=== PATIENT | female | born 1940 | race Caucasian/White ===

== ENCOUNTER 2020-12-29 15:20 | Outpatient (CLI) | payer MEDICARE, SELFPAY ==
--- NOTE | 2020-12-31 17:02 | WPDHOLTEREM ---
Holter/Event Monitor Holter/Event Monitor Date of procedure: 12/31/20 Procedure Type: 24 hour Holter monitor Diagnosis: tachycardia Indications: tachycardia Image/Tracing Quality: good Finding: This is a 24 hour Holter monitor in which she underlying rhythm was sinus with an average heart rate of 87 beats per minute minimum of 69 beats per minute occurring at 1:33 a.m. and a maximum of 114 beats per minute occurring at 1:08 p.m.. There 107 premature ventricular contractions without sustained or nonsustained ventricular tachycardia. There were rare supraventricular ectopic beats totaling 26 in which there were 2 atrial runs longest of which was 4 beats in duration. There was 1 atrial pair with 17 premature atrial contractions. There is no atrial fibrillation and/or atrial flutter, prolonged pauses, and or high-grade AV blocks. There were no symptoms returning conjunction with this study. PA and QRS duration appear within normal limits. Longest R-R interval 1.1 second at 0217. Conclusion: Fairly unremarkable Holter monitor with underlying sinus rhythm with rare PVCs and PACs with 2 runs of atrial tachycardia longest of which was 4 beats in duration. No atrial fibrillation or atrial flutter.
== END 2020-12-29 15:21 | disposition home or self-care (01) ==
DX: R00.0 Tachycardia, unspecified (principal)
CPT/HCPCS: 93225; 93226

== ENCOUNTER → 2022-04-30 13:18 | Outpatient (CLI) | payer MEDICARE, SELFPAY ==
--- NOTE | ~2022-04-30 | MM_ITS ---
EXAMINATION: MM screening [facility] w [facility] HISTORY: Screening mammogram TECHNIQUE: Craniocaudal and mediolateral oblique 3-D tomosynthesis images were obtained and synthetic 2-D images were generated. CAD analysis was submitted and interpreted. COMPARISON: No prior mammogram is available for comparison at this institution. BREAST PARENCHYMAL COMPOSITION: There are scattered areas of fibroglandular density. FINDINGS: Small asymmetric opacity is noted anteriorly near the right medial subareolar area and near the lateral subareolar area. Bilateral diagnostic mammography and breast ultrasound examination are recommended. IMPRESSION: 1. No mammographic evidence of malignancy. 2. Recommend routine screening mammography in one year. BI-RADS Category 0: Incomplete: Needs additional imaging evaluation. Reviewed, dictated and finalized at location A.
== END ==
DX: Z12.31 Encounter for screening mammogram for malignant neoplasm of breast (principal); R92.8 Other abnormal and inconclusive findings on diagnostic imaging of breast
CPT/HCPCS: 77063; 77067

== ENCOUNTER 2023-08-13 12:35 | Emergency (ER) | payer MEDICARE, SELFPAY ==
--- NOTE | ~2023-08-13 | XR_ITS ---
XR foot LT min 3V DATE: 08/13/2023 13:11 INDICATION: Lateral foot pain. No injury. TECHNIQUE: 4 views COMPARISON: None FINDINGS: Diffuse osteopenia. Plantar calcaneal enthesopathy. No fracture, dislocation, periosteal reaction or bone destruction. IMPRESSION: Plantar calcaneal enthesopathy Osteopenia Reviewed, dictated and finalized at location A.
[2023-08-13 12:50] VITALS: BP 135/67; PULSE 92; RESP 16; TEMP 37.2; O2SAT 98
--- NOTE | 2023-08-13 13:07 | ED.GENADULT ---
HPI - General Adult General Chief complaint: Extremity Problem,Nontraumatic Stated complaint: Pain on side of left foot Time Seen by Provider: 08/13/23 13:08 Source: patient Mode of arrival: ambulatory Limitations: no limitations History of Present Illness HPI narrative: 83 yo F presents with pain to lateral aspect of L foot. States yesterday laying on couch and started having sharp, shooting pains to L foot. Denies injury. No redness or warmth. Took tylenol with no relief of pain. Denies new shoes, for recent events that made her walk more than usual. All systems reviewed and negative except as noted above. Related Data Home Medications Medication Instructions Recorded Confirmed aripiprazole 5 mg tablet 5 mg PO DAILY 08/13/23 08/13/23 aspirin 325 mg tablet 325 mg PO DAILY 08/13/23 08/13/23 atorvastatin 80 mg tablet 80 mg PO DAILY 08/13/23 08/13/23 hydrochlorothiazide 25 mg tablet 25 mg PO DAILY 08/13/23 08/13/23 omeprazole 40 mg capsule,delayed 40 mg PO DAILY 08/13/23 08/13/23 release sertraline 100 mg tablet 100 mg PO DAILY 08/13/23 08/13/23 telmisartan 80 mg tablet 80 mg PO DAILY 08/13/23 08/13/23 Allergies Allergy/AdvReac Type Severity Reaction Status Date / Time meperidine [From Demerol] Allergy Vomiting Verified 08/13/23 12:48 Review of Systems Review of Systems: CONSTITUTIONAL: Denies fever, chills, or sweats. EYES: Denies visual changes, redness, or discharge. ENT: Denies rhinorrhea, congestion, sore throat, or otalgia. CARDIOVASCULAR: Denies chest pain, palpitations, or edema. RESPIRATORY: Denies cough or dyspnea. GASTROINTESTINAL: Denies abdominal pain, nausea, vomiting, or diarrhea. GENITOURINARY: Denies dysuria or hematuria. SKIN: Denies rash or itching. MUSCULOSKELETAL: Denies back pain, joint pain, or myalgia. Reports pain to lateral aspect of left foot. NEUROLOGIC: Denies headache, numbness, or weakness. PSYCHIATRIC: Denies anxiety or depression. All other systems reviewed are negative, except as documented in HPI. PMFSH Comments At time of signature, agree with nursing past medical, surgical, social and family history. There is no relevant family history pertinent to the presenting complaint. Exam Narrative: GENERAL: This is a well-nourished, well-developed patient, in no apparent distress. HEAD: normocephalic, atraumatic. EYES: PERRL. Sclera clear/white. Vision is grossly intact. EARS: External ears normal NOSE: External nose normal NECK: Neck supple, non-tender without lymphadenopathy, masses or thyromegaly. CARDIOVASCULAR: Regular rate and rhythm without murmurs, gallops, or rubs. RESPIRATORY: Clear to auscultation. Breath sounds equal bilaterally. No wheezes, rales, or rhonchi. SKIN: warm, Dry, intact with no suspicious lesions or rash, good texture and turgor. NEURO: awake, alert, and oriented to person, place and time. There were no obvious focal neurologic abnormalities. EXTREMITIES: No joint tenderness, effusion, or edema noted. Tenderness along 4th and 5th metatarsals with mild swelling. No erythema or warmth. No deformity. Course Course Level of Care: Express Care Visit Vital Signs Vital signs: Vital Signs Temperature 37.2 C 08/13/23 12:50 Pulse Rate 92 08/13/23 12:50 Respiratory Rate 16 08/13/23 12:50 Blood Pressure 135/67 08/13/23 12:50 Pulse Oximetry 98 08/13/23 12:50 Temperature 37.2 C 08/13/23 12:50 Pulse Rate 92 08/13/23 12:50 Respiratory Rate 16 08/13/23 12:50 Blood Pressure 135/67 08/13/23 12:50 Pulse Oximetry 98 08/13/23 12:50 Reviewed Medical Decision Making MDM Narrative Medical decision making narrative: X-ray negative for fracture. Patient does have history of osteoporosis. Recommend patient continue Tylenol every 6 8 hours and will prescribe prednisone for inflammation. Recommend follow-up with primary care physician if pain is not improving. Patient is aware of diagnosis, understands and agrees t
== END 2023-08-13 13:52 | disposition home or self-care (01) ==
PROVIDERS: Emergency Provider Nurse Practitioner Family
DX: M85.872 Other specified disorders of bone density and structure, left ankle and foot (principal); Z79.82 Long term (current) use of aspirin; I10 Essential (primary) hypertension; K21.9 Gastro-esophageal reflux disease without esophagitis; M19.90 Unspecified osteoarthritis, unspecified site; F41.9 Anxiety disorder, unspecified
CPT/HCPCS: 73630; 99213; G0463

== ENCOUNTER 2023-08-22 01:08 | Day surgery (SDC) | payer MEDICARE, SELFPAY ==
[2023-08-16 09:32] VITALS: BMI 31.8
[2023-08-22 13:01] VITALS: BP 145/69; PULSE 92; RESP 18; TEMP 36.8; O2SAT 98
[2023-08-22] MEDS: LACTATED RINGERS 1,000 ML 150 ML IV CONT (13:19)
--- NOTE | 2023-08-22 13:20 | WPDANESEPPF ---
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 Patient Data Age: 83 Gender: F Height: 1.6 m Weight: 76.6 kg Last Vital Signs Temp 98.2 F 08/22/23 13:01 Pulse 92 08/22/23 13:01 Resp 18 08/22/23 13:01 BP 145/69 H 08/22/23 13:01 Pulse Ox 98 08/22/23 13:01 O2 Del Method Room Air 08/22/23 13:01 Allergies Allergy/AdvReac Type Severity Reaction Status Date / Time meperidine [From Demerol] Allergy Intermediate Vomiting Verified 08/22/23 13:00 Home Medications Medication Instructions Recorded Confirmed Type aripiprazole 5 mg tablet 5 mg PO DAILY 08/13/23 08/16/23 History aspirin 325 mg tablet 325 mg PO DAILY 08/13/23 08/16/23 History atorvastatin 80 mg tablet 80 mg PO DAILY 08/13/23 08/16/23 History hydrochlorothiazide 25 mg tablet 25 mg PO 4XW 08/13/23 08/16/23 History omeprazole 40 mg capsule,delayed 40 mg PO DAILY 08/13/23 08/16/23 History release prednisone 20 mg tablet 40 mg PO DAILY 5 days #10 tabs 08/13/23 08/16/23 Rx sertraline 100 mg tablet 100 mg PO 4XW 08/13/23 08/16/23 History telmisartan 80 mg tablet 80 mg PO DAILY 08/13/23 08/16/23 History calcium 600 mg capsule 600 mg PO BID 08/16/23 08/16/23 History coQ10 (ubiquinol) 100 mg capsule 100 mg PO DAILY 08/16/23 08/16/23 History cyanocobalamin (vitamin B-12) 1,000 mcg PO 4XW 08/16/23 08/16/23 History 1,000 mcg capsule Patient hx anesthesia problems: none Family hx anesthesia problems: none Results Review: All pre-operative results and documents have been reviewed as part of the pre-operative evaluation. [facility] Social History Social History Alcohol intake: current Substance use: never Substance use type: does not use Living arrangements: with family Spiritual care concerns: No Anes - Eval Final PreProcedure Day of Procedure 08/22/23 13:20 Patient weight: normal Heart: regular rate and rhythm Lungs: clear to auscultation Airway: Mallampati scale class III Neurological: alert and oriented Last oral intake: >/= 8 hours ASA classification: III Emergent: no Anesthetic plan: proceed Anesthesia type and monitoring: general GIVS and standard monitoring Results Review: All pre-operative results and documents have been reviewed as part of the pre-operative evaluation. Informed Consent: The patient's anesthetic plan and its attendant risks and benefits were discussed with the patient/family/POA. Questions were solicited and answers provided to the satisfaction of the patient/family/POA.
--- NOTE | 2023-08-22 13:38 | P.HP_ITS ---
History of Present Illness History of Present Illness Consent: Risks, benefits, and alternatives have been discussed and questions answered. Patient agrees to proceed with procedure. Chief complaint: Moreira's esophagus with low grade dysplasia Narrative: Dora Loving is a 83 year old female Referred because of previous diagnosis of Moreira's esophagus. Patient states previous studies were done in [place]. These results are not available from the review. Patient states most recent EGD 3-4 years ago was performed. She was told she had low-grade dysplasia at that time. Patient currently maintained on omeprazole 40mg p.o. daily. She denies any heartburn. She has no dysphagia or bleeding. Family history is noncontributory. Review of Systems Review of Systems: Review of systems noncontributory. REPLACED BY [facility] Social History Social History Alcohol intake: current Substance use: never Substance use type: does not use Living arrangements: with family Spiritual care concerns: No Meds Home Medications and Allergies Home Medications Medication Instructions Recorded Confirmed Type aripiprazole 5 mg tablet 5 mg PO DAILY 08/13/23 08/16/23 History aspirin 325 mg tablet 325 mg PO DAILY 08/13/23 08/16/23 History atorvastatin 80 mg tablet 80 mg PO DAILY 08/13/23 08/16/23 History hydrochlorothiazide 25 mg tablet 25 mg PO 4XW 08/13/23 08/16/23 History omeprazole 40 mg capsule,delayed 40 mg PO DAILY 08/13/23 08/16/23 History release prednisone 20 mg tablet 40 mg PO DAILY 5 days #10 tabs 08/13/23 08/16/23 Rx sertraline 100 mg tablet 100 mg PO 4XW 08/13/23 08/16/23 History telmisartan 80 mg tablet 80 mg PO DAILY 08/13/23 08/16/23 History calcium 600 mg capsule 600 mg PO BID 08/16/23 08/16/23 History coQ10 (ubiquinol) 100 mg capsule 100 mg PO DAILY 08/16/23 08/16/23 History cyanocobalamin (vitamin B-12) 1,000 mcg PO 4XW 08/16/23 08/16/23 History 1,000 mcg capsule Allergies Allergy/AdvReac Type Severity Reaction Status Date / Time meperidine [From Demerol] Allergy Intermediate Vomiting Verified 08/22/23 13:00 Vital Signs Vital Signs - 24 hr 08/22/23 13:01 Temperature 98.2 F Pulse Rate 92 Respiratory Rate 18 Blood Pressure 145/69 H Pulse Oximetry 98 Oxygen Delivery Room Air Exam Narrative: Physical exam reveals patient to be alert. Vital signs stable. HEENT exam is unremarkable. Patient is anicteric. Lungs are clear to auscultation and percussion. Heart is without murmur or extra sounds. Abdomen bowel sounds are present soft nontender with no organomegaly. Digital external rectal exam is normal. Assessment and Plan Assessment and plan (1) 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 Status: Acute Assessment and Plan: Patient is reported to have Moreira's esophagus. She states that at 1 point h ad low-grade dysplasia. Old records not available for review. Plan to continue omeprazole 40mg p.o. daily. EGD requested will be performed. Biopsies will be necessary and follow up pending results of histology. Further recommendations will be given after endoscopy. Long-term use of PPI and anti-reflux measures are encouraged.
[2023-08-22 14:11] VITALS: BP 122/72; PULSE 90; RESP 18; O2SAT 98
[2023-08-22 14:21] VITALS: BP 137/78; PULSE 89; RESP 15; O2SAT 99
[2023-08-22 14:31] VITALS: BP 127/86; PULSE 89; RESP 17; O2SAT 99
== END 2023-08-22 14:40 | disposition home or self-care (01) ==
PROVIDERS: PCP Family Medicine Sports Medicine; Visit Provider Internal Medicine Gastroenterology
PROC: 0DJ08ZZ Inspection of Upper Intestinal Tract, Via Natural or Artificial Opening Endoscopic (ICD-10-PCS; CPT 43235; principal; 2023-08-22 14:00)
DX: K22.70 Barrett's esophagus without dysplasia (principal); K31.7 Polyp of stomach and duodenum; K25.9 Gastric ulcer, unspecified as acute or chronic, without hemorrhage or perforation; K44.9 Diaphragmatic hernia without obstruction or gangrene; Z79.82 Long term (current) use of aspirin
CPT/HCPCS: 43239; 43251; 87081; 88305; J2704; J7120

== ENCOUNTER 2024-12-21 18:49 | Inpatient (IN) | payer MEDICARE, SELFPAY ==
--- NOTE | ~2024-12-21 | MR_ITS ---
EXAMINATION: MR brain/brain stem wo con DATE: 12/28/2024 08:14 INDICATION: Stroke TECHNIQUE: Magnetic resonance imaging (MRI) of the brain and brainstem was performed without intraven ous contrast. Sequences included sagittal and axial T1-weighted SE, axial diffusion-weighted FS SE, a xial 3D SWAN, axial T2-weighted FLAIR, and axial T2-weighted FSE. Apparent diffusion coefficient (ADC ) maps were created. COMPARISON: None. FINDINGS: There are small regions of restricted diffusion consistent with acute infarct in the left cerebellar hemisphere and at the junction of the right thalamus and right cerebral peduncle. Small old lacunar i nfarct at the right basal ganglia. No intracranial hemorrhage or abnormal intracranial mass lesion. T here are scattered areas of nonspecific increased T2-weighted signal intensity in the cerebral white matter, predominantly involving the deep and periventricular white matter. There are no intraparenchy mal signal abnormalities seen on the other pulse sequences. Symmetric prominence of the sulci consistent with mild age-appropriate diffuse cerebral volume loss. The ventricles are symmetric and normal in size. There are no abnormal extra-axial fluid collections . Flow voids are seen in the cerebral arteries on the T2-weighted sequences consistent with their exp ected patency. Changes of bilateral intraocular lens replacement. Visualized orbits and soft tissues are unremarkable. IMPRESSION: 1. Small acute lacunar infarcts at the left cerebellar hemisphere and at the junction of the right th alamus and right cerebral peduncle. 2. 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 3. Age-related changes including mild diffuse volume loss and moderate scattered nonspecific white ma tter T2 hyperintensity which within normal limits for age and likely sequela of chronic small vessel ischemic disease. Reviewed, dictated and finalized at location B. L DRILL OPERATOR IMPRESSION: 1. Small acute lacunar infarcts at the left cerebellar hemisphere and at the ju nction of the right thalamus and right cerebral peduncle. 2. 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 3. Age-related changes including mild diffuse volume loss and moderate scattere d nonspecific white matter T2 hyperintensity which within normal limits for age and likely sequela of chronic small vessel ischemic disease.
--- NOTE | ~2024-12-21 | XR_ITS ---
HISTORY: R upper arm pain COMPARISON: None TECHNIQUE: 3 views of the right humerus were performed FINDINGS: Cortical irregularity is identified within the right humeral head suggesting prior fracture.. No acute fracture deformity is appreciated. IMPRESSION: Findings consistent with prior fracture deformity, as detailed above Reviewed, dictated and finalized at location A. TIONAL GUIDANCE COUNSELOR IMPRESSION: Findings consistent with prior fracture deformity, as detailed abo ve
--- NOTE | ~2024-12-21 | CT_ITS ---
Clinical indication:Indeterminate findings on radiograph performed less than 24 hours earlier for whi ch pneumonia is suspected clinically. Leukocytosis, bacteriuria, and traumatic fracture deformities in addition to lactic acidosis. COMPARISON:Plain radiograph of the chest performed 24 hours earlier TECHNIQUE: Multiple contiguous axial images of the chest were performed without the administration of intravenous contrast. FINDINGS: LUNG:Dependent atelectasis is identified bilaterally. Trace pleural thickening is also noted. No left-sided pleural effusion is suggested on radiograph. No consolidation is present MEDIASTINUM:. Calcified lymph nodes within the mediastinum suggesting prior granulomatous disease. A large hiatal hernia is present. HEART:The heart is of normal size, without pericardial effusion. SOFT TISSUES OF THE CHEST: Unremarkable BONES OF THE CHEST: Anterior wedge compression of the T4 vertebral body. Redemonstration of a right h umeral neck fracture. VISUALIZED PORTION OF THE UPPER ABDOMEN: The gallbladder surgically absent. Fatty atrophy of the pancreas. Punctate calcifications identified within the splenic parenchyma, suggesting prior granulomatous dise ase. IMPRESSION: Dependent atelectasis with trace pleural thickening bilaterally. No consolidation. No cross-sectional imaging evidence to suggest pneumonia. Leukocytosis may be a result of urinary tract infection plus acute traumatic injury. Reviewed, dictated and finalized at location A. PERSON IMPRESSION: Dependent atelectasis with trace pleural thickening bilaterally. No consolidation. No cross-sectional imaging evidence to suggest pneumonia. Leukocytosis may be a result of urinary tract infection plus acute traumatic in jury.
--- NOTE | ~2024-12-21 | XR_ITS ---
HISTORY: R and L clavicle pain COMPARISON: None TECHNIQUE: 4 views of the bilateral clavicles were performed. FINDINGS: Diffuse bony demineralization is identified. No acute fracture is present within the bilateral clavicles. IMPRESSION: As above Reviewed, dictated and finalized at location A. F ANALYTICS OFFICER IMPRESSION: As above
--- NOTE | ~2024-12-21 | XR_ITS ---
HISTORY: L upper arm pain COMPARISON: None TECHNIQUE: 2 views of the left humerus were performed. FINDINGS: Comminuted impacted left humeral neck fracture is identified. IMPRESSION: Comminuted impacted left humeral neck fracture. Reviewed, dictated and finalized at location A. FORCED STEEL PLACING SUPERVISOR
--- NOTE | ~2024-12-21 | XR_ITS ---
CHEST RADIOGRAPH CLINICAL HISTORY: NEW OXYGEN REQUIREMENT . COMPARISON: 12/21/2024 at 8:15 PM TECHNIQUE: Single portable view of the chest. FINDINGS Bulky calcified lymph nodes within the mediastinum suggesting prior granulomatous disease. The remainder of the cardiomediastinal silhouette is otherwise unremarkable. Hazy opacification of the left hemidiaphragm is identified, which may represent a small left-sided pl eural effusion, not present on the 8:00 PM examination. The remainder of the lungs are clear. IMPRESSION: Possible small left-sided pleural effusion, as detailed above. Reviewed, dictated and finalized at location A. BILITY PROGRAM NAVIGATOR
--- NOTE | ~2024-12-21 | CT_ITS ---
EXAMINATION: CT brain wo con DATE: 12/27/2024 14:27 INDICATION: Fall. Confusion. TECHNIQUE: Computed tomography (CT) of the head was performed without intravenous contrast. Sagittal and coronal reconstructions were performed. The mA was adjusted according to patient size. Iterative reconstruction technique was employed. The dose-length product was 605.33 mGy-cm. COMPARISON: head CT dated 12/21/24 FINDINGS: No fracture. There are old lacunar infarcts at the bilateral thalami, right basal ganglia and in the right central nikolay. No acute intracranial hemorrhage, acute infarction or abnormal extra axial fluid collection. There is moderate scattered white matter hypoattenuation consistent with chronic small ve ssel ischemic disease. Symmetric prominence of the sulci consistent with mild age-appropriate diffuse cerebral volume loss. Ventricles are normal and symmetric. No mass/mass effect. Changes of bilateral intraocular lens replacement. The orbits and mastoid air cells are normal. There is some mucosal thi ckening in the posterior right maxillary sinus and at the left frontoethmoidal recess. IMPRESSION: 1. . 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 No acute intr acranial process. 2. Age-related changes including mild diffuse volume loss and moderate scattered white matter hypoatt enuation consistent with chronic small vessel ischemic disease. Reviewed, dictated and finalized at location B. FERING MACHINE OPERATOR IMPRESSION: 1. . Old lacunar infarcts in the bilateral thalami, right basal ganglia and rig ht nikolay. No acute intracranial process. 2. Age-related changes including mild diffuse volume loss and moderate scattere d white matter hypoattenuation consistent with chronic small vessel ischemic di sease.
--- NOTE | ~2024-12-21 | CT_ITS ---
EXAMINATION: CTA chest PE protocol DATE: 12/30/2024 21:42 COLLECTIONS TECHNICIAN INDICATION: Prolonged immobilization from humerus fracture with an episode of hypoxia for which pulmo nary embolus is suspected. TECHNIQUE: Computed tomographic angiography (CTA) of the chest was performed with 100 mL Omnipaque-35 0 intravenous contrast. The dose-length product was 742.91 mGy-cm. Maximum intensity projection 3D-re constructions of the aorta and other arteries were constructed by the technologist on a separate work station. COMPARISON: None. Reference is made to a diagnostic CT evaluation of the chest dated 12/22/2024 FINDINGS: No filling defect within the main or proximal pulmonary arteries. The thoracic aorta is of normal caliber without aneurysmal dilatation or dissection. Large hiatal hernia. The cardiomediastinal silhouette is enlarged, without pericardial effusion. Trace bibasilar pleural effusion, left greater than right with adjacent compressive atelectasis. Inte rstitial thickening is also noted, likely chronic. The remainder of the lungs are clear. Within the upper abdomen: The gallbladder is surgically absent. Prominent loops of small bowel are identified. Fatty atrophy of the pancreas. IMPRESSION: No pulmonary embolus. No aortic dissection. Trace bibasilar pleural effusions, left greater than right with adjacent compressive atelectasis. Reviewed, dictated and finalized at location A. ECTIONS TECHNICIAN IMPRESSION: No pulmonary embolus. No aortic dissection. Trace bibasilar pleural effusions, left greater than right with adjacent compre ssive atelectasis.
--- NOTE | ~2024-12-21 | CT_ITS ---
History: Fall PROCEDURE: CT head without contrast. COMPARISON: None TECHNIQUE: Axial imaging of the head performed from the skull base to the vertex without IV contrast. Sagittal a nd coronal reformations obtained. DLP: 681 mGy-cm FINDINGS: The ventricles are dilated. The dilatation of the ventricles is proportional to the degree of sulcal prominence, not uncommon in the senescent brain. Decreased attenuation is identified within the periventricular white matter, likely secondary to micr ovascular ischemic disease, in a patient of this age. There is no mass, mass effect or midline shift. There is no abnormal extra-axial fluid collection or intracranial hemorrhage. Mucoperiosteal thickening within the right maxillary sinus. Remaining visualized paranasal sinuses are clear. The mastoid air cells are well aerated. No acute displaced fractures within the overlying cranium. Impression: No acute intracranial hemorrhage or suspicious mass effect. Inflammatory sinus disease. Reviewed, dictated and finalized at location A. BOX SERVICER Impression: No acute intracranial hemorrhage or suspicious mass effect. Inflammatory sinus disease.
--- NOTE | ~2024-12-21 | XR_ITS ---
EXAMINATION: XR chest 1V portable DATE: 12/26/2024 09:03 INDICATION: Weakness. TECHNIQUE: A single frontal view of the chest was obtained. COMPARISON: Chest view 12/21/2024, chest CT 12/22/2024 FINDINGS: The patient is rotated to her left. There are airspace opacities in the mid and lower lung zones. No pleural effusion. Calcified right hilar and mediastinal lymph nodes are consistent with old granulomatous disease. The heart size is normal. There is a moderate-sized hiatal hernia. There is a comminuted fracture of proximal left humerus. IMPRESSION: 1. Airspace opacities in the mid and lower lung zones, likely atelectasis. 2. Moderate-sized hiatal hernia. 3. Comminuted fracture of proximal left humerus. Reviewed, dictated and finalized at location A. ET YARN WINDER OPERATOR
--- NOTE | ~2024-12-21 | US_ITS ---
EXAMINATION: US carotid duplex BI DATE: 12/28/2024 15:12 INDICATION: Stroke TECHNIQUE: Grayscale, color Doppler, and pulsed Doppler images of the cervical carotid arteries were obtained. The degree of vessel stenosis is placed in one of the following categories: normal, <50%, 5 0-69%, >=70% but less than near-occlusion, near-occlusion, or total occlusion. Note that percent sten osis relative to normal distal artery lumen diameter is indirectly measured from velocity measurement s as described by Freedom, et al. Radiology 2003; 229:340-346. COMPARISON: None. FINDINGS: RIGHT: The right common carotid artery (CCA) peak systolic velocity (PSV) is 111 cm/s. The right internal ca rotid artery (ICA) PSV is 118 cm/s. The right ICA end-diastolic velocity (EDV) is 18 cm/s. The right ICA/CCA PSV ratio is 1.1. Grayscale and color Doppler images yield an estimate of <50% diameter reduc tion from plaque in the ICA. The external carotid artery (ECA) PSV is 164 cm/s. There is antegrade fl ow in the right vertebral artery. LEFT: The left CCA PSV is 124 cm/s. The left ICA PSV is 137 cm/s. The left ICA EDV is 19 cm/s. The left ICA /CCA PSV ratio is 1.1. Grayscale and color Doppler images including secondary Doppler criteria yield an estimate of <50% diameter reduction from plaque in the ICA. The ECA PSV is 140 cm/s. There is ante grade flow in the left vertebral artery. IMPRESSION: 1. <50% stenosis in the right internal carotid artery. 2. <50% stenosis in the left internal carotid artery. Reviewed, dictated and finalized at location A. FABRICATOR
--- NOTE | ~2024-12-21 | CT_ITS ---
History: Fall PROCEDURE: CT cervical spine without intravenous contrast. COMPARISON: None TECHNIQUE: Multiple contiguous axial images of the cervical spine were performed without the administration of i ntravenous contrast. DLP: 346 mGy-cm FINDINGS: Preservation of the curvature of the cervical spine is identified with moderate kyphosis. Significant degenerative disease is identified with osteophyte formation, disc space narrowing, endpl ate changes and facet arthropathy. Densely calcified atherosclerotic disease. No acute fractures are present. The bilateral lung apices are not included on the current imaging No soft tissue abnormality is present. The airway is patent Impression: Significant degenerative disease, without acute fracture. Reviewed, dictated and finalized at location A. DESTRUCTIVE TESTING SUPERVISOR Impression: Significant degenerative disease, without acute fracture.
--- NOTE | ~2024-12-21 | CT_ITS ---
History: Fall PROCEDURE: CT thoracic and lumbar spine without intravenous contrast. COMPARISON: None TECHNIQUE: Multiple contiguous axial images of the lumbar spine were performed without the administration of int ravenous contrast. DLP: 1845 mGy-cm FINDINGS:Significant degenerative disease is identified within both the thoracic and lumbar spines wi th osteophyte formation, disc space narrowing, endplate changes and vacuum phenomena. Facet arthropathy is also noted, as is increased kyphosis. No acute compression fractures are present. No soft superficial tissue abnormality is noted. Impression:Significant degenerative disease, without acute fracture. Reviewed, dictated and finalized at location A. EL CLERK Impression:Significant degenerative disease, without acute fracture.
--- NOTE | ~2024-12-21 | XR_ITS ---
CHEST RADIOGRAPH CLINICAL HISTORY: fall . COMPARISON: None available TECHNIQUE: Single portable view of the chest. FINDINGS Moderate hiatal hernia. The remainder of the cardiomediastinal silhouette is otherwise unremarkable. The lungs are clear. IMPRESSION: No focal infiltrate or effusion. Reviewed, dictated and finalized at location A. EN MACHINERY MECHANIC
--- OUTSIDE RECORDS SUMMARY | 2024-12-21 18:52 | XMS_ITS | Encounter Summary ---
Author Organization [facility] Address [address] [place] [address] Care Team Providers Care Maturity Checker Name Role Phone Mu Monahan MD Primary Care Provider Encounter Details Date Type Department Care Team (Late st Contact Info) Description 04/14/2016 [facility] Outpatient Visit [facility] - [address] [place], [place] [id number] Yamileth Hardwick, SECURITY DIRECTOR [address] [place] [address] Social History Tobacco Use Types Packs/Day Years Used Date Smoking Tobacco: Never Alcohol Use Standard Drinks/Week Comments No 0 (1 standard drink = 0.6 oz pur e alcohol) Sex and Gender Information Value Date Recorded Sex Assigned at Not on file Gender Identity Not on file Sexual Orientation Not on file documented as of this encounter Functional Status Functional Status Response Date of Assess ment Is person deaf or have serious hearing difficult y? No 03/12/2015 Is person blind or have serious difficulty seein g? No 03/12/2015 Does person have serious dif ficulty walking/climbing stairs? No 03/12/2015 Does person have difficulty dressing/bathing? No 03/12/2015 Does person have difficulty doing errands alone? No 03/12/2015 Cognitive Status Response Date of Assessm ent Does person have difficulty concentrating/remembering/making decisions? No 03/12/2015 documented as of this encounter Plan of Treatment Not on file documented as of this encounter Visit Diagnoses Not on filedocumented in this encounter Additional Health Concerns Infection Onset Date Last Indicated Resolved Time COVID-19 Under Investigation 08/09/2020 08/09/2020 08/10/2020 7:19 PM CDT COVID-19 Under Investigation 08/23/2020 08/23/2020 08/24/2020 2:59 PM CDT COVID-19 Under Investigation 10/19/2020 10/19/2020 10/21/2020 12:34 PM AGENT COVID-19 Under Investigation 10/22/2020 10/22/2020 10/23/2020 10:49 AM AGENT documented as of this encounter Care Teams Maturity Checker Relationship Specialty Start Date End Date Mu Monahan MD [address] [address] PCP - General Internal Medicine 10/15/13 documented as of this encounter
--- OUTSIDE RECORDS SUMMARY | 2024-12-21 18:52 | XMS_ITS | Referral Summary ---
Author Organization [facility] [employer] Address [address] [place] [address] Care Team Providers Care Pool Table Mechanic Name Role Phone Mu Monahan MD Primary Care Provider Source Comments [facility],non-owned Affiliates and Associated Physician Practices is amultiple site organization consisting of ambulatory clinics and hospital sitesin [place], [place], [place] and [place]. This disclosure is being madepursuant to the Care Everywhere program and may not contain all information available regarding this patient. Last updated 18.[facility] Allergies Active Allergy Reactions Criticality Noted Date Comments Azithromycin Anaphylaxis High 10/20/2020 Pt received Azithromycin and Rocephin a few minutes apart. Pt had anaphylactic reaction. unsure which medication caused the reaction. Meperidine Nausea and/or Vomiting 11/12/2014 Ceftriaxone Anaphylaxis High 10/20/2020 Pt received Azithromycin and Rocephin a few minutes apart. Pt had anaphylactic reaction. MD unsure which medication caused the reaction. Medications * Be aware that medications may not be up to date on this document. Alwaysverify current medications with the patient. Medication Sig Dispensed Refills Start Date End Date Status sertraline (ZOLOFT) 100 MG tabletIndications:S ocial Anxiety Disorder Take 200 mg by mouth once daily Reasons: Social Anxiety Disorder Active Coenzyme Q10 (COQ-10) 10 MG Take 1 mg by mouth once daily Active telmisartan (MICARDIS) 80 MG tablet Take 80 mg by mouth once daily Active ferrous sulfate 325 (65 FE) MG tablet Take 325 mg by mouth 2 times daily with morning and evening meal Active atorvastatin (LIPITOR) 80 MG tablet Take 40 mg by mouth at bedtime Active omeprazole (PRILOSEC) 40 MG capsule Take 1 capsule by mouth 2 times daily,before breakfast and supper 12/01/2018 Active ARIPiprazole (ABILIFY) 5 MG tablet Take 5 mg by mouth once daily Active hydroCHLOROthiazide (HYDRODIURIL) 25 MG tablet Take 25 mg by mouth once daily Active aspirin EC (ECOTRIN) 325 MG tablet Take 325 mg by mouth at bedtime Active metFORMIN ER 24hr (GLUCOPHAGE XR) 500 MG tablet TAKE 1 TABLET BY MOUTH ONCE DAILY IN THE MORNING 09/08/2020 Active calcium carbonate (TUMS) 500 MG chew tablet Take 1 tablet by mouth every 2 hours as needed for Heartburn 10/29/2020 Active ondansetron (ZOFRAN) 2 MG/ML injection 4 mg by Intravenous route every 6 hours as needed 10/29/2020 Active amLODIPine (NORVASC) 10 MG tablet Take 1 tablet by mouth once daily 10/29/2020 Active cyclobenzaprine (FLEXERIL) 10 MG tablet Take 1 tablet by mouth 3 times daily as needed for Muscle Spasms 10/29/2020 Active acetaminophen (TYLENOL) 500 MG tablet Take 1 tablet by mouth every 4 hours as needed Maximum allowable Acetaminophen amount = 4 Grams (4000 mg) / 24 hours. 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 Low back pain 02/13/2018 Syncope and collapse 11/16/2017 Closed fracture of left ankle 11/16/2017 Frequent falls 11/16/2017 Chest discomfort 03/12/2015 Lethargy 11/12/2014 Decreased appetite 11/12/2014 Moreira's esophagus with high grade dysplasia Pre-op evaluation Resolved Problems Problem Noted Date Diagnosed Date Resolved Date Diarrhea 10/20/2020 10/22/2020 Acute cystitis with hematuria 10/20/2020 10/22/2020 Traumatic rhabdomyolysis 10/20/2020 Postural dizziness with presyncope 10/20/2020 10/22/2020 Dehydration 01/30/2020 02/13/2020 Diarrhea 01/30/2020 02/27/2020 Immunizations Name Administration Dates Next Due INFLUENZA VACCINE, TRIV. (AF LURIA, FLUZONE TRIVALENT; 6MO+) (IIV3) 08/28/2018 INFLUENZA VACCINE 09/27/2017,08/28/2014 INFLUENZA VACCINE, HIGH-DOSE , QUADR. (FLUZONE HIGH-DOSE QUADRIVALENT; 65Y+), 0.7 ML (HD-IIV4) 09/14/2020,08/23/2019 PNEUMOCOCCAL PPSV23 03/12/2015 Social History Tobacco Use Types Packs/Day Years Used Date Smoking Tobacco: Never Smokeless Tobacco: Never Tobacco Cessation:Counseling Given: No Alcohol Use Standard Drinks/Week Comments No 0 (1 standard drink = 0.6 oz pur e alcohol) Sex and Gender Information Value Date Recorded Sex Assigned at Not on file Gender Identity Not on file Sexual Orientation Not on file Last Filed Vital Signs Vital Sign Reading Time Taken Comments Blood Pressure 112/54 10/29/2020 11:27 AM [facility] Pulse 96 10/29/2020 11:27 AM [facility] Temperature 36.8 ??C (98.2 ??F) 10/29/2020 11:[address] Respiratory Rate 20 10/29/2020 11:27 AM [facility] Oxygen Saturation 98% 10/29/2020 11:27 AM [facility] Inhaled Oxygen Concentration 21% 11/17/2017 7 :30 PM [facility] Weight 83.9 kg (185 lb) 01/29/2021 12:56 PM [facility] Height 160 cm (5' 3 ) 10/20/2020 7:51 PM [facility] Body Mass Index 32.77 10/20/2020 7:51 PM [facility] Functional Status Functional Status Response Date of Assess ment Is person deaf or have chance us hearing difficulty? Yes 10/20/2020 Is person blind or have seri ous difficulty seeing? Yes-glasses 10/20/2020 Does person have serious dif ficulty walking/climbing stairs? Yes-walker at home 10/20/2020 Does person have difficulty dressing/bathing? No 10/20/2020 Does person have difficulty doing errands alone? No 10/20/2020 Cognitive Status Response Date of Assessm ent Does person have difficulty concentrating/remembering/making decisions? Yes 10/20/2020 Plan of Treatment Not on file Goals Goal Patient Goal Type Associated Problems Recent Progress Patient-Stated? Author Safety General On track( 2:46 PM [facility]) No Valeria Gomez, PRACHI Note: Expected end date: Ongonig Interventions: Your nurse will assess your risk for falls/injury each visit Use appropriate and safe transfer methods Make sure appropriate safety devices are available and within reach Medication Management General On track( 2:46 PM [facility]) No Valeria Gomez, PRACHI Note: Expected end date: Ongoing Interventions: Take all medications as prescribed Let your doctor know right away about any changes in your medications Procedures Procedure Name Priority Date/Time Associated Diagnosis Comments DEXA BONE DENSITY AXIAL SKELETON Routine 02/24/2021 3:10 PM CDT Postmenopausal HEMOGLOBIN A1C ELIAN 10/20/2020 4:38 AM [facility] from Last 3 Months or Most Recently Relevant to Health Maintenance Results * DEXA BONE DENSITY STUDY 94814 (02/24/2021 3:10 PM CDT) Anatomical Region Laterality Modality Radiographic July ging 02/24/2021 3:11 PM CDT Impressions 02/24/2021 3:12 PM CDT IMPRESSION:. Severe osteopenia. Increased risk for fracture. Follow-up in one to previous. 10 year probability of fracture. Major osteoporotic fracture 27.2% Hip fracture 9.3%. Narrative 02/24/2021 3:12 PM CDT PROCEDURE: DEXA BONE DENSITY AXIAL SKELETON ??02/24/2021 3:11 PM HISTORY: Asymptomatic menopausal state. FINDINGS AND IMPRESSION: COMPARISON: 04/15/2017. LUMBAR SPINE: BMD 1.098 g/sq cm T score -0.7 Z score 0.9. HIP JOINTS: BMD 0.714 g/sq cm T score -2.2 Z score -0.2. Procedure Note Joya Castillo MD - 02/24/2021 PROCEDURE: DEXA BONE DENSITY AXIAL SKELETON 02/24/2021 3:11 PM HISTORY: Asymptomatic menopausal state. FINDINGS AND IMPRESSION: COMPARISON: 04/15/2017. LUMBAR SPINE: BMD 1.098 g/sq cm T score -0.7 Z score 0.9. HIP JOINTS: BMD 0.714 g/sq cm T score -2.2 Z score -0.2. IMPRESSION IMPRESSION:. Severe osteopenia. Increased risk for fracture. Follow-up in one to previous. 10 year probability of fracture. Major osteoporotic fracture 27.2% Hip fracture 9.3%. 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 Treatment Target Values: Normal : < 5.7% Pre-diabetes: 5.7-6.4% Diabetes: Equal to or greater than 6.5% Reference: [place] [employer] Standards of Care in Diabetes -2014 In patients 70 years and older consider HbA1c target range of 7.0-7.5% Reference: ??Diabetes Mellitus in Older People: Position Statement on behalf of the International Association of Gerontology and Geriatrics (IAGG), the Diabetes Working Alliance Party for Older People (EDWPOP), and the International Task Force of Experts in Diabetes. ??Jarad Rendon et al. J [employer] [employer] Association. 2012 Test results diagnostic of diabetes should be repeated for confirmation. The Sebia Capillary 2 assay for the measurement of HbA1c is a National Glycohemoglobin Standardization Program (NGSP)certified method. Blood BLOOD SPECIMEN / Unknown Venipuncture / Unknown 10/20/2020 4:38 AM [facility] 10/20/2020 4:41 AM [facility] Gene Barone MD LAB - CHEMISTRY ORDERABLES [place] [id number] [place] [address], [facility] [phone] from Last 3 Months or Most Recently Relevant to Health Maintenance Advance Directives Documents on File Type Date Recorded Patient Sales Trainer Expl anation Adv Directive/Living Will/POA 10/30/2020 12:49 PM Adv Directive/Living Will/POA 03/13/2015 11:30 AM * Full Code (Latest Code Status on File) Date Activated Date Inactivated Comments 10/20/2020 3:50 AM 10/29/2020 5:11 PM * Full Code Date Activated Date Inactivated Comments 11/16/2017 5:18 PM 11/18/2017 5:10 PM * Full Code Date Activated Date Inactivated Comments 03/11/2015 4:18 PM 03/12/2015 3:10 PM Care Teams Pool Table Mechanic Relationship Specialty Start Date End Date Mu Monahan MD [address] [address] PCP - General Internal Medicine 10/15/13
--- OUTSIDE RECORDS SUMMARY | 2024-12-21 18:52 | XMS_ITS | CONTINUITY OF CARE DOCUMENT ---
Author Name martina mack Address Unknown Organization [facility] Address [address] [place] [address] Phone [phone] Care Team Providers Care Industrial Recruiter Name Role Phone Gene Reyna MD Unavailable [phone] Gene Reyna MD Unavailable [phone] INSURANCE PROVIDERS Payer name Policy type / Coverage type [place] red constitution party ID [facility] [id number] [place] [id number]
--- OUTSIDE RECORDS SUMMARY | 2024-12-21 18:52 | XMS_ITS | Clinical Summary ---
Author Organization [facility] [place] [address] [facility] [address] Address [address] [place] [address] Care Team Providers Care Web Content Manager Name Role Phone Lynn Wing MD Primary Care Provider Allergies Active Allergy Reactions Criticality Noted Date Comments Azithromycin Anaphylaxis High 10/20/2020 Pt received Azithromycin and Rocephin a few minutes apart. Pt had anaphylactic reaction. unsure which medication caused the reaction. Ceftriaxone Anaphylaxis High 10/20/2020 Pt received Azithromycin and Rocephin a few minutes apart. Pt had anaphylactic reaction. MD unsure which medication caused the reaction. Meperidine Nausea only,Nausea A nd Vomiting Medium 11/12/2014 Demerol Medications acetaminophen (TYLENOL) 500 mg tablet Take 1 tablet (500 mg total) by mouth every 4 (four) hours as needed 0 Active aspirin 325 mg tablet Take 1 tablet (325 mg total) by mouth nightly Active calcium carbonate-vitamin D3 1,250mg (500mg elemental) - 5 mcg (200 units) per tablet Take 1 tablet by mouth Active cyclobenzaprine (FLEXERIL) 5 mg tablet TAKE 1 TABLET BY MOUTH EVERY 8 HOURS NEEDED. MAY CUT IN HALF IF TOO SEDATING 2 Active coenzyme Q10 10 mg capsule Take 1 mg by mouth daily Active cyanocobalamin (Vitamin B-12) 2,500 mcg tablet, sublingualIndicati ons:Prevention of Vitamin B12 Deficiency Active UNABLE TO FIND Take 1 each by mouth nightly Med Name: Nervive - nightly nerve supplement Active omeprazole (PriLOSEC) 40 mg capsuleIndications :Moreira's esophagus with high grade dysplasia Take 1 capsule by mouth once daily 90 capsule 3 4 Active telmisartan (MICARDIS) 80 mg tablet Take 1 tablet by mouth once daily 90 tablet 1 4 Active gabapentin (NEURONTIN) 100 mg capsuleIndications :Type 2 diabetes mellitus with diabetic polyneuropathy, without long-term current use of insulin (HCC),Type 2 diabetes mellitus with stage 3b chronic kidney disease, without long-term current use of insulin (HCC) TAKE 1 CAPSULE BY MOUTH NIGHTLY 90 capsule 3 4 Active atorvastatin (LIPITOR) 80 mg tabletIndications: Hyperlipidemia, unspecified hyperlipidemia type Take 1 tablet by mouth once daily 90 tablet 1 4 Active sertraline (ZOLOFT) 100 mg tablet TAKE 1/2 (ONE-HALF) TABLET BY MOUTH EVERY OTHER DAY 45 tablet 4 025 Active Active Problems Problem Noted Date Diagnosed Date Memory deficit 08/13/2024 Class 1 obesity due to exces s calories with serious comorbidity and body mass index (BMI) of 30.0 to 30.9 in adult 08/13/2024 Assessment & Plan (08/13/2024 7:04 PM CDT): Chronic. Stable. Encouraged healthy diet and physical activity as able. Monitor RLS (restless legs syndrome) 05/11/2024 Overview (05/11/2024): Better with low-dose gabapentin at night. Monitor. We will continue for now. Assessment & Plan (08/13/2024 7:03 PM CDT): Chronic. Continue low-dose gabapentin night time. Type 2 diabetes mellitus wit h stage 3b chronic kidney disease, without long-term current use of insulin 11/30/2022 Assessment & Plan (08/13/2024 7:02 PM CDT): Chronic. Diabetes has been diet controlled. Monitor renal function. We are trying to minimize meds given her age. Assessment & Plan (05/11/2024 4:46 PM CDT): Chronic. Renal function has been stable. Diabetes well-controlled. Monitor. Avoid NSAIDs and dehydration. Assessment & Plan (02/08/2024 6:19 PM CDT): Chronic. We will monitor her diabetic kidney disease as well as her A1c. Diabetes control. Kidney disease as above Stage 3b chronic kidney disease 09/06/2022 Assessment & Plan (02/08/2024 6:19 PM CDT): Chronic. Monitor lab a least yearly. Avoid dehydration use of NSAIDs. Was stable on last labs. Hopefully with stopping hydrochlorothiazide we may actually see this improve Moreira's esophagus with low grade dysplasia 01/2022 Assessment & Plan (08/13/2024 7:01 PM CDT): Chronic. Continue omeprazole daily to decrease risk of dysplasia. Monitor. Assessment & Plan (05/11/2024 4:44 PM CDT): Chronic. Denies significant reflux. Continue PPI. It is possible some of her mild shortness of breath with lying flat could be related to occult acid reflux. We need to monitor. Assessment & Plan (02/08/2024 6:18 PM CDT): Chronic. Continue omeprazole. Had EGD in the past few months with GI at [facility] but we do not have report. Patient reports EGD looked okay. We will have her stay on the omeprazole long-term to decrease risk of developing significant progressive dysplasia or esophageal cancer. They are agreeable with this ZAIDA (generalized anxiety disorder) 08/30/2022 Assessment & Plan (08/13/2024 7:02 PM CDT): Chronic. Anxiety is relatively stable. Continue sertraline 50 mg daily. She does have a little bit of mild depression and social isolation symptoms but not significantly worse since stopping Abilify. We will continue to monitor Assessment & Plan (05/11/2024 4:46 PM CDT): Chronic. Mood has been relatively stable recently. Monitor. Continue sertraline. We will go ahead and try to wean her off of the Abilify Assessment & Plan (02/08/2024 6:20 PM CDT): Chronic. Well-controlled. Will attempt to decrease Abilify. Continue sertraline Recurrent major depressive disorder, in partial remission 08/30/2022 Assessment & Plan (08/13/2024 7:02 PM CDT): Chronic. Not significantly worse since off Abilify though still struggles a little bit. We will continue to monitor. Brief supportive counseling provided. Encouraged increase social engagement. Monitor Assessment & Plan (05/11/2024 4:46 PM CDT): Chronic. Stable with decreased dose of Abilify. She would like to try to discontinue completely. Continue sertraline. Monitor mood. Brief supportive counseling provided Assessment & Plan (02/08/2024 6:19 PM CDT): Chronic. Doing very well. We will try decreasing Abilify 2 mg daily. Continue sertraline. If does well we may be able to stop the Abilify completely. Brief supportive counseling provided Osteopenia of multiple sites 08/30/2022 Essential hypertension 10/20/2020 Assessment & Plan (08/13/2024 7:01 PM CDT): Chronic. HTN controlled. Cont prescription Rx as indicated in HPI under HTN diagnosis. Low sodium diet (DASH or Mediterranean), exercise, wt loss (if over weight) discussed Assessment & Plan (05/11/2024 4:45 PM CDT): Chronic. Blood pressure is in acceptable level since stopping hydrochlorothiazide. We will need to monitor. Continue telmisartan. We will need to monitor the lightheadedness she has been having intermittently. If remains persistent we may need to consider trying to decrease her telmisartan further in case there might be a degree of orthostasis Assessment & Plan (02/08/2024 6:20 PM CDT): Chronic. Too tightly controlled. Stop hydrochlorothiazide. Continue ARB Hyperlipidemia 10/20/2020 Assessment & Plan (08/13/2024 7:01 PM CDT): Chronic. She is taking a half tab on atorvastatin. Continue. Check cholesterol level Assessment & Plan (05/11/2024 4:45 PM CDT): Chronic. It is possible some of the patient's leg pain she is reporting could be a statin side effects. Discussed option to try to transition to a lower dose of the atorvastatin to see if it may help. She can cut the atorvastatin half for the next 4 weeks. If no improvement with dose adjustment then we will go back to full dose. Given patient's creatinine clearance is less than 30 she has not a candidate to do rosuvastatin 40 mg daily as an alternative. We will see how her leg symptoms do with the change. Her last LDL was near goal for her risk profile Assessment & Plan (02/08/2024 6:20 PM CDT): Chronic. 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 Tolerates cholesterol medication Type 2 diabetes mellitus wit h diabetic polyneuropathy, without long-term current use of insulin 10/20/2020 Assessment & Plan (08/13/2024 7:01 PM CDT): Chronic. Diabetes has been controlled. Does struggle some with neuropathic symptoms in her feet though sensation is relatively intact to monofilament. Continue gabapentin nightly. Daytime use has been with extreme caution given her history of some balance issues and concern for fall. She does struggle some of the symptoms. We will continue to Assessment & Plan (05/11/2024 4:45 PM CDT): Chronic. Diabetes well-controlled. Gabapentin is helping some with the nighttime leg symptoms but she is still struggling some with some general discomfort in her legs. Assessment & Plan (02/08/2024 6:19 PM CDT): Chronic. Diabetes diet controlled. Encouraged healthy diet and lifestyle. She is struggling with neuropathic pain and possible component of restless legs at night. We will do a trial of gabapentin at bedtime. Discussed side effects and use. Monitor Resolved Problems Problem Noted Date Diagnosed Date Resolved Date Closed displaced fracture of second cervical vertebra 10/20/2020 08/30/2022 Balance disorder 06/20/2019 08/30/2022 Female cystocele 01/15/2019 08/30/2022 CLARY (stress urinary incontinence, female) 01/15/2019 08/30/2022 Iron deficiency anemia jean pierre sotelo to blood loss (chronic) 08/30/2018 08/30/2022 Immunizations Name Administration Dates Next Due Influenza, Quadrivalent, Hig h Dose, Preservative Free, Intrr 09/28/2023,08/30/2022,09/14/2020 Influenza, Quadrivalent, Spl it, Preservative Free, Intramuscular 12/13/2021 Influenza, Trivalent, High D ose, Split, Preservative Free, Intramuscular 08/23/2019,09/20/2018,08/18/2017,12/06,09/06/2015 Influenza, Trivalent, IM (MDV) 08/28/2018 Influenza, Unspecified 08/23/2019,09/27/2017,11/2013 Pneumococcal Conjugate PCV 13 09/06/2015 Pneumococcal Polysaccharide PPV23 12/06/2016,,10/18/2001 Surgical History Surgery Date Site/Laterality Comments APPENDECTOMY CHOLECYSTECTOMY TONSILLECTOMY CATARACT EXTRACTION Bilateral ESOPHAGOGASTRODUODENOSCOPY 07/25/14, 08/04/16, 09/05/18, 12/01/18, 03/02/19, 05/25/19, 07/03/20 BLADDER SUSPENSION KNEE ARTHROSCOPY Left BACK SURGERY 11/28/1994 - 11/27/1995 L4-L5? 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 Never 08/13/2024 Q2: How many drinks containi ng alcohol do you have on a typical day when you are drinking? Patient does not drink Q3: How often do you have si x or more drinks on one occasion? Never 08/13/2024 PHQ-2 Answer Date Recorded PHQ-2 Total Score (If total score is 3 or more points, staff should administer the PHQ-9) 4 08/13/2024 Personal Safety Answer Date Recorded Getting School Help Needed Not on file 11/30 Comments No Sex and Gender Information Value Date Recorded Sex Assigned at Not on file Legal Sex Female 12:25 AM [employer] Gender Identity Not on file Sexual Orientation Not on file Obstetrics History Para Term AB IAB SAB Ectopic Multiple Livin g Live Births 4 4 Date Outcome GA Total Labor Labor//3rd Weight Sex Type Anes PTL Sheba A1 A5 Name Clin Para Para Para Para Last Filed Vital Signs Vital Sign Reading Time Taken Comments Blood Pressure 122/76 08/13/2024 3:33 PM CDT Pulse 69 08/13/2024 3:33 PM CDT Temperature 36.6 ??C (97.8 ??F) 08/13/2024 3:33 PM CD T Respiratory Rate 16 08/13/2024 3:33 PM CDT Oxygen Saturation 95% 08/13/2024 3:33 PM CDT Inhaled Oxygen Concentration - - Weight 78.3 kg (172 lb 11.2 oz) 08/13/2024 3:33 PM CDT Height 160 cm (5' 3 ) 08/13/2024 3:33 PM CDT Body Mass Index 30.59 08/13/2024 3:33 PM CDT Plan of Treatment Health Maintenance Due Date Last Done Comments Dilated Eye Exam 1940 DTaP/Tdap/Td Vaccine (1 - Tdap) 1949 Zoster Vaccine (1 of 2) 1988 Covid-19 Vaccine (4 - 2023-2 5 season) 2024 12/13/2021, 12/22/2020, 12/01/2020 Influenza Vaccine (#1) 2024 3, 08/30/2022, 12/13/2021, Additional history exists Hemoglobin A1C 02/13/2025 08/16/2024, 04/28, 02/08/2024, Additional history exists Depression Screening 08/13/2025 08/13/2024, 08/13/2024, 08/08/2023, Additional history exists Fall Risk Assessment 08/13/2025 08/13/2024, 05/11/2024, 08/08/2023, Additional history exists Foot Exam 08/13/2025 08/13/2024, 07/29, 08/08/2023, Additional history exists Well Visit 65+ 08/13/2025 08/13/2024, 08/08/2023 Lipid Panel 08/16/2025 08/16/2024, 07/29, 08/09/2022 eGFR 08/16/2025 08/16/2024, 07/29, 11/30/2022 Albumin Creatinine Ratio, Urine 08/17/2025 4, 08/10/2023 Pneumococcal vaccine 65+ Completed 017, 09/06/2015, 03/12/2015, Additional history exists Hepatitis B Screening Discontinued Procedures Procedure Name Priority Date/Time Associated Diagnosis Comments ALBUMIN CREATININE RATIO, URINE Routine 08/17/2024 4:00 PM CDT Type 2 diabetes mellitus with diabetic polyneuropathy, without long-term current use of insulin (CMS/HCC) (HCC) Type 2 diabetes mellitus with stage 3b chronic kidney disease, without long-term current use of insulin (HCC) EGFR Routine 08/16/2024 3:00 PM CDT Memory deficit Type 2 diabetes mellitus with diabetic polyneuropathy, without long-term current use of insulin (CMS/HCC) (HCC) Type 2 diabetes mellitus with stage 3b chronic kidney disease, without long-term current use of insulin (HCC) Pure hypercholesterolemia HEMOGLOBIN A1C Routine 08/16/2024 3:00 PM CDT Type 2 diabetes mellitus with diabetic polyneuropathy, without long-term current use of insulin (CMS/HCC) (HCC) Type 2 diabetes mellitus with stage 3b chronic kidney disease, without long-term current use of insulin (HCC) LIPID PANEL Routine 08/16/2024 3:00 PM CDT Type 2 diabetes mellitus with diabetic polyneuropathy, without long-term current use of insulin (CMS/HCC) (HCC) Type 2 diabetes mellitus with stage 3b chronic kidney disease, without long-term current use of insulin (HCC) Pure hypercholesterolemia from Last 3 Months or Most Recently Relevant to Health Maintenance Results * Albumin Creatinine Ratio, Urine (08/17/2024 4:00 PM CDT) Albumin Ur 15.3 mg/L Comment: Interpretive Data No reference range established. Current interpretive data was last revised 2019. Creatinine Ur 64.4 mg/dL [facility] Comment: Interpretive Data No reference range established. Current interpretive data was last revised 2019. Albumin Creatinine Ratio, Ur 24 1 - 29 mg/g [facility] Urine 08/17/2024 4:00 PM CDT 08/17/2024 7:48 PM CDT Lynn Wing MD LAB URINE ORDERABLES F inal Result [facility] [id number] Department of Laboratories [place] [phone] * (ABNORMAL) eGFR (08/16/2024 3:00 PM CDT) eGFR 35(L) >=60 mL/min/1. 73 m2 Comment: Interpretive Data Reference Interval Normal ?>/= 90 mL/min/1.73m2 Mildly decreased* ? 60 - 89 mL/min/1.73m2 Mildly to moderately decreased ?45 - 59 mL/min/1.73m2 Moderately to severely decreased ??30 - 44 mL/min/1.73m2 Severely decreased ?15 - 29 mL/min/1.73m2 Kidney Failure ?< 15 ??mL/min/1.73m2 *Relative to young adult level Estimated glomerular filtration rate is determined by the 2020 CKD-EPI equation recommended by the National Kidney Foundation (A Unifying Approach to GFR Estimation: Recommendations of the NKF-ASK Task Force on Reassessing the Inclusion of Race in Diagnosing Kidney Disease, JASN 2020). The CKD-EPI equation should not be used for patients with unstable renal function and has not been validated in children and those over 70. Current interpretive data was last reviewed 2021. Blood 08/16/2024 3:00 PM CDT 08/16/2024 8:22 PM CDT Lynn Wing MD LAB BLOOD ORDERABLES F inal Result Performing Organization Address [facility] de Phone Number COLL[facility] [phone] [employer] [place] [address] * (ABNORMAL) Hemoglobin A1c (08/16/2024 3:00 PM CDT) [facility] Hgb A1C 6.0(H) 4.0 - 5.6 % Estimated Average Glucose 126 mg/dL [facility] TAVERAS Comment: The ADA recommends reporting an estimated Average Glucose (eAG) with all Hemoglobin A1c results using the equation derived from a study of 507 normal and diabetic adults. ??Minority populations were underrepresented and children were not included. ?? (Diabetes Care 31:4403-1802, 2008). ??The eAG is not equivalent to a fasting glucose. Blood 08/16/2024 3:00 PM CDT 08/16/2024 8:10 PM CDT Lynn Wing MD LAB BLOOD ORDERABLES F inal Result Performing Organization Address [facility] de Phone Number LATASHA TAVERAS [id number] [employer] [place] [address] * (ABNORMAL) Lipid panel (08/16/2024 3:00 PM CDT) [facility] Cholesterol 127 30 - 199 mg/dL Comment: Interpretive Data Ages < or = 19 years ??Acceptable: ? <170 mg/dL ??Borderline high: ??170-199 mg/dL ??High: ? >or= 200 mg/dL Ages > or = 20 years ??Desirable: ?<200 mg/dL ??Borderline high: ??200-239 mg/dL ??High: ? >or= 240 mg/dL Literature References: 1. Expert Panel on Integrated Guidelines for Cardiovascular Health and Risk Reduction in Children and Adolescents. Pediatrics 2011;128:S213 2. NCEP Expert Panel. Circulation 2004;110:227 Current Interpretive Data was last revised on 2018. Triglycerides 210(H) <=149 mg/dL [facility] TAVERAS Comment: Interpretive Data Ages < or = 9 years ??Acceptable: ? <75 mg/dL ??Borderline high: ??75-99 mg/dL ??High: ? >or= 100 mg/dL Ages 10 to 20 years ??Acceptable: ? <90 mg/dL ??Borderline high: ??90-129 mg/dL ??High: ? >or= 130 mg/dL Ages > or = 20 years ??Desirable: ?<150 mg/dL ??Borderline high: ??150-199 mg/dL ??High: ? 200-499 mg/dL ?Very high: ?? >or= 499 mg/dL Literature References: 1. Expert Panel on Integrated Guidelines for Cardiovascular Health and Risk Reduction in Children and Adolescents. Pediatrics 2011;128:S213 2. NCEP Expert Panel. Circulation 2004;110:227 Current Interpretive Data was last revised on 2018. HDL 39(L) >=40 mg/dL LATASHA TAVERAS Comment: Interpretive Data Ages < or = 19 years ??Acceptable: ? >45 mg/dL ??Borderline low: ?? 40-45 mg/dL ??Low: ? <40 mg/dL Ages > or = 20 years ??Desirable: ?>or= 60 mg/dL ??Low: ? <40 mg/dL Literature References: 1. Expert Panel on Integrated Guidelines for Cardiovascular Health and Risk Reduction in Children and Adolescents. Pediatrics 2011;128:S213 2. NCEP Expert Panel. Circulation 2004;110:227 Current Interpretive Data was last revised on 2018. LDL, calculated 54 <=129 mg/dL LATASHA TAVERAS Comment: Interpretive Data Ages < or = 19 years ??Acceptable: ? <110 mg/dL ??Borderline high: ??110-129 mg/dL ??High: ?>or= 130 mg/dL Ages > or = 20 years ??Optimal: ? <100 mg/dL ??Near optimal: ?100-129 mg/dL ??Borderline high: ?? 130-159 mg/dL ??High: ?>160 mg/dL Calculated using the Bay LDL-C estimating equation. This equation was implemented on 2024. Prior to this date LDL-C was estimated using the Friedewald equation. Literature References: 1. Expert Panel on Integrated Guidelines for Cardiovascular Health and Risk Reduction in Children and Adolescents. Pediatrics 2011;128:S213 2. NCEP Expert Panel. Circulation 2004;110:227 3. Bay Rangel et al. ANGELA Cardiol. 2020 March 28;5(5):540-548. doi: 10.1001/[email or web address] Current Interpretive Data was last revised on 2024. Non-HDL Cholesterol 88 mg/dL [facility] TAVERAS Comment: Interpretive Data Ages < or = 19 years ??Acceptable: ?<120 mg/dL ??Borderline high: ??120-144 mg/dL ??High: ?>145 mg/dL Ages > or = 20 years ??When triglycerides are >200 mg/dL, Non-HDL cholesterol is a secondary target of ? therapy with treatment goals that are 30 mg/dL greater than the LDL cholesterol target. ? Literature References: 1. Expert Panel on Integrated Guidelines for Cardiovascular Health and Risk Reduction in Children and Adolescents. Pediatrics 2011;128:S213 2. NCEP Expert Panel. Circulation 2004;110:227 Current Interpretive Data was last revised on 2018. Chol/HDL ratio 3 [facility] Blood 08/16/2024 3:00 PM CDT 08/16/2024 8:10 PM CDT Lynn Wing MD LAB BLOOD ORDERABLES F inal Result [place] [address] [place] [address] from Last 3 Months or Most Recently Relevant to Health Maintenance Insurance MEDICARE [facility] MEDIC[facility] Care Teams Web Content Manager Relationship Specialty Start Date End Date Lynn Wing MD PCP - General Family Practice 08/27/22
--- OUTSIDE RECORDS SUMMARY | 2024-12-21 18:52 | XMS_ITS | Referral Summary ---
Author Organization [facility] [address] [place] [address] Care Team Providers Care Supervisor Poultry Processing Name Role Phone Lynn Wing MD Primary [...] the past few months with GI at [facility] but we do not have report. Patient [...] PCV 13 09/06/2015 Pneumococcal Polysaccharide PPV23 12/06/2016,,10/18/2001 Social History Tobacco Use Types Packs/Day Years [...] on file Legal Sex Female 12:25 AM [employer] Gender Identity Not on file Sexual Orientation [...] 08/13/2024 3:33 PM CDT Plan of Treatment Not on file Procedures Procedure Name Priority Date/Time Associated Diagnosis Comments ALBUMIN CREATININE RATIO, URINE Routine 08/17/2024 4:00 PM CDT Type 2 diabetes mellitus with diabetic polyneuropathy, without long-term current use of insulin (CMS/HCC) (HCC) Type 2 diabetes mellitus with stage 3b chronic kidney disease, without long-term current use of insulin ([facility]) EGFR Routine 08/16/2024 3:00 PM CDT Memory deficit Type 2 diabetes mellitus with diabetic polyneuropathy, without long-term current use of insulin (CMS/HCC) (HCC) Type 2 diabetes mellitus with stage 3b chronic kidney disease, without long-term current use of insulin ([facility]) Pure hypercholesterolemia HEMOGLOBIN A1C Routine 08/16/2024 3:00 PM CDT Type 2 diabetes mellitus with diabetic polyneuropathy, without long-term current use of insulin (CMS/HCC) (HCC) Type 2 diabetes mellitus with stage 3b chronic kidney disease, without long-term current use of insulin ([facility]) LIPID PANEL Routine 08/16/2024 3:00 PM CDT Type 2 diabetes mellitus with diabetic polyneuropathy, without long-term current use of insulin (CMS/HCC) (HCC) Type 2 diabetes mellitus with stage 3b chronic kidney disease, without long-term current use of insulin (HCC) Pure hypercholesterolemia from Last 3 Months or Most Recently Relevant to Health Maintenance Results * Albumin Creatinine Ratio, Urine (08/17/2024 4:00 PM CDT) Pathologist [facility] Albumin Ur 15.3 mg/L Comment: Interpretive Data No reference range established. Current interpretive data was last revised 2019. Creatinine Ur 64.4 mg/dL [facility] Comment: Interpretive Data No reference range established. Current interpretive data was last revised 2019. Albumin Creatinine Ratio, Ur 24 1 - 29 mg/g [facility] Urine 08/17/2024 4:00 PM CDT 08/17/2024 7:48 PM CDT us Lynn Wing MD LAB URINE ORDERABLES F inal Result [facility] [id number] Department [place] [address] * (ABNORMAL) eGFR (08/16/2024 3:00 PM CDT) Pathologist [facility] eGFR 35(L) >=60 mL/min/1. 73 m2 Comment: [...] ORDERABLES F inal Result Performing Organization Address [facility] Phone Number [facility] [id number] [facility] [address] [place] [address] * (ABNORMAL) Hemoglobin A1c (08/16/2024 3:00 PM CDT) Hgb A1C 6.0(H) 4.0 - 5.6 % Estimated Average Glucose 126 mg/dL [facility] T[facility]ER[facility] Comment: The ADA recommends reporting an estimated Average Glucose (eAG) with all Hemoglobin A1c results using the equation derived from a study of 507 normal and diabetic adults. ??Minority populations were underrepresented and children were not included. ?? (Diabetes Care 31:0521-4010, 2008). ??The eAG is not equivalent to a fasting glucose. Blood 08/16/2024 3:00 PM CDT 08/16/2024 8:10 PM CDT Lynn Wing MD LAB BLOOD ORDERABLES F inal Result Performing Organization Address [facility] de Phone Number [facility] [phone] [facility] [address] [place] [address] * (ABNORMAL) Lipid panel (08/16/2024 3:00 PM CDT) Cholesterol 127 30 - 199 mg/dL Comment: [...] 2018. LDL, calculated 54 <=129 mg/dL [facility] Comment: Interpretive Data Ages < or = [...] on 2024. Non-HDL Cholesterol 88 mg/dL [facility] Comment: Interpretive Data Ages < or = [...] last revised on 2018. Chol/HDL ratio 3 [facility] Blood 08/16/2024 3:00 PM CDT 08/16/2024 8:10 PM CDT Lynn Wing MD LAB [place]LOOD [place] [address] [address] Department [place] [address] from Last 3 Months or Most Recently Relevant to Health Maintenance [place] [address] [address] [place] [address] MEDICARE [facility] [place] [address] [address] [place] [address] FORMERLY [facility] MEDICARE Care Teams Supervisor Poultry Processing Relationship Specialty Start Date End Date Lynn Wing MD PCP - General Family Practice 08/27/22
--- OUTSIDE RECORDS SUMMARY | 2024-12-21 18:53 | XMS_ITS | Patient Health Summary ---
Author Organization [facility] Address [address] [place] [address] Care Team Providers Care [employer] Law Clerk Name Role Phone Sandy Simmons MD Primary Care Provider Note from [facility],non-owned Affiliates and Associated Physician Practices is amultiple site organization consisting of ambulatory clinics and hospital sitesin [place], [place], [place] and [place]. This disclosure is being madepursuant to the Care Everywhere program and may not contain all information available regarding this patient. Last updated 18.[facility] Allergies * Azithromycin(Anaphylaxis) -High Criticality * Meperidine(Nausea and/or Vomiting) * Ceftriaxone(Anaphylaxis) -High Criticality Medications * Be aware that medications may not be up to date on this document. Alwaysverify current medications with the patient. * sertraline (ZOLOFT) 100 MG tablet Take 200 mg by mouth once daily Reasons: Social Anxiety Disorder * Coenzyme Q10 (COQ-10) 10 MG Take 1 mg by mouth once daily * telmisartan (MICARDIS) 80 MG tablet Take 80 mg by mouth once daily * ferrous sulfate 325 (65 FE) MG tablet Take 325 mg by mouth 2 times daily with morning and evening meal * atorvastatin (LIPITOR) 80 MG tablet Take 40 mg by mouth at bedtime * omeprazole (PRILOSEC) 40 MG capsule(Started 12/01/2018) Take 1 capsule by mouth 2 times daily,before breakfast and supper * ARIPiprazole (ABILIFY) 5 MG tablet Take 5 mg by mouth once daily * hydroCHLOROthiazide (HYDRODIURIL) 25 MG tablet Take 25 mg by mouth once daily * aspirin EC (ECOTRIN) 325 MG tablet Take 325 mg by mouth at bedtime * metFORMIN ER 24hr (GLUCOPHAGE XR) 500 MG tablet(Started 09/08/2020) TAKE 1 TABLET BY MOUTH ONCE DAILY IN THE MORNING * calcium carbonate (TUMS) 500 MG chew tablet(Started 10/29/2020) Take 1 tablet by mouth every 2 hours as needed for Heartburn * ondansetron (ZOFRAN) 2 MG/ML injection(Started 10/29/2020) 4 mg by Intravenous route every 6 hours as needed * amLODIPine (NORVASC) 10 MG tablet(Started 10/29/2020) Take 1 tablet by mouth once daily * cyclobenzaprine (FLEXERIL) 10 MG tablet(Started 10/29/2020) Take 1 tablet by mouth 3 times daily as needed for Muscle Spasms * acetaminophen (TYLENOL) 500 MG tablet(Started 10/29/2020) Take 1 tablet by mouth every 4 hours as needed Maximum allowable Acetaminophen amount = 4 Grams (4000 mg) / 24 hours. Active Problems Problem Noted Date Diagnosed Date [...] Dehydration 01/30/2020 02/13/2020 Diarrhea 01/30/2020 02/27/2020 Immunizations * INFLUENZA VACCINE, TRIV. (AFLURIA, FLUZONE TRIVALENT; 6MO+) (IIV3)(Given 08/28/2018) * INFLUENZA VACCINE(Given 09/27/2017, 08/28/2014) * INFLUENZA VACCINE, HIGH-DOSE, QUADR. (FLUZONE HIGH-DOSE QUADRIVALENT; 65Y+), 0.7 ML (HD-IIV4)(Given 09/14/2020, 08/23/2019) * PNEUMOCOCCAL PPSV23(Given 03/12/2015) Social History Tobacco Use Types Packs/Day Years [...] Comments Blood Pressure 112/54 10/29/2020 11:27 AM [employer] Pulse 96 10/29/2020 11:27 AM [employer] Temperature 36.8 ??C (98.2 ??F) 10/29/2020 11:[address] Respiratory Rate 20 10/29/2020 11:27 AM [employer] Oxygen Saturation 98% 10/29/2020 11:27 AM [employer] Inhaled Oxygen Concentration 21% 11/17/2017 7 :30 PM [employer] Weight 83.9 kg (185 lb) 01/29/2021 12:56 PM [employer] Height 160 cm (5' 3 ) 10/20/2020 7:51 PM [employer] Body Mass Index 32.77 10/20/2020 7:51 PM [employer] Procedures * ENDOSCOPY ORDER(Performed 08/22/2023) * XR CERVICAL SPINE 4 OR 5VW(Performed 04/23/2021) Performed for Closed displaced fracture of second cervical vertebra with routine healing, unspecified fracture morphology, subsequent encounter * CT HEAD WWO CONTRAST(Performed 02/24/2021) Performed for Vertigo * ISTAT CREATININE(Performed 02/24/2021) * DEXA BONE DENSITY AXIAL SKELETON(Performed 02/24/2021) Performed for Postmenopausal * VAS CAROTID DUPLEX BILATERAL(Performed 02/24/2021) Performed for Stenosis of carotid artery, unspecified laterality * XR CERVICAL SPINE 2 OR 3VW(Performed 01/29/2021) Performed for Closed displaced fracture of second cervical vertebra with routine healing, unspecified fracture morphology, subsequent encounter * XR CERVICAL SPINE 2 OR 3VW(Performed 12/11/2020) Performed for Closed displaced fracture of second cervical vertebra, unspecified fracture morphology, initial encounter ([facility]) * XR CERVICAL SPINE 2 OR 3VW(Performed 11/13/2020) Performed for Closed displaced fracture of second cervical vertebra, unspecified fracture morphology, initial encounter ([facility]) * GLUCOSE - POINT OF CARE(Performed 10/29/2020) * GLUCOSE - POINT OF CARE(Performed 10/29/2020) * GLUCOSE - POINT OF CARE(Performed 10/29/2020) * GLUCOSE - POINT OF CARE(Performed 10/28/2020) * GLUCOSE - POINT OF CARE(Performed 10/28/2020) * CBC W/O DIFFERENTIAL(Performed 10/28/2020) * GLUCOSE - POINT OF CARE(Performed 10/28/2020) * SARS-COV-2 (COVID-19) IN HOUSE(Performed 10/28/2020) * GLUCOSE - POINT OF CARE(Performed 10/28/2020) * GLUCOSE - POINT OF CARE(Performed 10/27/2020) * GLUCOSE - POINT OF CARE(Performed 10/27/2020) * GLUCOSE - POINT OF CARE(Performed 10/27/2020) * BASIC METABOLIC PANEL (CALCIUM TOTAL)(Performed 10/27/2020) * GLUCOSE - POINT OF CARE(Performed 10/26/2020) * GLUCOSE - POINT OF CARE(Performed 10/26/2020) * GLUCOSE - POINT OF CARE(Performed 10/26/2020) * GLUCOSE - POINT OF CARE(Performed 10/26/2020) * MAGNESIUM BLOOD(Performed 10/26/2020) * BASIC METABOLIC PANEL (CALCIUM TOTAL)(Performed 10/26/2020) * GLUCOSE - POINT OF CARE(Performed 10/25/2020) * GLUCOSE - POINT OF CARE(Performed 10/25/2020) * GLUCOSE - POINT OF CARE(Performed 10/25/2020) * GLUCOSE - POINT OF CARE(Performed 10/25/2020) * GLUCOSE - POINT OF CARE(Performed 10/24/2020) * GLUCOSE - POINT OF CARE(Performed 10/24/2020) * GLUCOSE - POINT OF CARE(Performed 10/24/2020) * GLUCOSE - POINT OF CARE(Performed 10/24/2020) * GLUCOSE - POINT OF CARE(Performed 10/23/2020) * GLUCOSE - POINT OF CARE(Performed 10/23/2020) * GLUCOSE - POINT OF CARE(Performed 10/23/2020) * BASIC METABOLIC PANEL (CALCIUM TOTAL)(Performed 10/23/2020) * CBC W/O DIFFERENTIAL(Performed 10/23/2020) * GLUCOSE - POINT OF CARE(Performed 10/22/2020) * SARS-COV-2 (COVID-19) IN HOUSE(Performed 10/22/2020) * GLUCOSE - POINT OF CARE(Performed 10/22/2020) * GLUCOSE - POINT OF CARE(Performed 10/22/2020) * GLUCOSE - POINT OF CARE(Performed 10/22/2020) * BASIC METABOLIC PANEL (CALCIUM TOTAL)(Performed 10/22/2020) * CBC W/O DIFFERENTIAL(Performed 10/22/2020) * GLUCOSE - POINT OF CARE(Performed 10/21/2020) * GLUCOSE - POINT OF CARE(Performed 10/21/2020) * GLUCOSE - POINT OF CARE(Performed 10/21/2020) * CK BLOOD(Performed 10/21/2020) * BASIC METABOLIC PANEL (CALCIUM TOTAL)(Performed 10/21/2020) * CARDIAC EKG ORDER(Performed 10/21/2020) * GLUCOSE - POINT OF CARE(Performed 10/21/2020) * GLUCOSE - POINT OF CARE(Performed 10/21/2020) * MAGNESIUM BLOOD(Performed 10/21/2020) * CBC W/O DIFFERENTIAL(Performed 10/21/2020) * COMPREHENSIVE METABOLIC PANEL(Performed 10/21/2020) * GLUCOSE - POINT OF CARE(Performed 10/21/2020) * XR CHEST 1VW PORTABLE(Performed 10/20/2020) Performed for Person under investigation for COVID-19 * GLUCOSE - POINT OF CARE(Performed 10/20/2020) * XR CERVICAL SPINE 2 OR 3VW(Performed 10/20/2020) Performed for Closed displaced fracture of second cervical vertebra, unspecified fracture morphology, initial encounter ([facility]) * GLUCOSE - POINT OF CARE(Performed 10/20/2020) * CARDIAC EKG ORDER(Performed 10/20/2020) * CARDIAC RHYTHM STRIP ORDER(Performed 10/20/2020) * GLUCOSE - POINT OF CARE(Performed 10/20/2020) * CULTURE URINE(Performed 10/20/2020) * MRI CERVICAL SPINE WO CONTRAST(Performed 10/20/2020) Performed for Postural dizziness with presyncope * GLUCOSE - POINT OF CARE(Performed 10/20/2020) * HEMOGLOBIN A1C(Performed 10/20/2020) * EKG 12-LEAD(Performed 10/20/2020) Performed for Postural dizziness with presyncope * XR CERVICAL SPINE 2 OR 3VW(Performed 10/20/2020) Performed for Postural dizziness with presyncope * COMPREHENSIVE METABOLIC PANEL(Performed 10/20/2020) * URINALYSIS REFLEX TO MICROSCOPIC NO CULTURE(Performed 10/20/2020) * EKG 12-LEAD(Performed 10/20/2020) Performed for Postural dizziness with presyncope * CK BLOOD(Performed 10/20/2020) * CBC W AUTO DIFFERENTIAL(Performed 10/20/2020) * TROPONIN I(Performed 10/19/2020) * SARS-COV-2 (COVID-19) IN HOUSE(Performed 10/19/2020) * SARS-COV-2 (COVID-19) PANEL (SOIL)(Performed 10/19/2020) * CT ABDOMEN PELVIS W CONTRAST(Performed 10/19/2020) Performed for Fall, initial encounter, Weakness, Contusion of right chest wall, initial encounter, Blunt head trauma, initial encounter * CT CHEST WO CONTRAST(Performed 10/19/2020) Performed for Fall, initial encounter, Weakness, Contusion of right chest wall, initial encounter, Blunt head trauma, initial encounter * CT CERVICAL SPINE WO CONTRAST(Performed 10/19/2020) Performed for Fall, initial encounter * CT HEAD WO CONTRAST(Performed 10/19/2020) Performed for Fall, initial encounter * EKG 12-LEAD(Performed 10/19/2020) Performed for Fall, initial encounter, Weakness * CK BLOOD(Performed 10/19/2020) * COMPREHENSIVE METABOLIC PANEL(Performed 10/19/2020) * CBC W AUTO DIFFERENTIAL(Performed 10/19/2020) * SARS-COV-2 (COVID-19) IN HOUSE(Performed 08/23/2020) Performed for Preop examination * SARS-COV-2 (COVID-19) PANEL (SOIL)(Performed 08/23/2020) Performed for Preop examination * SARS-COV-2 (COVID-19) IN HOUSE(Performed 08/09/2020) Performed for Preop examination * GROSS + MICRO EXAM (ILL)(Performed 07/03/2020) Performed for Gastroesophageal reflux disease, esophagitis presence not specified, 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 * [place] EGD FLEX TRANSORAL W BX SNGL OR MULT(Performed 07/03/2020) Performed for Gastroesophageal reflux disease, esophagitis presence not specified, 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 * SARS-COV-2 (COVID-19) IN HOUSE(Performed 06/30/2020) Performed for Pre-operative laboratory examination * MRI LUMBAR SPINE WO CONTRAST(Performed 06/11/2020) Performed for Multilevel degenerative disc disease * MAMMO BILAT SCREENING(Performed 06/09/2020) Performed for Visit for screening mammogram * XR LUMBAR SPINE 4VW OR MORE(Performed 04/03/2020) Performed for Fall with injury, initial encounter, Low back pain, unspecified back pain laterality,unspecified chronicity, unspecified whether sciatica present * GIARDIA CRYPTOSPORIDIUM ANTIGEN PANEL(Performed 01/31/2020) Performed for Diarrhea, unspecified type * C DIFFICILE BY PCR(Performed 01/31/2020) Performed for Diarrhea, unspecified type * CULTURE STOOL PANEL(Performed 01/31/2020) Performed for Diarrhea, unspecified type * COMPREHENSIVE METABOLIC PANEL(Performed 01/30/2020) Performed for Dehydration, Diarrhea, unspecified type * CBC W AUTO DIFFERENTIAL(Performed 01/30/2020) Performed for Dehydration, Diarrhea, unspecified type * XR CHEST 2VW(Performed 01/24/2020) Performed for Cough * NORTRIPTYLINE LEVEL BLOOD(Performed 10/26/2019) Performed for Medication management * NORTRIPTYLINE LEVEL BLOOD(Performed 10/02/2019) Performed for Encounter for long-term (current) use of medications * MRI LUMBAR SPINE WO CONTRAST(Performed 09/18/2019) Performed for Low back pain, unspecified back pain laterality, unspecified chronicity, unspecified whether sciatica present * IR FL GUIDE NEEDLE PLACEMENT(Performed 09/12/2019) Performed for Bilateral hip pain * XR HIPS BILATERAL 2VW(Performed 08/15/2019) Performed for Pain of both hip joints * ERYTHROCYTE SEDIMENTATION RATE(Performed 08/15/2019) Performed for Arthralgia, unspecified joint * C-REACTIVE PROTEIN(Performed 08/15/2019) Performed for Arthralgia, unspecified joint * SHU BLOOD SCREEN W/REFLEX TITER(Performed 08/15/2019) Performed for Arthralgia, unspecified joint * RHEUMATOID FACTOR BLOOD QUANTITATIVE(Performed 08/15/2019) Performed for Arthralgia, unspecified joint * CYCLIC CITRULLINATED PEPTIDE(CCP) AB IGG(Performed 08/15/2019) Performed for Arthralgia, unspecified joint * PROTEIN 14-3-3 BLOOD(Performed 08/15/2019) Performed for Arthralgia, unspecified joint * CBC W AUTO DIFFERENTIAL(Performed 08/15/2019) Performed for Arthralgia, unspecified joint * HEPATIC FUNCTION PANEL(Performed 08/15/2019) Performed for Arthralgia, unspecified joint * BUN+CREATININE BLOOD PNL(Performed 08/15/2019) Performed for Arthralgia, unspecified joint * ESOPHAGOGASTRODUODENOSCOPY (EGD) DIAGNOSTIC(Performed 05/25/2019) Performed for Moreira's esophagus with high grade dysplasia * EGD(Performed 05/25/2019) * GLUCOSE - POINT OF CARE(Performed 05/25/2019) * MAMMO BILAT SCREENING(Performed 03/16/2019) Performed for Visit for screening mammogram * PATHOLOGY TISSUE(Performed 03/02/2019) Performed for Moreira's esophagus with high grade dysplasia * ESOPHAGOGASTRODUODENOSCOPY (EGD) DIAGNOSTIC(Performed 03/02/2019) Performed for Moreira's esophagus with high grade dysplasia * EGD(Performed 03/02/2019) * GLUCOSE - POINT OF CARE(Performed 03/02/2019) * PATHOLOGY TISSUE(Performed 12/01/2018) Performed for Moreira's esophagus with high grade dysplasia * ESOPHAGOGASTRODUODENOSCOPY (EGD) DIAGNOSTIC(Performed 12/01/2018) Performed for Moreira's esophagus with high grade dysplasia * GLUCOSE - POINT OF CARE(Performed 12/01/2018) * EGD(Performed 12/01/2018) * PATHOLOGY TISSUE(Performed 10/16/2018) Performed for Moreira's esophagus with low grade dysplasia * GROSS + MICRO EXAM (ILL)(Performed 09/05/2018) Performed for 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, Iron deficiency anemia, unspecified iron deficiency anemia type * ESOPHAGOGASTRODUODENOSCOPY (EGD) BIOPSY(Performed 09/05/2018) Performed for 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, Iron deficiency anemia, unspecified iron deficiency anemia type * EKG 12-LEAD(Performed 06/19/2018) Performed for Silent myocardial ischemia * XR HAND LEFT 3VW OR MORE(Performed 05/17/2018) Performed for Closed displaced fracture of base of fifth metacarpal bone of left hand, initial encounter * CT CHEST WO CONTRAST(Performed 05/12/2018) Performed for Chronic interstitial lung disease (HCC) * XR HAND LEFT 3VW OR MORE(Performed 05/01/2018) Performed for Left hand fracture, with routine healing, subsequent encounter * CT ANGIO NECK(Performed 04/13/2018) Performed for Fall, initial encounter, Memory loss * CT ANGIO BRAIN(Performed 04/13/2018) Performed for Fall, initial encounter, Memory loss * XR HAND LEFT 3VW OR MORE(Performed 04/10/2018) Performed for Disp fx of base of fifth metacarpal bone. left hand, init * MRI BRAIN WWO CONTRAST(Performed 04/06/2018) Performed for Abnormal CT of brain * ISTAT CREATININE(Performed 04/06/2018) * XR HAND LEFT 3VW OR MORE(Performed 04/06/2018) Performed for Fx * VAS CAROTID DUPLEX BILATERAL(Performed 04/03/2018) Performed for Stenosis of carotid artery, unspecified laterality * XR WRIST LEFT 3VW OR MORE(Performed 03/30/2018) Performed for Injury * XR HAND LEFT 3VW OR MORE(Performed 03/30/2018) Performed for Injury * CARDIAC RHYTHM STRIP ORDER(Performed 03/27/2018) * XR WRIST LEFT 3VW OR MORE(Performed 03/26/2018) Performed for Fall, initial encounter * XR HAND LEFT 3VW OR MORE(Performed 03/26/2018) Performed for Fall, initial encounter * CT FACIAL BONES WO CONTRAST(Performed 03/26/2018) Performed for Fall, initial encounter * CT CERVICAL SPINE WO CONTRAST(Performed 03/26/2018) Performed for Fall, initial encounter * CT HEAD WO CONTRAST(Performed 03/26/2018) Performed for Fall, initial encounter * URINALYSIS AUTO - POINT OF CARE (AMB) SMGS(Performed 03/15/2018) Performed for Urge urinary incontinence * BLADDER SCAN - POINT OF CARE (AMB)(Performed 03/15/2018) Performed for Urge urinary incontinence * FUNGUS IDENTIFICATION(Performed 03/15/2018) Performed for Urge urinary incontinence * CULTURE URINE(Performed 03/15/2018) Performed for Urge urinary incontinence * CULTURE MYCOPLASMA HOMINIS+UREAPLASMA CULTURE(Performed 03/15/2018) Performed for Urge urinary incontinence * MAMMO BILAT SCREENING(Performed 03/06/2018) Performed for Visit for screening mammogram * URINALYSIS AUTO - POINT OF CARE (AMB) SMGS(Performed 02/15/2018) Performed for Urinary, incontinence, stress female * BLADDER SCAN - POINT OF CARE (AMB)(Performed 02/15/2018) Performed for Urinary, incontinence, stress female * URINE MICROSCOPIC ONLY(Performed 02/15/2018) Performed for Urinary, incontinence, stress female, Urge incontinence * CULTURE MYCOPLASMA HOMINIS+UREAPLASMA CULTURE(Performed 02/15/2018) Performed for Urinary, incontinence, stress female, Urge incontinence * CULTURE URINE(Performed 02/15/2018) Performed for Urinary, incontinence, stress female, Urge incontinence * CARDIAC RHYTHM STRIP ORDER(Performed 11/22/2017) * URINALYSIS REFLEX MICROSCOPIC REFLEX CULTURE(Performed 11/17/2017) * CT HEAD WO CONTRAST(Performed 11/16/2017) Performed for Syncope and collapse * TROPONIN I(Performed 11/16/2017) * COMPREHENSIVE METABOLIC PANEL(Performed 11/16/2017) * CBC W AUTO DIFFERENTIAL(Performed 11/16/2017) * XR FOOT LEFT 3VW OR MORE(Performed 11/16/2017) Performed for Syncope and collapse * XR TIBIA FIBULA LEFT 2VW(Performed 11/16/2017) Performed for Syncope and collapse * XR ANKLE LEFT 3VW OR MORE(Performed 11/16/2017) Performed for Syncope and collapse * EKG 12-LEAD(Performed 11/16/2017) Performed for Syncope and collapse * EKG 12-LEAD(Performed 11/15/2017) Performed for Dizzy * CULTURE BLOOD(Performed 11/15/2017) * XR CHEST 1VW PORTABLE(Performed 11/15/2017) Performed for Dizzy * TROPONIN I(Performed 11/15/2017) * LACTIC ACID BLOOD(Performed 11/15/2017) * COMPREHENSIVE METABOLIC PANEL(Performed 11/15/2017) * CBC W AUTO DIFFERENTIAL(Performed 11/15/2017) * CULTURE BLOOD(Performed 11/15/2017) * IR FL GUIDE NEEDLE PLACEMENT(Performed 06/02/2017) Performed for Left hip pain * DEXA BONE DENSITY 2 SITES(Performed 04/15/2017) Performed for Post-menopausal * MAMMO BILAT SCREENING(Performed 02/16/2017) Performed for Visit for screening mammogram * CARDIAC RHYTHM STRIP ORDER(Performed 08/12/2016) * PULSE OXIMETRY, CONTINUOUS(Performed 08/11/2016) * GROSS + MICRO EXAM (ILL)(Performed 08/11/2016) Performed for Hx of colonic polyp * COLONOSCOPY REMOVAL OR ABLATION TUMOR/POLYP/LESION (ANY METHOD)(Performed 08/11/2016) Performed for Hx of colonic polyp * PULSE OXIMETRY, CONTINUOUS(Performed 08/11/2016) * OXYGEN(Performed 08/11/2016) * ENDOSCOPY, COLON, SCREENING(Performed 08/11/2016) * CARDIAC RHYTHM STRIP ORDER(Performed 08/04/2016) * PULSE OXIMETRY, CONTINUOUS(Performed 08/04/2016) * GROSS + MICRO EXAM (ILL)(Performed 08/04/2016) Performed for 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 * ESOPHAGOGASTRODUODENOSCOPY (EGD) BIOPSY(Performed 08/04/2016) Performed for 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 * PULSE OXIMETRY, CONTINUOUS(Performed 08/04/2016) * OXYGEN(Performed 08/04/2016) * EGD(Performed 08/04/2016) * XR CHEST 2VW(Performed 07/29/2016) Performed for Cough * VITAMIN B12 FOLATE PANEL(Performed 04/20/2016) 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 * TSH(Performed 04/20/2016) 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 * THYROID PANEL (T3U T4 FTI)(Performed 04/20/2016) 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 * MRI BRAIN WO CONTRAST(Performed 04/06/2016) Performed for Ataxia * VAS CAROTID DUPLEX BILATERAL(Performed 04/06/2016) Performed for Carotid stenosis, bilateral * OCCULT BLOOD FECES 1-3 SCREEN(Performed 03/27/2016) Performed for Special screening for malignant neoplasms, colon * MAMMO BILAT SCREENING(Performed 02/05/2016) Performed for Visit for screening mammogram * XR HAND RIGHT 3VW OR MORE(Performed 11/13/2015) Performed for Hand injury, right, sequela * CREATININE BLOOD(Performed 11/10/2015) Performed for Pre-procedure lab exam * BUN(Performed 11/10/2015) Performed for Pre-procedure lab exam * CARDIAC RHYTHM STRIP ORDER(Performed 03/13/2015) * ECHOCARDIOGRAM STRESS(Performed 03/12/2015) Performed for Chest pain * STRESS TEST TREADMILL (NO IMAGING)(Performed 03/12/2015) Performed for Chest pain * EKG 12-LEAD(Performed 03/12/2015) Performed for Chest pain * EKG 12-LEAD(Performed 03/12/2015) Performed for Chest pain * TROPONIN I(Performed 03/11/2015) Performed for Chest pain * CK + CKMB PANEL(Performed 03/11/2015) Performed for Chest pain * XR CHEST 1VW PORTABLE(Performed 03/11/2015) Performed for Chest pain * COMPREHENSIVE METABOLIC PANEL(Performed 03/11/2015) Performed for Chest pain * CBC W AUTO DIFFERENTIAL(Performed 03/11/2015) Performed for Chest pain * TROPONIN I(Performed 03/11/2015) Performed for Chest pain * CK + CKMB PANEL(Performed 03/11/2015) Performed for Chest pain * ECHOCARDIOGRAM 2D WITH DOPPLER(Performed 03/11/2015) Performed for Chest pain * MAMMO BILAT SCREENING(Performed 12/18/2014) Performed for Other screening mammogram * COMPREHENSIVE METABOLIC PANEL(Performed 11/11/2014) Performed for Cough * CBC W/O DIFFERENTIAL(Performed 11/11/2014) Performed for Cough * INFLUENZA A+B ANTIGEN RAPID(Performed 11/11/2014) Performed for Cough * FL ESOPHAGRAM(Performed 10/30/2014) Performed for Esophageal reflux * CARDIAC RHYTHM STRIP ORDER(Performed 07/26/2014) * ESOPHAGOGASTRODUODENOSCOPY (EGD) BIOPSY(Performed 07/25/2014) Performed for Moreira's esophagus * GROSS + MICRO EXAM (ILL)(Performed 07/25/2014) * MAMMO BILAT SCREENING(Performed 12/17/2013) Performed for Other screening mammogram * URINALYSIS NO MICROSCOPIC NO CULTURE(Performed 10/15/2013) Performed for Urinary frequency * CULTURE URINE(Performed 10/15/2013) Performed for Urinary frequency * GROSS + MICRO EXAM(Performed 08/16/2011) * GROSS + MICRO EXAM(Performed 01/11/2011) * GROSS + MICRO EXAM(Performed 08/21/2008) * GROSS + MICRO EXAM(Performed 08/02/2008) * GROSS + MICRO EXAM(Performed 02/08/2008) * GROSS + MICRO EXAM(Performed 10/04/2006) * GROSS + MICRO EXAM(Performed 01/29/2005) Results * ENDOSCOPY ORDER (08/22/2023) 08/22/2023 Narrative 08/22/2023 Ordered by an unspecified provider. Scanned Document GI PROCEDURE ORDERAB LES * XR CERVICAL SPINE 4 OR 5VW (04/23/2021 9:32 AM CDT) Anatomical Region Laterality Modality Spine Radiographic July ging 04/23/2021 9:50 AM CDT Impressions 04/23/2021 9:54 AM CDT IMPRESSION: C2 fracture, unchanged in alignment. This report was electronically signed by CEZAR GOULD MD ??on 04/23/2021 9:54 AM . Narrative 04/23/2021 9:54 AM CDT Exam: ??XR CERVICAL SPINE 5VW History: ??S12.100D: Closed displaced fracture of second cervical vertebra with routine healing, unspecified fracture morphology, subsequent encounter Comparison: 01/29/2021 Findings: A fracture of the posterior aspect of the C2 vertebral body is unchanged in alignment. No other fracture is seen. There is no subluxation with flexion or extension. There is mild multilevel degenerative change. Procedure Note Cezar Gould MD - 04/23/2021 Exam: XR CERVICAL SPINE 5VW History: S12.100D: Closed displaced fracture of second cervicalvertebra with routine healing, unspecified fracture morphology, subsequent encounter Comparison: 01/29/2021 Findings: A fracture of the posterior aspect of the C2 vertebral body is unchanged in alignment. No other fracture is seen. There is no subluxation with flexion or extension. There is mild multilevel degenerative change. IMPRESSION: C2 fracture, unchanged in alignment. This report was electronically signed by CEZAR GOULD MD on04/23/2021 9:54 AM . Jefe Alan MD DIAGNOSTIC IMAGING O RDERABLES * CT BRAIN W WO IV CONTRAST [id number] (02/24/2021 3:45 PM CDT) Anatomical Region Laterality Modality Head Computed Tomogra phy 02/24/2021 3:57 PM CDT Impressions 02/25/2021 2:53 PM CDT 1. ??Age-related senescent changes. 2. ??No acute intracranial hemorrhage or infarct identified. Improving right maxillary sinus disease No intracranial metastatic disease Narrative 02/25/2021 2:53 PM CDT PROCEDURE: CT HEAD WWO CONTRAST ??02/24/2021 3:52 PM HISTORY: Dizziness and giddiness. FINDINGS AND IMPRESSION: Radiation dose reduction technique was utilized. COMPARISON: October 19, 2020 50 cc of [id number] FINDINGS: The intracranial structures demonstrate a mild pattern of atrophy which is nonspecific. There are nonspecific white matter changes which are likely senescent. There is no evidence of acute intracranial hemorrhage or infarct. No mass effect is identified. Ventricular size is appropriate. The sinuses are clear and the calvarium is intact. Chronic appearing right maxillary sinus thickening Improved since prior study. Postcontrast images show no abnormal enhancement No obvious metastatic disease identified Procedure Note [place] MD - 02/25/2021 PROCEDURE: CT HEAD WWO CONTRAST 02/24/2021 3:52 PM HISTORY: Dizziness and giddiness. FINDINGS AND IMPRESSION: Radiation dose reduction technique was utilized. COMPARISON: October 19, 2020 50 cc of Isovue-300 FINDINGS: The intracranial structures demonstrate a mild pattern of atrophy which is nonspecific. There are nonspecific white matter changes which are likely senescent. There is no evidence of acute intracranial hemorrhage or infarct. No mass effect is identified. Ventricular size is appropriate. The sinuses are clear and the calvarium is intact. Chronic appearing right maxillary sinus thickening Improved since prior study. Postcontrast images show no abnormal enhancement No obvious metastatic disease identified IMPRESSION 1. Age-related senescent changes. 2. No acute intracranial hemorrhage or infarct identified. Improving right maxillary sinus disease No intracranial metastatic disease Smiley Simmons PRIMARY CARE NURSE PRACTITIONER-SPLITTER OPERATOR CT ORDERA BLES * ISTAT CREATININE (02/24/2021 3:38 PM CDT) Only the most recent of2 resultswithin the time period is included. [facility] Creatinine POCT 1.1 0.6 - 1.3 mg/dL 02/24/2021 3:39 PM CDT [facility] eGFR 48 mL/min/1.7 3m2 02/24/2021 3:39 PM CDT [facility] eGFR by MDRD 58 mL/min/1.7 3m2 02/24/2021 3:39 PM CDT [facility] Blood BLOOD SPECIMEN / Unknown 02/24/2021 3:38 PM CDT 02/24/2021 3:39 PM CDT Smiley Simmons PRIMARY CARE NURSE PRACTITIONER-SPLITTER OPERATOR LAB - POI NT OF CARE ORDERABLES Performing Organization Address City/State/[facility] Co de Phone Number [facility] [address] * DEXA BONE DENSITY STUDY 15534 (02/24/2021 3:10 PM CDT) Anatomical Region Laterality [...] osteoporotic fracture 27.2% Hip fracture 9.3%. Smiley Simmons APRN-SPLITTER OPERATOR DEXA ORDE RABLES * VAS CAROTID DUPLEX BILATERAL 52144 (02/24/2021 2:39 PM CDT) Only the most recent of3 resultswithin the time period is included. Anatomical Region Laterality Modality Neck Intravascular Ul trasound 02/24/2021 5:34 PM CDT Narrative Procedure Note Lito Park MD - 02/24/2021 Text based report below. For full PDF report please click on Cardiac, Vascular Lab Orders Based Right: The Carotid arteries were imaged with the help of a duplexultrasound. Heterogeneous plaque is seen in the Rt Carotid system. Velocities arewithin normal limits. Rt vertebral flow is antegrade.Minimal heterogenous plaqueseen in the Bulb / ICA proximal. No hemodynamic stenosis is seen. Left: The Carotid arteries were imaged with the help of a duplexultrasound. Heterogeneous plaque is seen in the Lt Carotid system at the level of theICA and ECA proximal area, Velocities are within normal limits. Lt vertebralflow is antegrade. Conclusions: Based on NASCET criteria there is less than 50% stenosis bilaterally in the ICA's. Flow within the bilateral vertebral arteries is antegrade. Procedure: Carotid duplex examination was performed using B-mode, colorflow and spectral doppler. *Reading Radiologist: Lito Park on 02/24/2021 at 5:34 PM Smiley Simmons PRIMARY CARE NURSE PRACTITIONER-SPLITTER OPERATOR VASCULAR LAB ORDERABLES * XR CERVICAL SPINE 2 OR 3VW (01/29/2021 12:45 PM PRISON KEEPER) Only the most recent of5 resultswithin the time period is included. Anatomical Region Laterality Modality Spine Radiographic July ging 01/29/2021 1:27 PM PRISON KEEPER Impressions 01/29/2021 1:30 PM PRISON KEEPER IMPRESSION: Subtle increase prominence of the fracture gap at the posterior/inferior aspect of the C2 vertebral body. It is uncertain how much of this is due to healing/resorption, or true increased displacement. This report was electronically signed by FRANCISCA SALINAS ??on 01/29/2021 1:30 PM . Narrative 01/29/2021 1:30 PM PRISON KEEPER EXAMINATION: XR CERVICAL SPINE 2 OR 3VW HISTORY: S12.100D: Closed displaced fracture of second cervical vertebra with routine healing, unspecified fracture morphology, subsequent encounter COMPARISON: 12/01/2020 and 10/20/2020 FINDINGS: There is subtle visualization of fracture along the posterior inferior aspect of the C2 vertebral body. The fracture gap may be slightly increased, however some of this could be due to resorption/remodeling. Overall alignment is unchanged. Remaining vertebral vertebral bodies within normal limits. There is no prevertebral swelling. Procedure Note Francisca Salinas MD - 01/29/2021 EXAMINATION: XR CERVICAL SPINE 2 OR 3VW HISTORY: S12.100D: Closed displaced fracture of second cervical vertebra with routine healing, unspecified fracture morphology, subsequent encounter COMPARISON: 12/01/2020 and 10/20/2020 FINDINGS: There is subtle visualization of fracture along the posterior inferior aspect of the C2 vertebral body. The fracture gap may be slightly increased, however some of this could be due to resorption/remodeling. Overall alignment is unchanged. Remaining vertebral vertebral bodies within normal limits. There is no prevertebral swelling. IMPRESSION: Subtle increase prominence of the fracture gap at the posterior/inferior aspect of the C2 vertebral body. It is uncertain how much of this is due to healing/resorption, or true increased displacement. This report was electronically signed by FRANCISCA SALINAS on 11:30 PM . Jefe Alan MD DIAGNOSTIC IMAGING O RDERABLES * (ABNORMAL) GLUCOSE - POINT OF CARE (10/29/2020 11:30 AM PRISON KEEPER) Only the most recent of42 resultswithin the time period is included. Glucose WB/POC 119(H) 70 - 115 mg/dL 10/29/2020 11:40 AM [facility] Specimen Type Venous 10/29/2020 11:40 AM [facility] Blood BLOOD SPECIMEN / Unknown 10/29/2020 11:30 AM PRISON KEEPER 10/29/2020 11:40 AM PRISON KEEPER Tommy Sibley MD LAB - POINT OF CARE ORDERABLES [facility] [address] [place] [address], [facility] [phone] * (ABNORMAL) CBC W/O DIFFERENTIAL (10/28/2020 12:41 PM PRISON KEEPER) Only the most recent of5 resultswithin the time period is included. WBC 11.3(H) 3.5 - 10.5 10? 3 /uL 10/28/2020 1:04 PM [facility] RBC 4.80 3.90 - 5.00 10? 6 /uL 10/28/2020 1:04 PM [facility] Hemoglobin 13.6 12.0 - 15.5 g/dL 10/28/2020 1:04 PM [facility] Hematocrit 40.6 35.0 - 45.0 % 10/28/2020 1:04 PM [facility] MCV 84.6 81.0 - 97.0 fL 10/28/2020 1:04 PM [facility] MCH 28.3 28.0 - 34.0 pg 10/28/2020 1:04 PM [facility] MCHC 33.5 32.0 - 36.0 g/dL 10/28/2020 1:04 PM [facility] Platelet Count 281 150 - 400 10? 3 /uL 10/28/2020 1:04 PM [facility] RDW-SD 45.8 36.0 - 50.0 fL 10/28/2020 1:04 PM [facility] RDW-CV 14.8 11.2 - 14.8 % 10/28/2020 1:04 PM [facility] MPV 10.2 9.3 - 12.8 fL 10/28/2020 1:04 PM [facility] nRBC Absolute 0.00 0 10? 3 /uL 10/28/2020 1:04 PM [facility] nRBC Auto 0.0 0 /100 WBC 10/28/2020 1:04 PM [facility] Blood BLOOD SPECIMEN / Unknown Lab Venipuncture / Unknown 10/28/2020 12:41 PM PRISON KEEPER 10/28/2020 12:59 PM PRISON KEEPER Tommy Sibley MD LAB - HEMATOLOGY ORD ERABLES [facility] [address] [place] [address], [facility] [phone] * SARS-COV-2 (COVID-19) IN HOUSE (10/28/2020 11:26 AM PRISON KEEPER) Only the most recent of6 resultswithin the time period is included. Pathologist [facility] COVID-19 PCR Not detected Not detected 10/28/2020 3:13 PM PRISON KEEPER [facility] MICROBIOLOGY Microbiology SPECIMEN FROM NASOPHARYNGEAL STRUCTURE / Unknown Collection / Unknown 10/28/2020 11:26 AM PRISON KEEPER 10/28/2020 11:44 AM PRISON KEEPER Tommy Sibley MD LAB - MICROBIOLOGY O RDERABLES Performing Organization Address City/[facility]/ZIP Co de Phone Number [facility] MICROBIOLOGY [address] [place] [address], [facility] [phone] * (ABNORMAL) BASIC METABOLIC PANEL (CALCIUM TOTAL) (10/27/2020 2:30 AM PRISON KEEPER) Only the most recent of5 resultswithin the time period is included. Pathologist [facility] BUN 18 7 - 26 mg/dL 10/27/2020 3:37 AM [facility] Creatinine 0.8 0.6 - 1.2 mg/dL 10/27/2020 3:37 AM [facility] Sodium 134(L) 136 - 145 mmol/L 10/27/2020 3:37 AM [facility] Potassium 3.5 3.5 - 4.5 mmol/L 10/27/2020 3:37 AM [facility] Chloride 99 98 - 107 mmol/L 10/27/2020 3:37 AM [facility] CO2 23 22 - 29 mmol/L 10/27/2020 3:37 AM [facility] Glucose 98 70 - 115 mg/dL 10/27/2020 3:37 AM [facility] Calcium 9.6 8.4 - 10.2 mg/dL 10/27/2020 3:37 AM [facility] Anion Gap 16 8 - 18 10/27/2020 3:37 AM [facility] BUN/Creatinine Ratio 23 7 - 23 10/27/2020 3:37 AM [facility] Osmolality Calculated 280 270 - 300 mOsm/kg 10/27/2020 3:37 AM [facility] eGFR >60 >60 mL/min/1.7 3 m2 10/27/2020 3:37 AM [facility] Blood BLOOD SPECIMEN / Unknown Lab Venipuncture / Unknown 10/27/2020 2:30 AM PRISON KEEPER 10/27/2020 3:05 AM PRISON KEEPER David Nunes PA-C LAB - CHEMISTRY MAURILIO RENE Performing Organization Address City/[facility]/ZIP Co de Phone Number [address] [address], [facility] [phone] * MAGNESIUM BLOOD (10/26/2020 3:11 AM PRISON KEEPER) Only the most recent of2 resultswithin the time period is included. Magnesium 2.0 1.6 - 2.6 mg/dL 10/26/2020 8:31 AM [facility] Blood BLOOD SPECIMEN / Unknown Lab Venipuncture / Unknown 10/26/2020 3:11 AM PRISON KEEPER 10/26/2020 3:30 AM PRISON KEEPER David Nunes PA-C LAB - CHEMISTRY MAURILIO RENE Performing Organization Address City/[facility]/ZIP Co de Phone Number [address] [address], [facility] [phone] * (ABNORMAL) CK BLOOD (10/21/2020 11:34 AM PRISON KEEPER) Only the most recent of3 resultswithin the time period is included. CK Total 1,300(H) 30 - 200 Units/L 10/21/2020 12:40 PM [facility] Blood BLOOD SPECIMEN / Unknown Lab Venipuncture / Unknown 10/21/2020 11:34 AM PRISON KEEPER 10/21/2020 12:27 PM PRISON KEEPER Madyson Camejo PA-C LAB - CHEMISTRY ORDERABLES [facility] [address] [place] [address], [facility] [phone] * CARDIAC EKG ORDER (10/21/2020 10:51 AM PRISON KEEPER) Only the most recent of2 resultswithin the time period is included. Narrative 10/21/2020 10:51 AM PRISON KEEPER Ordered by an unspecified provider. Scanned Document CARDIAC SERVICES ORD ERABLES * (ABNORMAL) COMPREHENSIVE METABOLIC PANEL (10/21/2020 2:34 AM PRISON KEEPER) Only the most recent of8 resultswithin the time period is included. BUN 15 7 - 26 mg/dL 10/21/2020 3:53 AM [facility] Creatinine 0.8 0.6 - 1.2 mg/dL 10/21/2020 3:53 AM [facility] Sodium 136 136 - 145 mmol/L 10/21/2020 3:53 AM [facility] Potassium 2.9(LL) 3.5 - 4.5 mmol/L 10/21/2020 3:53 AM [facility] Chloride 98 98 - 107 mmol/L 10/21/2020 3:53 AM [facility] CO2 26 22 - 29 mmol/L 10/21/2020 3:53 AM [facility] Glucose 123(H) 70 - 115 mg/dL 10/21/2020 3:53 AM [facility] Calcium 9.5 8.4 - 10.2 mg/dL 10/21/2020 3:53 AM [facility] Protein Total 7.0 6.0 - 8.3 g/dL 10/21/2020 3:53 AM [facility] Albumin 3.5 3.4 - 5.0 g/dL 10/21/2020 3:53 AM [facility] Bilirubin Total 0.6 0.2 - 1.2 mg/dL 10/21/2020 3:53 AM [facility] Alkaline Phosphatase 56 40 - 150 Units/L 10/21/2020 3:53 AM [facility] ALT 32 0 - 55 Units/L 10/21/2020 3:53 AM [facility] AST 92(H) 5 - 34 Units/L 10/21/2020 3:53 AM [facility] Anion Gap 15 8 - 18 10/21/2020 3:53 AM [facility] BUN/Creatinine Ratio 19 7 - 23 10/21/2020 3:53 AM [facility] Osmolality Calculated 284 270 - 300 mOsm/kg 10/21/2020 3:53 AM [facility] Albumin/Globulin Ratio 1.0(L) 1.1 - 2.3 10/21/2020 3:53 AM [facility] eGFR >60 >60 mL/min/1.7 3 m2 10/21/2020 3:53 AM [facility] Blood BLOOD SPECIMEN / Unknown Lab Venipuncture / Unknown 10/21/2020 2:34 AM PRISON KEEPER 10/21/2020 3:02 AM PRISON KEEPER Madyson Camejo PA-C LAB - CHEMISTRY ORDERABLES Performing Organization Address City/State/[facility] Co de Phone Number [facility] [address] [place] [address], [facility] [phone] * XR CHEST 1VW PORTABLE (10/20/2020 4:36 PM PRISON KEEPER) Only the most recent of3 resultswithin the time period is included. Anatomical Region Laterality Modality Chest Radiographic July ging 10/20/2020 4:34 PM PRISON KEEPER Impressions 10/21/2020 12:11 PM PRISON KEEPER FINDINGS/IMPRESSION: A c-collar is in place. Lung volumes are low. Mild bilateral perihilar and infrahilar patchy opacities are consistent with atelectasis and/or airspace disease such as pneumonia. The heart size and mediastinal contours are normal. Calcified mediastinal lymph nodes are again seen. There is no pleural effusion or pneumothorax. No acute osseous abnormality is evident. Dictated by Katerina Osorio MD (Resident). I, Dr. SURAJ KIRK M.D. have personally reviewed and interpreted this examination/study. This report was electronically signed by SURAJ KIRK M.D. ??on 10/21/2020 12:11 PM . Narrative 10/21/2020 12:11 PM PRISON KEEPER EXAMINATION: XR CHEST 1VW PORTABLE HISTORY: Z20.828: Person under investigation for COVID-19 COMPARISON: 01/15/2010 Procedure Note Suraj Kirk MD - 10/21/2020 EXAMINATION: XR CHEST 1VW PORTABLE HISTORY: Z20.828: Person under investigation for COVID-19 COMPARISON: 01/15/2010 FINDINGS/IMPRESSION: A c-collar is in place. Lung volumes are low. Mild bilateral perihilar and infrahilar patchy opacities are consistent with atelectasis and/or airspace disease suchas pneumonia. The heart size and mediastinal contours are normal. Calcified mediastinal lymph nodes are again seen. There is no pleural effusion or pneumothorax. No acute osseous abnormality is evident. Dictated by Katerina Osorio MD (Resident). I, Dr. SURAJ KIRK M.D. have personally reviewed and interpreted this examination/study. This report was electronically signed by SURAJ KIRK M.D. on10/21/2020 12:11 PM . Madyson Camejo PA-C DIAGNOSTIC IMAGI NG ORDERABLES * CARDIAC RHYTHM STRIP ORDER (10/20/2020 12:01 PM PRISON KEEPER) Only the most recent of7 resultswithin the time period is included. Narrative 10/20/2020 12:01 PM PRISON KEEPER Ordered by an unspecified provider. Scanned Document CARDIAC SERVICES ORD ERABLES * CULTURE URINE (10/20/2020 9:59 AM PRISON KEEPER) Only the most recent of4 resultswithin the time period is included. Culture Urine More than 2 organisms seen at >=50,000 CFU/mL. Recollect if clinically indicated. LAINA 10/22/2020 5:43 AM PRISON KEEPER [facility] Urine URINE SPECIMEN OBTAINED BY CLEAN CATCH PROCEDURE / Unknown Collection / Unknown 10/20/2020 9:59 AM PRISON KEEPER 10/20/2020 10:13 AM PRISON KEEPER Madyson Camejo PA-C LAB - MICROBIOLO GY ORDERABLES [facility] [address] [place] [address], [facility] [phone] * MRI CERVICAL SPINE WO CONTRAST (10/20/2020 8:00 AM PRISON KEEPER) Anatomical Region Laterality Modality Pelvis Magnetic Resonan ce 10/20/2020 9:16 AM PRISON KEEPER Impressions 10/20/2020 12:19 PM PRISON KEEPER IMPRESSION: C2 vertebral body fracture extending to the bilateral lateral masses with mild focal kyphosis and surrounding edema. T2/STIR hyperintense signal within the anterior longitudinal ligament and the posterior ligamentous complex suggesting ligamentous sprain without discontinuity to suggest complete tear. I, Dr. OSMAR AGRAWAL have personally reviewed and interpreted this examination/study. This report was electronically signed by OSMAR AGRAWAL ??on 10/20/2020 12:19 PM . Narrative 10/20/2020 12:19 PM PRISON KEEPER EXAMINATION: MRI OF THE CERVICAL SPINE WITHOUT CONTRAST HISTORY: R42: Postural dizziness with presyncope; R55: Postural dizziness with presyncope TECHNIQUE: MRI of the cervical spine was performed without contrast according to a trauma protocol. COMPARISON: CT Cervical Spine through [facility] from 10/19/2020. CORRELATION: Cervical spine radiographs dated 10/20/2020. FINDINGS: Other than mild focal lordosis at the level of C2 secondary to a C2 fracture, the cervical alignment appears normal without evidence of listhesis. There is a chronic compression deformity of the superior endplate of T4 with approximately 25% height loss. There is a fracture of the C2 vertebral body which extends into the bilateral lateral masses. Other than T2 hyperintense edema at the C2 fracture, the marrow signal is normal. The craniocervical junction and visualized portions of the posterior fossa appear normal. The anterior and posterior longitudinal ligaments appear intact, however there is T2/STIR hyperintense signal in the anterior longitudinal ligament suggesting high-grade sprain. There is increased T2/STIR signal in the posterior ligamentous complex at the occiput/C1 suggesting sprain. The spinal cord appears normal without evidence of intramedullary edema or hemorrhage. The cord is not compressed. There is mild multilevel degenerative disc and joint changes without significant central canal or neural foraminal stenosis. There is no epidural hemorrhage. No other soft tissue abnormality is identified. Normal flow voids are identified in the vertebral arteries. There is near complete filling of the right maxillary sinus by a circumferential severely thickened mucosa. Procedure Note Osmar Agrawal MD - 10/20/2020 EXAMINATION: MRI OF THE CERVICAL SPINE WITHOUT CONTRAST HISTORY: R42: Postural dizziness with presyncope; R55: Posturaldizziness with presyncope TECHNIQUE: MRI of the cervical spine was performed without contrast according to a trauma protocol. COMPARISON: CT Cervical Spine through [facility] from 10/19/2020. CORRELATION: Cervical spine radiographs dated 10/20/2020. FINDINGS: Other than mild focal lordosis at the level of C2 secondary to a C2 fracture, the cervical alignment appears normal without evidence of listhesis. There is a chronic compression deformity of the superior endplate of T4 with approximately 25% height loss. There is a fractureof the C2 vertebral body which extends into the bilateral lateral masses. Other than T2 hyperintense edema at the C2 fracture, the marrow signalis normal. The craniocervical junction and visualized portions of the posterior fossa appear normal. The anterior and posterior longitudinal ligaments appear intact, however there is T2/STIR hyperintense signal in the anterior longitudinal ligament suggesting high-grade sprain. Thereis increased T2/STIR signal in the posterior ligamentous complex at the occiput/C1 suggesting sprain. The spinal cord appears normal without evidence of intramedullary edemaor hemorrhage. The cord is not compressed. There is mild multilevel degenerative disc and joint changes without significant central canal or neural foraminal stenosis. There is no epidural hemorrhage. No other soft tissue abnormality is identified. Normal flow voids are identified in the vertebral arteries. There isnear complete filling of the right maxillary sinus by a circumferential severely thickened mucosa. IMPRESSION: C2 vertebral body fracture extending to the bilateral lateral masseswith mild focal kyphosis and surrounding edema. T2/STIR hyperintense signal within the anterior longitudinal ligament and the posterior ligamentous complex suggesting ligamentous sprain without discontinuity to suggest complete tear. I, Dr. OSMAR AGRAWAL have personally reviewed and interpreted this examination/study. This report was electronically signed by OSMAR AGRAWAL on 10/20/202012:19 PM . Bertrand Chairez MD MR ORDERABLES * HEMOGLOBIN A1C (10/20/2020 4:38 AM PRISON KEEPER) Hemoglobin A1c 6.2 4.4 - 6.3 % 10/20/2020 9:37 AM [facility] Estimated Average Glucose 131 mg/dL 10/20/2020 9:37 AM [facility] Comment: HbA1c Interpretation: Treatment target values recommended by ADA and other clinical organizations should be used to evaluate metabolic control in patients. Treatment Target Values: Normal : < 5.7% Pre-diabetes: 5.7-6.4% Diabetes: Equal to or greater than 6.5% Reference: [place] [employer] Standards of Care in Diabetes -2014 In patients 70 years and older consider HbA1c target range of 7.0-7.5% Reference: ??Diabetes Mellitus in Older People: Position Statement on behalf of the International Association of Gerontology and Geriatrics (IAGG), the Diabetes Working Republican for Older People (EDWPOP), and the International Task Force of Experts in Diabetes. ??Jarad Rendon, et al. J [employer]. 2012 Test results diagnostic of diabetes should be repeated for confirmation. The Sebia Capillary 2 assay for the measurement of HbA1c is a National Glycohemoglobin Standardization Program (NGSP)certified method. Blood BLOOD SPECIMEN / Unknown Venipuncture / Unknown 10/20/2020 4:38 AM PRISON KEEPER 10/20/2020 4:41 AM [facility] Gene Barone MD LAB - CHEMISTRY ORDERABLES [facility] [address] [address], [facility] [phone] * EKG 12-LEAD (10/20/2020 3:22 AM PRISON KEEPER) Only the most recent of8 resultswithin the time period is included. Ventricular Rate 88 BPM [facility] Atrial Rate 88 BPM [facility] M[facility] P-R Interval 180 ms [facility] MUSE QRS Duration ms 84 ms [facility] MUSE Q-T Interval ms 376 ms [facility] MUSE QTC Calculation (Bezet) 454 ms [facility] Calculated P [place] 44 degrees [facility] Calculated R [place] -8 degrees [facility] Calculated T [place] 12 degrees [facility] Interpretation EKG SINUS RHYTHM WITH FUSION COMPLEXES NONSPECIFIC ST AND T WAVE ABNORMALITY CAN NOT RULE OUT INFERIOR INFARCT ABNORMAL ECG WHEN COMPARED WITH ECG OF 20-OCT-2020 00:32, NO SIGNIFICANT CHANGE WAS FOUND Confirmed by fellow Sam Cameron ([id number]) on 10/20/2020 10:26:36 PM Confirmed by Wilner Bartlett ([id number]) on 10/22/2020 2:13:01 PM [facility] MUSE 10/20/2020 3:22 AM PRISON KEEPER 10/22/2020 2:13 PM PRISON KEEPER Maulik Devries MD ECG ORDERABLES [facility] MUSE * (ABNORMAL) URINALYSIS REFLEX TO MICROSCOPIC NO CULTURE (10/20/2020 12:56 AM PRISON KEEPER) Color UA Yellow Straw, Yellow, Colorless 10/20/2020 1:22 AM [facility] Clarity UA Slt Cloudy Clear, Slt Cloudy 10/20/2020 1:22 AM [facility] Specific Garvin UA 1.049(H) 1.005 - 1.030 10/20/2020 1:22 AM [facility] pH UA 5.0 5.0 - 8.0 pH 10/20/2020 1:22 AM [facility] Protein UA 1+(A) Negative mg/dL 10/20/2020 1:22 AM [facility] Glucose UA Negative Negative mg/dL 10/20/2020 1:22 AM [facility] Ketone UA 1+(A) Negative mg/dL 10/20/2020 1:22 AM [facility] Bilirubin UA Negative Negative mg/dL 10/20/2020 1:22 AM [facility] Blood UA 3+(A) Negative 10/20/2020 1:22 AM [facility] Nitrite UA Negative Negative 10/20/2020 1:22 AM [facility] Leukocyte Esterase Trace(A) Negative 10/20/2020 1:22 AM [facility] [facility] Urobilinogen UA Negative Negative mg/dL 10/20/2020 1:22 AM [facility] RBC UA 6-10(A) None Seen, 0-2, 3-5 /HPF 10/20/2020 1:22 AM [facility] WBC UA 11-20(A) None Seen, 0-5 /HPF 10/20/2020 1:22 AM [facility] Bacteria UA 3+(A) None, Trace /HPF 10/20/2020 1:22 AM [facility] Squamous Epithelial Cells UA 3-5(A) None Seen, 0-2 /HPF 10/20/2020 1:22 AM [facility] Renal Epithelial Cells UA 0-2 None Seen, 0-2 /HPF 10/20/2020 1:22 AM [facility] Mucus UA 1+ None, 1+ /LPF 10/20/2020 1:22 AM [facility] Urine URINE SPECIMEN OBTAINED BY SINGLE CATHETERIZATION OF URINARY BLADDER / Unknown Collection / Unknown 10/20/2020 12:56 AM [facility] 10/20/2020 1:03 AM [facility] - 10/20/2020 1:22 AM [facility] Maulik Devries MD LAB - URINALYSIS ORD ERABLES [facility] [address] [place] [id number], [facility] [phone] * (ABNORMAL) CBC W AUTO DIFFERENTIAL (10/20/2020 12:30 AM [facility]) Only the most recent of7 resultswithin the time period is included. WBC 15.9(H) 3.5 - 10.5 10? 3 /uL 10/20/2020 12:57 AM [facility] RBC 4.69 3.90 - 5.00 10? 6 /uL 10/20/2020 12:57 AM [facility] Hemoglobin 13.0 12.0 - 15.5 g/dL 10/20/2020 12:57 AM [facility] Hematocrit 39.4 35.0 - 45.0 % 10/20/2020 12:57 AM [facility] MCV 84.0 81.0 - 97.0 fL 10/20/2020 12:57 AM [facility] MCH 27.7(L) 28.0 - 34.0 pg 10/20/2020 12:57 AM [facility] MCHC 33.0 32.0 - 36.0 g/dL 10/20/2020 12:57 AM [facility] Platelet Count 212 150 - 400 10? 3 /uL 10/20/2020 12:57 AM [facility] RDW-SD 47.0 36.0 - 50.0 fL 10/20/2020 12:57 AM [facility] RDW-CV 15.4(H) 11.2 - 14.8 % 10/20/2020 12:57 AM [facility] MPV 12.4 9.3 - 12.8 fL 10/20/2020 12:57 AM [facility] nRBC Absolute 0.00 0 10? 3 /uL 10/20/2020 12:57 AM [facility] nRBC Auto 0.0 0 /100 WBC 10/20/2020 12:57 AM [facility] Neutrophils % 89.9(H) 35.0 - 70.0 % 10/20/2020 12:57 AM [facility] Lymphocytes % 4.5(L) 19.7 - 55.1 % 10/20/2020 12:57 AM [facility] Monocytes % 4.8 3.0 - 15.0 % 10/20/2020 12:57 AM [facility] Eosinophils % 0.0 0.0 - 6.0 % 10/20/2020 12:57 AM [facility] Basophil % 0.2 0.0 - 1.5 % 10/20/2020 12:57 AM [facility] Neutrophils Absolute 14.2(H) 1.6 - 7.0 10? 3 /uL 10/20/2020 12:57 AM [facility] Lymphocyte Absolute 0.7(L) 0.8 - 2.9 10? 3 /uL 10/20/2020 12:57 AM [facility] Monocytes Absolute 0.76(H) 0.14 - 0.66 10? 3 /uL 10/20/2020 12:57 AM [facility] Eosinophils Absolute 0.00 0.00 - 0.45 10? 3 /uL 10/20/2020 12:57 AM [facility] Basophils Absolute 0.03 0.00 - 0.06 10? 3 /uL 10/20/2020 12:57 AM [facility] Immature Granulocytes % 0.6 0.0 - 1.0 % 10/20/2020 12:57 AM [facility] Blood BLOOD SPECIMEN / Unknown Venipuncture / Unknown 10/20/2020 12:30 AM [facility] 10/20/2020 12:41 AM [facility] Maulik Devries MD LAB - HEMATOLOGY ORD ERABLES [facility] [address] [place] [id number], [place] [phone] * TROPONIN I (10/19/2020 11:46 PM [facility]) Only the most recent of5 resultswithin the time period is included. Troponin I <0.010 <0.032 ng/mL 10/20/2020 12:24 AM [facility] Blood BLOOD SPECIMEN / Unknown Venipuncture / Unknown 10/19/2020 11:46 PM [facility] 10/19/2020 6:15 PM [facility] Maulik Devires MD LAB - CHEMISTRY MAURILIO RENE Performing Organization Address [facility]/ZIP Co de Phone Number [address] [address], [place] [phone] * CT ABDOMEN AND PELVIS W IV CONTRAST [id number] (10/19/2020 7:14 PM [facility]) Anatomical Region Laterality Modality Abdomen, Pelvis Computed Tomogra phy 10/19/2020 8:22 PM [facility] Impressions 10/19/2020 9:38 PM [facility] No acute abnormality identified with chronic and postoperative change as noted above. Edited by Viviane Coelho on 10/19/2020 8:31 PM Narrative 10/19/2020 9:[address] ABDOMEN AND PELVIS WITH IV CONTRAST WITHOUT ORAL CONTRAST WITH SAGITTAL AND CORONAL RECONSTRUCTION 10/19/2020 HISTORY: Fall with injury with blunt abdominal trauma. CONTRAST DOSE: 55 mL of Isovue-300 IV. Automated exposure control with radiation dose reduction technique utilized. FINDINGS: Please see same-day CT chest report for findings above the diaphragm. Some motion artifact present limiting detail. No free intraperitoneal air or free pelvic fluid identified. Cholecystectomy without biliary ductal dilatation. No active inflammatory process identified in abdomen or pelvis. No apparent bowel obstruction or obstructive uropathy. Scattered splenic calcifications. No apparent hepatic, splenic, pancreatic, adrenal, renal, or pelvic mass lesions. Aortoiliac calcification without abdominal aortic aneurysm formation. Degenerative and hypertrophic change noted in lumbar spine. Moderately severe degenerative change at the hips. No fractures are seen. Procedure Note Adrian Gomez MD - 10/19/2020 CT ABDOMEN AND PELVIS WITH IV CONTRAST WITHOUT ORAL CONTRAST WITH SAGITTAL AND CORONAL RECONSTRUCTION 10/19/2020 HISTORY: Fall with injury with blunt abdominal trauma. CONTRAST DOSE: 55 mL of Isovue-300 IV. Automated exposure control with radiation dose reduction technique utilized. FINDINGS: Please see same-day CT chest report for findings above the diaphragm. Some motion artifact present limiting detail. No free intraperitoneal air or free pelvic fluid identified. Cholecystectomy without biliary ductal dilatation. No active inflammatory process identified in abdomen or pelvis. No apparent bowel obstruction or obstructive uropathy. Scattered splenic calcifications. No apparent hepatic, splenic, pancreatic, adrenal, renal, or pelvic mass lesions. Aortoiliac calcification without abdominal aortic aneurysm formation. Degenerative and hypertrophic change noted in lumbar spine. Moderately severe degenerative change at the hips. No fractures are seen. IMPRESSION No acute abnormality identified with chronic and postoperative change as noted above. Edited by Viviane Coelho on 10/19/2020 8:31 PM Greg Soto MD CT ORDERABLES * CT CHEST WO CONTRAST [id number] (10/19/2020 7:13 PM [facility]) Only the most recent of2 resultswithin the time period is included. Anatomical Region Laterality Modality Chest Computed Tomogra phy 10/19/2020 8:16 PM [facility] Impressions 10/19/2020 9:44 PM [facility] Bilateral lower lobe atelectasis. Mild groundglass opacification at lung apices. Findings may represent atelectasis though clinical correlation for Covid-19 infection suggested. No pulmonary consolidation or pulmonary mass lesions noted. Prominent postinflammatory calcification. Atherosclerotic calcification of thoracic aorta, great vessels, and coronary arteries. No gross mediastinal injury though the lack of IV contrast limits evaluation. No apparent lymphadenopathy. Small to moderate hiatal hernia. No apparent rib fractures identified with particular attention directed to the right side. No apparent acute thoracic spine compression deformity. Stable, old mild superior endplate compression deformity at T4 similar to 05/12/2018. Please see same-day CT abdomen and pelvis for findings below the diaphragm. Edited by Viviane Coelho on 10/19/2020 8:29 PM Narrative 10/19/2020 9:[address] CHEST WITHOUT IV CONTRAST WITH SAGITTAL AND CORONAL RECONSTRUCTION 10/19/2020 HISTORY: Fall with injury. Right rib pain. COMPARISON: 05/12/2018 CT chest. Automated exposure control with radiation dose reduction technique utilized. Procedure Note Adrian Gomez MD - 10/19/2020 CT CHEST WITHOUT IV CONTRAST WITH SAGITTAL AND CORONAL RECONSTRUCTION 10/19/2020 HISTORY: Fall with injury. Right rib pain. COMPARISON: 05/12/2018 CT chest. Automated exposure control with radiation dose reduction technique utilized. IMPRESSION Bilateral lower lobe atelectasis. Mild groundglass opacification at lung apices. Findings may represent atelectasis though clinical correlation for Covid-19 infection suggested. No pulmonary consolidation or pulmonary mass lesions noted. Prominent postinflammatory calcification. Atherosclerotic calcification of thoracic aorta, great vessels, and coronary arteries. No gross mediastinal injury though the lack of IV contrast limits evaluation. No apparent lymphadenopathy. Small to moderate hiatal hernia. No apparent rib fractures identified with particular attention directed to the right side. No apparent acute thoracic spine compression deformity. Stable, old mild superior endplate compression deformity at T4 similar to 05/12/2018. Please see same-day CT abdomen and pelvis for findings below the diaphragm. Edited by Viviane Coelho on 10/19/2020 8:29 PM Greg Soto MD CT ORDERABLES * CT CERVICAL SPINE WO CONTRAST [id number] (10/19/2020 7:07 PM [facility]) Only the most recent of2 resultswithin the time period is included. Anatomical Region Laterality Modality Spine Computed Tomogra phy 10/19/2020 8:07 PM [facility] Impressions 10/19/2020 9:43 PM [facility] Imaging performed with patient in c-collar and on transport board. As discussed with Dr. Devries, there is a comminuted fracture of the body of C2 and lateral masses and base of dens with only minimal displacement. There is approximately 3 mm of posterior displacement of an approximately 3 x 10 mm fragment at posterior aspect of the body of C2 though without gross encroachment upon the spinal canal. No apparent dislocation or additional fractures identified. Marked degenerative change at the atlantodens articulation. No apparent prevertebral soft tissue swelling. Multilevel degenerative change in the cervical spine without apparent jumped facets. Edited by Viviane Coelho on 10/19/2020 8:16 PM Narrative 10/19/2020 9:[address] OF CERVICAL SPINE WITHOUT IV CONTRAST WITH SAGITTAL AND CORONAL RECONSTRUCTION 10/19/2020 HISTORY: Fall with injury. COMPARISON: 03/26/2018 CT cervical spine. Automated exposure control with radiation dose reduction technique utilized. Procedure Note Adrian Gomez MD - 10/19/2020 CT OF CERVICAL SPINE WITHOUT IV CONTRAST WITH SAGITTAL AND CORONAL RECONSTRUCTION 10/19/2020 HISTORY: Fall with injury. COMPARISON: 03/26/2018 CT cervical spine. Automated exposure control with radiation dose reduction technique utilized. IMPRESSION Imaging performed with patient in c-collar and on transport board. As discussed with Dr. Devries, there is a comminuted fracture of the body of C2 and lateral masses and base of dens with only minimal displacement. There is approximately 3 mm of posterior displacement of an approximately 3 x 10 mm fragment at posterior aspect of the body of C2 though without gross encroachment upon the spinal canal. No apparent dislocation or additional fractures identified. Marked degenerative change at the atlantodens articulation. No apparent prevertebral soft tissue swelling. Multilevel degenerative change in the cervical spine without apparent jumped facets. Edited by Viviane Coelho on 10/19/2020 8:16 PM Greg Soto MD CT ORDERABLES * CT BRAIN WO CONTRAST [id number] (10/19/2020 7:07 PM [facility] KEEPER) Only the most recent of3 resultswithin the time period is included. Anatomical Region Laterality Modality Head Computed Tomogra phy 10/19/2020 8:04 PM [facility] Impressions 10/19/2020 9:44 PM [facility]PER No subdural hematoma or other intracranial hemorrhage identified. No depressed calvarial fracture is seen. Cerebral atrophy and microvascular disease change consistent with patient's age. Intracranial vascular calcification. No apparent mass, mass effect, or major territory infarction. Near-complete opacification of right maxillary antrum with clinical correlation for sinusitis suggested. Mastoid air cells and remainder of paranasal sinuses appear clear. Edited by Viviane Coelho on 10/19/2020 8:08 PM Narrative 10/19/2020 9:[address] HEAD SCAN WITHOUT IV CONTRAST 10/19/2020 7:07 PM HISTORY: Fall with injury to right side. Automated exposure control with radiation dose reduction technique utilized. COMPARISON: 03/26/2019 CT head scan. FINDINGS: Imaging performed with patient on transport board and in c-collar. Procedure Note Adrian Gomez MD - 10/19/2020 CT HEAD SCAN WITHOUT IV CONTRAST 10/19/2020 7:07 PM HISTORY: Fall with injury to right side. Automated exposure control with radiation dose reduction technique utilized. COMPARISON: 03/26/2019 CT head scan. FINDINGS: Imaging performed with patient on transport board and in c-collar. IMPRESSION No subdural hematoma or other intracranial hemorrhage identified. No depressed calvarial fracture is seen. Cerebral atrophy and microvascular disease change consistent with patient's age. Intracranial vascular calcification. No apparent mass, mass effect, or major territory infarction. Near-complete opacification of right maxillary antrum with clinical correlation for sinusitis suggested. Mastoid air cells and remainder of paranasal sinuses appear clear. Edited by Viviane Coelho on 10/19/2020 8:08 PM Greg Soto MD CT ORDERABLES * GROSS + MICRO EXAM (ILL) (07/03/2020 8:17 AM CDT) Only the most recent of5 resultswithin the time period is included. Case Report Surgical Pathology Report ? Case: [id number] ? Authorizing Provider: ??Cezar Johnson MD ? Collected: ? 07/03/2020 08:17 AM ? Ordering Location: ? [facility] ?Received: ?07/03/2020 02:40 PM ? Pathologist: ? Porter Christensen MD ? Specimens: ?? A) - Antrum Biopsy, Antrum Biopsy- Gastric Polyp ? B) - Esophageal Biopsy, Esophageal Biopsy @ 32 cm- rule out Dysplasia ? C) - Esophageal Biopsy, Esophageal Biopsy @ 30 cm- rule out Dysplasia ? 07/04/2020 11:52 AM [facility] Final Diagnosis A. GASTRIC BIOPSIES, ANTRUM: - MODERATE CHRONIC GASTRITIS, H&E SECTIONS NEGATIVE FOR HELICOBACTER. B. ESOPHAGEAL BIOPSIES AT 32 CM: - SPECIALIZED COLUMNAR MUCOSA WITH GOBLET CELLS CONSISTENT WITH MOREIRA'S MUCOSA, NEGATIVE FOR DYSPLASIA. C. ESOPHAGEAL BIOPSIES AT 30 CM: - SPECIALIZED COLUMNAR MUCOSA WITH GOBLET CELLS CONSISTENT WITH MOREIRA'S MUCOSA, NEGATIVE FOR DYSPLASIA. RNS/scs 07/04/2020 11:52 AM [facility] Microscopic Description and Comment Microscopic examination is performed and substantiates the above diagnosis. 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 07/04/2020 11:52 AM [facility] Gross Description Three specimens are received in formalin, labeled Dora Whiting. A. Labeled antrum biopsy are two pink-raygoza, soft, irregular tissue fragments, each measuring 0.4 x 0.2 x 0.2 cm, submitted in toto in A1. B. Labeled esophageal biopsy at 32 cm are three white to light raygoza, soft, irregular tissue fragments, measuring 0.3 x 0.2 x 0.2 cm in aggregate, and ranging from 0.1-0.3 cm in greatest dimension, submitted in toto in B1. C. Labeled esophageal biopsy at 30 cm are two pink-raygoza, soft, irregular tissue fragments, each measuring 0.2 x 0.2 x 0.2 cm. Submitted in toto in C1. 07/04/2020 11:52 AM CDT [facility] Disclaimer The performance characteristics of all immunohistochemical and indirect immunofluorescence stains (if any) cited in this report were determined by the Histopathology Laboratory of [facility]. Some of these tests were developed by our own laboratory and have not been cleared or approved by the US Food and Drug Administration. The FDA does not require this test to go through premarket FDA review. These tests are used for clinical purposes. They should not be regarded as investigational or for research. This laboratory is certified under the Clinical Laboratory Improvement Amendments (CLIA) as qualified to perform high complexity clinical laboratory testing. H&E slides and special stains [place]. [address] (CLIA# [id number]) unless otherwise specified. This case was interpreted by the [facility] Department of Pathology. When applicable, select reference laboratory testing is performed at the [facility], [address] [place] [id number]. 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 Johnson Send Copy to Dr. 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 Johnson Send Copy to Dr. 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 Johnson Send Copy to Dr. Simmons [phone] Cezar Johnson MD LAB - PATHOLOGY/CYTO LOGY ORDERABLES Performing Organization Address City/State/[facility] Co de Phone Number [facility] [address] * MRI LUMBAR SPINE WO CONTRAST [id number] (06/11/2020 1:05 PM CDT) Only the most recent of2 resultswithin the time period is included. Anatomical Region Laterality Modality Spine Magnetic Resonan ce 06/11/2020 1:18 PM CDT Impressions 06/11/2020 2:30 PM CDT Multilevel degenerative changes stable to mildly worse compared to the previous exam. No acute bony abnormality. Edited by Viviane Coelho on 06/11/2020 1:38 PM Narrative 06/11/2020 2:30 PM CDT PROCEDURE: MRI LUMBAR SPINE WO CONTRAST 06/11/2020 1:18 PM HISTORY: Dorsopathy, unspecified. COMPARISON STUDIES: 09/18/2019. TECHNIQUE: Sagittal T1, T2, T2 fat saturated and axial T1, T2 series were acquired through the lumbar spine. FINDINGS: Multilevel degenerative changes noted in the lower lumbar spine. Bone marrow signal and alignment otherwise appear within normal limits. The conus tapers normally at L1. Visualized portions of the spinal cord and extra spinal soft tissues within the [id number] appear within normal limits. Level specific findings as follows: T12-L1, L1-2 and L2-3: Mild to moderate posterior disc bulging and spondylosis as well as mild facet arthrosis and thickening of the ligamentum flavum but no spinal canal stenosis, discrete disc protrusion or lateral recess stenosis. Mild left-sided neural foraminal narrowing present at all levels. L3-4: More advanced thickening of the ligamentum flavum and facet arthrosis results in mild narrowing of the lateral recesses but no spinal canal stenosis or discrete disc protrusion. Minimal neural foraminal narrowing. L4-5: More advanced thickening of the ligamentum flavum and mild facet arthrosis with mild to moderate posterior disc bulging results in mild stenosis of the lateral recesses. No discrete disc protrusion or spinal canal stenosis. L5-S1: Moderate to severe disc space narrowing and desiccation with left lateral disc protrusion not significantly changed from the previous exam; disc material and/or spondylosis may extend to the exiting left L5 nerve root. No spinal canal stenosis. Procedure Note Cleve Ramirez MD - 06/11/2020 PROCEDURE: MRI LUMBAR SPINE WO CONTRAST 06/11/2020 1:18 PM HISTORY: Dorsopathy, unspecified. COMPARISON STUDIES: 09/18/2019. TECHNIQUE: Sagittal T1, T2, T2 fat saturated and axial T1, T2 series were acquired through the lumbar spine. FINDINGS: Multilevel degenerative changes noted in the lower lumbar spine. Bone marrow signal and alignment otherwise appear within normal limits. The conus tapers normally at L1. Visualized portions of the spinal cord and extra spinal soft tissues within the [id number] appear within normal limits. Level specific findings as follows: T12-L1, L1-2 and L2-3: Mild to moderate posterior disc bulging and spondylosis as well as mild facet arthrosis and thickening of the ligamentum flavum but no spinal canal stenosis, discrete disc protrusion or lateral recess stenosis. Mild left-sided neural foraminal narrowing present at all levels. L3-4: More advanced thickening of the ligamentum flavum and facet arthrosis results in mild narrowing of the lateral recesses but no spinal canal stenosis or discrete disc protrusion. Minimal neural foraminal narrowing. L4-5: More advanced thickening of the ligamentum flavum and mild facet arthrosis with mild to moderate posterior disc bulging results in mild stenosis of the lateral recesses. No discrete disc protrusion or spinal canal stenosis. L5-S1: Moderate to severe disc space narrowing and desiccation with left lateral disc protrusion not significantly changed from the previous exam; disc material and/or spondylosis may extend to the exiting left L5 nerve root. No spinal canal stenosis. IMPRESSION Multilevel degenerative changes stable to mildly worse compared to the previous exam. No acute bony abnormality. Edited by Viviane Coelho on 06/11/2020 1:38 PM Madhu Royal PRIMARY CARE NURSE PRACTITIONER-SPLITTER OPERATOR MR ORDERABLES * MAGALIS SCREENING BILATERAL DIGITAL [id number] (06/09/2020 1:40 PM CDT) Only the most recent of7 resultswithin the time period is included. Anatomical Region Laterality Modality Breast Bilateral Mammography 06/09/2020 2:1 1 PM CDT Narrative 06/09/2020 2:20 PM CDT IMAGING STUDIES: BILATERAL SCREENING MAMMOGRAM WITH COMPUTER-AIDED DETECTION WITH 2-D AND 3-D IMAGING AND TOMOSYNTHESIS: DATE: 06/09/2020 1:40 PM HISTORY: Encounter for screening mammogram for malignant neoplasm of breast. COMPARISON: 03/16/2019. 03/06/2018. BREAST COMPOSITION: The breasts are almost entirely fatty. FINDINGS: 1. Bilateral screening mammograms with computer detection with 2-D and 3-D imaging and tomosynthesis. ??Minimal scattered ??fibroglandular tissue pattern is present. Predominantly fatty-replaced breast parenchyma. Benign calcifications. Benign nodularity. 2. ??No malignant microcalcifications, new dominant masses, or architectural distortion.. 3. No skin thickening or nipple retraction. ??Axillary regions are within normal limits. CONCLUSION: 1. No mammographic evidence of malignancy. 2. BI-RADS Category 2. Routine yearly follow-up is recommended. A) ??A negative report should not delay a biopsy if a dominant or clinically suspicious mass is present. B) ??Adenosis and dense breasts may obscure an underlying neoplasm. C) ??Study interpreted with computer-aided detection. MQ[facility] BI-RADS Categories: Category 0 - needs additional imaging evaluation. Category 1 - negative. Category 2 - benign findings. Category 3 - probably benign findings, but short interval followup is recommended. Category 4 - suspicious abnormality and biopsy should be considered though the lesion may well be benign. Category 5 - highly suggestive of malignancy and appropriate action should be taken. Sandy Simmons MD MAMMO ORDERABLE S * XR LUMBAR SPINE 4+ VW [id number] (04/03/2020 11:59 AM CDT) Anatomical Region Laterality Modality Spine Radiographic July ging 04/03/2020 12:0 6 PM CDT Impressions 04/03/2020 12:08 PM CDT Progression in multilevel degenerative changes involving both disc spaces and posterior elements most severe at L5-S1. Other incidental findings as above. Narrative 04/03/2020 12:08 PM CDT PROCEDURE: XR LUMBAR SPINE 4VW OR MORE 04/03/2020 12:06 PM HISTORY: Unspecified fall, initial encounter. COMPARISON: 06/18/2008. FINDINGS: Moderate to severe degenerative changes are present at L5-S1 mildly worse in appearance compared to 2007 exam. Moderately severe degenerative changes at L4-5 and also mildly worse. Degenerative changes including disc space narrowing, anterior posterior spondylosis as well as sclerotic changes in the posterior elements. Milder degenerative changes at levels above. No gross acute or aggressive bony process. Moderately extensive calcification incidentally noted in the abdominal aorta. Surgical clips in the right upper quadrant. Procedure Note Cleve Ramirez MD - 04/03/2020 PROCEDURE: XR LUMBAR SPINE 4VW OR MORE 04/03/2020 12:06 PM HISTORY: Unspecified fall, initial encounter. COMPARISON: 06/18/2008. FINDINGS: Moderate to severe degenerative changes are present at L5-S1 mildly worse in appearance compared to 2007 exam. Moderately severe degenerative changes at L4-5 and also mildly worse. Degenerative changes including disc space narrowing, anterior posterior spondylosis as well as sclerotic changes in the posterior elements. Milder degenerative changes at levels above. No gross acute or aggressive bony process. Moderately extensive calcification incidentally noted in the abdominal aorta. Surgical clips in the right upper quadrant. IMPRESSION Progression in multilevel degenerative changes involving both disc spaces and posterior elements most severe at L5-S1. Other incidental findings as above. Smiley Simmons PRIMARY CARE NURSE PRACTITIONER-SPLITTER OPERATOR DIAGNOSTI C IMAGING ORDERABLES * C DIFFICILE BY PCR (01/31/2020 12:00 AM PRISON KEEPER) C difficile Toxin B Gene Negative Negative 01/31/2020 8:35 PM PRISON KEEPER [facility] Stool STOOL SPECIMEN / Unknown Collection / Unknown 01/31/2020 01/31/2020 6:05 PM PRISON KEEPER Narrative [facility] - 01/31/2020 8:35 PM PRISON KEEPER C. difficile target DNA sequences are not detected. Sandy Simmons MD LAB - MICROBIOL OGY ORDERABLES Performing Organization Address City/State/[facility] Co de Phone Number [facility] [address] * GIARDIA CRYPTOSPORIDIUM ANTIGEN PANEL (01/31/2020 12:00 AM PRISON KEEPER) Giardia Antigen Feces Negative Negative 02/01/2020 1:47 PM PRISON KEEPER [facility] Cryptosporidium Antigen Feces Negative Negative 02/01/2020 1:47 PM PRISON KEEPER [facility] Stool STOOL SPECIMEN / Unknown Collection / Unknown 01/31/2020 01/31/2020 6:05 PM PRISON KEEPER Sandy Simmons MD LAB - MICROBIOL OGY ORDERABLES Performing Organization Address [facility] Co de Phone Number [facility] [address] [place] [address] * (ABNORMAL) CULTURE STOOL PANEL (01/31/2020 12:00 AM PRISON KEEPER) Culture No Salmonella, Shigella, or Campylobacter isolated [place] 02/02/2020 8:04 AM PRISON KEEPER [facility] Culture Growth of normal enteric massimo [place] 02/02/2020 8:04 AM PRISON KEEPER [facility] Culture Absence of Gram-negative bacilli(A) [place] 02/02/2020 8:04 AM PRISON KEEPER [facility] Stool STOOL SPECIMEN / Unknown Collection / Unknown 01/31/2020 01/31/2020 6:05 PM PRISON KEEPER Sandy Simmons MD LAB - MICROBIOL OGY ORDERABLES Performing Organization Address [facility] de Phone Number [facility] [address] [place] [address] * XR CHEST 2 VWS PA AND LAT [id number] (01/24/2020 2:15 PM PRISON KEEPER) Only the most recent of2 resultswithin the time period is included. Anatomical Region Laterality Modality Chest Radiographic Ujly ging 01/24/2020 2:17 PM PRISON KEEPER Narrative 01/24/2020 2:19 PM PRISON KEEPER PROCEDURE: XR CHEST 2VW ??01/24/2020 2:17 PM FINDINGS AND IMPRESSION: HISTORY: Cough. COMPARISON: 11/15/2017. COPD. Unremarkable cardiac size. Atherosclerotic aorta. No focal consolidation or pleural effusion. Pulmonary vascularity is within normal limits. No pneumothorax. Reidentification of changes of old granulomatous infection. DJD spine and shoulders. Osteopenia. Hiatal hernia. Scattered fibrosis. Chronic changes. No acute process. Procedure Note Joya Castillo MD - 01/24/2020 PROCEDURE: XR CHEST 2VW 01/24/2020 2:17 PM FINDINGS AND IMPRESSION: HISTORY: Cough. COMPARISON: 11/15/2017. COPD. Unremarkable cardiac size. Atherosclerotic aorta. No focal consolidation or pleural effusion. Pulmonary vascularity is within normal limits. No pneumothorax. Reidentification of changes of old granulomatous infection. DJD spine and shoulders. Osteopenia. Hiatal hernia. Scattered fibrosis. Chronic changes. No acute process. Smiley Simmons PRIMARY CARE NURSE PRACTITIONER-SPLITTER OPERATOR DIAGNOSTI C IMAGING ORDERABLES * NORTRIPTYLINE LEVEL BLOOD (10/26/2019 10:57 AM PRISON KEEPER) Only the most recent of2 resultswithin the time period is included. Nortriptyline 102 50 - 150 ng/mL 10/30/2019 4:36 PM PRISON KEEPER [facility] ([facility]) Comment: INTERPRETIVE INFORMATION: Nortriptyline Therapeutic Range: 50-150 ng/mL Toxic: Greater than 500 ng/mL Toxic concentrations may cause anticholinergic effects, cardiac abnormalities and seizures. See Compliance Statement B: [email or web address] Performed by [facility], [address] [place] [address] [email or web address], Mitch Dias MD, Lab. Director Blood BLOOD SPECIMEN / Unknown Lab Venipuncture / Unknown 10/26/2019 10:57 AM PRISON KEEPER 10/26/2019 11:03 AM PRISON KEEPER Noam Hummel MD LAB - CHEMISTRY MAURILIO RENE [facility] ([facility]) [address] [place] [address] * IR GUIDED NEEDLE PLACEMENT [id number] (09/12/2019 11:40 AM CDT) Only the most recent of2 resultswithin the time period is included. Anatomical Region Laterality Modality Lung, Abdomen, Chest, Breast Rad io Fluoroscopy 09/12/2019 12:4 0 PM CDT Impressions 09/12/2019 12:43 PM CDT IMPRESSION:. Successful fluoroscopy-guided right hip injection. No procedure-related immediate complications. Preprocedure pain level-8/10. Postprocedure pain level 4/10. Narrative 09/12/2019 12:43 PM CDT PROCEDURE: IR FL GUIDE NEEDLE PLACEMENT ??09/12/2019 12:40 PM HISTORY: Pain in right hip. FINDINGS AND IMPRESSION: COMPARISON: No comparison. 0.8 minutes fluoroscopy time. 3 images. After obtaining informed consent, after timeout, under aseptic technique, a 22-gauge spinal was introduced into the right hip joint. Small amount of contrast was injected to confirm the needle position. This was followed by intra-articular instillation of 2 mL of 1% lidocaine, 2.5 mL of 0.5% Sensorcaine, and 1 mL of (80 mg) Depo-Medrol. No immediate procedure-related complications. Preprocedure pain level-8/10. Postprocedure pain level-4/10. Procedure Note Joya Castillo MD - 09/12/2019 PROCEDURE: IR FL GUIDE NEEDLE PLACEMENT 09/12/2019 12:40 PM HISTORY: Pain in right hip. FINDINGS AND IMPRESSION: COMPARISON: No comparison. 0.8 minutes fluoroscopy time. 3 images. After obtaining informed consent, after timeout, under aseptic technique, a 22-gauge spinal was introduced into the right hip joint. Small amount of contrast was injected to confirm the needle position. This was followed by intra-articular instillation of 2 mL of 1% lidocaine, 2.5 mL of 0.5% Sensorcaine, and 1 mL of (80 mg) Depo-Medrol. No immediate procedure-related complications. Preprocedure pain level-8/10. Postprocedure pain level-4/10. IMPRESSION IMPRESSION:. Successful fluoroscopy-guided right hip injection. No procedure-related immediate complications. Preprocedure pain level-8/10. Postprocedure pain level 4/10. Dora Morton MD IR ORDERABLES * XR HIP BILAT 2 VW W/O PELVIS [id number] (08/15/2019 11:01 AM CDT) Anatomical Region Laterality Modality Radiographic July ging 08/15/2019 11:2 1 AM CDT Narrative 08/15/2019 11:21 AM CDT PROCEDURE: XR HIPS BILATERAL 2VW ??08/15/2019 11:21 AM HISTORY: Pain in right hip. FINDINGS AND IMPRESSION: COMPARISON: No comparison. No acute fracture, dislocation, destructive process. Osteophytic formation bilaterally compatible with moderate osteoarthritic changes. No osseous erosive changes. Surrounding soft tissue structures are normal. Procedure Note Joya Castillo MD - 08/15/2019 PROCEDURE: XR HIPS BILATERAL 2VW 08/15/2019 11:21 AM HISTORY: Pain in right hip. FINDINGS AND IMPRESSION: COMPARISON: No comparison. No acute fracture, dislocation, destructive process. Osteophytic formation bilaterally compatible with moderate osteoarthritic changes. No osseous erosive changes. Surrounding soft tissue structures are normal. Mag Benites MD DIAGNOSTIC IMAGING O RDERABLES * (ABNORMAL) BUN+CREATININE BLOOD PNL (08/15/2019 10:45 AM CDT) [facility] BUN 14.4 9.8 - 20.1 mg/dL 08/15/2019 11:52 AM CDT [facility] Creatinine 1.01 0.57 - 1.11 mg/dL 08/15/2019 11:52 AM CDT [facility] eGFR by MDRD 53(L) >60 mL/min/1.7 2 08/15/2019 11:52 AM CDT [facility] eGFR by MDRD >60 >60 mL/min/1.7 2 08/15/2019 11:52 AM CDT [facility] Blood BLOOD SPECIMEN / Unknown Lab Venipuncture / Unknown 08/15/2019 10:45 AM CDT 08/15/2019 11:13 AM CDT Mag Benites MD LAB - CHEMISTRY MAURILIO RENE [facility] Organization Address City/State/ZIP Co de Phone Number [facility] [address] * 14.3.3 PROTEIN BLOOD (08/15/2019 10:45 AM CDT) [facility] Protein 14-3-3 See Scanned Report 08/20/2019 9:25 AM CDT [facility] Blood BLOOD SPECIMEN / Unknown Lab Venipuncture / Unknown 08/15/2019 10:45 AM CDT 08/15/2019 11:13 AM CDT Mag Benites MD LAB - CHEMISTRY MAURILIO RENE [facility] [address] [place] [address] * RHEUMATOID FACTOR BLOOD QUANTITATIVE (08/15/2019 10:45 AM CDT) [facility] Rheumatoid Factor Quantitative Negative <10IU/mL Negative <10IU/mL, Positive 10 IU/mL 08/15/2019 1:25 PM CDT [facility] Blood BLOOD SPECIMEN / Unknown Lab Venipuncture / Unknown 08/15/2019 10:45 AM CDT 08/15/2019 11:13 AM CDT Mag Benites MD LAB - CHEMISTRY MAURILIO RENE Performing Organization Address City/[facility]/ZIP Co de Phone Number [facility] [address] * (ABNORMAL) C-REACTIVE PROTEIN (08/15/2019 10:45 AM CDT) [facility] C-Reactive Protein 0.61(H) 0.00 - 0.50 mg/dL 08/15/2019 3:07 PM CDT [facility] Blood BLOOD SPECIMEN / Unknown Lab Venipuncture / Unknown 08/15/2019 10:45 AM CDT 08/15/2019 11:13 AM CDT Mag Benites MD LAB - CHEMISTRY MAURILIO RENE [facility] [address] * SHU BLOOD SCREEN W/REFLEX TITER (08/15/2019 10:45 AM CDT) [facility] SHU IgG None Detected None Detected 08/16/2019 9:25 PM CDT [facility] ([facility]) Comment: If suspicion of connective tissue disease is strong and SHU EIA is negative, consider testing for SHU by IFA ([id number]). INTERPRETIVE INFORMATION: Anti-Nuclear Antibodies (SHU), IgG by SHIELA Antinuclear Antibodies (SHU), IgG by SHIELA: SHU specimens are screened using enzyme-linked immunosorbent assay (SHIELA) methodology. All SHIELA results reported as Detected are further tested by indirect fluorescent assay (IFA) using HEp-2 substrate with an IgG-specific conjugate. The SHU SHIELA screen is designed to detect antibodies against dsDNA, histones, SS-A (Ro), SS-B (La), Royal, Royal/FARM DEMONSTRATOR, Scl-70, Beti-1, centromeric proteins, other antigens extracted from the HEp-2 cell nucleus. SHU SHIELA assays have been reported to have lower sensitivities than SHU IFA for systemic autoimmune rheumatic diseases (SARD). Negative results do not necessarily rule out SARD. Performed by [facility], [address] [place] [id number] [email or web address], Mitch Dias MD, Lab. Director Blood BLOOD SPECIMEN / Unknown Lab Venipuncture / Unknown 08/15/2019 10:45 AM CDT 08/15/2019 11:13 AM CDT Mag Benites MD LAB - CHEMISTRY MAURILIO RENE [facility] Organization Address City/State/ZIP Co de Phone Number [facility] ([facility]) [address] [place] [address], [facility] * CYCLIC CITRUL PEPTIDE AB IGG (CCP) (08/15/2019 10:45 AM CDT) Pathologist [facility] Cyclic Citrullinated Peptide Antibody IgG 7 0 - 19 Units 08/16/2019 10:18 PM CDT [facility] ([facility]) Comment: INTERPRETIVE INFORMATION: Cyclic Citrullinated Peptide Antibody, IgG ??19 Units or less ................... Negative ??20-39 Units ........................ Weak Positive ??40-59 Units ........................ Moderate Positive ??60 Units or greater ................ Strong Positive Anti-cyclic citrullinated peptide (anti-CCP), IgG antibodies are present in about 69-83 percent of patients with rheumatoid arthritis (RA) and have specificities of 93-95 percent. These autoantibodies may be present in the preclinical phase of disease, are associated with future RA development, and may predict radiographic joint destruction. Patients with weak positive results should be monitored and testing repeated. Performed by [facility], [address] [place] [address] [email or web address], Mitch Dias MD, Lab. Director Blood BLOOD SPECIMEN / Unknown Lab Venipuncture / Unknown 08/15/2019 10:45 AM CDT 08/15/2019 11:13 AM CDT Mag Benites MD LAB - CHEMISTRY ORDAnika RENE Performing Organization Address [facility]/ZIP Co de Phone Number [facility] ([facility]) [address] [place] [address] * ERYTHROCYTE SEDIMENTATION RATE (08/15/2019 10:45 AM CDT) Pathologist [facility] Erythrocyte Sedimentation Rate Westergren 26 0 - 30 mm/hr 08/15/2019 12:02 PM CDT [facility] Blood BLOOD SPECIMEN / Unknown Lab Venipuncture / Unknown 08/15/2019 10:45 AM CDT 08/15/2019 11:13 AM CDT Mag Benites MD LAB - HEMATOLOGY ORD ERABLES [facility] [address] * HEPATIC FUNCTION PANEL (08/15/2019 10:45 AM CDT) Pathologist [facility] Alkaline Phosphatase 90 40 - 150 U/L 08/15/2019 11:52 AM CDT [facility] ALT 15 5 - 55 U/L 08/15/2019 11:52 AM CDT [facility] AST 23 5 - 34 U/L 08/15/2019 11:52 AM CDT [facility] Protein Total 7.5 6.4 - 8.3 gm/dL 08/15/2019 11:52 AM CDT [facility] Albumin 4.2 3.5 - 5.0 gm/dL 08/15/2019 11:52 AM CDT [facility] Bilirubin Total 0.5 0.2 - 1.2 mg/dL 08/15/2019 11:52 AM CDT [facility] Bilirubin Direct 0.23 0 - 0.5 mg/dL 08/15/2019 11:52 AM CDT [facility] Albumin/Globulin Ratio 1.3 0.9 - 1.6 08/15/2019 11:52 AM CDT [facility] Globulin Total 3.3 2.6 - 4.0 gm/dL 08/15/2019 11:52 AM CDT [facility] Bilirubin Indirect 0.3 0.2 - 0.9 mg/dL 08/15/2019 11:52 AM CDT [facility] Blood BLOOD SPECIMEN / Unknown Lab Venipuncture / Unknown 08/15/2019 10:45 AM CDT 08/15/2019 11:13 AM CDT Mag Benites MD LAB - CHEMISTRY MAURILIO RENE [facility] Organization Address City/State/[facility] de Phone Number [facility] [address] * EGD (05/25/2019 11:41 AM CDT) Report Endoscopy POC Endoscopy Department Report __ _ Patient Name: Dora Whiting ? Procedure Date: 05/25/2019 11:41 AM ? Date of : 1940 Classification: Outpatient ?Gender: Female Ethnicity: Not or ? Race: White __ _ Providers: ?Melanie Chaidez MD Referring : ? Procedure: ?Upper GI endoscopy Indications: ?For therapy of Moreira's esophagus Medications: ?Propofol per Anesthesia Description of Procedure: Pre-Anesthesia Assessment: ?- Prior to the procedure, a History and Physical ?was performed, and patient medications and ?allergies were reviewed. The patient's tolerance of ?previous anesthesia was also reviewed. The risks ?and benefits of the procedure and the sedation ?options and risks were discussed with the patient. ?All questions were answered, and informed consent ?was obtained. Prior Anticoagulants: The patient has ?taken aspirin. ASA Grade Assessment: III - A ?patient with severe systemic disease. After ?reviewing the risks and benefits, the patient was ?deemed in satisfactory condition to undergo the ?procedure. ?After obtaining informed consent, the endoscope was ?passed under direct vision. Throughout the ?procedure, the patient's blood pressure, pulse, and ?oxygen saturations were monitored continuously. The ?GIF-H190 was introduced through the mouth, and ?advanced to the second part of duodenum. The upper ?GI endoscopy was accomplished with ease. The ?patient tolerated the procedure well. ? Findings: ? Esophagogastric landmarks were identified: the Z-line was found at 26 ? cm, the gastroesophageal junction was found at 31 cm and the site of ? hiatal narrowing was found at 38 cm from the incisors. ? The esophagus and gastroesophageal junction were examined with white ? light and narrow band imaging (NBI) from a forward view and retroflexed ? position. There were esophageal mucosal changes consistent with ? long-segment Moreira's esophagus. These changes involved the mucosa at ? the upper extent of the gastric folds (31 cm from the incisors) ? extending to the Z-line (26 cm from the incisors). 75% circumferential. ? The maximum longitudinal extent of these esophageal mucosal changes was ? 5 cm in length. Focal radiofrequency ablation of Moreira's esophagus was ? performed. With the endoscope in place, the position and extent of the ? Moreira's mucosa and the anatomic landmarks including proximal and ? distal extent of Moreira's mucosa, top of gastric folds and crural pinch ? were noted. Endoscopic visualization identified an ablation site ? including the entire visible Moreira's segment. The Moreira's mucosa was ? irrigated with N-acetylcysteine (Mucomyst) 1% mixed with water. Gastric ? and esophageal contents were suctioned. The endoscope was then removed ? from the patient. The Barrx-90 Ultra radiofrequency ablation catheter ? was attached to the tip of the endoscope. The endoscope with the ? attached radiofrequency ablation catheter was then passed transorally ? under direct vision into the esophagus and advanced to the areas of ? Moreira's mucosa. The areas included tongues of Moreira's mucosa. The ? radiofrequency ablation catheter was placed in contact with the surface ? of the Moreira's mucosa under direct visualization and energy was ? applied twice at 12 J/cm2. Ablation was repeated in a likewise fashion ? to the entire area of suspected Moreira's mucosa. The ablation zone was ? cleaned of coagulative debris. The ablation catheter and endoscope were ? then removed and the catheter was cleaned. The catheter and endoscope ? were reinserted into the esophagus. A second round of ablation was then ? performed. Energy was applied twice at 12 J/cm2 to retreat the areas of ? Moreira's epithelium that had been treated with the first series of ? ablation. The areas of the esophagus where Moreira's mucosa had been ? ablated were examined. Areas of visible Moreira's esophagus were ? completely ablated. 30 ablations. Focal chosen due to tortuous esophagus. ? A large hiatal hernia was present. ? Multiple mucosal papules (nodules) with bleeding and stigmata of recent ? bleeding were found in the gastric antrum. Active oozing noted. ? Coagulation for hemostasis using argon plasma at 0.3 liters/minute and ? 25 cid was successful. For hemostasis, one hemostatic clip was ? successfully placed (MR conditional) but it fell off. There was no ? bleeding at the end of the procedure. ? The examined duodenum was normal. ? Estimated Blood Loss: ? Estimated blood loss: none. Complications: ?No immediate complications. Impression: ? - Esophagogastric landmarks identified. 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 Treated with ?radiofrequency ablation. Focal chosen due to ?tortuous distal esophagus and persistence of BE ?tissue despite 2 circumferential ablations. ?- Large hiatal hernia. ?- Multiple mucosal papules (nodules) found in the ?stomach. Treated with argon plasma coagulation ?(APC). Clip (MR conditional) was placed. ?- Normal examined duodenum. ?- No specimens collected. Recommendation: ? - Patient has a contact number available for ?emergencies. The signs and symptoms of potential ?delayed complications were discussed with the ?patient. Return to normal activities tomorrow. ?Written discharge instructions were provided to the ?patient. ?- Resume previous diet. ?- Continue present medications. ?- Repeat upper endoscopy in 2 months for ?retreatment. ? Attending Participation: ??I personally performed the entire procedure. ? Procedure Code(s): ? --- Professional --- ? 80435, Esophagogastroduode noscopy, flexible, transoral; with ablation of ? tumor(s), polyp(s), or other lesion(s) (includes pre- and post-dilation ? and guide wire passage, when performed) ? 79680, 59, Esophagogastroduode noscopy, flexible, transoral; with control ? of bleeding, any method Diagnosis Code(s): ?--- Professional --- ?K22.70, 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 ?K44.9, Diaphragmatic hernia without obstruction or ?gangrene ?K31.89, Other diseases of stomach and duodenum CPT copyright 2016 [employer]. All rights reserved. The codes documented in this report are preliminary and upon professional fee coder review may be revised to meet current compliance requirements. ___ Melanie Chaidez MD 05/25/2019 12:41:58 PM Note Initiated On: 05/25/2019 11:41 AM Number of Addenda: 0 ? [facility] ? [address] [place] [address] [facility] 05/25/2019 11:4 1 AM CDT Melanie Chaidez MD GI PROCEDURE ORDER JESUS [facility] * PATHOLOGY TISSUE (03/02/2019 11:43 AM CDT) Only the most recent of3 resultswithin the time period is included. Case Report Surgical Pathology Report ? Case: [id number] ? Authorizing Provider: ??Melanie Chaidez MD ?Collected: ? 03/02/2019 11:43 AM ? Ordering Location: ? [facility] ?Received: ?03/02/2019 01:27 PM ? Pathologist: ? Virginie Gallego MD ? Specimen: ?Gastric, Gastric Nodule Biopsy ? 03/05/2019 3:14 PM [facility] Final Diagnosis Stomach, nodule, biopsy (A): - Polypoid foveolar hyperplasia 03/05/2019 3:14 PM [facility] Microscopic Description and Comment Microscopic examination substantiates the final diagnosis. 03/05/2019 3:14 PM [facility] Clinical History The patient is an 78-year-old woman with diagnosis of Moreira's esophagus with high grade dysplasia who underwent EGD. Operative procedure/findings: EGD -- Multiple mucosal papules (nodules) found in the stomach. 03/05/2019 3:14 PM [facility] Gross Description The requisition and specimen label(s) are identified with the patient name, Dora Whiting. Received in formalin, specimen A gastric nodule biopsy and consists of multiple soft pale raygoza tissue fragments ranging from minute to 0.3 cm and with an aggregate measurement of 0.5 x 0.3 x 0.2 cm. The specimen is entirely submitted in cassette A1. OEM/cml 03/05/2019 3:14 PM [facility] Disclaimer The performance characteristics of all immunohistochemical and indirect immunofluorescence stains (if any) cited in this report were determined by the Histopathology Laboratory of [facility]. Some of these tests were developed by our own laboratory and have not been cleared or approved by the US Food and Drug Administration. The FDA does not require this test to go through premarket FDA review. These tests are used for clinical purposes. They should not be regarded as investigational or for research. This laboratory is certified under the Clinical Laboratory Improvement Amendments (CLIA) as qualified to perform high complexity clinical laboratory testing. This case has been personally reviewed and interpreted by the attending (teaching) pathologist. 03/05/2019 3:14 PM [facility] Embedded Images 03/05/2019 3:14 PM [facility] Biopsy, NOS GASTRIC CONTENTS SPECIMEN / Unknown 03/02/2019 11:43 AM CDT 03/02/2019 1:27 PM CDT Melanie Chaidez MD LAB - PATHOLOGY/RONALD HEARN ORDERABLES [facility] [address] [place] [address], [facility] [phone] * EGD (03/02/2019 11:03 AM CDT) Report Endoscopy POC Endoscopy Department Report __ _ Patient Name: Dora Whiting ? Procedure Date: 03/02/2019 11:03 AM ? Date of : 1940 Classification: Outpatient ?Gender: Female __ _ Providers: ?Melanie Chaidez MD Referring MD: ? 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 The patient's tolerance of ?previous anesthesia was also reviewed. The risks ?and benefits of the procedure and the sedation ?options and risks were discussed with the patient. ?All questions were answered, and informed consent ?was obtained. Prior Anticoagulants: The patient has ?taken no previous anticoagulant or antiplatelet ?agents. ASA Grade Assessment: III - A patient with ?severe systemic disease. After reviewing the risks ?and benefits, the patient was deemed in ?satisfactory condition to undergo the procedure. ?After obtaining informed consent, the endoscope was ?passed under direct vision. Throughout the ?procedure, the patient's blood pressure, pulse, and ?oxygen saturations were monitored continuously. The ?GIF-H190 was introduced through the mouth, and ?advanced to the second part of duodenum. The upper ?GI endoscopy was accomplished with ease. The ?patient tolerated the procedure well. ? Findings: ? Esophagogastric landmarks were identified: the Z-line was found at 26 ? cm, the gastroesophageal junction was found at 31 cm and the site of ? hiatal narrowing was found at 37 cm from the incisors. ? The esophagus and gastroesophageal junction were examined with white ? light and narrow band imaging (NBI) from a forward view and retroflexed ? position. There were esophageal mucosal changes consistent with ? long-segment Moreira's esophagus. These changes involved the mucosa at ? the upper extent of the gastric folds (31 cm from the incisors) ? extending to the Z-line (26 cm from the incisors). The maximum ? longitudinal extent of these esophageal mucosal changes was 5 cm in ? length. Circumferential radiofrequency ablation of Moreira's esophagus ? was performed using the [employer] 360 Express catheter and balloon-based ? endoscopic ablation system. With the endoscope in place, the position ? and extent of the Moreira's mucosa and the anatomic landmarks including ? proximal and distal extent of Moreira's mucosa and top of gastric folds ? were noted. Endoscopic visualization identified an ablation site ? including the entire visible Moreira's segment. The Moreira's mucosa was ? irrigated with N-acetylcysteine (Mucomyst) 1% mixed with water. Gastric ? and esophageal contents were suctioned. A guidewire was passed down the ? biopsy channel of the endoscope. As the endoscope was withdrawn from the ? mouth, the guidewire was left in place. An auto-sizing radiofrequency ? ablation balloon catheter was passed transorally over the guidewire into ? the esophagus. The endoscope was introduced in a [id number] manner ? with the ablation catheter. Under direct endoscopic visualization, the ? balloon ablation catheter was positioned so that the proximal edge of ? the electrode was at 25 cm from the incisors. The balloon was ? automatically inflated, and energy was applied at 10 J/cm2. The balloon ? electrode was moved 4 cm distally, so that the proximal edge of the ? electrode was aligned with the distal edge of the ablation zone. The ? process of balloon inflation and ablation was repeated until the top of ? the gastric folds was reached. The ablation catheter and guidewire were ? removed, and the balloon was cleaned. The ablation zone was then cleaned ? of overlying coagulative debris using irrigation and suction via the ? endoscope and a cleaning cap. The guidewire was reinserted, and then the ? ablation catheter was reintroduced into the esophagus over the wire. The ? ablation catheter was positioned under direct endoscopic visualization ? so that the proximal edge of the electrode was at the proximal edge of ? the ablation zone. Reinflation and a second round of ablation were ? performed with the application of 10 J/cm2 to re-treat the Moreira's ? epithelium already treated with the first round of ablation. The ? ablation catheter and guidewire were then removed. The areas of the ? esophagus where Moreira's mucosa had been ablated were then examined ? with the endoscope. Areas of visible Moreira's esophagus were completely ? ablated. ? A large hiatal hernia was present. ? Multiple mucosal papules (nodules) with no bleeding and no stigmata of ? recent bleeding were found in the gastric antrum. Biopsies were taken ? with a cold forceps for histology. ? The examined duodenum was normal. ? The cardia and gastric fundus were normal on retroflexion. ? Estimated Blood Loss: ? Estimated blood loss: none. Complications: ?No immediate complications. Impression: ? - Esophagogastric landmarks identified. 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 Treated with ?radiofrequency ablation. ?- Large hiatal hernia. ?- Multiple mucosal papules (nodules) found in the ?stomach. Biopsied. ?- Normal examined duodenum. Recommendation: ? - Discharge patient to home (ambulatory). ?- Await pathology results. ?- Lukeworm liquids, soft diet. ?- Take prescribed proton pump inhibitor or H2 ?jani (antacid) medications 30 - 60 minutes ?before meals. ?- Repeat upper endoscopy in 2 months for ?retreatment. ?- Return to GI clinic as previously scheduled. ?- Follow an antireflux regimen for the rest of the ?patient's life. ?- Continue present medications. ?- Written discharge instructions were provided to ?the patient. ?- The signs and symptoms of potential delayed ?complications were discussed with the patient. ?- Patient has a contact number available for ?emergencies. ?- Return to normal activities tomorrow. ? Attending Participation: ??I personally performed the entire procedure. ? Procedure Code(s): ? --- Professional --- ? 29069, Esophagogastroduode noscopy, flexible, transoral; with ablation of ? tumor(s), polyp(s), or other lesion(s) (includes pre- and post-dilation ? and guide wire passage, when performed) ? 19180, Esophagogastroduode noscopy, flexible, transoral; with biopsy, ? single or multiple Diagnosis Code(s): ?--- Professional --- ?K22.70, 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 ?K44.9, Diaphragmatic hernia without obstruction or ?gangrene ?K31.89, Other diseases of stomach and duodenum CPT copyright 2016 [employer]. All rights reserved. The codes documented in this report are preliminary and upon professional fee coder review may be revised to meet current compliance requirements. ___ Melanie Chaidez MD 03/02/2019 11:55:56 AM Note Initiated On: 03/02/2019 11:03 AM Number of Addenda: 0 ? [facility] ? [address] [place] [address] [facility] 03/02/2019 11:0 3 AM CDT Melanie Chaidez MD GI PROCEDURE ORDER JESUS [facility] * EGD (12/01/2018 11:07 AM PRISON KEEPER) Report Endoscopy POC Endoscopy Department Report __ _ Patient Name: Dora Whiting ? Procedure Date: 12/01/2018 11:07 AM ? Date of : 1940 Classification: Outpatient ?Gender: Female __ _ Providers: ?Melanie Chaidez MD, Margaret Fregoso (Fellow) Referring MD: ? Melanie Chaidez MD (Referring MD) Procedure: ?Upper GI endoscopy Indications: ?Ablation Moreira's esophagus with HGD Medications: ?Monitored Anesthesia Care Description of Procedure: Pre-Anesthesia Assessment: ?- Prior to the procedure, a History and Physical ?was performed, and patient medications and ?allergies were reviewed. The patient's tolerance of ?previous anesthesia was also reviewed. The risks ?and benefits of the procedure and the sedation ?options and risks were discussed with the patient. ?All questions were answered, and informed consent ?was obtained. Prior Anticoagulants: The patient has ?taken no previous anticoagulant or antiplatelet ?agents. ASA Grade Assessment: II - A patient with ?mild systemic disease. After reviewing the risks ?and benefits, the patient was deemed in ?satisfactory condition to undergo the procedure. ?After obtaining informed consent, the endoscope was ?passed under direct vision. Throughout the ?procedure, the patient's blood pressure, pulse, and ?oxygen saturations were monitored continuously. The ?[id number]-[id number] was introduced through the mouth, and ?advanced to the second part of duodenum. The upper ?GI endoscopy was accomplished without difficulty. ?The patient tolerated the procedure well. ? Findings: ? The esophagus and gastroesophageal junction were examined with white ? light and narrow band imaging (NBI). There were esophageal mucosal ? changes consistent with long-segment Moreira's esophagus. These changes ? involved the mucosa at the upper extent of the gastric folds (31 cm from ? the incisors) extending to the Z-line (25 cm from the incisors). ? Circumferential salmon-colored mucosa was present from 27 to 31 cm, and ? one tongue of salmon-colored mucosa was present from 25 to 31 cm. The ? maximum longitudinal extent of these esophageal mucosal changes was 6 cm ? in length. This is consistent with C4M6 Circumferential radiofrequency ? ablation of Moreira's esophagus was performed using the [employer] 360 ? Express catheter and balloon-based endoscopic ablation system. With the ? endoscope in place, the position and extent of the Moreira's mucosa and ? the anatomic landmarks including proximal and distal extent of Moreira's ? mucosa were noted. Endoscopic visualization identified an ablation site ? including the entire visible Moreira's segment. The Moreira's mucosa was ? irrigated with N-acetylcysteine (Mucomyst) 1% mixed with water. ? Esophageal contents were suctioned. A guidewire was passed down the ? biopsy channel of the endoscope. As the endoscope was withdrawn from the ? mouth, the guidewire was left in place. An auto-sizing radiofrequency ? ablation balloon catheter was passed transorally over the guidewire into ? the esophagus. The endoscope was introduced in a [id number] manner ? with the ablation catheter. Under direct endoscopic visualization, the ? balloon ablation catheter was positioned so that the proximal edge of ? the electrode was slightly above the proximal edge of the Moreira's ? mucosa. The balloon was automatically inflated, and energy was applied ? at 10 J/cm2. The balloon electrode was moved 4 cm distally, so that the ? proximal edge of the electrode was aligned with the distal edge of the ? ablation zone. The process of balloon inflation and ablation was ? repeated until the top of the gastric folds was reached. The ablation ? catheter and guidewire were removed, and the balloon was cleaned. The ? ablation zone was then cleaned of overlying coagulative debris using ? irrigation and suction via the endoscope and a cleaning cap. The ? guidewire was reinserted, and then the ablation catheter was ? reintroduced into the esophagus over the wire. The ablation catheter was ? positioned under direct endoscopic visualization so that the proximal ? edge of the electrode was at the proximal edge of the ablation zone. ? Reinflation and a second round of ablation were performed with the ? application of 10 J/cm2 to re-treat the Moreira's epithelium already ? treated with the first round of ablation. The ablation catheter and ? guidewire were then removed. The areas of the esophagus where Moreira's ? mucosa had been ablated were then examined with the endoscope. Areas of ? visible Moreira's esophagus were completely ablated. ? Esophagogastric landmarks were identified: the Z-line was found at 25 ? cm, the upper extent of the gastric folds was found at 31 cm and the ? site of hiatal narrowing was found at 36 cm from the incisors. ? A large hiatal hernia was present. ? Diffuse erythematous mucosa was found in the gastric antrum. Biopsies ? were taken with a cold forceps for Helicobacter pylori testing. ? Multiple pedunculated and sessile polyps were found in the gastric ? antrum. Biopsies were taken with a cold forceps for histology. ? The cardia and gastric fundus were normal on retroflexion. ? The examined duodenum was normal. ? Estimated Blood Loss: ? Estimated blood loss was minimal. Complications: ?No immediate complications. Impression: ? 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 Treated with ?radiofrequency ablation. ?- Large hiatal hernia. ?- Erythematous mucosa in the antrum. Biopsied. ?- Multiple gastric polyps. Biopsied. ?- Normal examined duodenum. Recommendation: ? - Patient has a contact number available for ?emergencies. The signs and symptoms of potential ?delayed complications were discussed with the ?patient. Return to normal activities tomorrow. ?Written discharge instructions were provided to the ?patient. ?- Clear liquid diet today, then advance as ?tolerated to soft diet for 7 days. ?- Continue present medications. Acid suppression ?twice a day before meals. ?- Await pathology results. ?- Repeat upper endoscopy in 2-3 months for ?follow-up of Moreira's ablation. ?- Return to GI office as previously scheduled. ? Attending Participation: ??I was present and participated during the entire ?procedure, including non-ruiz portions. ? Procedure Code(s): ? --- Professional --- ? 14673, Esophagogastroduode noscopy, flexible, transoral; with ablation of ? tumor(s), polyp(s), or other lesion(s) (includes pre- and post-dilation ? and guide wire passage, when performed) ? 09386, Esophagogastroduode noscopy, flexible, transoral; with biopsy, ? single or multiple Diagnosis Code(s): ?--- Professional --- ?K22.8, Other specified diseases of esophagus ?K31.89, Other diseases of stomach and duodenum ?K31.7, Polyp of stomach and duodenum CPT copyright 2016 [employer]. All rights reserved. The codes documented in this report are preliminary and upon professional fee coder review may be revised to meet current compliance requirements. ___ Melanie Chaidez MD 12/01/2018 1:30:57 PM Note Initiated On: 12/01/2018 11:07 AM Number of Addenda: 0 ? [facility] ? [address] [address] [facility] 12/01/2018 11:0 7 AM PRISON KEEPER Margaret Fregoso MD GI PROCEDURE ORDERAB LES Performing Organization Address City/State/[facility] Co de Phone Number [facility] * XR HAND 3+ VW LEFT [id number] (05/17/2018 11:20 AM CDT) Only the most recent of6 resultswithin the time period is included. Anatomical Region Laterality Modality Wrist / Hand Radiographic July ging 05/17/2018 11:2 4 AM CDT Narrative 05/17/2018 11:25 AM CDT PROCEDURE: XR HAND LEFT 3VW OR MORE ??05/17/2018 11:24 AM HISTORY: Displaced fracture of base of fifth metacarpal bone, left hand, initial encounter for closed fracture. FINDINGS AND IMPRESSION: COMPARISON: 05/01/2018 Redemonstration of fractures of the base of fifth metacarpal bone. No change in alignment and position since prior examination. Osteopenia. Alignment is near-anatomic. Procedure Note Joya Castillo MD - 05/17/2018 PROCEDURE: XR HAND LEFT 3VW OR MORE 05/17/2018 11:24 AM HISTORY: Displaced fracture of base of fifth metacarpal bone, left hand, initial encounter for closed fracture. FINDINGS AND IMPRESSION: COMPARISON: 05/01/2018 Redemonstration of fractures of the base of fifth metacarpal bone. No change in alignment and position since prior examination. Osteopenia. Alignment is near-anatomic. Cleve Luz MD DIAGNOSTIC IMAGING ORDERABLES * CT ANGIO NECK [id number] (04/13/2018 1:45 PM CDT) Anatomical Region Laterality Modality Head Computed Tomogra phy 04/13/2018 3:31 PM CDT Impressions 04/13/2018 3:46 PM CDT No apparent hemodynamically significant stenosis of the carotid arteries or vertebral basilar system. Any stenosis is evaluated using velocity criteria that is similar to NASCET. Narrative 04/13/2018 3:46 PM CDT IMAGING STUDIES: CT ANGIO NECK DATE: 04/13/2018 1:47 PM HISTORY: Unspecified fall, initial encounter. 77-year-old female with dizziness and unsteady gait with frequent falls. On carotid Doppler 04/03/2018, bilateral carotid plaque but reported less than 50% stenosis within the internal carotid arteries. COMPARISON: CTA head 04/13/2018. MRI brain without with contrast 04/06/2018. Carotid duplex Doppler 04/03/2018. CT head, cervical spine, and facial bones 03/26/2018. DISCUSSION: CTA neck following intravenous administration of 100 ml Isovue-300 contrast followed by intravenous infusion of 80 mL saline. Coronal and sagittal reconstructions. 3-dimensional reconstructions. Computer analysis. Automated exposure control with radiation dose reduction. Classic origin of the great vessels from the aortic arch. No aneurysm or dissection of the visualized thoracic aorta. Minimal calcific plaque in the right carotid bulb and proximal internal carotid artery. No apparent hemodynamically significant stenosis of the right carotid system. Minimal calcific plaque at the origin left common carotid artery and within the left carotid bulb. No apparent hemodynamically significant stenosis of the left carotid system. Tortuous proximal left vertebral artery. Mildly dominant normal basilar artery. Left vertebral artery. Normal opacification of the visualized cerebral veins and dural venous sinuses. No apparent abnormality of the submandibular glands, parotid glands, or thyroid gland. No pathologic adenopathy. No emboli in the visualized pulmonary arteries. Extensive calcification of right mediastinal lymph nodes consistent with granulomatous disease. Chronic interstitial changes in the visualized lungs with lung parenchymal scarring. Degenerative changes of the cervical and upper thoracic spine as on CT cervical spine 03/26/2018. Superior endplate compression deformity T4 vertebral body is stable. Procedure Note Isiah Ley MD - 04/13/2018 IMAGING STUDIES: CT ANGIO NECK DATE: 04/13/2018 1:47 PM HISTORY: Unspecified fall, initial encounter. 77-year-old female with dizziness and unsteady gait with frequent falls. On carotid Doppler 04/03/2018, bilateral carotid plaque but reported less than 50% stenosis within the internal carotid arteries. COMPARISON: CTA head 04/13/2018. MRI brain without with contrast 04/06/2018. Carotid duplex Doppler 04/03/2018. CT head, cervical spine, and facial bones 03/26/2018. DISCUSSION: CTA neck following intravenous administration of 100 ml Isovue-300 contrast followed by intravenous infusion of 80 mL saline. Coronal and sagittal reconstructions. 3-dimensional reconstructions. Computer analysis. Automated exposure control with radiation dose reduction. Classic origin of the great vessels from the aortic arch. No aneurysm or dissection of the visualized thoracic aorta. Minimal calcific plaque in the right carotid bulb and proximal internal carotid artery. No apparent hemodynamically significant stenosis of the right carotid system. Minimal calcific plaque at the origin left common carotid artery and within the left carotid bulb. No apparent hemodynamically significant stenosis of the left carotid system. Tortuous proximal left vertebral artery. Mildly dominant normal basilar artery. Left vertebral artery. Normal opacification of the visualized cerebral veins and dural venous sinuses. No apparent abnormality of the submandibular glands, parotid glands, or thyroid gland. No pathologic adenopathy. No emboli in the visualized pulmonary arteries. Extensive calcification of right mediastinal lymph nodes consistent with granulomatous disease. Chronic interstitial changes in the visualized lungs with lung parenchymal scarring. Degenerative changes of the cervical and upper thoracic spine as on CT cervical spine 03/26/2018. Superior endplate compression deformity T4 vertebral body is stable. IMPRESSION No apparent hemodynamically significant stenosis of the carotid arteries or vertebral basilar system. Any stenosis is evaluated using velocity criteria that is similar to NASCET. 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 Edited by Jennifer Renee on 04/13/2018 3:35 PM Narrative 04/13/2018 3:48 PM CDT PROCEDURE: CT ANGIO BRAIN DATE: 04/13/2018 1:47 PM HISTORY: Dizziness and unsteady gait. COMPARISON: Recent head CT. CONTRAST: 100 cc Isovue-300 IV contrast followed by 80 cc saline bolus. Radiation dose reduction technique was utilized. FINDINGS: Within the anterior circulation, visualized cervical, petrous, cavernous and supraclinoid portions of both internal carotid arteries are patent. 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 Mild stenosis is present in the A1 branch of the right anterior cerebral artery, segment patent. The M1 and M2 branches of both middle cerebral arteries appear mildly diseased but not severely stenosed or occluded. In the posterior circulation, the left vertebral artery is dominant. The vertebrobasilar junction, basilar artery and basilar tip appear normal. Superior cerebellar and posterior cerebral arteries are patent. There is mild diffuse stenosis of the P1 segments on both sides. P2 segments appear patent. No large aneurysm or vascular malformation and the dural sinuses appear patent. Procedure Note Cleve Ramirez MD - 04/13/2018 PROCEDURE: CT ANGIO BRAIN DATE: 04/13/2018 1:47 PM HISTORY: Dizziness and unsteady gait. COMPARISON: Recent head CT. CONTRAST: 100 cc Isovue-300 IV contrast followed by 80 cc saline bolus. Radiation dose reduction technique was utilized. FINDINGS: Within the anterior circulation, visualized cervical, petrous, cavernous and supraclinoid portions of both internal carotid arteries are patent. 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 Mild stenosis is present in the A1 branch of the right anterior cerebral artery, segment patent. The M1 and M2 branches of both middle cerebral arteries appear mildly diseased but not severely stenosed or occluded. In the posterior circulation, the left vertebral artery is dominant. The vertebrobasilar junction, basilar artery and basilar tip appear normal. Superior cerebellar and posterior cerebral arteries are patent. There is mild diffuse stenosis of the P1 segments on both sides. P2 segments appear patent. No large aneurysm or vascular malformation and the dural sinuses appear patent. 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 Edited by Jennifer Renee on 04/13/2018 3:35 PM Ulises Bergman PA-C CT ORDERABLES * MRI BRAIN W WO CONTRAST [id number] (04/06/2018 12:42 PM CDT) Anatomical Region Laterality Modality Head Magnetic Resonan ce 04/06/2018 1:53 PM CDT Impressions 04/06/2018 2:30 PM CDT 1. Etat crible. 2. Prominent perivascular white matter change. Differential as discussed above, no progression since 2016. 3. No abnormal enhancement. Edited by Jennifer Renee on 04/06/2018 2:09 PM Narrative 04/06/2018 2:30 PM CDT PROCEDURE: MRI BRAIN WWO CONTRAST ??04/06/2018 12:43 PM HISTORY: Other abnormal findings on diagnostic imaging of central nervous system. FINDINGS AND IMPRESSION: COMPARISON: April 06, 2016. CONTRAST: 16 mL Multihance IV. FINDINGS: Diffusion-weighted sequences show no evidence of ischemia or infarction. The midline structures are unremarkable as seen. Normal flow voids are identified in the central vessels. Intracranial structures again show prominent perivascular spaces in the basal ganglia consistent with etat crible. Diffuse periventricular white matter changes persist, stable since prior examination 2015 without obvious progression. That could represent demyelination/MS in this elderly patient. Correlate to history for such. There is no change in the appearance since 2016. The other etiologies in the differential include vasculitis/age-related microvascular change. The ventricles show mild prominence. No bony pathology is seen. The sinuses are clear. Postgadolinium sequences demonstrate no abnormal enhancement. Procedure Note West Corona MD - 04/06/2018 PROCEDURE: MRI BRAIN WWO CONTRAST 04/06/2018 12:43 PM HISTORY: Other abnormal findings on diagnostic imaging of central nervous system. FINDINGS AND IMPRESSION: COMPARISON: April 06, 2016. CONTRAST: 16 mL Multihance IV. FINDINGS: Diffusion-weighted sequences show no evidence of ischemia or infarction. The midline structures are unremarkable as seen. Normal flow voids are identified in the central vessels. Intracranial structures again show prominent perivascular spaces in the basal ganglia consistent with etat crible. Diffuse periventricular white matter changes persist, stable since prior examination 2015 without obvious progression. That could represent demyelination/MS in this elderly patient. Correlate to history for such. There is no change in the appearance since 2016. The other etiologies in the differential include vasculitis/age-related microvascular change. The ventricles show mild prominence. No bony pathology is seen. The sinuses are clear. Postgadolinium sequences demonstrate no abnormal enhancement. IMPRESSION 1. Etat crible. 2. Prominent perivascular white matter change. Differential as discussed above, no progression since 2016. 3. No abnormal enhancement. Edited by Jennifer Renee on 04/06/2018 2:09 PM Smiley Simmons PRIMARY CARE NURSE PRACTITIONER-SPLITTER OPERATOR MR ORDERA BLES * XR WRIST 3+ VW LEFT [id number] (03/30/2018 2:35 PM CDT) Only the most recent of2 resultswithin the time period is included. Anatomical Region Laterality Modality Wrist / Hand Radiographic July ging 03/30/2018 2:37 PM CDT Narrative 03/30/2018 2:46 PM CDT PROCEDURE: XR WRIST LEFT 3VW OR MORE ??03/30/2018 2:37 PM HISTORY: Injury, unspecified, initial encounter. FINDINGS AND IMPRESSION: COMPARISON: 03/26/2018. No acute fracture, dislocation, or destructive process. Osteopenia. 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 Soft tissue swelling about wrist. Edited by Jennifer Renee on 03/30/2018 2:38 PM Procedure Note Joya Castillo MD - 03/30/2018 PROCEDURE: XR WRIST LEFT 3VW OR MORE 03/30/2018 2:37 PM HISTORY: Injury, unspecified, initial encounter. FINDINGS AND IMPRESSION: COMPARISON: 03/26/2018. No acute fracture, dislocation, or destructive process. Osteopenia. 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 Soft tissue swelling about wrist. Edited by Jennifer Renee on 03/30/2018 2:38 PM Smiley Simmons PRIMARY CARE NURSE PRACTITIONER-SPLITTER OPERATOR DIAGNOSTI C IMAGING ORDERABLES * CT FACIAL BONES WO CONTRAST [id number] (03/26/2018 12:18 PM CDT) Anatomical Region Laterality Modality Head Computed Tomogra phy 03/26/2018 12:3 1 PM CDT Impressions 03/26/2018 12:59 PM CDT No fracture about the left orbit. Mild soft tissue swelling or edema in the left periorbital soft tissues as above. Preliminary report printed to the ER 03/26/2018 @ 1242 hours. Edited by Jennifer Renee on 03/26/2018 12:43 PM Narrative 03/26/2018 12:[address] FACIAL BONES WO CONTRAST 03/26/2018 12:18 PM DATE: 03/26/2018 12:18 PM HISTORY: Fall. COMPARISON: 06/27/2007. CONTRAST: No intravenous contrast Radiation dose reduction technique was utilized. FINDINGS: No displaced fracture lucency. The bones about the left orbit appear intact. Mild infiltrative or edematous-appearing changes in the left-sided preseptal periorbital soft tissues present with no large hematoma seen. The postseptal soft tissues appear symmetric and within normal limits. The lamina papyracea, orbital bones and pterygoid plates intact. Minimal mucoperiosteal thickening present in the maxillary sinuses and left frontal sinus. Atherosclerotic vascular calcification noted in the intracranial internal carotid artery along with [id number] diffuse volume loss of the intracranial contents. Degenerative changes noted in the cervical spine. Procedure Note Cleve Ramirez MD - 03/26/2018 CT FACIAL BONES WO CONTRAST 03/26/2018 12:18 PM DATE: 03/26/2018 12:18 PM HISTORY: Fall. COMPARISON: 06/27/2007. CONTRAST: No intravenous contrast Radiation dose reduction technique was utilized. FINDINGS: No displaced fracture lucency. The bones about the left orbit appear intact. Mild infiltrative or edematous-appearing changes in the left-sided preseptal periorbital soft tissues present with no large hematoma seen. The postseptal soft tissues appear symmetric and within normal limits. The lamina papyracea, orbital bones and pterygoid plates intact. Minimal mucoperiosteal thickening present in the maxillary sinuses and left frontal sinus. Atherosclerotic vascular calcification noted in the intracranial internal carotid artery along with [id number] diffuse volume loss of the intracranial contents. Degenerative changes noted in the cervical spine. IMPRESSION No fracture about the left orbit. Mild soft tissue swelling or edema in the left periorbital soft tissues as above. Preliminary report printed to the ER 03/26/2018 @ 1242 hours. Edited by Jennifer Renee on 03/26/2018 12:43 PM Carmina Sullivan MD CT ORDERABLES * (ABNORMAL) URINALYSIS AUTO - POINT OF CARE (AMB) [facility] (03/15/2018 12:03 PM CDT) Only the most recent of2 resultswithin the time period is included. Clarity UA POCT - Color UA POCT - Glucose UA Negative Negative Bilirubin UA POCT Negative Negative Ketone UA Negative Negative Specific Garvin UA POCT 1.025 1.002 - 1.030 Blood UA POCT Negative Negative pH UA 6.5 5.0 - 8.0 pH units Protein UA POCT Negative Negative Urobilinogen UA 0.2 0.1 - 1.0 Nitrite UA POCT Negative Negative Leukocyte UA Trace(A) Negative QC Verified Yes Yes Urine URINE / Unknown 03/15/2018 1 2:03 PM CDT Tim Salazar MD LAB - POINT OF CARE ORDERABLES * BLADDER SCAN - POINT OF CARE (AMB) (03/15/2018 12:02 PM CDT) Only the most recent of2 resultswithin the time period is included. mL 10 Urine URINE / Unknown 03/15/2018 1 2:02 PM CDT Tim Salaazr MD LAB - POINT OF CARE ORDERABLES * CULTURE MYCOPLASMA HOMINIS+UREAPLASMA CULTURE (03/15/2018 11:15 AM CDT) Only the most recent of2 resultswithin the time period is included. Prelim Report SEE NOTE 03/20/2018 8:31 AM CDT [employer] ([facility]) Comment: Specimen received and in progress. Performed by [facility], [address] [facility] [place] [address] [email or web address], Mitch Dias MD, Lab. Director Final Report SEE NOTE 03/20/2018 8:31 AM CDT [employer] ([facility]) Comment: Culture negative for Mycoplasma hominis Culture negative for Ureaplasma spp Performed by [facility], [address] [place] [address] [email or web address], Mitch Dias MD, Lab. Director Microbiology URINE / Unknown Collection / Unknown 03/15/2018 11:15 AM CDT 03/15/2018 3:29 PM CDT Tim Salazar MD LAB - MICROBIOLOGY O RDERABLES [employer] ([facility]) [address] [place] [address], [facility] * FUNGUS IDENTIFICATION (03/15/2018 11:15 AM CDT) Prelim Report SEE NOTE 03/22/2018 8:35 AM CDT [employer] ([facility]) Comment: Gissel albicans/dubliniensis Identification by phenotypic methods. Performed by [facility], [address] [place] [address] [email or web address], Mitch Dais MD, Lab. Director Final Report SEE NOTE 03/22/2018 8:35 AM CDT [employer] ([facility]) Comment: Gissel albicans/dubliniensis Identification by phenotypic methods. Performed by [facility], [address] [place] [address] [email or web address], Mitch Dias MD, Lab. Director Urine URINE SPECIMEN OBTAINED BY CLEAN CATCH PROCEDURE / Unknown Collection / Unknown 03/15/2018 11:15 AM CDT 03/15/2018 3:29 PM CDT Tim Salazar MD LAB - MICROBIOLOGY O RDERABLES [facility] ([facility]) [address] [place] [address], [facility] * (ABNORMAL) URINE MICROSCOPIC ONLY (02/15/2018 10:00 AM CDT) RBC UA 0-5 0-5, None Seen # /hpf 02/15/2018 6:14 PM CDT [facility] WBC UA 51-100(A) 0-5, None Seen # /hpf 02/15/2018 6:14 PM CDT [facility] Bacteria UA Trace(A) None Seen 02/15/2018 6:14 PM CDT [facility] Squamous Epithelial Cells 11-20(A) None Seen, 0-2, 3-5 /hpf 02/15/2018 6:14 PM CDT [facility] Mucus UA 1+ /LPF 02/15/2018 6:14 PM CDT [facility] Urine URINE SPECIMEN OBTAINED BY CLEAN CATCH PROCEDURE / Unknown Collection / Unknown 02/15/2018 10:00 AM CDT 02/15/2018 3:40 PM CDT Darlin GORDON LAB - URINALYSIS ORDERABLES [facility] [address] [place] [address], [facility] * URINALYSIS ROUTINE W/REFLEX TO CULTURE (11/17/2017 12:25 AM PRISON KEEPER) Color UA Yellow 11/17/2017 12:40 AM PRISON KEEPER [facility] Clarity UA Clear Clear 11/17/2017 12:40 AM [facility] Glucose UA Negative Negative 11/17/2017 12:40 AM [facility] Bilirubin UA Negative Negative 11/17/2017 12:40 AM [facility] Ketone UA Negative Negative 11/17/2017 12:40 AM [facility] Specific Garvin UA 1.020 1.005 - 1.030 11/17/2017 12:40 AM [facility] Blood UA Negative Negative 11/17/2017 12:40 AM [facility] pH UA 6.0 5.0 - 8.0 pH 11/17/2017 12:40 AM [facility] Protein UA Negative Negative 11/17/2017 12:40 AM [facility] Urobilinogen UA Negative Negative mg/dL 11/17/2017 12:40 AM [facility] Nitrite UA Negative Negative 11/17/2017 12:40 AM [facility] Leukocyte UA Negative Negative 11/17/2017 12:40 AM [facility] Urine Microscopy Urine microscopy not indicated 11/17/2017 12:40 AM [facility] Reflex Status Culture not indicated 11/17/2017 12:40 AM [facility] Urine URINE SPECIMEN OBTAINED BY CLEAN CATCH PROCEDURE / Unknown Collection / Unknown 11/17/2017 12:25 AM PRISON KEEPER 11/17/2017 12:25 AM [facility] Carmina Sullivan MD LAB - URINALYSIS ORD ERABLES Performing Organization Address City/State/[facility] Co de Phone Number [facility] [address] * XR FOOT 3+ VW LEFT [id number] (11/16/2017 2:31 PM PRISON KEEPER) Anatomical Region Laterality Modality Ankle / Foot Radiographic July ging 11/16/2017 2:35 PM PRISON KEEPER Impressions 11/16/2017 4:00 PM PRISON KEEPER 1. No foot fracture identified. 2. Ankle fracture, better described on the ankle film report. Preliminary report printed to the ER 11/16/2017 @ 1440 hours. Edited by Jennifer Renee on 11/16/2017 2:41 PM Narrative 11/16/2017 4:00 PM PRISON KEEPER PROCEDURE: XR FOOT 3+ VW LEFT ??11/16/2017 2:31 PM HISTORY: Syncope and collapse. Foot pain. FINDINGS AND IMPRESSION: COMPARISON: Ankle fracture, see ankle report. Hindfoot, midfoot, forefoot show no fractures. Calcaneal heel spur and arthrosis of the first metatarsophalangeal joint. Ankle joint swelling with joint effusion. Procedure Note West Corona MD - 11/16/2017 PROCEDURE: XR FOOT 3+ VW LEFT 11/16/2017 2:31 PM HISTORY: Syncope and collapse. Foot pain. FINDINGS AND IMPRESSION: COMPARISON: Ankle fracture, see ankle report. Hindfoot, midfoot, forefoot show no fractures. Calcaneal heel spur and arthrosis of the first metatarsophalangeal joint. Ankle joint swelling with joint effusion. IMPRESSION 1. No foot fracture identified. 2. Ankle fracture, better described on the ankle film report. Preliminary report printed to the ER 11/16/2017 @ 1440 hours. Edited by Jennifer Renee on 11/16/2017 2:41 PM Carmina Sullivan MD DIAGNOSTIC IMAGING O RDERABLES * XR TIBIA AND FIBULA 2 VW LEFT [id number] (11/16/2017 2:30 PM PRISON KEEPER) Anatomical Region Laterality Modality Lower Extremity Radiographic July ging 11/17/2017 10:5 5 AM PRISON KEEPER Addenda Addendum by West Corona MD on 11/17/2017 1:43 PM PRISON KEEPER The laterality on the above report should be LEFT. History of left ankle pain; left tib-fib exam. Edited by Jennifer Renee on 11/17/2017 10:56 AM Narrative 11/16/2017 4:00 PM PRISON KEEPER PROCEDURE: XR TIBIA FIBULA RIGHT 2VW ??11/16/2017 2:31 PM HISTORY: Syncope and collapse. Pain in right ankle. FINDINGS AND IMPRESSION: Distal fibular fracture with ankle swelling, see the ankle report. The remaining portions of the tibia and fibula are normal. No additional fracture or malalignment is seen. Report printed to the Emergency Department at 2:41 p.m. on 11/16/2017. Edited by Viviane Coelho on 11/16/2017 2:41 PM Procedure Note West Corona MD - 11/16/2017 PROCEDURE: XR TIBIA FIBULA RIGHT 2VW 11/16/2017 2:31 PM HISTORY: Syncope and collapse. Pain in right ankle. FINDINGS AND IMPRESSION: Distal fibular fracture with ankle swelling, see the ankle report. The remaining portions of the tibia and fibula are normal. No additional fracture or malalignment is seen. Report printed to the Emergency Department at 2:41 p.m. on 11/16/2017. Edited by Viviane Coelho on 11/16/2017 2:41 PM Carmina Sullivan MD DIAGNOSTIC IMAGING O RDERABLES * XR ANKLE 3+ VW LEFT [id number] (11/16/2017 2:29 PM PRISON KEEPER) Anatomical Region Laterality Modality Lower Extremity Radiographic July ging 11/16/2017 2:34 PM PRISON KEEPER Impressions 11/16/2017 4:00 PM PRISON KEEPER Oblique fracture distal diaphysis of the fibula above the plafond. Preliminary report printed to the ER 11/16/2017 @ 1441 hours. Edited by Jennifer Renee on 11/16/2017 2:41 PM Narrative 11/16/2017 4:00 PM PRISON KEEPER PROCEDURE: XR ANKLE 3+ VW LEFT ??11/16/2017 2:30 PM HISTORY: Syncope and collapse. FINDINGS AND IMPRESSION: COMPARISON: None. Oblique fracture distal fibular metadiaphysis about 4 cm above the plafond. No medial malleolar fracture or posterior malleolar fracture is seen. Calcaneal heel spur. Mortise is in good alignment. Procedure Note West Corona MD - 11/16/2017 PROCEDURE: XR ANKLE 3+ VW LEFT 11/16/2017 2:30 PM HISTORY: Syncope and collapse. FINDINGS AND IMPRESSION: COMPARISON: None. Oblique fracture distal fibular metadiaphysis about 4 cm above the plafond. No medial malleolar fracture or posterior malleolar fracture is seen. Calcaneal heel spur. Mortise is in good alignment. IMPRESSION Oblique fracture distal diaphysis of the fibula above the plafond. Preliminary report printed to the ER 11/16/2017 @ 1441 hours. Edited by Jennifer Renee on 11/16/2017 2:41 PM Carmina Sullivan MD DIAGNOSTIC IMAGING O RDERABLES * CULTURE BLOOD (11/15/2017 4:29 PM PRISON KEEPER) Only the most recent of2 resultswithin the time period is included. Culture No growth day 5 LAINA 11/21/2017 10:18 AM PRISON KEEPER [facility] Blood PERIPHERAL BLOOD / Unknown Lab Venipuncture / Unknown 11/15/2017 4:29 PM PRISON KEEPER 11/15/2017 4:32 PM PRISON KEEPER Charlie Cesar MD LAB - MICROBIOLOGY O RDERABLES [facility] [address] * LACTIC ACID BLOOD (11/15/2017 4:21 PM PRISON KEEPER) Lactic Acid 1.13 0.5 - 2.2 mmol/L 11/15/2017 4:45 PM PRISON KEEPER [facility] Blood BLOOD SPECIMEN / Unknown Lab Venipuncture / Unknown 11/15/2017 4:21 PM PRISON KEEPER 11/15/2017 4:27 PM PRISON KEEPER Charlie Cesar MD LAB - CHEMISTRY MAURILIO RENE [facility] [address] * DEXA BONE DENSITY SCAN [id number] (04/15/2017 3:32 PM CDT) Anatomical Region Laterality Modality Computed Radiogr aphy 04/15/2017 3:37 PM CDT Impressions 04/15/2017 4:00 PM CDT 1. Lowest T-score in this patient occurs at the hips. 2. By WHO criteria, there is osteopenia . 3. The patient is at increased risk for fracture and followup study recommended on same machine. Narrative 04/15/2017 4:00 PM CDT DEXA 04/15/2017 HISTORY: Asymptomatic menopausal status. FINDINGS: LUMBAR SPINE: BMD 1.190, T-score -0.1, Z-score 1.3. HIPS: BMD 0.780, T-score 0.7, Z-score -0.1. Procedure Note West Corona MD - 04/15/2017 DEXA 04/15/2017 HISTORY: Asymptomatic menopausal status. FINDINGS: LUMBAR SPINE: BMD 1.190, T-score -0.1, Z-score 1.3. HIPS: BMD 0.780, T-score 0.7, Z-score -0.1. IMPRESSION 1. Lowest T-score in this patient occurs at the hips. 2. By WHO criteria, there is osteopenia . 3. The patient is at increased risk for fracture and followup study recommended on same machine. Smiley Simmons PRIMARY CARE NURSE PRACTITIONER-SPLITTER OPERATOR KARAN RENE * THYROID PANEL (T3U T4 FTI) (04/20/2016 9:48 AM CDT) T4 Total 7.28 5.10 - 14.10 ug/dL 04/21/2016 9:35 PM CDT [employer] ([facility]) Comment: REFERENCE INTERVAL: Thyroxine Access complete set of age- and/or gender-specific reference intervals for this test in the [employer] [facility] Test Directory ([email or web address]). T3 Uptake 32 28 - 41 % 04/21/2016 9:35 PM CDT [facility] ([facility]) Comment: INTERPRETIVE INFORMATION: T3 Uptake Thyroxine, Free (Free T4) ([id number]) is the preferred test alternative for the T3 uptake and Free Thyroxine Index tests. Free Thyroxine Index 2.3 1.7 - 4.2 units 04/21/2016 9:35 PM CDT [employer] ([facility]) Comment: Performed by [facility], [address] [place] [address] [email or web address], Jesus Toro MD, Lab. Director Blood specimen (specimen) BLOOD SPECIMEN / Unknown Lab Venipuncture / Unknown 04/20/2016 9:48 AM CDT 04/20/2016 9:55 AM CDT Piero Santiago MD LAB - CHEMISTRY MAURILIO RENE Performing Organization Address [facility]/State/ZIP Co de Phone Number [employer] [facility]) [address] [place] [address] * VITAMIN B12 FOLATE PANEL (04/20/2016 9:48 AM CDT) Vitamin B12 338 213 - 816 pg/mL 04/20/2016 10:51 AM CDT [facility] Folate 10.7 7.0 - 31.4 ng/mL 04/20/2016 10:51 AM CDT [facility] Blood BLOOD SPECIMEN / Unknown Lab Venipuncture / Unknown 04/20/2016 9:48 AM CDT 04/20/2016 9:55 AM CDT Piero Santiago MD LAB - CHEMISTRY MAURILIO RENE Performing Organization Address City/[facility]/ZIP Co de Phone Number [facility] [address] * TSH (04/20/2016 9:48 AM CDT) TSH 2.395 0.35 - 4.94 uIU/mL 04/20/2016 10:51 AM CDT [facility] Blood BLOOD SPECIMEN / Unknown Lab Venipuncture / Unknown 04/20/2016 9:48 AM CDT 04/20/2016 9:55 AM CDT Piero Santiago MD LAB - CHEMISTRY [facility] Performing Organization Address [facility] Co de Phone Number [facility] [address] * MRI BRAIN WO CONTRAST [id number] (04/06/2016 2:07 PM CDT) Anatomical Region Laterality Modality Head Magnetic Resonan ce 04/06/2016 2:25 PM CDT Impressions 04/06/2016 5:03 PM CDT 1. Progressive white matter changes in the periventricular semiovale. When compared to 04/05/2008, there is an increase in number and density of the areas of involvement in that specific region. 2. Prominent perivascular spaces in the basal ganglia with mineralization, stable. 3. No other new findings are documented. The progression is most apparent on sagittal images such as image 8 series 3. The differential might include vasculitis or other etiologies. Further workup advised. Narrative 04/06/2016 5:03 PM CDT MRI BRAIN (04/06/2016) CLINICAL HISTORY: Memory loss. Dizziness. No headaches. FINDINGS: Diffusion-weighted sequences show no ischemia or infarction. Normal flow voids centrally. Nonspecific white matter change in the periventricular regions. Some of those radiate peripherally; although not likely, that pattern can mimic multiple sclerosis. Correlate to your concern for that diagnosis (see the radiation on sagittal image 13 series 3 and image 9 series 3). Basal ganglia mineralization and prominent perivascular spaces. When comparing to old examinations, the white matter changes appear progressive, increased in number and density compared to 04/05/2008. Generalized atrophy remains. No hemorrhage or infarct. Procedure Note West Corona MD - 04/06/2016 MRI BRAIN (04/06/2016) CLINICAL HISTORY: Memory loss. Dizziness. No headaches. FINDINGS: Diffusion-weighted sequences show no ischemia or infarction. Normal flow voids centrally. Nonspecific white matter change in the periventricular regions. Some of those radiate peripherally; although not likely, that pattern can mimic multiple sclerosis. Correlate to your concern for that diagnosis (see the radiation on sagittal image 13 series 3 and image 9 series 3). Basal ganglia mineralization and prominent perivascular spaces. When comparing to old examinations, the white matter changes appear progressive, increased in number and density compared to 04/05/2008. Generalized atrophy remains. No hemorrhage or infarct. IMPRESSION 1. Progressive white matter changes in the periventricular semiovale. When compared to 04/05/2008, there is an increase in number and density of the areas of involvement in that specific region. 2. Prominent perivascular spaces in the basal ganglia with mineralization, stable. 3. No other new findings are documented. The progression is most apparent on sagittal images such as image 8 series 3. The differential might include vasculitis or other etiologies. Further workup advised. Ulises Bergman PA-C MR ORDERABLES * OCCULT BLOOD FECES 1-3 SCREEN (03/27/2016 12:00 AM CDT) [facility] Occult Blood 1 Negative Negative 03/29/2016 3:24 PM CDT [facility] Occult Blood 2 Negative Negative 03/29/2016 3:24 PM CDT [facility] Occult Blood 3 Negative Negative 03/29/2016 3:24 PM CDT [facility] Occult Blood 1 Collection Date 03/25/16 03/29/2016 3:24 PM CDT [facility] Occult Blood 1 Collection Time 03/29/2016 3:24 PM CDT [facility] Occult Blood 2 Collection Date 03/26/16 03/29/2016 3:24 PM CDT [facility] Occult Blood 2 Collection Time 03/29/2016 3:24 PM CDT [facility] Occult Blood 3 Collection Date 03/27/16 03/29/2016 3:24 PM CDT [facility] Occult Blood 3 Collection Time 03/29/2016 3:24 PM CDT [facility] Stool STOOL SPECIMEN / Unknown Collection / Unknown 03/27/2016 03/29/2016 12:04 PM CDT Smiley Simmons PRIMARY CARE NURSE PRACTITIONER-SPLITTER OPERATOR LAB - BOD Y FLUID ORDERABLES Performing Organization Address City/[facility] Co de Phone Number [facility] [address] * XR HAND 3+ VW RIGHT [id number] (11/13/2015 11:52 AM PRISON KEEPER) Anatomical Region Laterality Modality Wrist / Hand Radiographic July ging 11/13/2015 12:2 1 PM PRISON KEEPER Narrative 11/13/2015 1:10 PM PRISON KEEPER RIGHT HAND 3 VIEWS 11/13/2015 CLINICAL HISTORY: Trauma. FINDINGS AND IMPRESSION: 1. No acute fracture, dislocation or destructive process. 2. Osteopenia. 3. Degenerative changes of interphalangeal joints are noted. 4. Degenerative changes of first CMC joint are also seen. 5. Mild soft tissue swelling. Procedure Note Joya Castillo MD - 11/13/2015 RIGHT HAND 3 VIEWS 11/13/2015 CLINICAL HISTORY: Trauma. FINDINGS AND IMPRESSION: 1. No acute fracture, dislocation or destructive process. 2. Osteopenia. 3. Degenerative changes of interphalangeal joints are noted. 4. Degenerative changes of first CMC joint are also seen. 5. Mild soft tissue swelling. Smiley Simmons APRN-SPLITTER OPERATOR DIAGNOSTI C IMAGING ORDERABLES * CREATININE BLOOD (11/10/2015 7:52 AM PRISON KEEPER) Creatinine 0.88 0.57 - 1.11 mg/dL 11/10/2015 8:41 AM PRISON KEEPER [facility] eGFR by MDRD >60 >60 mL/min/1.7 3m2 11/10/2015 8:41 AM PRISON KEEPER [facility] eGFR by MDRD >60 >60 mL/min/1.7 3m2 11/10/2015 8:41 AM PRISON KEEPER [facility] Blood BLOOD SPECIMEN / Unknown Lab Venipuncture / Unknown 11/10/2015 7:52 AM PRISON KEEPER 11/10/2015 8:11 AM PRISON KEEPER Oscar Royal MD LAB - CHEMISTRY [facility] [address] * BUN (11/10/2015 7:52 AM PRISON KEEPER) BUN 10.6 9.8 - 20.1 mg/dL 11/10/2015 8:41 AM PRISON KEEPER [facility] Blood BLOOD SPECIMEN / Unknown Lab Venipuncture / Unknown 11/10/2015 7:52 AM PRISON KEEPER 11/10/2015 8:11 AM PRISON KEEPER Oscar Royal MD LAB - CHEMISTRY [facility] Performing Organization Address [facility] Co de Phone Number [facility] [address] * ECHOCARDIOGRAM STRESS Dobutamine (resting) Echocardiogram (03/12/2015 12:30 PM CDT) Narrative [facility] - 03/12/2015 12:30 [place] [address] Dobutamine Stress Echocardiography Patient: DORA WHITING MR #: [id number] : 1940 Age: 74 years Gender: Female Study date: 12-Mar-2015 Status: Outpatient Room: [facility] Allergies: MEPERIDINE Referring Physician: ??Gerson Pena MD [employer] Forming Machine Setter: ??Gerson Pena MD Fan Mail Clerk: ??Marisol MARTINEZ, [facility] Clinical question: Chest pain. History: The patient is a 74 year old female. Procedure: The procedure was explained to the patient and informed consent was obtained. A dobutamine infusion pharmacologic stress test was performed. Stress and rest echocardiographic evaluation with 2D imaging and Optison intravenous contrast was performed from multiple acoustic windows for evaluation of ventricular function. Stress summary: Duration of pharmacologic stress was 7 min and 33 sec. Maximal heart rate during stress was 155 bpm ( 108 % of maximal predicted heart rate). There was no chest pain during stress. The stress test was terminated due to achievement of target heart rate. Stress 2D echocardiographic results: Baseline: There were no regional wall motion abnormalities. Low dose: There were no regional wall motion abnormalities. Peak stress: At peak dobutamine stress global left ventricular systolic function improves and left ventricular cavity dimensions decrease. There were no regional wall motion abnormalities. Recovery: There were no regional wall motion abnormalities. Summary: ?? - ??Stress results: Target heart rate was achieved. There was no chest pain during stress. - ??Baseline: There were no regional wall motion abnormalities. - ??Low dose: There were no regional wall motion abnormalities. - ??Peak stress: At peak dobutamine stress global left ventricular systolic function improves and left ventricular cavity dimensions decrease. There were no regional wall motion abnormalities. - ??Recovery: There were no regional wall motion abnormalities. Impressions: Normal study after pharmacologic stress. Left ventricular systolic function was normal. No evidence of ischemia at this level of stress. All images and data generated for this procedure were personally reviewed by me. Prepared and Electronically Authenticated Gerson Pena MD 12-Mar-2015 12:38:08 Procedure Note Unknown, Provider - 03/12/[address] [address] Dobutamine Stress Echocardiography Patient: DORA WHITING MR #: [id number] : 1940 Age: 74 years Gender: Female Study date: 12-Mar-2015 Status: Outpatient Room: [facility] Allergies: MEPERIDINE Referring Physician: Gerson Pena MD [employer] Forming Machine Setter: Gerson Pena MD Fan Mail Clerk: Marisol MARTINEZ, [facility] Clinical question: Chest pain. History: The patient is a 74 year old female. Procedure: The procedure was explained to the patient and informed consentwas obtained. A dobutamine infusion pharmacologic stress test was performed. Stress and rest echocardiographic evaluation with 2D imaging and Optisonintravenous contrast was performed from multiple acoustic windows for evaluation of ventricular function. Stress summary: Duration of pharmacologic stress was 7 min and 33 sec.Maximal heart rate during stress was 155 bpm ( 108 % of maximal predicted heartrate). There was no chest pain during stress. The stress test was terminated dueto achievement of target heart rate. Stress 2D echocardiographic results: Baseline: There were no regional wall motion abnormalities. Low dose: There were no regional wall motion abnormalities. Peak stress: At peak dobutamine stress global left ventricular systolic function improves and left ventricular cavity dimensions decrease. Therewere no regional wall motion abnormalities. Recovery: There were no regional wall motion abnormalities. Summary: - Stress results: Target heart rate was achieved. There wasno chest pain during stress. - Baseline: There were no regional wall motion abnormalities. - Low dose: There were no regional wall motion abnormalities. - Peak stress: At peak dobutamine stress global left ventricularsystolic function improves and left ventricular cavity dimensions decrease. Therewere no regional wall motion abnormalities. - Recovery: There were no regional wall motion abnormalities. Impressions: Normal study after pharmacologic stress. Left ventricular systolic function was normal. No evidence of ischemia at this level of stress. All images and data generated for this procedure were personally reviewedby me. Prepared and Electronically Authenticated Gerson Pena MD 12-Mar-2015 12:38:08 Gerson Pena MD ECHO ORDERABLES [facility] * ECG STRESS TRACING (03/12/2015 12:00 PM CDT) 03/12/2015 12:0 0 PM CDT Narrative Transcriptions Gerson Pena MD - 03/13/2015 12:09 PM [address] [address] [facility] Cardiac Stress Test Patient: DORA WHITING Patient Type: CSN: [id number] Bday/Age: 07 1940 74 Stn/Rm/Bed: [facility] 1 Sex/Race: F Unit #: [id number] Patient Adrs: [address] Prim Phys: Attend Phys: SANDY SIMMONS M.D. City//[facility]: [facility] [id number] Admit Date: March 11, 2015 Disch To: Disch Date: DATE TEST PERFORMED: 03/12/2015 INDICATIONS: Chest pain. After informed consent was obtained, the patient is connected to a 12-leadelectrocardiographic monitor. Hemodynamic monitoring is also performed.Resting images are taken of the left ventricle. These are repeated at lowdose, peak stress, and in recovery. Dobutamine is infused starting at 10mcg/kg/min. This is titrated to 30 mcg/kg/min. Atropine 0.3 mgintravenously is given to aid in achievement of the target heart rate.The patient achieved a heart rate of 155 beats per minute, whichrepresented 107% of the maximum age predicted heart rate. Maximum bloodpressure is 176/84. The resting electrocardiogram has baseline artifactand some lateral T-wave changes. With dobutamine infusion, no significantST changes are seen. ASSESSMENT: 1. Normal Dobutamine stress echocardiogram. 2. No ST changes seen to suggest myocardial ischemia. 3. Please see echocardiogram report for echocardiographic findings. Gerson Pena MD, [facility] PE/MODL /[id number] cc: Gerson Pena MD, [facility] Sandy Simmons M.D. GERSON PENA MD, [facility] CARDIAC STRESS TEST Gerson Pena MD CARDIAC SERVICES ORD ERABLES Performing Organization Address [facility] Co de Phone Number [facility] * CK + CKMB PANEL (03/11/2015 11:14 PM CDT) Only the most recent of2 resultswithin the time period is included. CK 167 29 - 168 U/L 03/11/2015 11:49 PM CDT [facility] CK-MB 2.3 0.0 - 6.6 ng/mL 03/11/2015 11:49 PM CDT [facility] CK Index % 1.4 0.0 - 4.9 % 03/11/2015 11:49 PM CDT [facility] Blood BLOOD SPECIMEN / Unknown Lab Venipuncture / Unknown 03/11/2015 11:14 PM CDT 03/11/2015 11:18 PM CDT Sandy Simmons MD LAB - CHEMISTRY ORDERABLES Performing Organization Address City/[facility]/ZIP Co de Phone Number [facility] [address] * ECHOCARDIOGRAM 2D WITH DOPPLER (03/11/2015 12:00 AM CDT) 03/11/2015 Narrative [facility] - 03/12/2015 12:32 PM CDT [address] [address] Transthoracic Echocardiogram 2D, M-mode, Doppler, and Color Doppler Patient: DORA WHITING MR #: [id number] : 1940 Age: 74 years Gender: Female Study date: 12-Mar-2015 Status: Outpatient Room: [facility] Height: 63.8 in Weight: 180.4 lb BSA: 1.87 m?? Referring Physician: ??Gerson Pena MD [employer] Operation Forming Machine Setter: ??Gerson Pena MD Fan Mail Clerk: ??Marisol Feldman RT, [facility] Impressions: Normal left ventricular size and function. No regional wall motion abnormalities are seen. Grade 1 diastolic left ventricular dysfunction Summary: - ??Clinical question: Chest pain - ??History: Chest pain. - ??Left ventricle: Ejection fraction was estimated in the range of 65 % to 70 %. E to A reversal consistent with diastolic dysfunction. - ??Mitral valve: There was mild regurgitation. - ??Right ventricle: Estimated peak pressure was 34 mmHg. - ??Tricuspid valve: There was mild regurgitation. - ??Impressions: Normal left ventricular size and function. No regional wall motion abnormalities are seen. Grade 1 diastolic left ventricular dysfunction Comparisons: Comparison was made with the previous study of 02-Feb-2012. Clinical question: Chest pain History: Cardiovascular history: Chest pain. Procedure: The procedure was performed in the echo lab. This was a routine study. The transthoracic approach was used. The study included complete 2D imaging, M-mode, complete spectral Doppler, and color Doppler. Systolic blood pressure was 154 mmHg, at the start of the study. Diastolic blood pressure was 75 mmHg, at the start of the study. Images were obtained from the parasternal, apical, subcostal, and suprasternal notch acoustic windows. Intravenous contrast (Optison) was administered to opacify the left ventricle. Image quality was adequate. Left ventricle: Size was normal. Ejection fraction was estimated in the range of 65 % to 70 %. There were no regional wall motion abnormalities. Wall thickness was normal. Doppler: E to A reversal consistent with diastolic dysfunction. Aortic valve: The valve was trileaflet. Leaflets exhibited normal cuspal separation. Doppler: There was no significant aortic valve regurgitation. Aorta: The root exhibited normal size. Mitral valve: Valve structure was normal. Doppler: There was mild regurgitation. Left atrium: Size was normal. Pulmonary veins: The pulmonary veins were normal sized. Doppler: Doppler flow pattern was normal in the pulmonary vein(s). Right ventricle: The size was normal. Systolic function was normal. Doppler: Estimated peak pressure was 34 mmHg. Pulmonic valve: Doppler: The transpulmonic velocity was within the normal range. Tricuspid valve: The valve structure was normal. Doppler: There was mild regurgitation. Right atrium: Size was normal. Systemic veins: IVC: The inferior vena cava was not well visualized. Pericardium: There was no pericardial effusion. System measurement tables 2D LVEF MOD A4C: 56.2 % LVEDV MOD A4C: 33.6 ml LVESV MOD A4C: 14.7 ml LVOT Diam: 2 cm LAAs A2C: 12.6 cm2 LAAs A4C: 13.8 cm2 LAESV A-L A2C: 28.6 ml LAESV A-L A4C: 31.5 ml LAESV Index (A-L): 16.7 ml/m2 LAESV MOD A2C: 27.6 ml LAESV MOD A4C: 30 ml LAESV(A-L): 31.2 ml LALs A2C: 4.7 cm LALs A4C: 5.1 cm CW AV VTI: 30.9 cm AV Vmax: 1.3 m/s AV maxP.2 mmHg AV meanP mmHg RAP: 10 mmHg TR Vmax: 2.5 m/s TR maxP.7 mmHg MM AV Cusp: 1.7 cm AoR Diam; (2D): 3.1 cm LA Diam: 3.9 cm IVSd: 1.2 cm IVSs: 1.8 cm LVIDd: 4.8 cm LVIDs: 3.1 cm LVPWd: 1 cm LVPWs: 1.7 cm RVIDd: 1.9 cm PW KASI (VTI): 3 cm2 KASI Vmax: 2.8 cm2 LVCI Dopp: 3.9 l/minm2 LVCO Dopp: 7.3 L/min LVOT VTI: 29.2 cm LVOT Vmax: 1.2 m/s LVOT Vmean: 0.8 m/s LVOT maxP.6 mmHg LVOT meanP.2 mmHg LVSI Dopp: 49.2 ml/m2 LVSV Dopp: 92 ml E/E': 16.2 MV A Marcel: 1 m/s MV Dec Prowers: 3.9 m/s2 MV DecT: 222.3 ms MV E Marcel: 0.9 m/s MV E/A Ratio: 0.9 MV PHT: 67.3 ms MVA By PHT: 3.3 cm2 PV Vmax: 0.8 m/s PV maxP.9 mmHg RVSP: 34.7 mmHg TV E Marcel: 0.8 m/s HR: 79 BPM All images and data generated for this procedure were personally reviewed by me. Prepared and Electronically Authenticated Gerson Pena MD 12-Mar-2015 12:40:40 Procedure Note Unknown, Provider - 03/12/[address] [id number] Transthoracic Echocardiogram 2D, M-mode, Doppler, and Color Doppler Patient: DORA WHITING MR #: [id number] : 1940 Age: 74 years Gender: Female Study date: 12-Mar-2015 Status: Outpatient Room: [facility] Height: 63.8 in Weight: 180.4 lb BSA: 1.87 m?? Referring Physician: Gerson Pena MD Multi Operation Forming Machine Setter: Gerson Pena MD Fan Mail Clerk: Marisol MARTINEZ, [facility] Impressions: Normal left ventricular size and function. No regional wall motion abnormalities are seen. Grade 1 diastolic left ventricular dysfunction Summary: - Clinical question: Chest pain - History: Chest pain. - Left ventricle: Ejection fraction was estimated in the range of 65 % to70 %. E to A reversal consistent with diastolic dysfunction. - Mitral valve: There was mild regurgitation. - Right ventricle: Estimated peak pressure was 34 mmHg. - Tricuspid valve: There was mild regurgitation. - Impressions: Normal left ventricular size and function. No regionalwall motion abnormalities are seen. Grade 1 diastolic left ventriculardysfunction Comparisons: Comparison was made with the previous study of 02-Feb-2012. Clinical question: Chest pain History: Cardiovascular history: Chest pain. Procedure: The procedure was performed in the echo lab. This was aroutine study. The transthoracic approach was used. The study included [id number] imaging, M-mode, complete spectral Doppler, and color Doppler. Systolicblood pressure was 154 mmHg, at the start of the study. Diastolic blood pressurewas 75 mmHg, at the start of the study. Images were obtained from theparasternal, apical, subcostal, and suprasternal notch acoustic windows. Intravenous contrast (Optison) was administered to opacify the left ventricle. Image quality was adequate. Left ventricle: Size was normal. Ejection fraction was estimated in therange of 65 % to 70 %. There were no regional wall motion abnormalities. Wall thickness was normal. Doppler: E to A reversal consistent with diastolic dysfunction. Aortic valve: The valve was trileaflet. Leaflets exhibited normal cuspal separation. Doppler: There was no significant aortic valveregurgitation. Aorta: The root exhibited normal size. Mitral valve: Valve structure was normal. Doppler: There was mild regurgitation. Left atrium: Size was normal. Pulmonary veins: The pulmonary veins were normal sized. Doppler: Dopplerflow pattern was normal in the pulmonary vein(s). Right ventricle: The size was normal. Systolic function was normal.Doppler: Estimated peak pressure was 34 mmHg. Pulmonic valve: Doppler: The transpulmonic velocity was within thenormal range. Tricuspid valve: The valve structure was normal. Doppler: There was mild regurgitation. Right atrium: Size was normal. Systemic veins: IVC: The inferior vena cava was not well visualized. Pericardium: There was no pericardial effusion. System measurement tables 2D LVEF MOD A4C: 56.2 % LVEDV MOD A4C: 33.6 ml LVESV MOD A4C: 14.7 ml LVOT Diam: 2 cm LAAs A2C: 12.6 cm2 LAAs A4C: 13.8 cm2 LAESV A-L A2C: 28.6 ml LAESV A-L A4C: 31.5 ml LAESV Index (A-L): 16.7 ml/m2 LAESV MOD A2C: 27.6 ml LAESV MOD A4C: 30 ml LAESV(A-L): 31.2 ml LALs A2C: 4.7 cm LALs A4C: 5.1 cm CW AV VTI: 30.9 cm AV Vmax: 1.3 m/s AV maxP.2 mmHg AV meanP mmHg RAP: 10 mmHg TR Vmax: 2.5 m/s TR maxP.7 mmHg MM AV Cusp: 1.7 cm AoR Diam; (2D): 3.1 cm LA Diam: 3.9 cm IVSd: 1.2 cm IVSs: 1.8 cm LVIDd: 4.8 cm LVIDs: 3.1 cm LVPWd: 1 cm LVPWs: 1.7 cm RVIDd: 1.9 cm PW KASI (VTI): 3 cm2 KASI Vmax: 2.8 cm2 LVCI Dopp: 3.9 l/minm2 LVCO Dopp: 7.3 L/min LVOT VTI: 29.2 cm LVOT Vmax: 1.2 m/s LVOT Vmean: 0.8 m/s LVOT maxP.6 mmHg LVOT meanP.2 mmHg LVSI Dopp: 49.2 ml/m2 LVSV Dopp: 92 ml E/E': 16.2 MV A Marcel: 1 m/s MV Dec Prowers: 3.9 m/s2 MV DecT: 222.3 ms MV E Marcel: 0.9 m/s MV E/A Ratio: 0.9 MV PHT: 67.3 ms MVA By PHT: 3.3 cm2 PV Vmax: 0.8 m/s PV maxP.9 mmHg RVSP: 34.7 mmHg TV E Marcel: 0.8 m/s HR: 79 BPM All images and data generated for this procedure were personally reviewedby wi. Prepared and Electronically Authenticated Gerson Pena MD 12-Mar-2015 12:40:40 Gerson Pena MD ECHO ORDERABLES [facility] * INFLUENZA A+B ANTIGEN RAPID (11/11/2014 3:03 PM PRISON KEEPER) Influenza A Antigen Negative Negative 11/11/2014 3:29 PM PRISON KEEPER [facility] Influenza B Antigen Negative Negative 11/11/2014 3:29 PM PRISON KEEPER [facility] Microbiology NASOPHARYNGEAL SWAB / Unknown Collection / Unknown 11/11/2014 3:03 PM PRISON KEEPER 11/11/2014 3:07 PM PRISON KEEPER Sandy Simmons MD LAB - MICROBIOL OGY ORDERABLES [facility] [address] * FL ESOPHAGRAM (10/30/2014 9:31 AM PRISON KEEPER) Anatomical Region Laterality Modality Chest Radio Fluoroscop y 10/30/2014 9:40 AM PRISON KEEPER Narrative 10/30/2014 2:35 PM PRISON KEEPER ESOPHAGRAM 10/30/2014 INDICATION: Esophageal reflux. Fluoroscopy time: 1.9 minutes. FINDINGS: Moderate esophageal hiatal hernia with kevin gastroesophageal reflux in the recumbent position. Prominent cricopharyngeus muscle in the cervical esophagus. Thickening of the mucosal folds in the distal esophagus consistent with mild esophagitis without evidence of ulceration. Esophagram otherwise negative. Procedure Note Yosi Huang MD - 10/30/2014 ESOPHAGRAM 10/30/2014 INDICATION: Esophageal reflux. Fluoroscopy time: 1.9 minutes. FINDINGS: Moderate esophageal hiatal hernia with kevin gastroesophageal reflux in the recumbent position. Prominent cricopharyngeus muscle in the cervical esophagus. Thickening of the mucosal folds in the distal esophagus consistent with mild esophagitis without evidence of ulceration. Esophagram otherwise negative. Herrera Paul MD FLUOROSCOPY ORDERABL ES * (ABNORMAL) URINALYSIS DIPSTICK AUTO (10/15/2013 4:01 PM PRISON KEEPER) Color UA Yellow 10/15/2013 4:28 PM [facility] Clarity UA Clear 10/15/2013 4:28 PM [facility] Specific Garvin UA 1.010 1.005 - 1.030 10/15/2013 4:28 PM [facility] pH UA 6.5 5.0 - 8.0 pH 10/15/2013 4:28 PM [facility] Glucose UA Negative Negative 10/15/2013 4:28 PM [facility] Ketone UA Negative Negative 10/15/2013 4:28 PM [facility] Blood UA Negative Negative 10/15/2013 4:28 PM [facility] Bilirubin UA Negative Negative 10/15/2013 4:28 PM [facility] Protein UA Negative Negative 10/15/2013 4:28 PM [facility] Urobilinogen UA 0.2 0.2 - 1.0 EU/dL 10/15/2013 4:28 PM PRISON KEEPER [facility] Leukocyte UA 1+(A) Negative 10/15/2013 4:28 PM PRISON KEEPER [facility] Nitrite UA Negative Negative 10/15/2013 4:28 PM PRISON KEEPER [facility] Urine URINE SPECIMEN OBTAINED BY CLEAN CATCH PROCEDURE / Unknown Collection / Unknown 10/15/2013 4:01 PM PRISON KEEPER 10/15/2013 4:01 PM PRISON KEEPER Smiley Simmons PRIMARY CARE NURSE PRACTITIONER-SPLITTER OPERATOR LAB - URI NALYSIS ORDERABLES [facility] [address] * GROSS + MICRO EXAM (08/16/2011 10:24 AM CDT) Only the most recent of7 resultswithin the time period is included. Result CASE NUMBER [id number] Comment: ORDERING PHYSICIAN ??CEZAR JOHNSON SPECIMEN TYPE ?Esophageal Biopsy-31 cm *CLINICAL HISTORY ? 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 SPECIMEN SOURCE ? A) ??#1 Bx 31 cm, esophagus. B) ??#2 Bx 29 cm, esophagus. GROSS DESCRIPTION ? The specimen is received in two parts. A) Received in formalin, labeled with the patient's identification, bx, 31 cm, esophagus are four fragments of raygoza, soft tissue, each measuring 0.2 cm, 0.2 cm, 0.3 cm, and 0.4 cm in greatest dimension. ??Submitted entirely in cassette A1. B) Received in formalin, labeled with the patient's identification, bx, 29 cm, esophagus are four fragments of raygoza, soft tissue, each measuring 0.2 cm, 0.2 cm, 0.3 cm, and 0.5 cm in greatest dimension. ??Submitted entirely in cassette B1. HC/lw GROSSED BY ? MONTEZ HERNANDES M.D. *MICROSCOPIC EXAM ? Microscopic examination is performed and substantiates the above diagnosis. READ BY ?MONTEZ HERNANDES M.D. DIAGNOSIS ? A) ESOPHAGUS, 31 CM, ENDOSCOPIC BIOPSY ?- MOREIRA'S MUCOSA (SPECIALIZED COLUMNAR MUCOSA), ?NEGATIVE FOR DYSPLASIA. B) ESOPHAGUS, 29 CM, ENDOSCOPIC BIOPSY ?- MOREIRA'S MUCOSA (SPECIALIZED COLUMNAR MUCOSA), ?NEGATIVE FOR DYSPLASIA. RELEASED BY ?MONTEZ HERNANDES MISCELLANEOUS SAMPLES / Unknown 08/16/2011 10:24 AM CDT 08/16/2011 12:58 PM CDT Historical Provider MD LAB - PATHOLOGY/C YTOLOGY ORDERABLES Care Teams [employer] Law Clerk Relationship Specialty Start Date End Date Sandy Simmons MD [address] [id number] PCP - General Internal Medicine 10/15/13
--- OUTSIDE RECORDS SUMMARY | 2024-12-21 18:53 | XMS_ITS | Clinical Summary ---
Author Organization [facility] [employer] Address [address] [place] [address] Care Team Providers Care Diesel Scoop Operator Name Role Phone Mu Monahan MD Primary Care Provider Source Comments [facility],non-owned Affiliates and Associated Physician Practices is amultiple site organization consisting of ambulatory clinics and hospital sitesin [place], [place], [place] and [place]. This disclosure is being madepursuant to the Care Everywhere program and may not contain all information available regarding this patient. Last updated 18.[facility] [employer] Allergies Active Allergy Reactions Criticality Noted Date [...] 0.7 ML (HD-IIV4) 09/14/2020,08/23/2019 PNEUMOCOCCAL PPSV23 03/12/2015 Family History Medical History Relation Name Comments None Known Daughter Cancer Father None Known Maternal Aunt None Known Maternal Grandmother Cancer Mother Diabetes Mother None Known Other None Known Paternal Aunt None Known Paternal Grandmother None Known Sister None Known half-sister Cancer - Breast Neg Hx Cancer - Ovarian Neg Hx Relation Name Status Comments Daughter Father Maternal Aunt Maternal Grandmother Mother Other Paternal Aunt Paternal Grandmother Sister half-sister Social History Tobacco Use Types Packs/Day Years [...] Comments Blood Pressure 112/54 10/29/2020 11:27 AM MANAGED CARE DIRECTOR Pulse 96 10/29/2020 11:27 AM MANAGED CARE DIRECTOR Temperature 36.8 ??C (98.2 ??F) 10/29/2020 11:[address] Respiratory Rate 20 10/29/2020 11:27 AM MANAGED CARE DIRECTOR Oxygen Saturation 98% 10/29/2020 11:27 AM MANAGED CARE DIRECTOR Inhaled Oxygen Concentration 21% 11/17/2017 7 :30 PM MANAGED CARE DIRECTOR Weight 83.9 kg (185 lb) 01/29/2021 12:56 PM MANAGED CARE DIRECTOR Height 160 cm (5' 3 ) 10/20/2020 7:51 PM MANAGED CARE DIRECTOR Body Mass Index 32.77 10/20/2020 7:51 PM MANAGED CARE DIRECTOR Plan of Treatment Health Maintenance Due Date Last Done Comments MEDICARE AWV ? 12 MONTHS 1938 DTAP/TDAP/TD VACCINES (1 - Tdap) 1957 ZOSTER VACCINE (1 of 2) 1988 Respiratory Syncytial Virus (RSV) Vaccine Pt: or over 60 yrs (1 - 1-dose 75+ series) 2013 PNEUMOCOCCAL VACCINE 50+ (2 of 2 - PCV) 03/12/2016 03/12/2015 DIABETES RETINOPATHY SCREENING 11/12/2020 DIABETES-FOOT EXAM WITH MONOFILAMENT 11/12/2020 DIABETES-HGB A1C 04/19/2021 10/20/2020 COVID-19 VACCINE ( - season) 2024 INFLUENZA VACCINE (#1) 2024 0, 08/23/2019, 08/28/2018, Additional history exists DEPRESSION SCREENING 11/28/2024 BONE DENSITY TESTING Completed 02/24/2021, 04/15/20 17 HEPATITIS B VACCINE Aged Out No longe r eligible based on patient's age to complete this topic HIB VACCINE Aged Out No longer eligi ble based on patient's age to complete this topic HPV VACCINE Aged Out No longer eligi ble based on patient's age to complete this topic MENINGOCOCCAL (Group B) VACCINE Aged Out No longer eligible based on patient's age to complete this topic MENINGOCOCCAL VACCINE Aged Out No alon dewayne eligible based on patient's age to complete this topic Goals Goal Patient Goal Type Associated Problems Recent Progress Patient-Stated? Author Safety General On track( 2:46 PM MANAGED CARE DIRECTOR) No Valeria Gomez RN Note: Expected end date: Ongonig Interventions: Your nurse will assess your risk for falls/injury each visit Use appropriate and safe transfer methods Make sure appropriate safety devices are available and within reach Medication Management General On track( 2:46 PM MANAGED CARE DIRECTOR) No Valeria Gomez RN Note: Expected end date: Ongoing Interventions: Take all medications as prescribed Let your doctor know right away about any changes in your medications Procedures Procedure Name Priority Date/Time Associated Diagnosis Comments DEXA BONE DENSITY AXIAL SKELETON Routine 02/24/2021 3:10 PM CDT Postmenopausal HEMOGLOBIN A1C ELIAN 10/20/2020 4:38 AM MANAGED CARE DIRECTOR from Last 3 Months or Most Recently Relevant to Health Maintenance Results * DEXA BONE DENSITY STUDY 03504 (02/24/2021 3:10 PM CDT) Anatomical Region Laterality [...] fracture 27.2% Hip fracture 9.3%. Smiley Monahan HOUSE MANAGER-FITNESS INSTRUCTOR DEXA MAURILIO RENE * HEMOGLOBIN A1C (10/20/2020 4:38 AM MANAGED CARE DIRECTOR) Hemoglobin A1c 6.2 4.4 - 6.3 % 10/20/2020 9:37 AM [facility] Estimated Average Glucose 131 mg/dL 10/20/2020 9:37 AM [facility] Comment: HbA1c Interpretation: Treatment target values recommended by ADA and other clinical organizations should be used to evaluate metabolic control in patients. Treatment Target Values: Normal : < 5.7% Pre-diabetes: 5.7-6.4% Diabetes: Equal to or greater than 6.5% Reference: [place] Diabetes Association Standards of Care in Diabetes -2014 In patients 70 years and older consider HbA1c target range of 7.0-7.5% Reference: ??Diabetes Mellitus in Older People: Position Statement on behalf of the International Association of Gerontology and Geriatrics (IAGG), the Diabetes Working Libertarian for Older People (EDWPOP), and the International Task Force of Experts in Diabetes. ??Jarad Rendon, et al. J [place] Medical Directors Association. 2012 Test results diagnostic of diabetes should be repeated for confirmation. The Sebia Capillary 2 assay for the measurement of HbA1c is a National Glycohemoglobin Standardization Program (NGSP)certified method. Blood BLOOD SPECIMEN / Unknown Venipuncture / Unknown 10/20/2020 4:38 AM MANAGED CARE DIRECTOR 10/20/2020 4:41 AM MANAGED CARE DIRECTOR Gene Barone MD LAB - CHEMISTRY ORDERABLES [facility] [address] [place] [id number], [facility] [phone] from Last 3 Months or Most Recently Relevant to Health Maintenance Advance Directives Documents on File Type Date Recorded Patient Tree Trimming Supervisor Expl anation Adv Directive/Living Will/POA 10/30/2020 12:49 PM Adv Directive/Living Will/POA 03/13/2015 11:30 AM * Full Code (Latest Code Status on File) Date Activated Date Inactivated Comments 10/20/2020 3:50 AM 10/29/2020 5:11 PM * Full Code Date Activated Date Inactivated Comments 11/16/2017 5:18 PM 11/18/2017 5:10 PM * Full Code Date Activated Date Inactivated Comments 03/11/2015 4:18 PM 03/12/2015 3:10 PM Care Teams Diesel Scoop Operator Relationship Specialty Start Date End Date Mu Monahan MD [address] [id number] PCP - General Internal Medicine 10/15/13
[2024-12-21 19:01] VITALS: BP 107/63; PULSE 68; RESP 20; TEMP 36.3; O2SAT 98
--- NOTE | 2024-12-21 19:15 | WC.ED.TRAUMA ---
HPI - Trauma General Chief Complaint: Extremity Injury, Upper <Dolores Melchor APRN - Last Filed: 12/21/24 19:17> Stated Complaint: bilat. arm pain, glf <Dolores Melchor APRN - Last Filed: 12/21/24 19:17> Time Seen by Provider: 12/21/24 19:00 <Dolores Melchor APRN - Last Filed: 12/21/24 19:17> Focused HPI: Patient is an 84-year-old female who presents to the ER following a ground level fall. She reports she stumbled over her own feet and fell sideways. It is unclear exactly how patient landed but she denies hitting her head or loss of consciousness. Upon examination patient is complaining of left upper arm pain and right upper arm pain. She denies any hip pain, recent signs/symptoms of infection, urinary symptoms, other recent falls. GENERAL: Well-appearing, well-nourished, and in mild distress d/t pain. HEAD: Normocephalic, atraumatic. CHEST: Clear to auscultation. ?No respiratory distress. HEART: Regular rate and rhythm.? NEURO: ?Alert and oriented x3. Cranial nerves intact. Patient screened in triage and initial orders placed.? ?Additional care and disposition to be based upon?diagnostic testing and treatment. <Dolores Melchor APRN - Last Filed: 12/21/24 19:17> History of Present Illness HPI narrative: Patient is a 84-year-old male who presents emergency department chief complaint fall on both hands. Patient reports that she has history of bowel that is felt ground reports no loss of conscious reports pain in bilateral upper arms <Danial Braun MD - Last Filed: 12/22/24 03:44> Related Data Home Medications: Home Medications ?Medication ?Instructions ?Recorded ?Confirmed ?Last Taken ?Type aripiprazole 5 mg tablet 5 mg PO DAILY 08/13/23 08/16/23 Unknown History aspirin 325 mg tablet 325 mg PO DAILY 08/13/23 08/16/23 Unknown History atorvastatin 80 mg tablet 80 mg PO DAILY 08/13/23 08/16/23 Unknown History hydrochlorothiazide 25 mg tablet 25 mg PO 4XW 08/13/23 08/16/23 Unknown History omeprazole 40 mg capsule,delayed 40 mg PO DAILY 08/13/23 08/16/23 Unknown History release sertraline 100 mg tablet 100 mg PO 4XW 08/13/23 08/16/23 Unknown History telmisartan 80 mg tablet 80 mg PO DAILY 08/13/23 08/16/23 Unknown History calcium 600 mg capsule 600 mg PO BID 08/16/23 08/16/23 Unknown History coQ10 (ubiquinol) 100 mg capsule 100 mg PO DAILY 08/16/23 08/16/23 Unknown History cyanocobalamin (vitamin B-12) 1,000 mcg PO 4XW 08/16/23 08/16/23 Unknown History 1,000 mcg capsule <Dolores Melchor APRN - Last Filed: 12/21/24 19:17> Allergies/Adverse Reactions: Allergies Allergy/AdvReac Type Severity Reaction Status Date / Time meperidine (From Demerol) Allergy Intermediate Vomiting Verified 08/22/23 13:00 <Dolores Melchor APRN - Last Filed: 12/21/24 19:17> Review of Systems Review of Systems: A 10 system review of systems was completed on the patient and is negative except for what is stated in the HPI. Nursing and ancillary documentation was reviewed. <Danial Braun MD - Last Filed: 12/22/24 03:44> PMFSH Social History Social History: Social History Alcohol intake: current Substance use: never Substance use type: does not use Living arrangements: with family Spiritual care concerns: No <Dolores Melchor APRN - Last Filed: 12/21/24 19:17> Exam Narrative: GENERAL: Well-appearing, well-nourished, and in no acute distress. HEAD: Normocephalic, atraumatic. EYES: PERRLA and EOMI. ENT: Nares clear, no rhinorrhea or epistaxis. Mucous membranes moist. NECK: Supple. CHEST: Clear to auscultation. No respiratory distress. HEART: Regular rate and rhythm. No murmur heard. Normal peripheral pulses. ABDOMEN: Soft, nontender, nondistended, normal active bowel sounds. EXTREMITIES: Normal range of motion. Tenderness to palpation of bilateral proximal humerus No edema. SKIN: Warm, dry, no rash. NEURO: No focal deficits. Alert and oriented x3. PSYCH: Normal mood and affect. <Danial Braun MD - Last Filed: 12/22/24 03:44> Course Vital Signs Vital signs: Vital Signs Temperature 36.3 C L 12/21/24 19:01 Pulse Rate 68 12/21/24 19:01 Respiratory Rate 20 12/21/24 19:01 Blood Pressure 107/63 12/21/24 19:01 Pulse Oximetry 98 12/21/24 19:01 Oxygen Delivery Room Air 12/21/24 19:01 Temperature 36.3 C L 12/21/24 19:01 Pulse Rate 76 12/22/24 02:37 Respiratory Rate 14 12/22/24 02:37 Blood Pressure 115/61 12/22/24 02:37 Pulse Oximetry 98 12/22/24 02:37 Oxygen Delivery Nasal Cannula 12/22/24 01:02 Oxygen Flow Rate 2 12/22/24 01:02 <Dolores Melchor APRN - Last Filed: 12/21/24 19:17> Vital Signs Temperature 36.3 C L 12/21/24 19:01 Pulse Rate 68 12/21/24 19:01 Respiratory Rate 20 12/21/24 19:01 Blood Pressure 107/63 12/21/24 19:01 Pulse Oximetry 98 12/21/24 19:01 Oxygen Delivery Room Air 12/21/24 19:01 Temperature 36.3 C L 12/21/24 19:01 Pulse Rate 76 12/22/24 02:37 Respiratory Rate 14 12/22/24 02:37 Blood Pressure 115/61 12/22/24 02:37 Pulse Oximetry 98 12/22/24 02:37 Oxygen Delivery Nasal Cannula 12/22/24 01:02 Oxygen Flow Rate 2 12/22/24 01:02 <Danial Braun MD - Last Filed: 12/22/24 03:44> MDM - Trauma MDM Narrative Medical decision making narrative: Differential diagnosis includes fracture, contusion, syncope, electrolyte abnormality Laboratory studies showed white count 23.4 urinalysis showed evidence of UTI the patient started on Rocephin X-ray showed bilateral proximal humerus fractures there is question of the age of the right humerus fracture foot the patient reports that she had acute pain that began after the fall and reports she has no prior history of fracture <Danial Braun MD - Last Filed: 12/22/24 03:44> Lab Data Result diagrams: 12/22/24 01:07 12/22/24 01:56 <Dolores Melchor APRN - Last Filed: 12/21/24 19:17> Labs: Lab Results 12/22/24 12/22/24 12/22/24 Range/Units 01:07 01:56 02:37 WBC 23.4 H (4.5-10.0) K/mm3 RBC 4.35 (4.2-5.4) M/mm3 Hgb 11.2 L (12.0-15.0) g/dL Hct 37.3 (37.0-47.0) % MCV 85.7 (80-100) fl MCH 25.7 L (26-34) pg MCHC 30.0 L (32-36) g/dl RDW 15.9 H (11.5-14.5) % Plt Count 242 (150-375) k/mm3 MPV 11.5 H (7.4-10.4) fl Immature Gran % (Auto) 0.2 (0-0.5) % Neut % (Auto) 38.9 L (45.5-73.1) % Lymph % (Auto) 6.7 L (18.3-44.2) % [place] % (Auto) 7.5 (2.6-8.5) % Eos % (Auto) 46.4 H (0-4.4) % Baso % (Auto) 0.3 (0.2-1.2) % Lymph # (Auto) 1.57 (0.9-3.2) K/mm3 [place] # (Auto) 1.8 H (0.1-0.6) K/mm3 Eos # (Auto) 10.9 H (0-0.3) K/mm3 Baso # (Auto) 0.1 (0.0-0.1) K/mm3 Abs Immat Gran (auto) 0.05 H (0.00-0.031) K/mm3 Absolute Neuts (auto) 9.1 H (1.3-6.7) K/mm3 Absolute Nucleated RBC 0.000 (0.0-0.012) K/mm3 Nucleated RBC % 0.0 (0.0-0.2) % Sodium 138 (137-145) mmol/L Potassium 4.3 (3.4-5.0) mmol/L Chloride 103 (98-107) mmol/L Carbon Dioxide 18 L (22-30) mmol/L Anion Gap 17 H (4-12) mmol/L BUN 26 H (7-17) mg/dL Creatinine 1.25 H (0.7-1.0) mg/dL Estim Creat Clear Calc 28 ml/min Estimated GFR 41 L (59 - ) Glucose 165 H (65-110) mg/dL Lactic Acid 2.6 H (0.7-2.0) mmol/L Calcium 9.3 (8.4-10.2) mg/dL Magnesium 1.9 (1.6-2.3) mg/dL Total Bilirubin 0.5 (0.2-1.3) mg/dL AST 20 (14-36) U/L ALT 14 (6-35) U/L Alkaline Phosphatase 92 (38-126) U/L Troponin I < 0.012 (0.000-0.034) ng/mL Total Protein 7.0 (6.3-8.2) g/dL Albumin 4.2 (3.5-5.1) g/dL Urine Color Yellow (Yellow) Urine Appearance Cloudy H (Clear) Urine pH 5.0 (5.0-9.0) Ur Specific [place] 1.021 (1.001-1.035) Urine Protein 1+ H (Negative) mg/dL Urine Glucose (UA) Negative (Negative) mg/dL Urine Ketones Negative (Negative) mg/dL Ur Blood (Man) Negative (Negative) Urine Nitrate Negative (Negative) Urine Bilirubin Negative (Negative) Urine Urobilinogen 0.2 (<2.0) mg/dL Add Ur Microanalysis Reviewed Leukocyte Esterase Rfl 1+ H (Negative) MILES/UL Urine RBC 0-2 (0-2) /hpf Urine WBC 21-50 H (0-3) /hpf Ur Squamous Epith Cells None seen (Few) /hpf Urine Bacteria 4+ H /hpf Urine Casts 0-2 <Dolores Melchor, SIGN LANGUAGE INTERPRETER - Last Filed: 12/21/24 19:17> Lab Results 12/22/24 12/22/24 12/22/24 Range/Units 01:07 01:56 02:37 WBC 23.4 H (4.5-10.0) K/mm3 RBC 4.35 (4.2-5.4) M/mm3 Hgb 11.2 L (12.0-15.0) g/dL Hct 37.3 (37.0-47.0) % MCV 85.7 (80-100) fl MCH 25.7 L (26-34) pg MCHC 30.0 L (32-36) g/dl RDW 15.9 H (11.5-14.5) % Plt Count 242 (150-375) k/mm3 MPV 11.5 H (7.4-10.4) fl Immature Gran % (Auto) 0.2 (0-0.5) % Neut % (Auto) 38.9 L (45.5-73.1) % Lymph % (Auto) 6.7 L (18.3-44.2) % [place] % (Auto) 7.5 (2.6-8.5) % Eos % (Auto) 46.4 H (0-4.4) % Baso % (Auto) 0.3 (0.2-1.2) % Lymph # (Auto) 1.57 (0.9-3.2) K/mm3 [place] # (Auto) 1.8 H (0.1-0.6) K/mm3 Eos # (Auto) 10.9 H (0-0.3) K/mm3 Baso # (Auto) 0.1 (0.0-0.1) K/mm3 Abs Immat Gran (auto) 0.05 H (0.00-0.031) K/mm3 Absolute Neuts (auto) 9.1 H (1.3-6.7) K/mm3 Absolute Nucleated RBC 0.000 (0.0-0.012) K/mm3 Nucleated RBC % 0.0 (0.0-0.2) % Sodium 138 (137-145) mmol/L Potassium 4.3 (3.4-5.0) mmol/L Chloride 103 (98-107) mmol/L Carbon Dioxide 18 L (22-30) mmol/L Anion Gap 17 H (4-12) mmol/L BUN 26 H (7-17) mg/dL Creatinine 1.25 H (0.7-1.0) mg/dL Estim Creat Clear Calc 28 ml/min Estimated GFR 41 L (59 - ) Glucose 165 H (65-110) mg/dL Lactic Acid 2.6 H (0.7-2.0) mmol/L Calcium 9.3 (8.4-10.2) mg/dL Magnesium 1.9 (1.6-2.3) mg/dL Total Bilirubin 0.5 (0.2-1.3) mg/dL AST 20 (14-36) U/L ALT 14 (6-35) U/L Alkaline Phosphatase 92 (38-126) U/L Troponin I < 0.012 (0.000-0.034) ng/mL Total Protein 7.0 (6.3-8.2) g/dL Albumin 4.2 (3.5-5.1) g/dL Urine Color Yellow (Yellow) Urine Appearance Cloudy H (Clear) Urine pH 5.0 (5.0-9.0) Ur Specific [place] 1.021 (1.001-1.035) Urine Protein 1+ H (Negative) mg/dL Urine Glucose (UA) Negative (Negative) mg/dL Urine Ketones Negative (Negative) mg/dL Ur Blood (Man) Negative (Negative) Urine Nitrate Negative (Negative) Urine Bilirubin Negative (Negative) Urine Urobilinogen 0.2 (<2.0) mg/dL Add Ur Microanalysis Reviewed Leukocyte Esterase Rfl 1+ H (Negative) MILES/UL Urine RBC 0-2 (0-2) /hpf Urine WBC 21-50 H (0-3) /hpf Ur Squamous Epith Cells None seen (Few) /hpf Urine Bacteria 4+ H /hpf Urine Casts 0-2 <Danial Braun MD - Last Filed: 12/22/24 03:44> Discharge Plan Discharge Clinical Impression: Bilateral proximal humeral fractures, Acute UTI, Fall <Dolores Melchor APRN - Last Filed: 12/21/24 19:17> Patient Disposition: Still a Patient <Dolores Melchor APRN - Last Filed: 12/21/24 19:17> Condition: Stable <Dolores Melchor APRN - Last Filed: 12/21/24 19:17> Patient Language: Citizen Of [place] <Dolores Melchor APRN - Last Filed: 12/21/24 19:17> Prescriptions: No Action atorvastatin 80 mg tablet 80 mg PO DAILY sertraline 100 mg tablet 100 mg PO 4XW omeprazole 40 mg capsule,delayed release(DR/EC) 40 mg PO DAILY telmisartan 80 mg tablet 80 mg PO DAILY hydrochlorothiazide 25 mg tablet 25 mg PO 4XW aripiprazole 5 mg tablet 5 mg PO DAILY aspirin 325 mg Tablet 325 mg PO DAILY prednisone 20 mg tablet 40 mg PO DAILY 5 Days Qty: 10 0RF Patient Comments: HAS 2 MORE DAYS LEFT 08/16/2023 calcium 600 mg Capsule 600 mg PO BID coQ10 (ubiquinol) 100 mg Capsule 100 mg PO DAILY cyanocobalamin (vitamin B-12) 1,000 mcg Capsule 1,000 mcg PO 4XW <Dolores Melchor APRN - Last Filed: 12/21/24 19:17> Follow-up/Referrals: Maciej,Lynn Witt MD [Primary Care Provider] - <Dolores Melchor APRN - Last Filed: 12/21/24 19:17> Time of Disposition: 03:44 <Dolores Melchor APRN - Last Filed: 12/21/24 19:17> 03:44 <Danial Braun MD - Last Filed: 12/22/24 03:44>
[2024-12-21 21:35] VITALS: RESP 22; O2SAT 87; O2SAT 92
--- NOTE | 2024-12-21 21:44 | ECG_ITS ---
Test Date: 2024-12-21 21:47:10 Measurements Intervals [place] Rate: 72 P: 5 AR: 176 QRS: 1 QRSD: 94 T: 0 QT: 420 QTc: 462 Interpretive Statements SINUS RHYTHM LOW QRS VOLTAGE IN PRECORDIAL LEADS [QRS DEFLECTION < 1.0 mV IN CHEST LEADS] INCOMPLETE RIGHT BUNDLE BRANCH BLOCK [90+ ms QRS DURATION, TERMINAL R IN V1/V2, 40+ ms S IN I/aVL/V4/V5/V6] No previous ECG available for comparison Electronically Signed On 12-22-2024 14:21:37 ROLLING MILL OPERATOR by Jordana Ortiz M.D.
[2024-12-21 22:07] VITALS: BP 114/76; PULSE 71; RESP 18; O2SAT 94
--- OUTSIDE RECORDS SUMMARY | 2024-12-21 22:44 | XMS_ITS | CONTINUITY OF CARE DOCUMENT ---
Author Name martina mack Address Unknown Organization [facility] Address [address] [place] [address] Phone [phone] Care Team Providers Care Vfx Artist Name Role Phone Gene Reyna MD Unavailable [phone] Gene Reyna MD Unavailable [phone] INSURANCE PROVIDERS Payer name Policy type / Coverage type Rudd red constitution party ID [facility] [id number] [place] MED[place] Medicare [id number]
--- OUTSIDE RECORDS SUMMARY | 2024-12-21 22:45 | XMS_ITS | Referral Summary ---
Author Organization [facility] [address] Address [address] [place] [address] Care Team Providers Care Brake Coupler Dinkey Name Role Phone Lynn Wing MD Primary [...] the past few months with GI at [place] but we do not have report. 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 Gender Identity Not on file Sexual Orientation [...] disease, without long-term current use of insulin ([facility]) EGFR Routine 08/16/2024 3:00 PM CDT Memory deficit Type 2 diabetes mellitus with diabetic polyneuropathy, without long-term current use of insulin (CMS/HCC) (HCC) Type 2 diabetes mellitus with stage 3b chronic kidney disease, without long-term current use of insulin ([facility]) Pure hypercholesterolemia HEMOGLOBIN A1C Routine 08/16/2024 3:00 PM CDT Type 2 diabetes mellitus with diabetic polyneuropathy, without long-term current use of insulin (CMS/HCC) (HCC) Type 2 diabetes mellitus with stage 3b chronic kidney disease, without long-term current use of insulin ([facility]) LIPID PANEL Routine 08/16/2024 3:00 PM CDT Type 2 diabetes mellitus with diabetic polyneuropathy, without long-term current use of insulin (CMS/HCC) (HCC) Type 2 diabetes mellitus with stage 3b chronic kidney disease, without long-term current use of insulin (HCC) Pure hypercholesterolemia from Last 3 Months or Most Recently Relevant to Health Maintenance Results * Albumin Creatinine Ratio, Urine (08/17/2024 4:00 PM CDT) Pathologist [facility] Albumin Ur 15.3 mg/L Comment: Interpretive Data [...] LAB URINE ORDERABLES F inal Result [facility] [address] Department [place] [address] * (ABNORMAL) eGFR (08/16/2024 3:00 PM CDT) Pathologist [facility] eGFR 35(L) >=60 mL/min/1. 73 m2 Comment: [...] ORDERABLES F inal Result Performing Organization Address [facility] Phone Number [facility] [address] [facility] [place] [address] * (ABNORMAL) Hemoglobin A1c (08/16/2024 3:00 PM CDT) Hgb A1C 6.0(H) 4.0 - 5.6 % Estimated Average Glucose 126 mg/dL [facility] Comment: The ADA recommends reporting an estimated Average Glucose (eAG) with all Hemoglobin A1c results using the equation derived from a study of 507 normal and diabetic adults. ??Minority populations were underrepresented and children were not included. ?? (Diabetes Care 31:3994-4184, 2008). ??The eAG is not equivalent to a fasting glucose. Blood 08/16/2024 3:00 PM CDT 08/16/2024 8:10 PM CDT Lynn Wing MD LAB BLOOD ORDERABLES F inal Result Performing Organization Address [facility] de Phone Number [facility] [address] [facility] [place] [address] * (ABNORMAL) Lipid panel (08/16/2024 3:00 PM [...] last revised on 2018. Chol/HDL ratio 3 [facility] Blood 08/16/2024 3:00 PM CDT 08/16/2024 8:10 PM CDT Lynn Wing MD LAB [place]LOOD [place] [address] [address] [place] [address] from Last 3 Months or Most Recently Relevant to Health Maintenance [place] [address] [place] [address] MEDICARE COUNTS INCLUDE [address] BEDS [address] [facility] [place] [address] [place] [address] COUNTS INCLUDE 234 BEDS AT THE [facility] MEDICARE Care Teams Brake Coupler Dinkey Relationship Specialty Start Date End Date Lynn Wing MD PCP - General Family Practice 08/27/22
--- OUTSIDE RECORDS SUMMARY | 2024-12-21 22:45 | XMS_ITS | Patient Health Summary ---
Author Organization [facility] Address [address] [place] [address] Care Team Providers Care Molder Operator Name Role Phone Sandy Simmons MD Primary Care Provider Note from [facility],non-owned Affiliates and Associated Physician Practices is amultiple site organization consisting of ambulatory clinics and hospital sitesin [place], [place], [place] and [place]. This disclosure is being madepursuant to the Care Everywhere program and may not contain all information available regarding this patient. Last updated 18.[facility] Allergies * Azithromycin(Anaphylaxis) -High Criticality * [...] Comments Blood Pressure 112/54 10/29/2020 11:27 AM MEDICAL SALES CONSULTANT Pulse 96 10/29/2020 11:27 AM MEDICAL SALES CONSULTANT Temperature 36.8 ??C (98.2 ??F) 10/29/2020 11:[address] Respiratory Rate 20 10/29/2020 11:27 AM MEDICAL SALES CONSULTANT Oxygen Saturation 98% 10/29/2020 11:27 AM MEDICAL SALES CONSULTANT Inhaled Oxygen Concentration 21% 11/17/2017 7 :30 PM MEDICAL SALES CONSULTANT Weight 83.9 kg (185 lb) 01/29/2021 12:56 PM MEDICAL SALES CONSULTANT Height 160 cm (5' 3 ) 10/20/2020 7:51 PM MEDICAL SALES CONSULTANT Body Mass Index 32.77 10/20/2020 7:51 PM MEDICAL SALES CONSULTANT Procedures * ENDOSCOPY ORDER(Performed 08/22/2023) * XR [...] cervical vertebra, unspecified fracture morphology, initial encounter ([facility]) * XR CERVICAL SPINE 2 OR 3VW(Performed 11/13/2020) Performed for Closed displaced fracture of second cervical vertebra, unspecified fracture morphology, initial encounter ([facility]) * GLUCOSE - POINT OF CARE(Performed 10/29/2020) [...] cervical vertebra, unspecified fracture morphology, initial encounter ([facility]) * GLUCOSE - POINT OF CARE(Performed 10/20/2020) [...] not specified, 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 [facility] Creatinine POCT 1.1 0.6 - 1.3 mg/dL 02/24/2021 3:39 PM CDT [facility] eGFR 48 mL/min/1.7 3m2 02/24/2021 3:39 PM CDT [facility] eGFR by MDRD 58 mL/min/1.7 3m2 02/24/2021 3:39 PM CDT [facility] Blood BLOOD SPECIMEN / Unknown 02/24/2021 3:38 PM CDT 02/24/2021 3:39 PM CDT Smiley Simmons COMPLIANCE COUNSEL-SHACTOR LAB - POI NT OF CARE ORDERABLES Performing Organization Address City/State/[facility] Co de Phone Number [facility] [address] * DEXA BONE DENSITY STUDY [id number] (02/24/2021 3:10 PM CDT) Anatomical Region Laterality [...] fracture 27.2% Hip fracture 9.3%. Smiley Simmons APRN-SHACTOR DEXA ORDE RABLES * VAS CAROTID DUPLEX BILATERAL [id number] (02/24/2021 2:39 PM CDT) Only the most [...] on 02/24/2021 at 5:34 PM Smiley Simmons COMPLIANCE COUNSEL-SHACTOR VASCULAR LAB ORDERABLES * XR CERVICAL SPINE 2 OR 3VW (01/29/2021 12:45 PM MEDICAL SALES CONSULTANT) Only the most recent of5 resultswithin the time period is included. Anatomical Region Laterality Modality Spine Radiographic July ging 01/29/2021 1:27 PM MEDICAL SALES CONSULTANT Impressions 01/29/2021 1:30 PM MEDICAL SALES CONSULTANT IMPRESSION: Subtle increase prominence of the fracture gap at the posterior/inferior aspect of the C2 vertebral body. It is uncertain how much of this is due to healing/resorption, or true increased displacement. This report was electronically signed by FRANCISCA SALINAS ??on 01/29/2021 1:30 PM . Narrative 01/29/2021 1:30 PM MEDICAL SALES CONSULTANT EXAMINATION: XR CERVICAL SPINE 2 OR 3VW [...] - POINT OF CARE (10/29/2020 11:30 AM MEDICAL SALES CONSULTANT) Only the most recent of42 resultswithin the time period is included. Glucose WB/POC 119(H) 70 - 115 mg/dL 10/29/2020 11:40 AM [facility] Specimen Type Venous 10/29/2020 11:40 AM [facility] Blood BLOOD SPECIMEN / Unknown 10/29/2020 11:30 AM MEDICAL SALES CONSULTANT 10/29/2020 11:40 AM MEDICAL SALES CONSULTANT Tommy Sibley MD LAB - POINT OF CARE ORDERABLES [facility] [address] [place] [address], [facility] [phone] * (ABNORMAL) CBC W/O DIFFERENTIAL (10/28/2020 12:41 PM MEDICAL SALES CONSULTANT) Only the most recent of5 resultswithin the time period is included. WBC 11.3(H) 3.5 - 10.5 10? 3 /uL 10/28/2020 1:04 PM [facility] RBC 4.80 3.90 - 5.00 10? 6 /uL 10/28/2020 1:04 PM [facility] Hemoglobin 13.6 12.0 - 15.5 g/dL 10/28/2020 1:04 PM [facility] Hematocrit 40.6 35.0 - 45.0 % 10/28/2020 1:04 PM [facility] MCV 84.6 81.0 - 97.0 fL 10/28/2020 1:04 PM [facility] MCH 28.3 28.0 - 34.0 pg 10/28/2020 1:04 PM [facility] MCHC 33.5 32.0 - 36.0 g/dL 10/28/2020 1:04 PM [facility] Platelet Count 281 150 - 400 10? 3 /uL 10/28/2020 1:04 PM [facility] RDW-SD 45.8 36.0 - 50.0 fL 10/28/2020 1:04 PM [facility] RDW-CV 14.8 11.2 - 14.8 % 10/28/2020 1:04 PM [facility] MPV 10.2 9.3 - 12.8 fL 10/28/2020 1:04 PM [facility] nRBC Absolute 0.00 0 10? 3 /uL 10/28/2020 1:04 PM [facility] nRBC Auto 0.0 0 /100 WBC 10/28/2020 1:04 PM [facility] Blood BLOOD SPECIMEN / Unknown Lab Venipuncture / Unknown 10/28/2020 12:41 PM MEDICAL SALES CONSULTANT 10/28/2020 12:59 PM MEDICAL SALES CONSULTANT Tommy Sibley MD LAB - HEMATOLOGY ORD ERABLES [facility] [address] [place] [address], [facility] [phone] * SARS-COV-2 (COVID-19) IN HOUSE (10/28/2020 11:26 AM MEDICAL SALES CONSULTANT) Only the most recent of6 resultswithin the time period is included. Pathologist [facility] COVID-19 PCR Not detected Not detected 10/28/2020 3:13 PM MEDICAL SALES CONSULTANT [facility] MICROBIOLOGY Microbiology SPECIMEN FROM NASOPHARYNGEAL STRUCTURE / Unknown Collection / Unknown 10/28/2020 11:26 AM MEDICAL SALES CONSULTANT 10/28/2020 11:44 AM MEDICAL SALES CONSULTANT Tommy Sibley MD LAB - MICROBIOLOGY O RDERABLES Performing Organization Address City/[facility]/ZIP Co de Phone Number [facility] MICROBIOLOGY [address] [place] [address], [facility] [phone] * (ABNORMAL) BASIC METABOLIC PANEL (CALCIUM TOTAL) (10/27/2020 2:30 AM MEDICAL SALES CONSULTANT) Only the most recent of5 resultswithin the time period is included. Pathologist [facility] BUN 18 7 - 26 mg/dL 10/27/2020 3:37 AM [facility] Creatinine 0.8 0.6 - 1.2 mg/dL 10/27/2020 3:37 AM [facility] Sodium 134(L) 136 - 145 mmol/L 10/27/2020 3:37 AM [facility] Potassium 3.5 3.5 - 4.5 mmol/L 10/27/2020 3:37 AM [facility] Chloride 99 98 - 107 mmol/L 10/27/2020 3:37 AM [facility] CO2 23 22 - 29 mmol/L 10/27/2020 3:37 AM [facility] Glucose 98 70 - 115 mg/dL 10/27/2020 3:37 AM [facility] Calcium 9.6 8.4 - 10.2 mg/dL 10/27/2020 3:37 AM [facility] Anion Gap 16 8 - 18 10/27/2020 3:37 AM [facility] BUN/Creatinine Ratio 23 7 - 23 10/27/2020 3:37 AM [facility] Osmolality Calculated 280 270 - 300 mOsm/kg 10/27/2020 3:37 AM [facility] eGFR >60 >60 mL/min/1.7 3 m2 10/27/2020 3:37 AM [facility] Blood BLOOD SPECIMEN / Unknown Lab Venipuncture / Unknown 10/27/2020 2:30 AM MEDICAL SALES CONSULTANT 10/27/2020 3:05 AM MEDICAL SALES CONSULTANT David Nunes PA-C LAB - CHEMISTRY MAURILIO RENE Performing Organization Address City/[facility]/ZIP Co de Phone Number [address] [address], [facility] [phone] * MAGNESIUM BLOOD (10/26/2020 3:11 AM MEDICAL SALES CONSULTANT) Only the most recent of2 resultswithin the time period is included. Magnesium 2.0 1.6 - 2.6 mg/dL 10/26/2020 8:31 AM [facility] Blood BLOOD SPECIMEN / Unknown Lab Venipuncture / Unknown 10/26/2020 3:11 AM MEDICAL SALES CONSULTANT 10/26/2020 3:30 AM MEDICAL SALES CONSULTANT David Nunes PA-C LAB - CHEMISTRY MAURILIO RENE Performing Organization Address City/[facility]/ZIP Co de Phone Number [address] [address], [facility] [phone] * (ABNORMAL) CK BLOOD (10/21/2020 11:34 AM MEDICAL SALES CONSULTANT) Only the most recent of3 resultswithin the time period is included. CK Total 1,300(H) 30 - 200 Units/L 10/21/2020 12:40 PM [facility] Blood BLOOD SPECIMEN / Unknown Lab Venipuncture / Unknown 10/21/2020 11:34 AM MEDICAL SALES CONSULTANT 10/21/2020 12:27 PM MEDICAL SALES CONSULTANT Madyson Camejo PA-C LAB - CHEMISTRY ORDERABLES [facility] [address] [place] [address], [facility] [phone] * CARDIAC EKG ORDER (10/21/2020 10:51 AM MEDICAL SALES CONSULTANT) Only the most recent of2 resultswithin the time period is included. Narrative 10/21/2020 10:51 AM MEDICAL SALES CONSULTANT Ordered by an unspecified provider. Scanned Document CARDIAC SERVICES ORD ERABLES * (ABNORMAL) COMPREHENSIVE METABOLIC PANEL (10/21/2020 2:34 AM MEDICAL SALES CONSULTANT) Only the most recent of8 resultswithin the time period is included. BUN 15 7 - 26 mg/dL 10/21/2020 3:53 AM [facility] Creatinine 0.8 0.6 - 1.2 mg/dL 10/21/2020 3:53 AM [facility] Sodium 136 136 - 145 mmol/L 10/21/2020 3:53 AM [facility] Potassium 2.9(LL) 3.5 - 4.5 mmol/L 10/21/2020 3:53 AM [facility] Chloride 98 98 - 107 mmol/L 10/21/2020 3:53 AM [facility] CO2 26 22 - 29 mmol/L 10/21/2020 3:53 AM [facility] Glucose 123(H) 70 - 115 mg/dL 10/21/2020 3:53 AM [facility] Calcium 9.5 8.4 - 10.2 mg/dL 10/21/2020 3:53 AM [facility] Protein Total 7.0 6.0 - 8.3 g/dL 10/21/2020 3:53 AM [facility] Albumin 3.5 3.4 - 5.0 g/dL 10/21/2020 3:53 AM [facility] Bilirubin Total 0.6 0.2 - 1.2 mg/dL 10/21/2020 3:53 AM [facility] Alkaline Phosphatase 56 40 - 150 Units/L 10/21/2020 3:53 AM [facility] ALT 32 0 - 55 Units/L 10/21/2020 3:53 AM [facility] AST 92(H) 5 - 34 Units/L 10/21/2020 3:53 AM [facility] Anion Gap 15 8 - 18 10/21/2020 3:53 AM [facility] BUN/Creatinine Ratio 19 7 - 23 10/21/2020 3:53 AM [facility] Osmolality Calculated 284 270 - 300 mOsm/kg 10/21/2020 3:53 AM [facility] Albumin/Globulin Ratio 1.0(L) 1.1 - 2.3 10/21/2020 3:53 AM [facility] eGFR >60 >60 mL/min/1.7 3 m2 10/21/2020 3:53 AM [facility] Blood BLOOD SPECIMEN / Unknown Lab Venipuncture / Unknown 10/21/2020 2:34 AM MEDICAL SALES CONSULTANT 10/21/2020 3:02 AM MEDICAL SALES CONSULTANT Madyson Camejo PA-C LAB - CHEMISTRY ORDERABLES Performing Organization Address City/State/[facility] Co de Phone Number [facility] [address] [place] [address], [facility] [phone] * XR CHEST 1VW PORTABLE (10/20/2020 4:36 PM MEDICAL SALES CONSULTANT) Only the most recent of3 resultswithin the time period is included. Anatomical Region Laterality Modality Chest Radiographic July ging 10/20/2020 4:34 PM MEDICAL SALES CONSULTANT Impressions 10/21/2020 12:11 PM MEDICAL SALES CONSULTANT FINDINGS/IMPRESSION: A c-collar is in place. Lung [...] 12:11 PM . Narrative 10/21/2020 12:11 PM MEDICAL SALES CONSULTANT EXAMINATION: XR CHEST 1VW PORTABLE HISTORY: [id number]: [...] CARDIAC RHYTHM STRIP ORDER (10/20/2020 12:01 PM MEDICAL SALES CONSULTANT) Only the most recent of7 resultswithin the time period is included. Narrative 10/20/2020 12:01 PM MEDICAL SALES CONSULTANT Ordered by an unspecified provider. Scanned Document CARDIAC SERVICES ORD ERABLES * CULTURE URINE (10/20/2020 9:59 AM MEDICAL SALES CONSULTANT) Only the most recent of4 resultswithin the time period is included. Culture Urine More than 2 organisms seen at >=50,000 CFU/mL. Recollect if clinically indicated. LAINA 10/22/2020 5:43 AM MEDICAL SALES CONSULTANT [facility] MICROBIOLOGY Urine URINE SPECIMEN OBTAINED BY CLEAN CATCH PROCEDURE / Unknown Collection / Unknown 10/20/2020 9:59 AM MEDICAL SALES CONSULTANT 10/20/2020 10:13 AM MEDICAL SALES CONSULTANT Madyson Camejo PA-C LAB - MICROBIOLO GY ORDERABLES [facility] MICROBIOLOGY [address] [place] [address], [facility] [phone] * MRI CERVICAL SPINE WO CONTRAST (10/20/2020 8:00 AM MEDICAL SALES CONSULTANT) Anatomical Region Laterality Modality Pelvis Magnetic Resonan ce 10/20/2020 9:16 AM MEDICAL SALES CONSULTANT Impressions 10/20/2020 12:19 PM MEDICAL SALES CONSULTANT IMPRESSION: C2 vertebral body fracture extending to [...] 12:19 PM . Narrative 10/20/2020 12:19 PM MEDICAL SALES CONSULTANT EXAMINATION: MRI OF THE CERVICAL SPINE WITHOUT CONTRAST HISTORY: R42: Postural dizziness with presyncope; R55: Postural dizziness with presyncope TECHNIQUE: MRI of the cervical spine was performed without contrast according to a trauma protocol. COMPARISON: CT Cervical Spine through [facility] from 10/19/2020. CORRELATION: Cervical spine radiographs [...] trauma protocol. COMPARISON: CT Cervical Spine through [facility] from 10/19/2020. CORRELATION: Cervical spine radiographs [...] ORDERABLES * HEMOGLOBIN A1C (10/20/2020 4:38 AM MEDICAL SALES CONSULTANT) Hemoglobin A1c 6.2 4.4 - 6.3 % 10/20/2020 9:37 AM [facility] Estimated Average Glucose 131 mg/dL 10/20/2020 9:37 AM [facility] Comment: HbA1c Interpretation: Treatment target values recommended by ADA and other clinical organizations should be used to evaluate metabolic control in patients. Treatment Target Values: Normal : < 5.7% Pre-diabetes: 5.7-6.4% Diabetes: Equal to or greater than 6.5% Reference: [place] Diabetes Association Standards of Care in Diabetes -2014 In patients 70 years and older consider HbA1c target range of 7.0-7.5% Reference: ??Diabetes Mellitus in Older People: Position Statement on behalf of the International Association of Gerontology and Geriatrics (IAGG), the Diabetes Working Constitution Party for Older People (EDWPOP), and the International Task Force of Experts in Diabetes. ??Jarad Rendon, et al. J [employer] Association. 2012 Test results diagnostic of diabetes should be repeated for confirmation. The Sebia Capillary 2 assay for the measurement of HbA1c is a National Glycohemoglobin Standardization Program (NGSP)certified method. Blood BLOOD SPECIMEN / Unknown Venipuncture / Unknown 10/20/2020 4:38 AM MEDICAL SALES CONSULTANT 10/20/2020 4:41 AM [facility] Gene Barone MD LAB - CHEMISTRY ORDERABLES [facility] [address] [address], [facility] [phone] * EKG 12-LEAD (10/20/2020 3:22 AM MEDICAL SALES CONSULTANT) Only the most recent of8 resultswithin the time period is included. Ventricular Rate 88 BPM [facility] Atrial Rate 88 BPM [facility] M[facility] P-R Interval 180 ms [facility] M[facility] QRS Duration ms 84 ms [facility] MUSE Q-T Interval ms 376 ms [facility] MUSE QTC Calculation (Bezet) 454 ms [facility]USE Calculated P Carroll 44 degrees [facility] Calculated R Carroll -8 degrees [facility] Calculated T Carroll 12 degrees [facility] Interpretation EKG SINUS RHYTHM WITH FUSION COMPLEXES NONSPECIFIC ST AND T WAVE ABNORMALITY CAN NOT RULE OUT INFERIOR INFARCT ABNORMAL ECG WHEN COMPARED WITH ECG OF 20-OCT-2020 00:32, NO SIGNIFICANT CHANGE WAS FOUND Confirmed by fellow Sam Cameron ([id number]) on 10/20/2020 10:26:36 PM Confirmed by Wilner Bartlett ([id number]) on 10/22/2020 2:13:01 PM [facility] MUSE 10/20/2020 3:22 AM MEDICAL SALES CONSULTANT 10/22/2020 2:13 PM MEDICAL SALES CONSULTANT Maulik Devries MD ECG ORDERABLES [facility] MUSE * (ABNORMAL) URINALYSIS REFLEX TO MICROSCOPIC NO CULTURE (10/20/2020 12:56 AM MEDICAL SALES CONSULTANT) Color UA Yellow Straw, Yellow, Colorless 10/20/2020 1:22 AM [facility] Clarity UA Slt Cloudy Clear, Slt Cloudy 10/20/2020 1:22 AM [facility] Specific [place] UA 1.049(H) 1.005 - 1.030 10/20/2020 1:22 AM [facility] pH UA 5.0 5.0 - 8.0 pH 10/20/2020 1:22 AM [facility] Protein UA 1+(A) Negative mg/dL 10/20/2020 1:22 AM [facility] Glucose UA Negative Negative mg/dL 10/20/2020 1:22 AM [facility] Ketone UA 1+(A) Negative mg/dL 10/20/2020 1:22 AM [facility] Bilirubin UA Negative Negative mg/dL 10/20/2020 1:22 AM [facility] Blood UA 3+(A) Negative 10/20/2020 1:22 AM [facility] Nitrite UA Negative Negative 10/20/2020 1:22 AM [facility] Leukocyte Esterase Trace(A) Negative 10/20/2020 1:22 AM [facility] Urobilinogen UA Negative Negative mg/dL 10/20/2020 1:22 AM [facility] RBC UA 6-10(A) None Seen, 0-2, 3-5 /HPF 10/20/2020 1:22 AM [facility] WBC UA 11-20(A) None Seen, 0-5 /HPF 10/20/2020 1:22 AM [facility] Bacteria UA 3+(A) None, Trace /HPF 10/20/2020 1:22 AM [facility] Squamous Epithelial Cells UA 3-5(A) None Seen, 0-2 /HPF 10/20/2020 1:22 AM [facility] Renal Epithelial Cells UA 0-2 None Seen, 0-2 /HPF 10/20/2020 1:22 AM [facility] Mucus UA 1+ None, 1+ /LPF 10/20/2020 1:22 AM [facility] Urine URINE SPECIMEN OBTAINED BY SINGLE CATHETERIZATION OF URINARY BLADDER / Unknown Collection / Unknown 10/20/2020 12:56 AM MEDICAL SALES CONSULTANT 10/20/2020 1:03 AM MEDICAL SALES CONSULTANT [facility] - 10/20/2020 1:22 AM MEDICAL SALES CONSULTANT Maulik Devries MD LAB - URINALYSIS ORD ERABLES [facility] [address] [place] [address], [facility] [phone] * (ABNORMAL) CBC W AUTO DIFFERENTIAL (10/20/2020 12:30 AM MEDICAL SALES CONSULTANT) Only the most recent of7 resultswithin the time period is included. WBC 15.9(H) 3.5 - 10.5 10? 3 /uL 10/20/2020 12:57 AM [facility] RBC 4.69 3.90 - 5.00 10? 6 /uL 10/20/2020 12:57 AM [facility] Hemoglobin 13.0 12.0 - 15.5 g/dL 10/20/2020 12:57 AM [facility] Hematocrit 39.4 35.0 - 45.0 % 10/20/2020 12:57 AM [facility] MCV 84.0 81.0 - 97.0 fL 10/20/2020 12:57 AM [facility] MCH 27.7(L) 28.0 - 34.0 pg 10/20/2020 12:57 AM [facility] MCHC 33.0 32.0 - 36.0 g/dL 10/20/2020 12:57 AM [facility] Platelet Count 212 150 - 400 10? 3 /uL 10/20/2020 12:57 AM [facility] RDW-SD 47.0 36.0 - 50.0 fL 10/20/2020 12:57 AM [facility] RDW-CV 15.4(H) 11.2 - 14.8 % 10/20/2020 12:57 AM [facility] MPV 12.4 9.3 - 12.8 fL 10/20/2020 12:57 AM [facility] nRBC Absolute 0.00 0 10? 3 /uL 10/20/2020 12:57 AM [facility] nRBC Auto 0.0 0 /100 WBC 10/20/2020 12:57 AM [facility] Neutrophils % 89.9(H) 35.0 - 70.0 % 10/20/2020 12:57 AM [facility] Lymphocytes % 4.5(L) 19.7 - 55.1 % 10/20/2020 12:57 AM [facility] Monocytes % 4.8 3.0 - 15.0 % 10/20/2020 12:57 AM [facility] Eosinophils % 0.0 0.0 - 6.0 % 10/20/2020 12:57 AM [facility] Basophil % 0.2 0.0 - 1.5 % 10/20/2020 12:57 AM [facility] Neutrophils Absolute 14.2(H) 1.6 - 7.0 10? 3 /uL 10/20/2020 12:57 AM [facility] Lymphocyte Absolute 0.7(L) 0.8 - 2.9 10? 3 /uL 10/20/2020 12:57 AM [facility] Monocytes Absolute 0.76(H) 0.14 - 0.66 10? 3 /uL 10/20/2020 12:57 AM [facility] Eosinophils Absolute 0.00 0.00 - 0.45 10? 3 /uL 10/20/2020 12:57 AM [facility] Basophils Absolute 0.03 0.00 - 0.06 10? 3 /uL 10/20/2020 12:57 AM [facility] Immature Granulocytes % 0.6 0.0 - 1.0 % 10/20/2020 12:57 AM [facility] Blood BLOOD SPECIMEN / Unknown Venipuncture / Unknown 10/20/2020 12:30 AM MEDICAL SALES CONSULTANT 10/20/2020 12:41 AM MEDICAL SALES CONSULTANT Maulik Devries MD LAB - HEMATOLOGY ORD ERABLES [facility] [address] [place] [address], [place] [phone] * TROPONIN I (10/19/2020 11:46 PM MEDICAL SALES CONSULTANT) Only the most recent of5 resultswithin the time period is included. Troponin I <0.010 <0.032 ng/mL 10/20/2020 12:24 AM MEDICAL SALES CONSULTANT [facility] Blood BLOOD SPECIMEN / Unknown Venipuncture / Unknown 10/19/2020 11:46 PM MEDICAL SALES CONSULTANT 10/19/2020 6:15 PM MEDICAL SALES CONSULTANT Maulik Devries MD LAB - CHEMISTRY MAURILIO RENE Performing Organization Address [facility]/ZIP Co de Phone Number [address] [address], [place] [phone] * CT ABDOMEN AND PELVIS W IV CONTRAST [id number] (10/19/2020 7:14 PM MEDICAL SALES CONSULTANT) Anatomical Region Laterality Modality Abdomen, Pelvis Computed Tomogra phy 10/19/2020 8:22 PM MEDICAL SALES CONSULTANT Impressions 10/19/2020 9:38 PM MEDICAL SALES CONSULTANT No acute abnormality identified with chronic and postoperative change as noted above. Edited by Viviane Coelho on 10/19/2020 8:31 PM Narrative 10/19/2020 9:38 [address] MEDICAL SALES CONSULTANT CT ABDOMEN AND PELVIS WITH IV CONTRAST [...] CT ORDERABLES * CT CHEST WO CONTRAST [id number] (10/19/2020 7:13 PM MEDICAL SALES CONSULTANT) Only the most recent of2 resultswithin the time period is included. Anatomical Region Laterality Modality Chest Computed Tomogra phy 10/19/2020 8:16 PM MEDICAL SALES CONSULTANT Impressions 10/19/2020 9:44 PM MEDICAL SALES CONSULTANT Bilateral lower lobe atelectasis. Mild groundglass opacification [...] 10/19/2020 8:29 PM Narrative 10/19/2020 9:44 PM MEDICAL SALES CONSULTANT CT CHEST WITHOUT IV CONTRAST WITH SAGITTAL [...] ORDERABLES * CT CERVICAL SPINE WO CONTRAST [id number] (10/19/2020 7:07 PM MEDICAL SALES CONSULTANT) Only the most recent of2 resultswithin the time period is included. Anatomical Region Laterality Modality Spine Computed Tomogra phy 10/19/2020 8:07 PM MEDICAL SALES CONSULTANT Impressions 10/19/2020 9:43 PM MEDICAL SALES CONSULTANT Imaging performed with patient in c-collar and [...] 10/19/2020 8:16 PM Narrative 10/19/2020 9:43 [address] MEDICAL SALES CONSULTANT [address] OF CERVICAL SPINE WITHOUT IV CONTRAST [...] CT ORDERABLES * CT BRAIN WO CONTRAST [id number] (10/19/2020 7:07 PM MEDICAL SALES CONSULTANT) Only the most recent of3 resultswithin the time period is included. Anatomical Region Laterality Modality Head Computed Tomogra phy 10/19/2020 8:04 PM MEDICAL SALES CONSULTANT Impressions 10/19/2020 9:44 PM MEDICAL SALES CONSULTANT No subdural hematoma or other intracranial hemorrhage [...] 10/19/2020 8:08 PM Narrative 10/19/2020 9:44 PM [employer] CT HEAD SCAN WITHOUT IV CONTRAST 10/19/2020 [...] Case Report Surgical Pathology Report ? Case: [id number] ? Authorizing Provider: ??Cezar Johnson MD ? [...] rule out Dysplasia ? 07/04/2020 11:52 AM [facility] Final Diagnosis A. GASTRIC BIOPSIES, ANTRUM: - MODERATE CHRONIC GASTRITIS, H&E SECTIONS NEGATIVE FOR HELICOBACTER. B. ESOPHAGEAL BIOPSIES AT 32 CM: - SPECIALIZED COLUMNAR MUCOSA WITH GOBLET CELLS CONSISTENT WITH MOREIRA'S MUCOSA, NEGATIVE FOR DYSPLASIA. C. ESOPHAGEAL BIOPSIES AT 30 CM: - SPECIALIZED COLUMNAR MUCOSA WITH GOBLET CELLS CONSISTENT WITH MOREIRA'S MUCOSA, NEGATIVE FOR DYSPLASIA. RNS/scs 07/04/2020 11:52 AM [facility] Microscopic Description and Comment Microscopic examination is performed and substantiates the above diagnosis. 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 07/04/2020 11:52 AM [facility] Gross Description Three specimens are received [...] toto in C1. 07/04/2020 11:52 AM CDT [facility] Disclaimer The performance characteristics of all immunohistochemical and indirect immunofluorescence stains (if any) cited in this report were determined by the Histopathology Laboratory of [facility]. Some of these tests were developed by [...] H&E slides [place]. [address] (CLIA# [id number]) unless otherwise specified. This case was interpreted by the [facility] Department of Pathology. When applicable, select reference laboratory testing is performed at the [facility], [address] [place] [address]. 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 Johnson Send Copy to Dr. 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 Johnson Send Copy to Dr. 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 Johnson Send Copy to Dr. Simmons [phone] Cezar Johnson MD LAB - PATHOLOGY/CYTO LOGY ORDERABLES Performing Organization Address City/State/[facility] Co de Phone Number [facility] [address] * MRI LUMBAR SPINE WO CONTRAST [id number] (06/11/2020 1:05 PM CDT) Only the most [...] and extra spinal soft tissues within the gosie-gt-vjyj appear within normal limits. Level specific findings [...] and extra spinal soft tissues within the sormf-dy-vsec appear within normal limits. Level specific findings [...] Coelho on 06/11/2020 1:38 PM Madhu Royal COMPLIANCE COUNSEL-SHACTOR MR ORDERABLES * MAGALIS SCREENING BILATERAL DIGITAL 16639 (06/09/2020 1:40 PM CDT) Only the most [...] S * XR LUMBAR SPINE 4+ VW 66770 (04/03/2020 11:59 AM CDT) Anatomical Region Laterality [...] Other incidental findings as above. Smiley Simmons COMPLIANCE COUNSEL-SHACTOR DIAGNOSTI C IMAGING ORDERABLES * C DIFFICILE BY PCR (01/31/2020 12:00 AM MEDICAL SALES CONSULTANT) C difficile Toxin B Gene Negative Negative 01/31/2020 8:35 PM MEDICAL SALES CONSULTANT [facility] Stool STOOL SPECIMEN / Unknown Collection / Unknown 01/31/2020 01/31/2020 6:05 PM MEDICAL SALES CONSULTANT Narrative [facility] - 01/31/2020 8:35 PM MEDICAL SALES CONSULTANT C. difficile target DNA sequences are not detected. Sandy Simmons MD LAB - MICROBIOL OGY ORDERABLES Performing Organization Address City/State/[facility] Co de Phone Number [facility] [address] * GIARDIA CRYPTOSPORIDIUM ANTIGEN PANEL (01/31/2020 12:00 AM MEDICAL SALES CONSULTANT) Giardia Antigen Feces Negative Negative 02/01/2020 1:47 PM MEDICAL SALES CONSULTANT [facility] Cryptosporidium Antigen Feces Negative Negative 02/01/2020 1:47 PM MEDICAL SALES CONSULTANT [facility] Stool STOOL SPECIMEN / Unknown Collection / Unknown 01/31/2020 01/31/2020 6:05 PM MEDICAL SALES CONSULTANT Sandy Simmons MD LAB - MICROBIOL OGY ORDERABLES Performing Organization Address [facility] Co de Phone Number [facility] [address] [place] [address] * (ABNORMAL) CULTURE STOOL PANEL (01/31/2020 12:00 AM MEDICAL SALES CONSULTANT) Culture No Salmonella, Shigella, or Campylobacter isolated LAINA 02/02/2020 8:04 AM MEDICAL SALES CONSULTANT [facility] Culture Growth of normal enteric massimo LAINA 02/02/2020 8:04 AM MEDICAL SALES CONSULTANT [facility] Culture Absence of Gram-negative bacilli(A) LAINA 02/02/2020 8:04 AM MEDICAL SALES CONSULTANT [facility] Stool STOOL SPECIMEN / Unknown Collection / Unknown 01/31/2020 01/31/2020 6:05 PM MEDICAL SALES CONSULTANT Sandy Simmons MD LAB - MICROBIOL OGY ORDERABLES Performing Organization Address [facility] de Phone Number [facility] [address] [place] [address] * XR CHEST 2 VWS PA AND LAT 28634 (01/24/2020 2:15 PM MEDICAL SALES CONSULTANT) Only the most recent of2 resultswithin the time period is included. Anatomical Region Laterality Modality Chest Radiographic July ging 01/24/2020 2:17 PM MEDICAL SALES CONSULTANT Narrative 01/24/2020 2:19 PM MEDICAL SALES CONSULTANT PROCEDURE: XR CHEST 2VW ??01/24/2020 2:17 PM [...] Chronic changes. No acute process. Smiley Simmons COMPLIANCE COUNSEL-SHACTOR DIAGNOSTI C IMAGING ORDERABLES * NORTRIPTYLINE LEVEL BLOOD (10/26/2019 10:57 AM MEDICAL SALES CONSULTANT) Only the most recent of2 resultswithin the time period is included. Nortriptyline 102 50 - 150 ng/mL 10/30/2019 4:36 PM MEDICAL SALES CONSULTANT [employer] ([facility]) Comment: INTERPRETIVE INFORMATION: Nortriptyline Therapeutic Range: 50-150 ng/mL Toxic: Greater than 500 ng/mL Toxic concentrations may cause anticholinergic effects, cardiac abnormalities and seizures. See Compliance Statement B: www.[email or web address]CS Performed by [employer], [address] [place] [address] www.[employer] Mitch Dias MD, Lab. Director Blood BLOOD SPECIMEN / Unknown Lab Venipuncture / Unknown 10/26/2019 10:57 AM MEDICAL SALES CONSULTANT 10/26/2019 11:03 AM MEDICAL SALES CONSULTANT Noam Hummel MD LAB - CHEMISTRY MAURILIO RENE [employer] ([facility]) [address] [place] [address] * IR GUIDED NEEDLE PLACEMENT 96681 (09/12/2019 11:40 AM CDT) Only the most [...] XR HIP BILAT 2 VW W/O PELVIS 65607 (08/15/2019 11:01 AM CDT) Anatomical Region Laterality [...] BUN+CREATININE BLOOD PNL (08/15/2019 10:45 AM CDT) [facility] BUN 14.4 9.8 - 20.1 mg/dL 08/15/2019 11:52 AM CDT [facility] Creatinine 1.01 0.57 - 1.11 mg/dL 08/15/2019 11:52 AM CDT [facility] eGFR by MDRD 53(L) >60 mL/min/1.7 2 08/15/2019 11:52 AM CDT [facility] eGFR by MDRD >60 >60 mL/min/1.7 2 08/15/2019 11:52 AM CDT [facility] Blood BLOOD SPECIMEN / Unknown Lab Venipuncture / Unknown 08/15/2019 10:45 AM CDT 08/15/2019 11:13 AM CDT Mag Benites MD LAB - CHEMISTRY MA[place]ILIO RENE [facility] Organization Address City/State/ZIP Co de Phone Number [facility] [address] * 14.3.3 PROTEIN BLOOD (08/15/2019 10:45 AM CDT) [facility] Protein 14-3-3 See Scanned Report 08/20/2019 9:25 AM CDT [facility] Blood BLOOD SPECIMEN / Unknown Lab Venipuncture / Unknown 08/15/2019 10:45 AM CDT 08/15/2019 11:13 AM CDT Mag Benites MD LAB - CHEMISTRY [place] R[place] [facility] [address] [place] [address] * RHEUMATOID FACTOR BLOOD QUANTITATIVE (08/15/2019 10:45 AM CDT) [facility] Rheumatoid Factor Quantitative Negative <10IU/mL Negative <10IU/mL, Positive 10 IU/mL 08/15/2019 1:25 PM CDT [facility] Blood BLOOD SPECIMEN / Unknown Lab Venipuncture / Unknown 08/15/2019 10:45 AM CDT 08/15/2019 11:13 AM CDT Mag Benites MD LAB - CHEMISTRY MAURILIO RENE Performing Organization Address City/[facility]/ZIP Co de Phone Number [facility] [address] * (ABNORMAL) C-REACTIVE PROTEIN (08/15/2019 10:45 AM CDT) [facility] C-Reactive Protein 0.61(H) 0.00 - 0.50 mg/dL 08/15/2019 3:07 PM CDT [facility] Blood BLOOD SPECIMEN / Unknown Lab Venipuncture / Unknown 08/15/2019 10:45 AM CDT 08/15/2019 11:13 AM CDT Mag Benites MD LAB - CHEMISTRY MAURILIO RENE [facility] [address] * SHU BLOOD SCREEN W/REFLEX TITER (08/15/2019 10:45 AM CDT) [facility] SHU IgG None Detected None Detected 08/16/2019 9:25 PM CDT [employer] ([facility]) Comment: If suspicion of connective tissue disease is strong and SHU EIA is negative, consider testing for SHU by IFA ([id number]). INTERPRETIVE INFORMATION: Anti-Nuclear Antibodies (SHU), IgG by SHIELA Antinuclear Antibodies (SHU), IgG by SHIELA: SHU specimens are screened using enzyme-linked immunosorbent assay (SHIELA) methodology. All SHIELA results reported as Detected are further tested by indirect fluorescent assay (IFA) using HEp-2 substrate with an IgG-specific conjugate. The SHU SHIELA screen is designed to detect antibodies against dsDNA, histones, SS-A (Ro), SS-B (La), Royal, Royal/SUSTAINABLE DESIGN COORDINATOR, Scl-70, Beti-1, centromeric proteins, other antigens extracted from the HEp-2 cell nucleus. SHU SHIELA assays have been reported to have lower sensitivities than SHU IFA for systemic autoimmune rheumatic diseases (SARD). Negative results do not necessarily rule out SARD. Performed by [facility], [address] [place] [id number] www.[employer] Mitch Dias MD, Lab. Director Blood BLOOD SPECIMEN / Unknown Lab Venipuncture / Unknown 08/15/2019 10:45 AM CDT 08/15/2019 11:13 AM CDT Mag Benites MD LAB - CHEMISTRY MAURILIO RENE [facility] Organization Address City/State/ZIP Co de Phone Number [employer] ([facility]) [address] [place] [address], [facility] * CYCLIC CITRUL PEPTIDE AB IGG (CCP) (08/15/2019 10:45 AM CDT) Pathologist [facility] Cyclic Citrullinated Peptide Antibody IgG 7 0 - 19 Units 08/16/2019 10:18 PM CDT [employer] ([facility]) Comment: INTERPRETIVE INFORMATION: Cyclic Citrullinated Peptide Antibody, [...] be monitored and testing repeated. Performed by [employer], [address] [place] [address] www.[employer] Mitch Dias MD, Lab. Director Blood BLOOD SPECIMEN / Unknown Lab Venipuncture / Unknown 08/15/2019 10:45 AM CDT 08/15/2019 11:13 AM CDT Mag Benites MD LAB - CHEMISTRY ORDAnika RENE Performing Organization Address [facility]/ZIP Co de Phone Number [facility] [employer] ([facility]) [address] [place] [address] * ERYTHROCYTE SEDIMENTATION RATE (08/15/2019 10:45 AM CDT) Pathologist [facility] Erythrocyte Sedimentation Rate Westergren 26 0 - 30 mm/hr 08/15/2019 12:02 PM CDT [facility] Blood BLOOD SPECIMEN / Unknown Lab Venipuncture / Unknown 08/15/2019 10:45 AM CDT 08/15/2019 11:13 AM CDT Mag Benites MD LAB - HEMATOLOGY ORD ERABLES [facility] [address] * HEPATIC FUNCTION PANEL (08/15/2019 10:45 AM CDT) Pathologist [facility] Alkaline Phosphatase 90 40 - 150 U/L 08/15/2019 11:52 AM CDT [facility] ALT 15 5 - 55 U/L 08/15/2019 11:52 AM CDT [facility] AST 23 5 - 34 U/L 08/15/2019 11:52 AM CDT [facility] Protein Total 7.5 6.4 - 8.3 gm/dL 08/15/2019 11:52 AM CDT [facility] Albumin 4.2 3.5 - 5.0 gm/dL 08/15/2019 11:52 AM CDT [facility] Bilirubin Total 0.5 0.2 - 1.2 mg/dL 08/15/2019 11:52 AM CDT [facility] Bilirubin Direct 0.23 0 - 0.5 mg/dL 08/15/2019 11:52 AM CDT [facility] Albumin/Globulin Ratio 1.3 0.9 - 1.6 08/15/2019 11:52 AM CDT [facility] Globulin Total 3.3 2.6 - 4.0 gm/dL 08/15/2019 11:52 AM CDT [facility] Bilirubin Indirect 0.3 0.2 - 0.9 mg/dL 08/15/2019 11:52 AM CDT [facility] Blood BLOOD SPECIMEN / Unknown Lab Venipuncture / Unknown 08/15/2019 10:45 AM CDT 08/15/2019 11:13 AM CDT Mag Benites MD LAB - CHEMISTRY MAURILIO RENE [facility] Organization Address City/State/[facility] de Phone Number [facility] [address] * EGD (05/25/2019 11:41 AM CDT) [...] Procedure Code(s): ? --- Professional --- ? 99092, Esophagogastroduode noscopy, flexible, transoral; with ablation of ? tumor(s), polyp(s), or other lesion(s) (includes pre- and post-dilation ? and guide wire passage, when performed) ? 69378, 59, Esophagogastroduode noscopy, flexible, transoral; with control ? of bleeding, any method Diagnosis Code(s): ?--- Professional --- ?K22.70, 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 ?K44.9, Diaphragmatic hernia without obstruction or ?gangrene ?K31.89, Other diseases of stomach and duodenum CPT copyright 2016 [employer]. All rights reserved. The codes documented in this report are preliminary and upon toilet products molder review may be revised to meet current compliance requirements. ___ Melanie Chaidez MD 05/25/2019 12:41:58 PM Note Initiated On: 05/25/2019 11:41 AM Number of Addenda: 0 ? [facility] ? [address] [place] [address] [facility] 05/25/2019 11:4 1 AM CDT Melanie Chaidez MD GI PROCEDURE ORDER JESUS [facility] * PATHOLOGY TISSUE (03/02/2019 11:43 AM CDT) Only the most recent of3 resultswithin the time period is included. Case Report Surgical Pathology Report ? Case: [id number] ? Authorizing Provider: ??Melanie Chaidez MD ?Collected: ? 03/02/2019 11:43 AM ? Ordering Location: ? [facility] ?Received: ?03/02/2019 01:27 PM ? Pathologist: ? Virginie Gallego MD ? Specimen: ?Gastric, Gastric Nodule Biopsy ? 03/05/2019 3:14 PM [facility] Final Diagnosis Stomach, nodule, biopsy (A): - Polypoid foveolar hyperplasia 03/05/2019 3:14 PM [facility] Microscopic Description and Comment Microscopic examination substantiates the final diagnosis. 03/05/2019 3:14 PM [facility] Clinical History The patient is an 78-year-old woman with diagnosis of Moreira's esophagus with high grade dysplasia who underwent EGD. Operative procedure/findings: EGD -- Multiple mucosal papules (nodules) found in the stomach. 03/05/2019 3:14 PM [facility] Gross Description The requisition and [...] in cassette A1. OEM/cml 03/05/2019 3:14 PM [facility] Disclaimer The performance characteristics of all immunohistochemical and indirect immunofluorescence stains (if any) cited in this report were determined by the Histopathology Laboratory of [facility]. Some of these tests were developed by [...] the attending (teaching) pathologist. 03/05/2019 3:14 PM [facility] Embedded Images 03/05/2019 3:14 PM [facility] Biopsy, NOS GASTRIC CONTENTS SPECIMEN / Unknown 03/02/2019 11:43 AM CDT 03/02/2019 1:27 PM CDT Melanie Chaidez MD LAB - PATHOLOGY/RONALD HEARN ORDERABLES [facility] [address] [place] [address], [facility] [phone] * EGD (03/02/2019 11:03 AM CDT) Report [...] esophagus. The endoscope was introduced in a jmwh-vo-cbgf manner ? with the ablation catheter. Under [...] Procedure Code(s): ? --- Professional --- ? 94655, Esophagogastroduode noscopy, flexible, transoral; with ablation of ? tumor(s), polyp(s), or other lesion(s) (includes pre- and post-dilation ? and guide wire passage, when performed) ? 05398, Esophagogastroduode noscopy, flexible, transoral; with biopsy, ? single or multiple Diagnosis Code(s): ?--- Professional --- ?K22.70, 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 ?K44.9, Diaphragmatic hernia without obstruction or ?gangrene ?K31.89, Other diseases of stomach and duodenum CPT copyright 2016 [employer]. All rights reserved. The codes documented in this report are preliminary and upon toilet products molder review may be revised to meet current compliance requirements. ___ Melanie Chaidez MD 03/02/2019 11:55:56 AM Note Initiated On: 03/02/2019 11:03 AM Number of Addenda: 0 ? [facility] ? [address] [place] [address] [facility] 03/02/2019 11:0 3 AM CDT Melanie Chaidez MD GI PROCEDURE ORDER JESUS [facility] * EGD (12/01/2018 11:07 AM MEDICAL SALES CONSULTANT) Report Endoscopy POC Endoscopy Department Report __ _ Patient Name: Dora Whiting ? Procedure Date: 12/01/2018 11:07 AM ? Date of : 1940 Classification: Outpatient ?Gender: Female __ _ Providers: ?Melanie Chaidez MD, Margraet Fregoso (Fellow) Referring MD: ? Melanie Chaidez [...] and ?oxygen saturations were monitored continuously. The ?[id number] was introduced through the mouth, and ?advanced [...] of Moreira's esophagus was performed using the [employer] 360 ? Express catheter and balloon-based endoscopic ablation system. With the ? endoscope in place, the position and extent of the Moreira's mucosa and ? the anatomic landmarks including proximal and distal extent of Omreira's ? mucosa were noted. Endoscopic visualization identified [...] esophagus. The endoscope was introduced in a rbqc-px-aale manner ? with the ablation catheter. Under [...] Procedure Code(s): ? --- Professional --- ? 41520, Esophagogastroduode noscopy, flexible, transoral; with ablation of ? tumor(s), polyp(s), or other lesion(s) (includes pre- and post-dilation ? and guide wire passage, when performed) ? 76561, Esophagogastroduode noscopy, flexible, transoral; with biopsy, ? single or multiple Diagnosis Code(s): ?--- Professional --- ?K22.8, Other specified diseases of esophagus ?K31.89, Other diseases of stomach and duodenum ?K31.7, Polyp of stomach and duodenum CPT copyright 2016 [employer]. All rights reserved. The codes documented in this report are preliminary and upon toilet products molder review may be revised to meet current compliance requirements. ___ Melanie Chaidez MD 12/01/2018 1:30:57 PM Note Initiated On: 12/01/2018 11:07 AM Number of Addenda: 0 ? [facility] ? [address] [place] [address] [facility] 12/01/2018 11:0 7 AM MEDICAL SALES CONSULTANT Margaret Fregoso MD GI PROCEDURE ORDERAB LES Performing Organization Address City/State/[facility] Co de Phone Number [facility] * XR HAND 3+ VW LEFT 65593 (05/17/2018 11:20 AM CDT) Only the most [...] DIAGNOSTIC IMAGING ORDERABLES * CT ANGIO NECK 31671 (04/13/2018 1:45 PM CDT) Anatomical Region Laterality [...] PA-C CT ORDERABLES * CT ANGIO HEAD 48768 (04/13/2018 1:45 PM CDT) Anatomical Region Laterality [...] diffuse disease as above. Edited by Jennifer eRnee on 04/13/2018 3:35 PM Ulises Bergman PA-C CT ORDERABLES * MRI BRAIN W WO CONTRAST 44427 (04/06/2018 12:42 PM CDT) Anatomical Region Laterality [...] Renee on 04/06/2018 2:09 PM Smiley Simmons COMPLIANCE COUNSEL-SHACTOR MR ORDERA BLES * XR WRIST 3+ VW LEFT 42685 (03/30/2018 2:35 PM CDT) Only the most [...] Renee on 03/30/2018 2:38 PM Smiley Simmons COMPLIANCE COUNSEL-SHACTOR DIAGNOSTI C IMAGING ORDERABLES * CT FACIAL BONES WO CONTRAST 70694 (03/26/2018 12:18 PM CDT) Anatomical Region Laterality [...] the intracranial internal carotid artery along with ouzz-hh-dpmrhqri diffuse volume loss of the intracranial contents. [...] the intracranial internal carotid artery along with wvsu-do-ntjgtgjx diffuse volume loss of the intracranial contents. [...] Negative Negative Ketone UA Negative Negative Specific [place] UA POCT 1.025 1.002 - 1.030 Blood [...] Unknown 03/15/2018 1 2:02 PM CDT Tim Salazar MD LAB - POINT OF CARE ORDERABLES * CULTURE MYCOPLASMA HOMINIS+UREAPLASMA CULTURE (03/15/2018 11:15 AM CDT) Only the most recent of2 resultswithin the time period is included. Prelim Report SEE NOTE 03/20/2018 8:31 AM CDT [employer] ([facility]) Comment: Specimen received and in progress. Performed by [employer], [address] [facility] [place] [address] www.[employer] Mitch Dias MD, Lab. Director Final Report SEE NOTE 03/20/2018 8:31 AM CDT [employer] ([facility]) Comment: Culture negative for Mycoplasma hominis Culture negative for Ureaplasma spp Performed by [employer], [address] [place] [address] www.[employer] Mitch Dias MD, Lab. Director Microbiology URINE / Unknown Collection / Unknown 03/15/2018 11:15 AM CDT 03/15/2018 3:29 PM CDT Tim Salazar MD LAB - MICROBIOLOGY O RDERABLES [employer] ([facility]) [address] [place] [address], [facility] * FUNGUS IDENTIFICATION (03/15/2018 11:15 AM CDT) Prelim Report SEE NOTE 03/22/2018 8:35 AM CDT [employer] ([facility]) Comment: Gissel albicans/dubliniensis Identification by phenotypic methods. Performed by [employer], [address] [place] [address] www.[employer] Mitch Dias MD, Lab. Director Final Report SEE NOTE 03/22/2018 8:35 AM CDT [employer] ([facility]) Comment: Gissel albicans/dubliniensis Identification by phenotypic methods. Performed by [employer], [address] [place] [address] www.[employer] Mitch Dias MD, Lab. Director Urine URINE SPECIMEN OBTAINED BY CLEAN CATCH PROCEDURE / Unknown Collection / Unknown 03/15/2018 11:15 AM CDT 03/15/2018 3:29 PM CDT Tim Salazar MD LAB - MICROBIOLOGY O RDERABLES [facility] ([facility]) [address] [place] [address], [facility] * (ABNORMAL) URINE MICROSCOPIC ONLY (02/15/2018 10:00 [...] CDT Darlin GORDON LAB - URINALYSIS ORDERABLES [facility] [address] [place] [address], [facility] * URINALYSIS ROUTINE W/REFLEX TO CULTURE (11/17/2017 12:25 AM MEDICAL SALES CONSULTANT) Color UA Yellow 11/17/2017 12:40 AM MEDICAL SALES CONSULTANT [facility] Clarity UA Clear Clear 11/17/2017 12:[address] [facility] Glucose UA Negative Negative 11/17/2017 12:[address] [facility] Bilirubin UA Negative Negative 11/17/2017 12:[address] [facility] Ketone UA Negative Negative 11/17/2017 12:[address] [facility] Specific [place] UA 1.020 1.005 - 1.030 11/17/2017 12:[address] [facility] Blood UA Negative Negative 11/17/2017 12:[address] [facility] pH UA 6.0 5.0 - 8.0 pH 11/17/2017 12:[address] [facility] Protein UA Negative Negative 11/17/2017 12:[address] [facility] Urobilinogen UA Negative Negative mg/dL 11/17/2017 12:[address] [facility] Nitrite UA Negative Negative 11/17/2017 12:[address] [facility] Leukocyte UA Negative Negative 11/17/2017 12:[address] [facility] Urine Microscopy Urine microscopy not indicated 11/17/2017 12:[address] [facility] Reflex Status Culture not indicated 11/17/2017 12:[address] [facility] Urine URINE SPECIMEN OBTAINED BY CLEAN CATCH PROCEDURE / Unknown Collection / Unknown 11/17/2017 12:25 AM MEDICAL SALES CONSULTANT 11/17/2017 12:25 AM [facility] Carmina Sullivan MD LAB - URINALYSIS ORD ERABLES Performing Organization Address City/State/[facility] Co de Phone Number [facility] [address] * XR FOOT 3+ VW LEFT [id number] (11/16/2017 2:31 PM MEDICAL SALES CONSULTANT) Anatomical Region Laterality Modality Ankle / Foot Radiographic July ging 11/16/2017 2:35 PM MEDICAL SALES CONSULTANT Impressions 11/16/2017 4:00 PM MEDICAL SALES CONSULTANT 1. No foot fracture identified. 2. Ankle fracture, better described on the ankle film report. Preliminary report printed to the ER 11/16/2017 @ 1440 hours. Edited by Jennifer Renee on 11/16/2017 2:41 PM Narrative 11/16/2017 4:00 PM MEDICAL SALES CONSULTANT PROCEDURE: XR FOOT 3+ VW LEFT ??11/16/2017 [...] XR TIBIA AND FIBULA 2 VW LEFT [id number] (11/16/2017 2:30 PM MEDICAL SALES CONSULTANT) Anatomical Region Laterality Modality Lower Extremity Radiographic July ging 11/17/2017 10:5 5 AM MEDICAL SALES CONSULTANT Addenda Addendum by [place] MD on 11/17/2017 1:43 PM MEDICAL SALES CONSULTANT The laterality on the above report should be LEFT. History of left ankle pain; left tib-fib exam. Edited by Jennifer Renee on 11/17/2017 10:56 AM Narrative 11/16/2017 4:00 PM MEDICAL SALES CONSULTANT PROCEDURE: XR TIBIA FIBULA RIGHT 2VW ??11/16/2017 [...] RDERABLES * XR ANKLE 3+ VW LEFT [id number] (11/16/2017 2:29 PM MEDICAL SALES CONSULTANT) Anatomical Region Laterality Modality Lower Extremity Radiographic July ging 11/16/2017 2:34 PM MEDICAL SALES CONSULTANT Impressions 11/16/2017 4:00 PM MEDICAL SALES CONSULTANT Oblique fracture distal diaphysis of the fibula above the plafond. Preliminary report printed to the ER 11/16/2017 @ 1441 hours. Edited by Jennifer Renee on 11/16/2017 2:41 PM Narrative 11/16/2017 4:00 PM MEDICAL SALES CONSULTANT PROCEDURE: XR ANKLE 3+ VW LEFT ??11/16/2017 [...] RDERABLES * CULTURE BLOOD (11/15/2017 4:29 PM MEDICAL SALES CONSULTANT) Only the most recent of2 resultswithin the time period is included. Culture No growth day 5 LAINA 11/21/2017 10:18 AM MEDICAL SALES CONSULTANT [facility] Blood PERIPHERAL BLOOD / Unknown Lab Venipuncture / Unknown 11/15/2017 4:29 PM MEDICAL SALES CONSULTANT 11/15/2017 4:32 PM MEDICAL SALES CONSULTANT Charlie Cesar MD LAB - MICROBIOLOGY O RDERABLES [facility] [address] * LACTIC ACID BLOOD (11/15/2017 4:21 PM MEDICAL SALES CONSULTANT) Lactic Acid 1.13 0.5 - 2.2 mmol/L 11/15/2017 4:45 PM MEDICAL SALES CONSULTANT [facility] Blood BLOOD SPECIMEN / Unknown Lab Venipuncture / Unknown 11/15/2017 4:21 PM MEDICAL SALES CONSULTANT 11/15/2017 4:27 PM MEDICAL SALES CONSULTANT Charlie Cesar MD LAB - CHEMISTRY MAURILIO RENE [facility] [address] * DEXA BONE DENSITY SCAN [id number] (04/15/2017 3:32 PM CDT) Anatomical Region Laterality [...] study recommended on same machine. Smiley Simmons COMPLIANCE COUNSEL-SHACTOR KARAN RENE * THYROID PANEL (T3U T4 FTI) (04/20/2016 9:48 AM CDT) T4 Total 7.28 5.10 - 14.10 ug/dL 04/21/2016 9:35 PM CDT [employer] ([facility]) Comment: REFERENCE INTERVAL: Thyroxine Access complete set of age- and/or gender-specific reference intervals for this test in the [facility] Test Directory ([employer] T3 Uptake 32 28 - 41 % 04/21/2016 9:35 PM CDT [employer] ([facility]) Comment: INTERPRETIVE INFORMATION: T3 Uptake Thyroxine, Free (Free T4) ([id number]) is the preferred test alternative for the T3 uptake and Free Thyroxine Index tests. Free Thyroxine Index 2.3 1.7 - 4.2 units 04/21/2016 9:35 PM CDT [employer] ([facility]) Comment: Performed by [employer], [address] [place] [address] [email or web address] Jesus Troo MD, Lab. Director Blood specimen (specimen) BLOOD SPECIMEN / Unknown Lab Venipuncture / Unknown 04/20/2016 9:48 AM CDT 04/20/2016 9:55 AM CDT Piero Santiago MD LAB - CHEMISTRY MAURILIO RENE Performing Organization Address [facility]/State/ZIP Co de Phone Number [employer] [facility]) [address] [place] [address] * VITAMIN B12 FOLATE PANEL (04/20/2016 9:48 AM CDT) Vitamin B12 338 213 - 816 pg/mL 04/20/2016 10:51 AM CDT [facility] Folate 10.7 7.0 - 31.4 ng/mL 04/20/2016 10:51 AM CDT [facility] Blood BLOOD SPECIMEN / Unknown Lab Venipuncture / Unknown 04/20/2016 9:48 AM CDT 04/20/2016 9:55 AM CDT Piero Santiago MD LAB - CHEMISTRY MAURILIO RENE Performing Organization Address City/[facility]/ZIP Co de Phone Number [facility] [address] * TSH (04/20/2016 9:48 AM CDT) TSH 2.395 0.35 - 4.94 uIU/mL 04/20/2016 10:51 AM CDT [facility] Blood BLOOD SPECIMEN / Unknown Lab Venipuncture / Unknown 04/20/2016 9:48 AM CDT 04/20/2016 9:55 AM CDT Piero Santiago MD LAB - CHEMISTRY HEL[facility]ES[facility]ika [facility] Performing Organization Address [facility] Co de Phone Number [facility] [address] * MRI BRAIN WO CONTRAST [id number] (04/06/2016 2:07 PM CDT) Anatomical Region Laterality [...] FECES 1-3 SCREEN (03/27/2016 12:00 AM CDT) [facility] Occult Blood 1 Negative Negative 03/29/2016 3:24 PM CDT [facility] Occult Blood 2 Negative Negative 03/29/2016 3:24 PM CDT [facility] Occult Blood 3 Negative Negative 03/29/2016 3:24 PM CDT [facility] Occult Blood 1 Collection Date 03/25/16 03/29/2016 3:24 PM CDT [facility] Occult Blood 1 Collection Time 03/29/2016 3:24 PM CDT [facility] Occult Blood 2 Collection Date 03/26/16 03/29/2016 3:24 PM CDT [facility] Occult Blood 2 Collection Time 03/29/2016 3:24 PM CDT [facility] Occult Blood 3 Collection Date 03/27/16 03/29/2016 3:24 PM CDT [facility] Occult Blood 3 Collection Time 03/29/2016 3:24 PM CDT [facility] Stool STOOL SPECIMEN / Unknown Collection / Unknown 03/27/2016 03/29/2016 12:04 PM CDT Smiley Simmons COMPLIANCE COUNSEL-SHACTOR LAB - BOD Y FLUID ORDERABLES Performing Organization Address City/[facility] Co de Phone Number [facility] [address] * XR HAND 3+ VW RIGHT [id number] (11/13/2015 11:52 AM MEDICAL SALES CONSULTANT) Anatomical Region Laterality Modality Wrist / Hand Radiographic July ging 11/13/2015 12:2 1 PM MEDICAL SALES CONSULTANT Narrative 11/13/2015 1:10 PM MEDICAL SALES CONSULTANT RIGHT HAND 3 VIEWS 11/13/2015 CLINICAL HISTORY: [...] 5. Mild soft tissue swelling. Smiley Simmons APRN-SHACTOR DIAGNOSTI C IMAGING ORDERABLES * CREATININE BLOOD (11/10/2015 7:52 AM MEDICAL SALES CONSULTANT) Creatinine 0.88 0.57 - 1.11 mg/dL 11/10/2015 8:41 AM MEDICAL SALES CONSULTANT [facility] eGFR by MDRD >60 >60 mL/min/1.7 3m2 11/10/2015 8:41 AM MEDICAL SALES CONSULTANT [facility] eGFR by MDRD >60 >60 mL/min/1.7 3m2 11/10/2015 8:41 AM MEDICAL SALES CONSULTANT [facility] Blood BLOOD SPECIMEN / Unknown Lab Venipuncture / Unknown 11/10/2015 7:52 AM MEDICAL SALES CONSULTANT 11/10/2015 8:11 AM MEDICAL SALES CONSULTANT Oscar Royal MD LAB - CHEMISTRY MAURILIO RENE [facility] [address] * BUN (11/10/2015 7:52 AM MEDICAL SALES CONSULTANT) BUN 10.6 9.8 - 20.1 mg/dL 11/10/2015 8:41 AM MEDICAL SALES CONSULTANT [facility] Blood BLOOD SPECIMEN / Unknown Lab Venipuncture / Unknown 11/10/2015 7:52 AM MEDICAL SALES CONSULTANT 11/10/2015 8:11 AM MEDICAL SALES CONSULTANT Oscar Royal MD LAB - CHEMISTRY MAURILIO RENE Performing Organization Address [facility] Co de Phone Number [facility] [address] * ECHOCARDIOGRAM STRESS Dobutamine (resting) Echocardiogram (03/12/2015 12:30 PM CDT) Narrative [facility] - 03/12/2015 12:30 [place] [address] Dobutamine Stress Echocardiography Patient: DORA WHITING MR #: [id number] : 1940 Age: 74 years Gender: Female Study date: 12-Mar-2015 Status: Outpatient Room: [facility] Allergies: MEPERIDINE Referring Physician: ??Gerson Pena MD Technical Support Coordinator: ??Gerson Pena MD Quick Technician: ??Marisol MARTINEZ, [facility] Clinical question: Chest pain. History: The [...] 12:38:08 Procedure Note Unknown, Provider - 03/12/[address] [address] Dobutamine Stress Echocardiography Patient: DORA WHITING MR #: [id number] : 1940 Age: 74 years Gender: Female Study date: 12-Mar-2015 Status: Outpatient Room: [facility] Allergies: MEPERIDINE Referring Physician: Gerson Pena MD Technical Support Coordinator: Gerson Pena MD Quick Technician: Marisol MARTINEZ, [facility] Clinical question: Chest pain. History: The [...] 12-Mar-2015 12:38:08 Gerson Pena MD ECHO ORDERABLES [facility] * ECG STRESS TRACING (03/12/2015 12:00 PM CDT) 03/12/2015 12:0 0 PM CDT Narrative Transcriptions Gerson Pena MD - 03/13/2015 12:09 [address] [address] Cardio Pulmonary Services Cardiac Stress Test Patient: DORA WHITING Patient Type: CSN: [id number] Bday/Age: 07 1940 74 Stn/Rm/Bed: [facility] 1 Sex/Race: F Unit #: [id number] Patient Adrs: [address] Prim Phys: Attend Phys: SANDY SIMMONS M.D. City//[facility]: [facility] [id number] Admit Date: March 11, 2015 Disch To: [...] report for echocardiographic findings. Gerson Pena MD, [facility] PE/MODL /[id number] cc: Gerson Pena MD, [facility] Sandy Simmons M.D. GERSON PENA MD, [facility] CARDIAC STRESS TEST Gerson Pena MD CARDIAC SERVICES ORD ERABLES Performing Organization Address [facility] Co de Phone Number [facility] MMODAL * CK + CKMB PANEL (03/11/2015 11:14 PM CDT) Only the most recent of2 resultswithin the time period is included. CK 167 29 - 168 U/L 03/11/2015 11:49 PM CDT [facility] CK-MB 2.3 0.0 - 6.6 ng/mL 03/11/2015 11:49 PM CDT [facility] CK Index % 1.4 0.0 - 4.9 % 03/11/2015 11:49 PM CDT [facility] Blood BLOOD SPECIMEN / Unknown Lab Venipuncture / Unknown 03/11/2015 11:14 PM CDT 03/11/2015 11:18 PM CDT Sandy Simmons MD LAB - CHEMISTRY ORDERABLES Performing Organization Address City/[facility]/ZIP Co de Phone Number [facility] [address] * ECHOCARDIOGRAM 2D WITH DOPPLER (03/11/2015 12:00 AM CDT) 03/11/2015 Narrative [facility] - 03/12/2015 12:32 PM CDT [address] [address] Transthoracic Echocardiogram 2D, M-mode, Doppler, and Color Doppler Patient: DORA WHITING MR #: [id number] : 1940 Age: 74 years Gender: Female Study date: 12-Mar-2015 Status: Outpatient Room: [facility] Height: 63.8 in Weight: 180.4 lb BSA: 1.87 m?? Referring Physician: ??Gerson Pena MD Technical Support Coordinator: ??Gerson Pena MD Quick Technician: ??Marisol Feldman RT, [facility] Impressions: Normal left ventricular size and [...] MV A Marcel: 1 m/s MV Dec [place]: 3.9 m/s2 MV DecT: 222.3 ms MV [...] 12:40:40 Procedure Note Unknown, Provider - 03/12/[address] [address] Transthoracic Echocardiogram 2D, M-mode, Doppler, and Color Doppler Patient: DORA WHITING MR #: [id number] : 1940 Age: 74 years Gender: Female Study date: 12-Mar-2015 Status: Outpatient Room: [facility] Height: 63.8 in Weight: 180.4 lb BSA: 1.87 m?? Referring Physician: Gerson Pena MD Technical Support Coordinator: Gerson Pena MD Quick Technician: Marisol MARTINEZ, [facility] Impressions: Normal left ventricular size and [...] transthoracic approach was used. The study included [id number] imaging, M-mode, complete spectral Doppler, and color [...] MV A Marcel: 1 m/s MV Dec [place]: 3.9 m/s2 MV DecT: 222.3 ms MV E Marcel: 0.9 m/s MV E/A Ratio: 0.9 MV PHT: 67.3 ms MVA By PHT: 3.3 cm2 PV Vmax: 0.8 m/s PV maxP.9 mmHg RVSP: 34.7 mmHg TV E Marcel: 0.8 m/s HR: 79 BPM All images and data generated for this procedure were personally reviewedby hi. Prepared and Electronically Authenticated Gerson Pena MD 12-Mar-2015 12:40:40 Gerson Pena MD ECHO ORDERABLES [facility] * INFLUENZA A+B ANTIGEN RAPID (11/11/2014 3:03 PM MEDICAL SALES CONSULTANT) Influenza A Antigen Negative Negative 11/11/2014 3:29 PM MEDICAL SALES CONSULTANT [facility] Influenza B Antigen Negative Negative 11/11/2014 3:29 PM MEDICAL SALES CONSULTANT [facility] Microbiology NASOPHARYNGEAL SWAB / Unknown Collection / Unknown 11/11/2014 3:03 PM MEDICAL SALES CONSULTANT 11/11/2014 3:07 PM MEDICAL SALES CONSULTANT Sandy Simmons MD LAB - MICROBIOL OGY ORDERABLES [facility] [address] * FL ESOPHAGRAM (10/30/2014 9:31 AM MEDICAL SALES CONSULTANT) Anatomical Region Laterality Modality Chest Radio Fluoroscop y 10/30/2014 9:40 AM MEDICAL SALES CONSULTANT Narrative 10/30/2014 2:35 PM MEDICAL SALES CONSULTANT ESOPHAGRAM 10/30/2014 INDICATION: Esophageal reflux. Fluoroscopy time: [...] minutes. FINDINGS: Moderate esophageal hiatal hernia with keivn gastroesophageal reflux in the recumbent position. Prominent cricopharyngeus muscle in the cervical esophagus. Thickening of the mucosal folds in the distal esophagus consistent with mild esophagitis without evidence of ulceration. Esophagram otherwise negative. Herrera Paul MD FLUOROSCOPY ORDERABL ES * (ABNORMAL) URINALYSIS DIPSTICK AUTO (10/15/2013 4:01 PM MEDICAL SALES CONSULTANT) Color UA Yellow 10/15/2013 4:[address] [facility] Clarity UA Clear 10/15/2013 4:[address] [facility] Specific [place] UA 1.010 1.005 - 1.030 10/15/2013 4:[address] [facility] pH UA 6.5 5.0 - 8.0 pH 10/15/2013 4:[address] [facility] Glucose UA Negative Negative 10/15/2013 4:[address] [facility] Ketone UA Negative Negative 10/15/2013 4:[address] [facility] Blood UA Negative Negative 10/15/2013 4:[address] [facility] Bilirubin UA Negative Negative 10/15/2013 4:[address] [facility] Protein UA Negative Negative 10/15/2013 4:[address] [facility] Urobilinogen UA 0.2 0.2 - 1.0 EU/dL 10/15/2013 4:28 PM MEDICAL SALES CONSULTANT [facility] Leukocyte UA 1+(A) Negative 10/15/2013 4:28 PM MEDICAL SALES CONSULTANT [facility] Nitrite UA Negative Negative 10/15/2013 4:28 PM MEDICAL SALES CONSULTANT [facility] Urine URINE SPECIMEN OBTAINED BY CLEAN CATCH PROCEDURE / Unknown Collection / Unknown 10/15/2013 4:01 PM MEDICAL SALES CONSULTANT 10/15/2013 4:01 PM MEDICAL SALES CONSULTANT Smiley Simmons COMPLIANCE COUNSEL-SHACTOR LAB - URI NALYSIS ORDERABLES [facility] [address] * GROSS + MICRO EXAM (08/16/2011 [...] LAB - PATHOLOGY/C YTOLOGY ORDERABLES Care Teams Molder Operator Relationship Specialty Start Date End Date Sandy Simmons MD [address] [id number] PCP - General Internal Medicine 10/15/13
--- OUTSIDE RECORDS SUMMARY | 2024-12-21 22:45 | XMS_ITS | Clinical Summary ---
Author Organization [facility] [address] [facility] [address] [place] [address] Care Team Providers Care Propulsion Systems Engineer Name Role Phone Lynn Wing MD Primary [...] the past few months with GI at [place] but we do not have report. Patient [...] on file Legal Sex Female 12:25 AM CONTROL SYSTEMS DRAFTING OFFICER Gender Identity Not on file Sexual Orientation [...] LAB URINE ORDERABLES F inal Result LATASHA [address] Department of Laboratories [place] [phone] * (ABNORMAL) eGFR (08/16/2024 3:00 PM CDT) [...] ORDERABLES F inal Result Performing Organization Address [facility] de Phone Number COLL[facility] [address] [place] [address] * (ABNORMAL) Hemoglobin A1c (08/16/2024 3:00 PM CDT) [facility] Hgb A1C 6.0(H) 4.0 - 5.6 % Estimated Average Glucose 126 mg/dL LATASHA TAVERAS Comment: The ADA recommends reporting an estimated Average Glucose (eAG) with all Hemoglobin A1c results using the equation derived from a study of 507 normal and diabetic adults. ??Minority populations were underrepresented and children were not included. ?? (Diabetes Care 31:2773-8447, 2008). ??The eAG is not equivalent to a fasting glucose. Blood 08/16/2024 3:00 PM CDT 08/16/2024 8:10 PM CDT Lynn Wing MD LAB BLOOD ORDERABLES F inal Result Performing Organization Address [facility] de Phone Number LATASHA TAVERAS [address] [place] [place] [address] * (ABNORMAL) Lipid panel (08/16/2024 3:00 PM CDT) [facility] Cholesterol 127 30 - 199 mg/dL [...] revised on 2024. Non-HDL Cholesterol 88 mg/dL LATAHSA TAVERAS Comment: Interpretive Data Ages < or [...] LAB BLOOD ORDERABLES F inal Result [place] [address] [address] Department [place] [address] from Last 3 Months or Most Recently Relevant to Health Maintenance Insurance MEDICARE [facility] MEDICARE Care Teams Propulsion Systems Engineer Relationship Specialty Start Date End Date Lynn Wing MD PCP - General Family Practice 08/27/22
--- OUTSIDE RECORDS SUMMARY | 2024-12-21 22:45 | XMS_ITS | Clinical Summary ---
Author Organization [facility] [employer] Address [address] [place] [address] Care Team Providers Care Coil Former Name Role Phone Mu Monahan MD Primary Care Provider Source Comments [facility],non-owned Affiliates and Associated Physician Practices is amultiple site organization consisting of ambulatory clinics and hospital sitesin [place], [place], [place] and [place]. This disclosure is being madepursuant to the Care Everywhere program and may not contain all information available regarding this patient. Last updated 18.[facility] [employer] Allergies Active Allergy Reactions Criticality Noted Date [...] Comments Blood Pressure 112/54 10/29/2020 11:27 AM SALES PROJECT ADMINISTRATOR Pulse 96 10/29/2020 11:27 AM SALES PROJECT ADMINISTRATOR Temperature 36.8 ??C (98.2 ??F) 10/29/2020 11:[address] Respiratory Rate 20 10/29/2020 11:27 AM SALES PROJECT ADMINISTRATOR Oxygen Saturation 98% 10/29/2020 11:27 AM SALES PROJECT ADMINISTRATOR Inhaled Oxygen Concentration 21% 11/17/2017 7 :30 PM SALES PROJECT ADMINISTRATOR Weight 83.9 kg (185 lb) 01/29/2021 12:56 PM SALES PROJECT ADMINISTRATOR Height 160 cm (5' 3 ) 10/20/2020 7:51 PM SALES PROJECT ADMINISTRATOR Body Mass Index 32.77 10/20/2020 7:51 PM SALES PROJECT ADMINISTRATOR Plan of Treatment Health Maintenance Due Date [...] Author Safety General On track( 2:46 PM SALES PROJECT ADMINISTRATOR) No Valeria Gomez RN Note: Expected end date: Ongonig Interventions: Your nurse will assess your risk for falls/injury each visit Use appropriate and safe transfer methods Make sure appropriate safety devices are available and within reach Medication Management General On track( 2:46 PM SALES PROJECT ADMINISTRATOR) No Valeria Gomez RN Note: Expected end date: Ongoing Interventions: Take all medications as prescribed Let your doctor know right away about any changes in your medications Procedures Procedure Name Priority Date/Time Associated Diagnosis Comments DEXA BONE DENSITY AXIAL SKELETON Routine 02/24/2021 3:10 PM CDT Postmenopausal HEMOGLOBIN A1C ELIAN 10/20/2020 4:38 AM SALES PROJECT ADMINISTRATOR from Last 3 Months or Most Recently Relevant to Health Maintenance Results * DEXA BONE DENSITY STUDY [id number] (02/24/2021 3:10 PM CDT) Anatomical Region Laterality [...] fracture 27.2% Hip fracture 9.3%. Smiley Monahan MEDICAL TECHNICIANS-SOLAR ELECTRIC/PHOTOVOLTAIC INSTALLER DEXA MAURILIO RENE * HEMOGLOBIN A1C (10/20/2020 4:38 AM SALES PROJECT ADMINISTRATOR) Hemoglobin A1c 6.2 4.4 - 6.3 % 10/20/2020 9:37 AM [facility] Estimated Average Glucose 131 mg/dL 10/20/2020 9:37 AM [facility] Comment: HbA1c Interpretation: Treatment target values recommended by ADA and other clinical organizations should be used to evaluate metabolic control in patients. Treatment Target Values: Normal : < 5.7% Pre-diabetes: 5.7-6.4% Diabetes: Equal to or greater than 6.5% Reference: [place] [employer] Standards of Care in Diabetes -2014 In patients 70 years and older consider HbA1c target range of 7.0-7.5% Reference: ??Diabetes Mellitus in Older People: Position Statement on behalf of the International Association of Gerontology and Geriatrics (IAGG), the Diabetes Working Constitution Party for Older People (EDWPOP), and the International Task Force of Experts in Diabetes. ??Jarad Rendon, et al. J [place] [employer] Association. 2012 Test results diagnostic of diabetes should be repeated for confirmation. The Sebia Capillary 2 assay for the measurement of HbA1c is a National Glycohemoglobin Standardization Program (NGSP)certified method. Blood BLOOD SPECIMEN / Unknown Venipuncture / Unknown 10/20/2020 4:38 AM SALES PROJECT ADMINISTRATOR 10/20/2020 4:41 AM SALES PROJECT ADMINISTRATOR Gene Barone MD LAB - CHEMISTRY ORDERABLES [facility] [address] [place] [id number], [facility] [[email or web address]] [phone] from Last 3 Months or Most Recently Relevant to Health Maintenance Advance Directives Documents on File Type Date Recorded Patient Patternmaker Apprentice Wood Expl anation Adv Directive/Living Will/POA 10/30/2020 12:49 PM Adv Directive/Living Will/POA 03/13/2015 11:30 AM * Full Code (Latest Code Status on File) Date Activated Date Inactivated Comments 10/20/2020 3:50 AM 10/29/2020 5:11 PM * Full Code Date Activated Date Inactivated Comments 11/16/2017 5:18 PM 11/18/2017 5:10 PM * Full Code Date Activated Date Inactivated Comments 03/11/2015 4:18 PM 03/12/2015 3:10 PM Care Teams Coil Former Relationship Specialty Start Date End Date Mu Monahan MD [address] [id number] PCP - General Internal Medicine 10/15/13
--- OUTSIDE RECORDS SUMMARY | 2024-12-21 22:45 | XMS_ITS | Referral Summary ---
Author Organization [facility] [email or web address] Address [address] [place] [place] [address] Care Team Providers Care Entry Level Software Developer Name Role Phone Mu Monahan MD Primary Care Provider Source Comments [facility],non-owned Affiliates and Associated Physician Practices is amultiple site organization consisting of ambulatory clinics and hospital sitesin [place], [place], [place] and [place]. This disclosure is being madepursuant to the Care Everywhere program and may not contain all information available regarding this patient. Last updated 18.[facility] Allergies Active Allergy Reactions Criticality Noted Date [...] Comments Blood Pressure 112/54 10/29/2020 11:27 AM AIRPORT SCREENER Pulse 96 10/29/2020 11:27 AM AIRPORT SCREENER Temperature 36.8 ??C (98.2 ??F) 10/29/2020 11:[address] Respiratory Rate 20 10/29/2020 11:27 AM AIRPORT SCREENER Oxygen Saturation 98% 10/29/2020 11:27 AM AIRPORT SCREENER Inhaled Oxygen Concentration 21% 11/17/2017 7 :30 PM AIRPORT SCREENER Weight 83.9 kg (185 lb) 01/29/2021 12:56 PM AIRPORT SCREENER Height 160 cm (5' 3 ) 10/20/2020 7:51 PM AIRPORT SCREENER Body Mass Index 32.77 10/20/2020 7:51 PM AIRPORT SCREENER Functional Status Functional Status Response Date of [...] Author Safety General On track( 2:46 PM AIRPORT SCREENER) No Valeria Gomez, PRACHI Note: Expected end date: Ongonig Interventions: Your nurse will assess your risk for falls/injury each visit Use appropriate and safe transfer methods Make sure appropriate safety devices are available and within reach Medication Management General On track( 2:46 PM AIRPORT SCREENER) No Valeria Gomez, PRACHI Note: Expected end date: Ongoing Interventions: Take all medications as prescribed Let your doctor know right away about any changes in your medications Procedures Procedure Name Priority Date/Time Associated Diagnosis Comments DEXA BONE DENSITY AXIAL SKELETON Routine 02/24/2021 3:10 PM CDT Postmenopausal HEMOGLOBIN A1C ELIAN 10/20/2020 4:38 AM AIRPORT SCREENER from Last 3 Months or Most Recently Relevant to Health Maintenance Results * DEXA BONE DENSITY STUDY 07960 (02/24/2021 3:10 PM CDT) Anatomical Region Laterality [...] fracture 27.2% Hip fracture 9.3%. Smiley Monahan CORE BLOWER-DOCUMENTATION ENGINEER DEXA MAURILIO RENE * HEMOGLOBIN A1C (10/20/2020 4:38 AM [facility]) [facility] Hemoglobin A1c 6.2 4.4 - 6.3 % 10/20/2020 9:37 AM [facility] Estimated Average Glucose 131 mg/dL 10/20/2020 9:37 AM [facility] Comment: HbA1c Interpretation: Treatment target values recommended by ADA and other clinical organizations should be used to evaluate metabolic control in patients. Treatment Target Values: Normal : < 5.7% Pre-diabetes: 5.7-6.4% Diabetes: Equal to or greater than 6.5% Reference: [place] [employer] Standards of Care in Diabetes -2014 In patients 70 years and older consider HbA1c target range of 7.0-7.5% Reference: ??Diabetes Mellitus in Older People: Position Statement on behalf of the International Association of Gerontology and Geriatrics (IAGG), the Diabetes Working Democrat for Older People (EDWPOP), and the International Task Force of Experts in Diabetes. ??Jarad Rendon et al. J [place] [employer] Association. 2012 Test results diagnostic of diabetes should be repeated for confirmation. The Sebia Capillary 2 assay for the measurement of HbA1c is a National Glycohemoglobin Standardization Program (NGSP)certified method. Blood BLOOD SPECIMEN / Unknown Venipuncture / Unknown 10/20/2020 4:38 AM AIRPORT SCREENER 10/20/2020 4:41 AM AIRPORT SCREENER Gene Barone MD LAB - CHEMISTRY ORDERABLES [id number] [place] [address], [facility] [phone] from Last 3 Months or Most Recently Relevant to Health Maintenance Advance Directives Documents on File Type Date Recorded Patient Bun Icer Expl anation Adv Directive/Living Will/POA 10/30/2020 12:49 PM Adv Directive/Living Will/POA 03/13/2015 11:30 AM * Full Code (Latest Code Status on File) Date Activated Date Inactivated Comments 10/20/2020 3:50 AM 10/29/2020 5:11 PM * Full Code Date Activated Date Inactivated Comments 11/16/2017 5:18 PM 11/18/2017 5:10 PM * Full Code Date Activated Date Inactivated Comments 03/11/2015 4:18 PM 03/12/2015 3:10 PM Care Teams Entry Level Software Developer Relationship Specialty Start Date End Date Mu Monahan MD [address] [address] PCP - General Internal Medicine 10/15/13
--- OUTSIDE RECORDS SUMMARY | 2024-12-21 22:45 | XMS_ITS | Encounter Summary ---
Author Organization [facility] Address [address] [place] [address] Care Team Providers Care Branch Office Manager Name Role Phone Mu Monahan MD Primary Care Provider Encounter Details Date Type Department Care Team (Late st Contact Info) Description 04/14/[address] [facility] Outpatient Visit [facility] [address] [place], [place] [id number] Yamileth Hardwick, DIE FINISHER [address] [place] [address] Social History Tobacco Use Types Packs/Day Years [...] Under Investigation 10/19/2020 10/19/2020 10/21/2020 12:34 PM SHUTTLELESS LOOM WEAVER COVID-19 Under Investigation 10/22/2020 10/22/2020 10/23/2020 10:49 AM SHUTTLELESS LOOM WEAVER documented as of this encounter Care Teams Branch Office Manager Relationship Specialty Start Date End Date Mu Monahan MD [address] [address] PCP - General Internal Medicine 10/15/13 documented as of this encounter
[2024-12-21] MEDS: ONDANSETRON INJ 4 MG/2 ML VIAL IV PUSH (22:58)
[2024-12-21] MEDS: MORPHINE SULFATE (*CRX) 4 MG/ML INJ 2 MG IV PUSH (22:58)
[2024-12-21 23:04] VITALS: BP 126/57; PULSE 67; RESP 16; O2SAT 94
[2024-12-22] VITALS (13 sets, daily range): BP systolic 107–127; BP diastolic 51–70; PULSE 67–95; RESP 14–20; TEMP 36.3–37; O2SAT 94–100; BMI 30.1
[2024-12-22 01:14] LABS: Basophils Absolute Auto 0.1 K/mm3 (0.0-0.1); Basophils Percent Auto 0.3 % (0.2-1.2); Eosinophils Absolute Auto 10.9 K/mm3 (0-0.3); Eosinophils Percent Auto 46.4 % (0-4.4); Hematocrit 37.3 % (37.0-47.0); Hemoglobin 11.2 g/dL (12.0-15.0); Immature Granulocyte Absolute 0.05 K/mm3 (0.00-0.031); Immature Granulocyte Percent A 0.2 % (0-0.5); Lymphocytes Absolute Auto 1.57 K/mm3 (0.9-3.2); Lymphocytes Percent Auto 6.7 % (18.3-44.2); Mean Corpuscular Hemoglobin 25.7 pg (26-34); Mean Corpuscular Volume 85.7 fl (80-100); Mean Platelet Volume 11.5 fl (7.4-10.4); Monocytes Absolute Auto 1.8 K/mm3 (0.1-0.6); Monocytes Percent Auto 7.5 % (2.6-8.5); Neutrophils Absolute Auto 9.1 K/mm3 (1.3-6.7); Neutrophils Percent Auto 38.9 % (45.5-73.1); Platelet Count Result 242 k/mm3 (150-375); Red Blood Count 4.35 M/mm3 (4.2-5.4); Red Cell Distribution Width 15.9 % (11.5-14.5); White Blood Count 23.4 K/mm3 (4.5-10.0)
[2024-12-22 01:23] LABS: Lactic Acid Reflex 2.6 mmol/L (0.7-2.0)
[2024-12-22 02:16] LABS: Alanine Aminotransferase 14 U/L (6-35); Albumin Level 4.2 g/dL (3.5-5.1); Alkaline Phosphatase 92 U/L (38-126); Anion Gap 17 mmol/L (4-12); Aspartate Amino Transferase 20 U/L (14-36); Bilirubin,Total 0.5 mg/dL (0.2-1.3); Blood Urea Nitrogen 26 mg/dL (7-17); Calcium 9.3 mg/dL (8.4-10.2); Carbon Dioxide 18 mmol/L (22-30); Chloride 103 mmol/L (98-107); Estimated CRCL calculation 28 ml/min; Estimated Glomerular Filt Rate 41; Glucose 165 mg/dL (65-110); Magnesium 1.9 mg/dL (1.6-2.3); Potassium 4.3 mmol/L (3.4-5.0); Sodium 138 mmol/L (137-145)
[2024-12-22 02:27] LABS: Troponin I < 0.012 ng/mL (0.000-0.034)
[2024-12-22 03:22] LABS: Add Urine Microscopic? YES; Appearance Urine Cloudy (Clear); Bacteria Urine 4+ /hpf; Bilirubin Urine Negative (Negative); Blood Urine Negative (Negative); Color Urine Yellow (Yellow); Glucose Urine UA Negative (Negative); Ketones Urine Negative (Negative); Leukocyte Esterase Ur 1+ LEU/UL (Negative); Need Manual Microscopic Reviewed; Nitrate Urine Negative (Negative); Non Pathogenic Casts 0-2; Protein Urine 1+ mg/dL (Negative); RBC Urine 0-2 /hpf (0-2); Specific Grav Ur 1.021 (1.001-1.035); Squamous Epithelial Cell Urine None Seen /hpf (Few); Urobilinogen Urine 0.2 mg/dL (<2.0); WBC Urine 21-50 /hpf (0-3)
[2024-12-22 04:10] LABS: Reflex Lactic Acid Yes or No Add Lactic
[2024-12-22] MEDS: HYDROcodone/acetaminophen (*CRX) 5-325 MG TABLET 1 TAB PO (04:24)
--- NOTE | 2024-12-22 04:40 | PM.IMHP ---
H&P: HPI History of Present Illness Date/Time: 12/22/24 04:40 Chief Complaint: Left arm pain after fall. Narrative: This is a very pleasant 84-year-old female with history of dementia, stroke, hypertension, hyperlipidemia, gastroesophageal reflux disease, Moreira esophagus, depression, and anxiety who presented to the emergency department via EMS from a local restaurant for evaluation of left arm pain after a ground level fall. She tells me that she got tripped up in her feet and she lost her balance, falling over onto the ground on her left side. She had immediate pain in her left shoulder and she was brought in for evaluation. There was no head trauma or loss of consciousness in the fall and she denies sustaining any other injuries. She reports that she is otherwise feeling okay and denies vertigo, focal weakness, paresthesias, fever, cold and flu symptoms, chest pain, shortness of breath, cough, nausea, vomiting, diarrhea, and dysuria. In the ED: She was afebrile on arrival with stable vital signs.? Labs were significant for WBC count of 23.4, hemoglobin 11.2, platelet 242, lactic acid 2.6. Head, cervical, thoracic, and lumbar spine CTs did not show any acute findings. Radiographs showed a comminuted impacted left humeral neck fracture and findings consistent with a prior fracture deformity of the right humeral head. She is being admitted in this setting for pain control, orthopedic consultation, and PT/OT evaluation. Review of Systems Review of Systems: 12 systems were reviewed and are negative except for as per HPI. [facility] [place] Past Medical History Medical History Depression with anxiety Gastroesophageal reflux disease Hyperlipidemia Hypertension Cerebrovascular accident Dementia Moreira's esophagus Surgical History Surgical History History of spinal surgery History of left knee surgery History of stress incontinence procedure using tension free vaginal tape History of appendectomy History of cholecystectomy Social History Social History (Updated 12/22/24 @ 20:51 by Glendy Lockwood PA-C) Social History: Surrogate medical decision maker: Matthew Black, daughter. Code status: Full code. Alcohol intake: never Substance use: never Substance use type: does not use Do You Feel Safe in your Home?: Yes Lack of Transportation: No Lack of Food: Never True Current Housing: I Have Housing Concerned About Future Housing: No Difficulty Paying Gas/Electric Bills: No Difficulty Paying for Meds: No Currently Unemployed: No Education: High School Diploma/GED Difficulty w/ Childcare or Family Care: No Living arrangements: with family Additional living arrangements comments: Lives with daughter in [place]. Spiritual care concerns: No Meds Home Medications and Allergies Home Medications ?Medication ?Instructions ?Recorded ?Confirmed ?Type aripiprazole 5 mg tablet 5 mg PO DAILY 08/13/23 12/22/24 History aspirin 325 mg tablet 325 mg PO QPM 08/13/23 12/22/24 History atorvastatin 80 mg tablet 80 mg PO DAILY 08/13/23 12/22/24 History hydrochlorothiazide 25 mg tablet 25 mg PO QPM 08/13/23 12/22/24 History omeprazole 40 mg capsule,delayed 40 mg PO DAILY 08/13/23 12/22/24 History release sertraline 100 mg tablet 100 mg PO 4XW 08/13/23 12/22/24 History telmisartan 80 mg tablet 80 mg PO QPM 08/13/23 12/22/24 History calcium 600 mg capsule 600 mg PO BID 08/16/23 12/22/24 History coQ10 (ubiquinol) 100 mg capsule 100 mg PO QPM 08/16/23 12/22/24 History cyanocobalamin (vitamin B-12) 1,000 mcg PO .qod 08/16/23 12/22/24 History 1,000 mcg capsule Allergies Allergy/AdvReac Type Severity Reaction Status Date / Time meperidine (From Demerol) Allergy Intermediate Vomiting Verified 08/22/23 13:00 Vital Signs Vital Signs - 24 hr 12/21/24 19:01 12/21/24 21:35 12/21/24 21:35 Temperature 97.3 F L Pulse Rate 68 Respiratory Rate 20 22 H Blood Pressure 107/63 Pulse Oximetry 98 87 L 92 Oxygen Delivery Room Air Nasal Cannula Oxygen Flow Rate 5 12/21/24 22:07 12/21/24 23:04 12/22/24 00:29 Temperature Pulse Rate 71 67 67 Respiratory Rate 18 16 18 Blood Pressure 114/76 126/57 L 107/70 Pulse Oximetry 94 94 100 Oxygen Delivery Oxygen Flow Rate 12/22/24 01:01 12/22/24 01:02 12/22/24 01:45 Temperature Pulse Rate 72 Respiratory Rate 14 Blood Pressure 127/67 Pulse Oximetry 100 97 99 Oxygen Delivery Nasal Cannula Nasal Cannula Oxygen Flow Rate 2 2 12/22/24 02:37 12/22/24 04:08 Temperature Pulse Rate 76 70 Respiratory Rate 14 16 Blood Pressure 115/61 110/63 Pulse Oximetry 98 95 Oxygen Delivery Oxygen Flow Rate Exam Narrative: General: Nontoxic-appearing elderly female supine in bed. She looks a bit younger than her stated age. Weight: 77.2 kg. BMI: 30.1. HEENT: Normocephalic, atraumatic. PERRL, EOMI. Sclera anicteric. Oral mucosa moist. Neck: Supple. Respiratory: Lungs are clear to auscultation bilaterally. Cardiovascular: Regular rate and rhythm with S1-S2. Gastrointestinal: Abdomen is soft, nontender, and nondistended with positive bowel sounds. Skin: Warm and dry. No rash or lesions on limited exam. Extremities: No cyanosis, clubbing, or edema. Radial and pedal pulses intact. Musculoskeletal: Left arm is immobilized. She complains of significant pain on minimal palpation of the left anterolateral shoulder. Neurological: Alert. Cranial nerves 2-12 are grossly intact. No gross focal deficits to casual conversation. Psychiatric: Pleasant and cooperative with normal mood and affect. Seems a bit forgetful. H&P: Results Labs Labs: Short CBC 12/22/24 Range/Units 01:07 WBC 23.4 H (4.5-10.0) K/mm3 Hgb 11.2 L (12.0-15.0) g/dL Hct 37.3 (37.0-47.0) % Plt Count 242 (150-375) k/mm3 [facility] 12/22/24 01:56 Sodium 138 Potassium 4.3 Chloride 103 Carbon Dioxide 18 L BUN 26 H Creatinine 1.25 H Glucose 165 H Calcium 9.3 Cardiac Enzymes 12/22/24 Range/Units 01:56 Troponin I < 0.012 (0.000-0.034) ng/mL Liver Function 12/22/24 Range/Units 01:56 Total Bilirubin 0.5 (0.2-1.3) mg/dL AST 20 (14-36) U/L ALT 14 (6-35) U/L Alkaline Phosphatase 92 (38-126) U/L Albumin 4.2 (3.5-5.1) g/dL Urine 12/22/24 Range/Units 02:37 Urine Color Yellow (Yellow) Urine Appearance Cloudy H (Clear) Urine pH 5.0 (5.0-9.0) Ur Specific [place] 1.021 (1.001-1.035) Urine Protein 1+ H (Negative) mg/dL Urine Glucose (UA) Negative (Negative) mg/dL Impressions Head CT 12/21/24 20:25 Impression: No acute intracranial hemorrhage or suspicious mass effect. Inflammatory sinus disease. 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 Thoracic/Lumbar Spine CT 12/21/24 20:42 Impression:Significant degenerative disease, without acute fracture. Humerus X-Ray 12/21/24 21:06 IMPRESSION: Comminuted impacted left humeral neck fracture. Clavicle X-Ray 12/21/24 21:07 IMPRESSION: As above Humerus X-Ray 12/21/24 21:08 IMPRESSION: Findings consistent with prior fracture deformity, as detailed above Chest X-Ray 12/21/24 21:10 IMPRESSION: No focal infiltrate or effusion. Chest X-Ray 12/21/24 22:40 IMPRESSION: Possible small left-sided pleural effusion, as detailed above. 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 Labs, imaging, EKG, and all reports were personally reviewed. Radiographs showed a comminuted, impacted left humeral neck fracture and findings consistent with a prior fracture deformity of the right humeral head. Arm has been immobilized and analgesics are available as needed. Orthopedic surgeon on-call has been consulted for further recommendations. She will likely need penitentiary placement on discharge as I am not certain she will fare well at home. Urinalysis is concerning for urinary tract infection and she has been started on ceftriaxone, pending urine culture. Blood pressures were reviewed and they are stable. Her home medications will be reviewed and resumed as appropriate. Findings and treatment plan were discussed with the patient. Questions were solicited and answered to satisfaction. The patient's medical management will be taken over by the hospitalist team in a.m. Quality VTE Prophylaxis VTE prophylaxis: pharmacologic ordered Hospitalist [facility] Advance Care Plan I have confirmed that the patient's Advanced Care Plan is present, code status is documented, or surrogate decision maker is listed in patient medical record.: Yes Medication Reconciliation I have utilized all available resources to obtain, update and review the patients current medications (includes all prescriptions, OTC, herbals, cannabis, and nutritional supplements).: Yes
--- NOTE | 2024-12-22 05:37 | ADMGEN ---
This patient, Dora Loving, was admitted to [facility] Surg Room 317-02. Patient/family oriented to hospital policies and general routines including ID bracelet, bed and alarms, visiting hours, pain management, procedures, bathroom and other care routines, personal items, smoking policy, room service/diet, and visiting hours. Information on how to activate the Rapid Response Team has been discussed. Patient/Family are encouraged to report perceived risks to care and to ask questions if they do not understand what they are told or what they should do.
[2024-12-22 06:26] LABS: Lactic Acid 3.2 mmol/L (0.7-2.0)
[2024-12-22] MEDS: SODIUM CHLORIDE 0.9% IV 1,000 ML 100 ML IV CONT (08:12)
[2024-12-22] MEDS: ONDANSETRON INJ 4 MG/2 ML VIAL IV PUSH (11:24)
--- NOTE | 2024-12-22 14:47 | P.PNIM_ITS ---
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 Depression Continue medications. DVT prophylaxis subQ Lovenox Subjective Date/time seen: 12/22/24 14:47 Interval history: comfortable at bedside with bilateral slings holding both upper extremities awaiting ortho eval Exam Narrative: General: Nontoxic-appearing elderly female supine in bed. She looks a bit younger than her stated age. Weight: 77.2 kg. BMI: 30.1. HEENT: Normocephalic, atraumatic. PERRL, EOMI. Sclera anicteric. Oral mucosa moist. Neck: Supple. Respiratory: Lungs are clear to auscultation bilaterally. Cardiovascular: Regular rate and rhythm with S1-S2. Gastrointestinal: Abdomen is soft, nontender, and nondistended with positive bowel sounds. Skin: Warm and dry. No rash or lesions on limited exam. Extremities: No cyanosis, clubbing, or edema. Radial and pedal pulses intact. Musculoskeletal: bilateral slings on both upper extremities Neurological: Alert. Cranial nerves 2-12 are grossly intact. No gross focal deficits to casual conversation. Psychiatric: Pleasant and cooperative with normal mood and affect. Seems a bit forgetful. Objective Data Vital Signs Vital Signs: Vital Signs - 24 hr 12/21/24 19:01 12/21/24 21:35 12/21/24 21:35 Temperature 97.3 F L Pulse Rate 68 Respiratory Rate 20 22 H Blood Pressure 107/63 Pulse Oximetry 98 87 L 92 Oxygen Delivery Room Air Nasal Cannula Oxygen Flow Rate 5 12/21/24 22:07 12/21/24 23:04 12/22/24 00:29 Temperature Pulse Rate 71 67 67 Respiratory Rate 18 16 18 Blood Pressure 114/76 126/57 L 107/70 Pulse Oximetry 94 94 100 Oxygen Delivery Oxygen Flow Rate 12/22/24 01:01 12/22/24 01:02 12/22/24 01:45 Temperature Pulse Rate 72 Respiratory Rate 14 Blood Pressure 127/67 Pulse Oximetry 100 97 99 Oxygen Delivery Nasal Cannula Nasal Cannula Oxygen Flow Rate 2 2 12/22/24 02:37 12/22/24 04:08 12/22/24 04:51 Temperature Pulse Rate 76 70 74 Respiratory Rate 14 16 16 Blood Pressure 115/61 110/63 108/68 Pulse Oximetry 98 95 98 Oxygen Delivery Oxygen Flow Rate 12/22/24 05:04 12/22/24 05:57 12/22/24 08:00 Temperature 97.3 F L Pulse Rate 73 78 78 Respiratory Rate 16 16 16 Blood Pressure 107/62 119/67 Pulse Oximetry 97 97 97 Oxygen Delivery Nasal Cannula Oxygen Flow Rate 2 Intake/Output Intake/Output: Intake & Output 12/19/24 12/20/24 12/21/24 12/22/24 23:59 23:59 23:59 23:59 Intake Total 130 Balance 130 Meds/Results Medications: Active Medications Generic Name Dose Route Start Last Admin Trade Name Freq PRN Reason Stop Dose Admin Acetaminophen 650 mg 12/22/24 03:38 Acetaminophen 325 Mg Tablet PO Q4H PRN Mild Pain (1-3) or Fever Hydrocodone Bitart/Acetaminophen 1 tab 12/22/24 04:39 Hydrocodone/Acetaminophen (*Crx) 7.5-325 Mg Tablet PO Q6H PRN Pain Rated 7-10 Ceftriaxone Sodium 1 gm in 50 mls @ 100 mls/hr 12/22/24 04:00 12/22/24 04:50 Rocephin 1 Gm/Ns 50 Ml IVPB Not Given Q24H LUZ Sodium Chloride 1,000 mls @ 100 mls/hr 12/22/24 06:06 12/22/24 08:12 Normal Saline Iv IV CONT 12/22/24 16:05 100 mls/hr .Q10H ONE Administration Ondansetron HCl 4 mg 12/22/24 03:38 12/22/24 11:24 Ondansetron Inj 4 Mg/2 Ml Vial IV PUSH 4 mg Q4H PRN Administration Nausea Tramadol HCl 25 mg 12/22/24 04:39 Tramadol Hcl (*Crx) 25 Mg Tablet PO Q6H PRN Pain Rated 4-6 Radiology Results: ITS Impressions Head CT 12/21/24 20:25 Impression: No acute intracranial hemorrhage or suspicious mass effect. Inflammatory sinus disease. 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 Thoracic/Lumbar Spine CT 12/21/24 20:42 Impression:Significant degenerative disease, without acute fracture. Clavicle X-Ray 12/21/24 21:07 IMPRESSION: As above Humerus X-Ray 12/21/24 21:08 IMPRESSION: Findings consistent with prior fracture deformity, as detailed above Chest X-Ray 12/21/24 22:40 IMPRESSION: Possible small left-sided pleural effusion, as detailed above. Labs Labs: Laboratory Results - last 24 hr 12/22/24 12/22/24 12/22/24 01:07 01:56 02:37 WBC 23.4 H RBC 4.35 Hgb 11.2 L Hct 37.3 MCV 85.7 MCH 25.7 L MCHC 30.0 L RDW 15.9 H Plt Count 242 MPV 11.5 H Immature Gran % (Auto) 0.2 Neut % (Auto) 38.9 L Lymph % (Auto) 6.7 L [place] % (Auto) 7.5 Eos % (Auto) 46.4 H Baso % (Auto) 0.3 Lymph # (Auto) 1.57 [place] # (Auto) 1.8 H Eos # (Auto) 10.9 H Baso # (Auto) 0.1 Abs Immat Gran (auto) 0.05 H Absolute Neuts (auto) 9.1 H Absolute Nucleated RBC 0.000 Nucleated RBC % 0.0 Sodium 138 Potassium 4.3 Chloride 103 Carbon Dioxide 18 L Anion Gap 17 H BUN 26 H Creatinine 1.25 H Estim Creat Clear Calc 28 Estimated GFR 41 L Glucose 165 H Lactic Acid 2.6 H Calcium 9.3 Magnesium 1.9 Total Bilirubin 0.5 AST 20 ALT 14 Alkaline Phosphatase 92 Troponin I < 0.012 Total Protein 7.0 Albumin 4.2 Urine Color Yellow Urine Appearance Cloudy H Urine pH 5.0 Ur Specific [place] 1.021 Urine Protein 1+ H Urine Glucose (UA) Negative Urine Ketones Negative Ur Blood (Man) Negative Urine Nitrate Negative Urine Bilirubin Negative Urine Urobilinogen 0.2 Add Ur Microanalysis Reviewed Leukocyte Esterase Rfl 1+ H Urine RBC 0-2 Urine WBC 21-50 H Ur Squamous Epith Cells None seen Urine Bacteria 4+ H Urine Casts 0-2 12/22/24 05:59 WBC RBC Hgb Hct MCV MCH MCHC RDW Plt Count MPV Immature Gran % (Auto) Neut % (Auto) Lymph % (Auto) [place] % (Auto) Eos % (Auto) Baso % (Auto) Lymph # (Auto) [place] # (Auto) Eos # (Auto) Baso # (Auto) Abs Immat Gran (auto) Absolute Neuts (auto) Absolute Nucleated RBC Nucleated RBC % Sodium Potassium Chloride Carbon Dioxide Anion Gap BUN Creatinine Estim Creat Clear Calc Estimated GFR Glucose Lactic Acid 3.2 H Calcium Magnesium Total Bilirubin AST ALT Alkaline Phosphatase Troponin I Total Protein Albumin Urine Color Urine Appearance Urine pH Ur Specific [place] Urine Protein Urine Glucose (UA) Urine Ketones Ur Blood (Man) Urine Nitrate Urine Bilirubin Urine Urobilinogen Add Ur Microanalysis Leukocyte Esterase Rfl Urine RBC Urine WBC Ur Squamous Epith Cells Urine Bacteria Urine Casts
[2024-12-22] MEDS: SODIUM CHLORIDE 0.9% IV 500 ML 999 ML IV CONT (16:14)
[2024-12-22 17:45] LABS: Lactic Acid Reflex 1.8 mmol/L (0.7-2.0)
[2024-12-22] MEDS: SODIUM CHLORIDE 0.9% IV 1,000 ML 75 ML IV CONT (18:05)
[2024-12-22] MEDS: AZITHROMYCIN 500 MG/NS 250 ML 500 MG/250 ML BAG 250 MG IVPB (18:06)
[2024-12-22] MEDS: traMADol HCL (*CRX) 25 MG TABLET PO (18:11)
[2024-12-23] MEDS: SODIUM CHLORIDE 0.9% IV 1,000 ML 75 ML IV CONT ×2 (00:25→15:07)
[2024-12-23 05:49] VITALS: BP 128/59; PULSE 84; RESP 18; TEMP 36.6; O2SAT 93
[2024-12-23 07:25] LABS: Basophils Percent Auto 0.3 % (0.2-1.2); Eosinophils Percent Auto 0.2 % (0-4.4); Hematocrit 27.1 % (37.0-47.0); Hemoglobin 8.2 g/dL (12.0-15.0); Immature Granulocyte Absolute 0.05 K/mm3 (0.00-0.031); Immature Granulocyte Percent A 0.5 % (0-0.5); Lymphocytes Absolute Auto 1.25 K/mm3 (0.9-3.2); Lymphocytes Percent Auto 11.8 % (18.3-44.2); Mean Corpuscular HGB Conc 30.3 g/dl (32-36); Mean Corpuscular Hemoglobin 25.8 pg (26-34); Mean Corpuscular Volume 85.2 fl (80-100); Mean Platelet Volume 10.7 fl (7.4-10.4); Monocytes Absolute Auto 1.1 K/mm3 (0.1-0.6); Monocytes Percent Auto 10.3 % (2.6-8.5); Neutrophils Absolute Auto 8.2 K/mm3 (1.3-6.7); Neutrophils Percent Auto 76.9 % (45.5-73.1); Platelet Count Result 166 k/mm3 (150-375); Red Blood Count 3.18 M/mm3 (4.2-5.4); Red Cell Distribution Width 16.2 % (11.5-14.5); White Blood Count 10.6 K/mm3 (4.5-10.0)
[2024-12-23 07:37] LABS: Lactic Acid Reflex 0.7 mmol/L (0.7-2.0)
[2024-12-23 07:40] LABS: Alanine Aminotransferase 9 U/L (6-35); Albumin Level 3.3 g/dL (3.5-5.1); Alkaline Phosphatase 62 U/L (38-126); Anion Gap 8 mmol/L (4-12); Aspartate Amino Transferase 17 U/L (14-36); Bilirubin,Total 0.5 mg/dL (0.2-1.3); Blood Urea Nitrogen 21 mg/dL (7-17); Calcium 8.5 mg/dL (8.4-10.2); Carbon Dioxide 20 mmol/L (22-30); Chloride 109 mmol/L (98-107); Estimated CRCL calculation 35 ml/min; Estimated Glomerular Filt Rate 53; Glucose 113 mg/dL (65-110); Magnesium 2.1 mg/dL (1.6-2.3); Potassium 4.2 mmol/L (3.4-5.0); Sodium 137 mmol/L (137-145)
[2024-12-23 08:00] VITALS: PULSE 84; RESP 18; O2SAT 91
[2024-12-23] MEDS: ENOXAPARIN 40 MG/0.4 ML SYRINGE SUB-Q (08:53)
[2024-12-23] MEDS: traMADol HCL (*CRX) 25 MG TABLET PO ×2 (08:55→17:29)
[2024-12-23 09:17] VITALS: O2SAT 89
[2024-12-23 09:18] VITALS: O2SAT 90
--- NOTE | 2024-12-23 09:25 | PM.IMPN ---
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 Depression Continue medications. DVT prophylaxis subQ Lovenox PT/OT Subjective Date/time seen: 12/23/24 09:25 Interval history: comfortable at bedside with bilateral slings holding both upper extremities awaiting ortho eval, Ortho reconsulted Review of Systems Review of Systems: 12 systems were reviewed and are negative except for as per HPI. Exam Narrative: General: Nontoxic-appearing elderly female supine in bed. She looks a bit younger than her stated age. Weight: 77.2 kg. BMI: 30.1. HEENT: Normocephalic, atraumatic. PERRL, EOMI. Sclera anicteric. Oral mucosa moist. Neck: Supple. Respiratory: Lungs are clear to auscultation bilaterally. Cardiovascular: Regular rate and rhythm with S1-S2. Gastrointestinal: Abdomen is soft, nontender, and nondistended with positive bowel sounds. Skin: Warm and dry. No rash or lesions on limited exam. Extremities: No cyanosis, clubbing, or edema. Radial and pedal pulses intact. Musculoskeletal: bilateral slings on both upper extremities Neurological: Alert. Cranial nerves 2-12 are grossly intact. No gross focal deficits to casual conversation. Psychiatric: Pleasant and cooperative with normal mood and affect. Seems a bit forgetful. Objective Data Vital Signs Vital Signs: Vital Signs - 24 hr 12/22/24 14:00 12/22/24 20:00 12/22/24 21:43 Temperature 98.6 F 97.9 F Pulse Rate 95 91 Respiratory Rate 18 20 Blood Pressure 118/59 L 117/51 L Pulse Oximetry 95 95 94 Oxygen Delivery Nasal Cannula Oxygen Flow Rate 2 Fraction of Inspired Oxygen 12/23/24 05:49 12/23/24 09:17 12/23/24 09:18 Temperature 97.8 F Pulse Rate 84 Respiratory Rate 18 Blood Pressure 128/59 L Pulse Oximetry 93 89 L 90 Oxygen Delivery Nasal Cannula Nasal Cannula Oxygen Flow Rate 2 3 Fraction of Inspired Oxygen 28 32 Intake/Output Intake/Output: Intake & Output 12/20/24 12/21/24 12/22/24 12/23/24 23:59 23:59 23:59 23:59 Intake Total 740 1540 Output Total 450 Balance 740 1090 Meds/Results Medications: Active Medications Generic Name Dose Route Start Last Admin Trade Name Freq PRN Reason Stop Dose Admin Acetaminophen 650 mg 12/22/24 03:38 Acetaminophen 325 Mg Tablet PO Q4H PRN Mild Pain (1-3) or Fever Hydrocodone Bitart/Acetaminophen 1 tab 12/22/24 04:39 Hydrocodone/Acetaminophen (*Crx) 7.5-325 Mg Tablet PO Q6H PRN Pain Rated 7-10 Enoxaparin Sodium 40 mg 12/23/24 09:00 12/23/24 08:53 Enoxaparin 40 Mg/0.4 Ml Syringe SUB-Q 40 mg DAILY LUZ Administration Ceftriaxone Sodium 1 gm in 50 mls @ 100 mls/hr 12/22/24 04:00 12/23/24 04:09 Rocephin 1 Gm/Ns 50 Ml IVPB Infused Q24H LUZ Infusion Sodium Chloride 1,000 mls @ 75 mls/hr 12/22/24 14:55 12/23/24 00:25 Normal Saline Iv IV CONT 75 mls/hr .[id number] LUZ Administration Azithromycin 500 mg in 250 mls @ 250 mls/hr 12/22/24 16:00 12/22/24 19:06 Zithromax IVPB Infused Q24H LUZ Infusion Ondansetron HCl 4 mg 12/22/24 03:38 12/22/24 11:24 Ondansetron Inj 4 Mg/2 Ml Vial IV PUSH 4 mg Q4H PRN Administration Nausea Tramadol HCl 25 mg 12/22/24 04:39 12/23/24 08:55 Tramadol Hcl (*Crx) 25 Mg Tablet PO 25 mg Q6H PRN Administration Pain Rated 4-6 Radiology Results: ITS Impressions Head CT 12/21/24 20:25 Impression: No acute intracranial hemorrhage or suspicious mass effect. Inflammatory sinus disease. 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 Thoracic/Lumbar Spine CT 12/21/24 20:42 Impression:Significant degenerative disease, without acute fracture. Clavicle X-Ray 12/21/24 21:07 IMPRESSION: As above Humerus X-Ray 12/21/24 21:08 IMPRESSION: Findings consistent with prior fracture deformity, as detailed above Chest X-Ray 12/21/24 22:40 IMPRESSION: Possible small left-sided pleural effusion, as detailed above. Chest CT 12/22/24 15:37 IMPRESSION: Dependent atelectasis with trace pleural thickening bilaterally. No consolidation. No cross-sectional imaging evidence to suggest pneumonia. Leukocytosis may be a result of urinary tract infection plus acute traumatic injury. Labs Labs: Laboratory Results - last 24 hr 12/22/24 12/23/24 16:33 07:03 WBC 10.6 H RBC 3.18 L Hgb 8.2 L D Hct 27.1 L MCV 85.2 MCH 25.8 L MCHC 30.3 L RDW 16.2 H Plt Count 166 MPV 10.7 H Immature Gran % (Auto) 0.5 Neut % (Auto) 76.9 H Lymph % (Auto) 11.8 L [place] % (Auto) 10.3 H Eos % (Auto) 0.2 Baso % (Auto) 0.3 Lymph # (Auto) 1.25 [place] # (Auto) 1.1 H Eos # (Auto) 0.0 Baso # (Auto) 0.0 Abs Immat Gran (auto) 0.05 H Absolute Neuts (auto) 8.2 H Absolute Nucleated RBC 0.000 Nucleated RBC % 0.0 Sodium 137 Potassium 4.2 Chloride 109 H Carbon Dioxide 20 L Anion Gap 8 BUN 21 H Creatinine 1.00 Estim Creat Clear Calc 35 Estimated GFR 53 L Glucose 113 H Lactic Acid 1.8 0.7 Calcium 8.5 Magnesium 2.1 Total Bilirubin 0.5 AST 17 ALT 9 Alkaline Phosphatase 62 Total Protein 6.0 L Albumin 3.3 L Quality VTE Prophylaxis VTE prophylaxis: pharmacologic ordered
[2024-12-23 14:00] VITALS: BP 152/55; PULSE 85; RESP 13; TEMP 36.8; O2SAT 95
--- NOTE | 2024-12-23 14:36 | PCPTNOTE ---
HOLD PT evaluation-- await ortho consult, pt has bilateral humeral fractures.
--- NOTE | 2024-12-23 15:11 | PC.NURSE ---
IV pump beeping, fluids empty, spoke with patient's nurse. Per nurse request, new bag of fluids was started. IV site WNL. Call light within reach. Window blind lowered per patient request.
[2024-12-23] MEDS: AZITHROMYCIN 500 MG/NS 250 ML 500 MG/250 ML BAG 250 MG IVPB (17:29)
[2024-12-23] MEDS: guaiFENesin 12 HR 600 MG TABCR PO (20:49)
[2024-12-23] MEDS: ACETAMINOPHEN 325 MG TABLET 650 MG PO (20:49)
[2024-12-23 22:00] VITALS: BP 154/59; PULSE 86; RESP 18; TEMP 37.6; O2SAT 97
[2024-12-24] MEDS: SODIUM CHLORIDE 0.9% IV 1,000 ML 75 ML IV CONT ×2 (05:05→21:09)
[2024-12-24 06:00] VITALS: BP 150/66; PULSE 78; RESP 18; TEMP 36.4; O2SAT 98
[2024-12-24] MEDS: HYDROcodone/acetaminophen (*CRX) 7.5-325 MG TABLET 1 TAB PO ×2 (06:38→17:02)
[2024-12-24 07:46] LABS: Basophils Percent Auto 0.3 % (0.2-1.2); Eosinophils Absolute Auto 0.1 K/mm3 (0-0.3); Eosinophils Percent Auto 0.5 % (0-4.4); Hematocrit 24.6 % (37.0-47.0); Hemoglobin 7.5 g/dL (12.0-15.0); Immature Granulocyte Absolute 0.04 K/mm3 (0.00-0.031); Immature Granulocyte Percent A 0.4 % (0-0.5); Lymphocytes Absolute Auto 1.21 K/mm3 (0.9-3.2); Lymphocytes Percent Auto 12.4 % (18.3-44.2); Mean Corpuscular HGB Conc 30.5 g/dl (32-36); Mean Corpuscular Hemoglobin 25.8 pg (26-34); Mean Corpuscular Volume 84.5 fl (80-100); Mean Platelet Volume 10.1 fl (7.4-10.4); Monocytes Absolute Auto 1.1 K/mm3 (0.1-0.6); Monocytes Percent Auto 11.4 % (2.6-8.5); Neutrophils Absolute Auto 7.3 K/mm3 (1.3-6.7); Platelet Count Result 158 k/mm3 (150-375); Red Blood Count 2.91 M/mm3 (4.2-5.4); Red Cell Distribution Width 16.2 % (11.5-14.5); White Blood Count 9.8 K/mm3 (4.5-10.0)
[2024-12-24 08:00] VITALS: O2SAT 97
[2024-12-24 08:31] LABS: Alanine Aminotransferase 11 U/L (6-35); Alkaline Phosphatase 60 U/L (38-126); Anion Gap 6 mmol/L (4-12); Aspartate Amino Transferase 18 U/L (14-36); Bilirubin,Total 0.5 mg/dL (0.2-1.3); Blood Urea Nitrogen 15 mg/dL (7-17); Calcium 8.3 mg/dL (8.4-10.2); Carbon Dioxide 22 mmol/L (22-30); Chloride 108 mmol/L (98-107); Estimated CRCL calculation 39 ml/min; Estimated Glomerular Filt Rate 59; Glucose 108 mg/dL (65-110); Magnesium 2.1 mg/dL (1.6-2.3); Sodium 136 mmol/L (137-145)
[2024-12-24] MEDS: ENOXAPARIN 40 MG/0.4 ML SYRINGE SUB-Q (08:47)
[2024-12-24] MEDS: guaiFENesin 12 HR 600 MG TABCR PO ×2 (08:47→21:08)
--- NOTE | 2024-12-24 12:36 | PM.IMPN ---
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 Depression Continue medications. DVT prophylaxis subQ Lovenox PT/OT Subjective Date/time seen: 12/24/24 12:36 Interval history: comfortable at bedside with bilateral slings holding both upper extremities still awaiting ortho eval Review of Systems Review of Systems: 12 systems were reviewed and are negative except for as per HPI. Exam Narrative: General: Nontoxic-appearing elderly female supine in bed. She looks a bit younger than her stated age. Weight: 77.2 kg. BMI: 30.1. HEENT: Normocephalic, atraumatic. PERRL, EOMI. Sclera anicteric. Oral mucosa moist. Neck: Supple. Respiratory: Lungs are clear to auscultation bilaterally. Cardiovascular: Regular rate and rhythm with S1-S2. Gastrointestinal: Abdomen is soft, nontender, and nondistended with positive bowel sounds. Skin: Warm and dry. No rash or lesions on limited exam. Extremities: No cyanosis, clubbing, or edema. Radial and pedal pulses intact. Musculoskeletal: bilateral slings on both upper extremities Neurological: Alert. Cranial nerves 2-12 are grossly intact. No gross focal deficits to casual conversation. Psychiatric: Pleasant and cooperative with normal mood and affect. Seems a bit forgetful. Objective Data Vital Signs Vital Signs: Vital Signs - 24 hr 12/23/24 14:00 12/23/24 22:00 12/24/24 06:00 Temperature 98.3 F 99.6 F 97.6 F Pulse Rate 85 86 78 Respiratory Rate 13 18 18 Blood Pressure 152/55 H 154/59 H 150/66 H Pulse Oximetry 95 97 98 Oxygen Delivery Oxygen Flow Rate 12/24/24 08:00 Temperature Pulse Rate Respiratory Rate Blood Pressure Pulse Oximetry 97 Oxygen Delivery Nasal Cannula Oxygen Flow Rate 1 Intake/Output Intake/Output: Intake & Output 12/21/24 12/22/24 12/23/24 12/24/24 23:59 23:59 23:59 23:59 Intake Total 740 3025 1118 Output Total 1450 400 Balance 740 1575 718 Meds/Results Medications: Active Medications Generic Name Dose Route Start Last Admin Trade Name Freq PRN Reason Stop Dose Admin Acetaminophen 650 mg 12/22/24 03:38 12/23/24 20:49 Acetaminophen 325 Mg Tablet PO 650 mg Q4H PRN Administration Mild Pain (1-3) or Fever Hydrocodone Bitart/Acetaminophen 1 tab 12/22/24 04:39 12/24/24 06:38 Hydrocodone/Acetaminophen (*Crx) 7.5-325 Mg Tablet PO 1 tab Q6H PRN Administration Pain Rated 7-10 Enoxaparin Sodium 40 mg 12/23/24 09:00 12/24/24 08:47 Enoxaparin 40 Mg/0.4 Ml Syringe SUB-Q 40 mg DAILY LUZ Administration Guaifenesin 600 mg 12/23/24 21:00 12/24/24 08:47 Guaifenesin 12 Hr 600 Mg Tabcr PO 600 mg Q12HR LUZ Administration Guaifenesin/Dextromethorphan 10 ml 12/23/24 18:49 Guaifenesin/Dextromethorphan 10 Ml Udc PO Q4H PRN Cough Ceftriaxone Sodium 1 gm in 50 mls @ 100 mls/hr 12/22/24 04:00 12/24/24 04:37 Rocephin 1 Gm/Ns 50 Ml IVPB 100 mls/hr Q24H LUZ Administration Sodium Chloride 1,000 mls @ 75 mls/hr 12/22/24 14:55 12/24/24 05:05 Normal Saline Iv IV CONT 75 mls/hr .[id number] LUZ Administration Azithromycin 500 mg in 250 mls @ 250 mls/hr 12/22/24 16:00 12/23/24 17:29 Zithromax IVPB 250 mls/hr Q24H LUZ Administration Ondansetron HCl 4 mg 12/22/24 03:38 12/22/24 11:24 Ondansetron Inj 4 Mg/2 Ml Vial IV PUSH 4 mg Q4H PRN Administration Nausea Tramadol HCl 25 mg 12/22/24 04:39 12/23/24 17:29 Tramadol Hcl (*Crx) 25 Mg Tablet PO 25 mg Q6H PRN Administration Pain Rated 4-6 Radiology Results: ITS Impressions Head CT 12/21/24 20:25 Impression: No acute intracranial hemorrhage or suspicious mass effect. Inflammatory sinus disease. 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 Thoracic/Lumbar Spine CT 12/21/24 20:42 Impression:Significant degenerative disease, without acute fracture. Clavicle X-Ray 12/21/24 21:07 IMPRESSION: As above Humerus X-Ray 12/21/24 21:08 IMPRESSION: Findings consistent with prior fracture deformity, as detailed above Chest X-Ray 12/21/24 22:40 IMPRESSION: Possible small left-sided pleural effusion, as detailed above. Chest CT 12/22/24 15:37 IMPRESSION: Dependent atelectasis with trace pleural thickening bilaterally. No consolidation. No cross-sectional imaging evidence to suggest pneumonia. Leukocytosis may be a result of urinary tract infection plus acute traumatic injury. Labs Labs: Laboratory Results - last 24 hr 12/24/24 07:38 WBC 9.8 RBC 2.91 L Hgb 7.5 L Hct 24.6 L MCV 84.5 MCH 25.8 L MCHC 30.5 L RDW 16.2 H Plt Count 158 MPV 10.1 Immature Gran % (Auto) 0.4 Neut % (Auto) 75.0 H Lymph % (Auto) 12.4 L [place] % (Auto) 11.4 H Eos % (Auto) 0.5 Baso % (Auto) 0.3 Lymph # (Auto) 1.21 [place] # (Auto) 1.1 H Eos # (Auto) 0.1 Baso # (Auto) 0.0 Abs Immat Gran (auto) 0.04 H Absolute Neuts (auto) 7.3 H Absolute Nucleated RBC 0.000 Nucleated RBC % 0.0 Sodium 136 L Potassium 4.0 Chloride 108 H Carbon Dioxide 22 Anion Gap 6 BUN 15 D Creatinine 0.90 Estim Creat Clear Calc 39 Estimated GFR 59 Glucose 108 Calcium 8.3 L Magnesium 2.1 Total Bilirubin 0.5 AST 18 ALT 11 Alkaline Phosphatase 60 Total Protein 6.0 L Albumin 3.0 L Quality VTE Prophylaxis VTE prophylaxis: pharmacologic ordered
--- NOTE | 2024-12-24 12:42 | PM.IMPN ---
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 Status: Acute (7) Depression with anxiety: Code(s): F41.8 - Other specified anxiety disorders Status: Acute Plan Plan UTI Urine culture positive for Klebsiella pneumoniae and E coli co-sensitive to [place] Rocephin 3/5 Bilateral humeral fracture from imaging reviewed upper extremities currently in a sling continue PRN pain control Still awaiting ortho eval Microcytic anemia Hb 7.5, MCV 84.5 Iron panel and Ferritin pending monitor H and H GI consult for for GI bleed rule out left pleural effusion ruled out CT chest showed no pleural effusions or consolidation Fall PT/OT Moreira esophagus Continue Protonix and follow up with GI outpatient. Depression Continue medications. DVT prophylaxis subQ Lovenox PT/OT Subjective Date/time seen: 12/24/24 12:42 Interval history: comfortable at bedside with bilateral slings holding both upper extremities still awaiting ortho eval Review of Systems Review of Systems: 12 systems were reviewed and are negative except for as per HPI. Exam Narrative: General: Nontoxic-appearing elderly female supine in bed. She looks a bit younger than her stated age. Weight: 77.2 kg. BMI: 30.1. HEENT: Normocephalic, atraumatic. PERRL, EOMI. Sclera anicteric. Oral mucosa moist. Neck: Supple. Respiratory: Lungs are clear to auscultation bilaterally. Cardiovascular: Regular rate and rhythm with S1-S2. Gastrointestinal: Abdomen is soft, nontender, and nondistended with positive bowel sounds. Skin: Warm and dry. No rash or lesions on limited exam. Extremities: No cyanosis, clubbing, or edema. Radial and pedal pulses intact. Musculoskeletal: bilateral slings on both upper extremities Neurological: Alert. Cranial nerves 2-12 are grossly intact. No gross focal deficits to casual conversation. Psychiatric: Pleasant and cooperative with normal mood and affect. Seems a bit forgetful. Objective Data Vital Signs Vital Signs: Vital Signs - 24 hr 12/23/24 14:00 12/23/24 22:00 12/24/24 06:00 Temperature 98.3 F 99.6 F 97.6 F Pulse Rate 85 86 78 Respiratory Rate 13 18 18 Blood Pressure 152/55 H 154/59 H 150/66 H Pulse Oximetry 95 97 98 Oxygen Delivery Oxygen Flow Rate 12/24/24 08:00 Temperature Pulse Rate Respiratory Rate Blood Pressure Pulse Oximetry 97 Oxygen Delivery Nasal Cannula Oxygen Flow Rate 1 Intake/Output Intake/Output: Intake & Output 12/21/24 12/22/24 12/23/24 12/24/24 23:59 23:59 23:59 23:59 Intake Total 740 3025 1118 Output Total 1450 400 Balance 740 1575 718 Meds/Results Medications: Active Medications Generic Name Dose Route Start Last Admin Trade Name Freq PRN Reason Stop Dose Admin Acetaminophen 650 mg 12/22/24 03:38 12/23/24 20:49 Acetaminophen 325 Mg Tablet PO 650 mg Q4H PRN Administration Mild Pain (1-3) or Fever Hydrocodone Bitart/Acetaminophen 1 tab 12/22/24 04:39 12/24/24 06:38 Hydrocodone/Acetaminophen (*Crx) 7.5-325 Mg Tablet PO 1 tab Q6H PRN Administration Pain Rated 7-10 Enoxaparin Sodium 40 mg 12/23/24 09:00 12/24/24 08:47 Enoxaparin 40 Mg/0.4 Ml Syringe SUB-Q 40 mg DAILY LUZ Administration Guaifenesin 600 mg 12/23/24 21:00 12/24/24 08:47 Guaifenesin 12 Hr 600 Mg Tabcr PO 600 mg Q12HR LUZ Administration Guaifenesin/Dextromethorphan 10 ml 12/23/24 18:49 Guaifenesin/Dextromethorphan 10 Ml Udc PO Q4H PRN Cough Ceftriaxone Sodium 1 gm in 50 mls @ 100 mls/hr 12/22/24 04:00 12/24/24 04:37 Rocephin 1 Gm/Ns 50 Ml IVPB 100 mls/hr Q24H LUZ Administration Sodium Chloride 1,000 mls @ 75 mls/hr 12/22/24 14:55 12/24/24 05:05 Normal Saline Iv IV CONT 75 mls/hr .[id number] LUZ Administration Azithromycin 500 mg in 250 mls @ 250 mls/hr 12/22/24 16:00 12/23/24 17:29 Zithromax IVPB 250 mls/hr Q24H LUZ Administration Ondansetron HCl 4 mg 12/22/24 03:38 12/22/24 11:24 Ondansetron Inj 4 Mg/2 Ml Vial IV PUSH 4 mg Q4H PRN Administration Nausea Tramadol HCl 25 mg 12/22/24 04:39 12/23/24 17:29 Tramadol Hcl (*Crx) 25 Mg Tablet PO 25 mg Q6H PRN Administration Pain Rated 4-6 Radiology Results: ITS Impressions Head CT 12/21/24 20:25 Impression: No acute intracranial hemorrhage or suspicious mass effect. Inflammatory sinus disease. 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 Thoracic/Lumbar Spine CT 12/21/24 20:42 Impression:Significant degenerative disease, without acute fracture. Clavicle X-Ray 12/21/24 21:07 IMPRESSION: As above Humerus X-Ray 12/21/24 21:08 IMPRESSION: Findings consistent with prior fracture deformity, as detailed above Chest X-Ray 12/21/24 22:40 IMPRESSION: Possible small left-sided pleural effusion, as detailed above. Chest CT 12/22/24 15:37 IMPRESSION: Dependent atelectasis with trace pleural thickening bilaterally. No consolidation. No cross-sectional imaging evidence to suggest pneumonia. Leukocytosis may be a result of urinary tract infection plus acute traumatic injury. Labs Labs: Laboratory Results - last 24 hr 12/24/24 07:38 WBC 9.8 RBC 2.91 L Hgb 7.5 L Hct 24.6 L MCV 84.5 MCH 25.8 L MCHC 30.5 L RDW 16.2 H Plt Count 158 MPV 10.1 Immature Gran % (Auto) 0.4 Neut % (Auto) 75.0 H Lymph % (Auto) 12.4 L [place] % (Auto) 11.4 H Eos % (Auto) 0.5 Baso % (Auto) 0.3 Lymph # (Auto) 1.21 [place] # (Auto) 1.1 H Eos # (Auto) 0.1 Baso # (Auto) 0.0 Abs Immat Gran (auto) 0.04 H Absolute Neuts (auto) 7.3 H Absolute Nucleated RBC 0.000 Nucleated RBC % 0.0 Sodium 136 L Potassium 4.0 Chloride 108 H Carbon Dioxide 22 Anion Gap 6 BUN 15 D Creatinine 0.90 Estim Creat Clear Calc 39 Estimated GFR 59 Glucose 108 Calcium 8.3 L Magnesium 2.1 Total Bilirubin 0.5 AST 18 ALT 11 Alkaline Phosphatase 60 Total Protein 6.0 L Albumin 3.0 L Quality VTE Prophylaxis VTE prophylaxis: pharmacologic ordered
[2024-12-24 13:43] LABS: Iron 17 ug/dL (37-170)
[2024-12-24 13:52] LABS: Percent Iron Saturation 6 % (20-50)
[2024-12-24 14:00] VITALS: BP 170/70; PULSE 85; RESP 16; TEMP 37.1; O2SAT 93
--- NOTE | 2024-12-24 15:07 | PCPTNOTE ---
Late entry- [id number] patient still waiting on ortho consult
--- NOTE | 2024-12-24 15:08 | P.CONGI_ITS ---
Assessment and Plan Assessment and plan (1) Acute on chronic anemia: Code(s): D64.9 - Anemia, unspecified Status: Acute Assessment and Plan: no overt gib anemia could be from hematoma after fracture monitor for signs of gib also known elias lesions in recent EGD- treatment is PPI daily anyway, no need to repeat EGD unless obvious melena (2) Bilateral proximal humeral fractures: Code(s): S42.201A - Unspecified fracture of upper end of right humerus, initial encounter for closed fracture; S42.202A - Unspecified fracture of upper end of left humerus, initial encounter for closed fracture Status: Acute Assessment and Plan: by primary and ortho she is uncomfortable (3) 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 Status: Acute Assessment and Plan: ppi daily no urgent need to repeat egd (4) Elias lesion, chronic: Code(s): K25.7 - Chronic gastric ulcer without hemorrhage or perforation Status: Acute (5) Acute UTI: Code(s): N39.0 - Urinary tract infection, site not specified Status: Acute (6) Fall: Code(s): W19.XXXA - Unspecified fall, initial encounter Status: Acute (7) Dementia: Code(s): F03.90 - Unspecified dementia, unspecified severity, without behavioral disturbance, psychotic disturbance, mood disturbance, and anxiety Status: Acute GI Consult Note Consult date/time: 12/24/24 15:08 Reason for consult: anemia HPI: Dora Loving is a 84 year old female with history of dementia, stroke, hypertension, gastroesophageal reflux disease, Moreira esophagus without dysplasia and elias lesions- last egd 07/2023 with no dysplasia. She came to ER 2 days ago from a local restaurant for evaluation of left arm pain after a ground level fall after lost her balance, falling over onto the ground on her left side. She had immediate pain in her left shoulder and she was brought in for evaluation. Labs on arrival WBC count of 23.4, hemoglobin 11.2 but slowly trending down, platelet 242, lactic acid 2.6. Head, cervical, thoracic, and lumbar spine CTs did not show any acute findings. Radiographs showed a comminuted impacted left humeral neck fracture and findings consistent with a prior fracture deformity of the right humeral head. Hgb down to 7.5 but no report of melena or hematemesis. She is quite uncomfortable because arm pain. Review of Systems 2 Constitutional: Constitutional: Denies chills Eyes: Eyes: Denies blurry vision ENT: Reports Normal hearing present Cardiovascular: Cardiovascular: Denies chest pain Respiratory: Respiratory: Reports cough Gastrointestinal: Gastrointestinal: Denies nausea Genitourinary: Genitourinary: Denies dysuria Musculoskeletal: Musculoskeletal: Reports myalgias and Reports arthralgias Integumentary/Breasts: Skin/Breast: Denies rash Neurologic: Denies Abnormal speech present Psychiatric: Psychiatric: Denies homicidal ideation [facility] Past Medical History Medical History (Updated 12/24/24 @ 15:12 by Elton Cho MD) Elias lesion, chronic Acute on chronic anemia Depression with anxiety Gastroesophageal reflux disease Hyperlipidemia Hypertension Cerebrovascular accident Dementia Moreira's esophagus Surgical History Surgical History History of spinal surgery History of left knee surgery History of stress incontinence procedure using tension free vaginal tape History of appendectomy History of cholecystectomy Social History Social History (Updated 12/22/24 @ 20:51 by Glendy Lockwood PA-C) Social History: Surrogate medical decision maker: Matthew Black, daughter. Code status: Full code. Alcohol intake: never Substance use: never Substance use type: does not use Do You Feel Safe in your Home?: Yes Lack of Transportation: No Lack of Food: Never True Current Housing: I Have Housing Concerned About Future Housing: No Difficulty Paying Gas/Electric Bills: No Difficulty Paying for Meds: No Currently Unemployed: No Education: High School Diploma/GED Difficulty w/ Childcare or Family Care: No Living arrangements: with family Additional living arrangements comments: Lives with daughter in [place]. Spiritual care concerns: No Meds Home Medications and Allergies Home Medications ?Medication ?Instructions ?Recorded ?Confirmed ?Type aripiprazole 5 mg tablet 5 mg PO DAILY 08/13/23 12/22/24 History aspirin 325 mg tablet 325 mg PO QPM 08/13/23 12/22/24 History atorvastatin 80 mg tablet 80 mg PO DAILY 08/13/23 12/22/24 History hydrochlorothiazide 25 mg tablet 25 mg PO QPM 08/13/23 12/22/24 History omeprazole 40 mg capsule,delayed 40 mg PO DAILY 08/13/23 12/22/24 History release sertraline 100 mg tablet 100 mg PO 4XW 08/13/23 12/22/24 History telmisartan 80 mg tablet 80 mg PO QPM 08/13/23 12/22/24 History calcium 600 mg capsule 600 mg PO BID 08/16/23 12/22/24 History coQ10 (ubiquinol) 100 mg capsule 100 mg PO QPM 08/16/23 12/22/24 History cyanocobalamin (vitamin B-12) 1,000 mcg PO .qod 08/16/23 12/22/24 History 1,000 mcg capsule Allergies Allergy/AdvReac Type Severity Reaction Status Date / Time meperidine (From Demerol) Allergy Intermediate Vomiting Verified 08/22/23 13:00 Vital Signs Vital Signs - 24 hr 12/23/24 22:00 12/24/24 06:00 12/24/24 08:00 Temperature 99.6 F 97.6 F Pulse Rate 86 78 Respiratory Rate 18 18 Blood Pressure 154/59 H 150/66 H Pulse Oximetry 97 98 97 Oxygen Delivery Nasal Cannula Oxygen Flow Rate 1 12/24/24 14:00 Temperature 98.8 F Pulse Rate 85 Respiratory Rate 16 Blood Pressure 170/70 H Pulse Oximetry 93 Oxygen Delivery Oxygen Flow Rate Exam 2 Const: Other: uncomfortable because pain in arm HENMT: Face/Nose/Sinus: Normal nares present Eyes: Sclera: sclerae normal Neck: Neck: supple Resp: Effort & Inspection: normal respiratory effort Cardio: Rate: regular rate GI: GI Palp: Yes Soft to palpation and No Tenderness to palpation present (GI) Auscultation: normal bowel sounds Skin: General skin exam: normal color Neuro: Speech: normal speech Extrem: Other: wearing sling in arm Psych: Mental Status: mental status grossly normal Results Labs 12/24/24 07:38 12/24/24 07:38 Labs: Short CBC 12/24/24 Range/Units 07:38 WBC 9.8 (4.5-10.0) K/mm3 Hgb 7.5 L (12.0-15.0) g/dL Hct 24.6 L (37.0-47.0) % Plt Count 158 (150-375) k/mm3 BMP 12/24/24 07:38 Sodium 136 L Potassium 4.0 Chloride 108 H Carbon Dioxide 22 BUN 15 D Creatinine 0.90 Glucose 108 Calcium 8.3 L Liver Function 12/24/24 Range/Units 07:38 Total Bilirubin 0.5 (0.2-1.3) mg/dL AST 18 (14-36) U/L ALT 11 (6-35) U/L Alkaline Phosphatase 60 (38-126) U/L Albumin 3.0 L (3.5-5.1) g/dL
[2024-12-24] MEDS: CEPHALEXIN 500 MG CAPSULE PO (21:09)
[2024-12-24] MEDS: traMADol HCL (*CRX) 25 MG TABLET PO (21:09)
[2024-12-24 22:00] VITALS: BP 155/72; PULSE 85; RESP 20; TEMP 37.3; O2SAT 92
[2024-12-25] VITALS (7 sets, daily range): BP systolic 155–183; BP diastolic 59–82; PULSE 83–91; RESP 20; TEMP 36.8–39; O2SAT 90–94; BMI 10.0
[2024-12-25] MEDS: HYDROcodone/acetaminophen (*CRX) 7.5-325 MG TABLET 1 TAB PO ×2 (06:05→15:15)
--- NOTE | 2024-12-25 08:42 | P.CONOP_ITS ---
Assessment and Plan Assessment and plan (1) Bilateral proximal humeral fractures: Code(s): S42.201A - Unspecified fracture of upper end of right humerus, initial encounter for closed fracture; S42.202A - Unspecified fracture of upper end of left humerus, initial encounter for closed fracture <KODI Paul - Last Filed: 12/25/24 12:27> Status: Acute <KODI Paul - Last Filed: 12/25/24 12:27> Assessment and Plan: Radiographs of the right shoulder reveal a right humeral head fracture and radiographs of the left shoulder reveal a comminuted impacted left humeral neck fracture. The fracture type and injury as well as radiographs discussed with the patient. Dr. Rivero evaluated and discussed both surgical and non operative treatment option with the patient on 12/24. Operative and nonoperative treatment options reviewed again today. Surgical candidacy concerning given overall medical picture. Recommended non operative treatment initially. Risk of nonunion, malunion or late displacement discussed. Stiffness, pain and possible dysfunction of the joint discussed. Fracture precautions and activity restrictions reviewed. We will begin non operative treatment at this time with conservative formal physical therapy. Nonweightbearing bilateral upper extremities. Sling for pain control and fracture immobilization. May require anticoagulation at discharge given anticipated immobility x6 weeks. We will continue to monitor. <KODI Paul - Last Filed: 12/25/24 12:27> Assessment and Plan: Reviewed history, exam, radiographs and current labs with attending MD and covering surgeon, Dr. Rivero, who agrees with current plan as indicated above. No further recommendations from Dr. Rivero at this time. <KODI Paul - Last Filed: 12/25/24 12:27> History of Present Illness HPI Consult date: 12/25/24 <KODI Paul - Last Filed: 12/25/24 12:27> 12/26/24 <Alberto Rivero MD - Last Filed: 12/26/24 18:44> Chief complaint: Bilateral proximal humerus fractures, UTI <KODI Paul - Last Filed: 12/25/24 12:27> Narrative: 84-year-old female admitted status post fall at a local restaurant with complaints of bilateral upper extremity pain. Per the patient and medical record, she lost her balance falling onto the ground on her left side. She was brought to the emergency room for further evaluation. Radiographs of bilateral upper extremities reveal a right humeral head fracture and left comminuted impacted humeral neck fracture. Patient was admitted for further evaluation orthopedic consultation. <KODI Paul - Last Filed: 12/25/24 12:27> Review of Systems 2 Review of Systems: All systems reviewed & are unremarkable except as noted in HPI and below <KODI Paul - Last Filed: 12/25/24 12:27> [facility]LY [facility], [facility] Past Medical History Medical History: Medical History Elias lesion, chronic Acute on chronic anemia Depression with anxiety Gastroesophageal reflux disease Hyperlipidemia Hypertension Cerebrovascular accident Dementia Moreira's esophagus <KODI Paul - Last Filed: 12/25/24 12:27> Surgical History Surgical History: Surgical History History of spinal surgery History of left knee surgery History of stress incontinence procedure using tension free vaginal tape History of appendectomy History of cholecystectomy <KODI Paul - Last Filed: 12/25/24 12:27> Social History Social History: Social History Social History: Surrogate medical decision maker: Matthew Black, daughter. Code status: Full code. Alcohol intake: never Substance use: never Substance use type: does not use Do You Feel Safe in your Home?: Yes Lack of Transportation: No Lack of Food: Never True Current Housing: I Have Housing Concerned About Future Housing: No Difficulty Paying Gas/Electric Bills: No Difficulty Paying for Meds: No Currently Unemployed: No Education: High School Diploma/GED Difficulty w/ Childcare or Family Care: No Living arrangements: with family Additional living arrangements comments: Lives with daughter in [place]. Spiritual care concerns: No <KODI Paul - Last Filed: 12/25/24 12:27> Meds Home Medications and Allergies Home medications: Home Medications ?Medication ?Instructions ?Recorded ?Confirmed ?Type aripiprazole 5 mg tablet 5 mg PO DAILY 08/13/23 12/22/24 History aspirin 325 mg tablet 325 mg PO QPM 08/13/23 12/22/24 History atorvastatin 80 mg tablet 80 mg PO DAILY 08/13/23 12/22/24 History hydrochlorothiazide 25 mg tablet 25 mg PO QPM 08/13/23 12/22/24 History omeprazole 40 mg capsule,delayed 40 mg PO DAILY 08/13/23 12/22/24 History release sertraline 100 mg tablet 100 mg PO 4XW 08/13/23 12/22/24 History telmisartan 80 mg tablet 80 mg PO QPM 08/13/23 12/22/24 History calcium 600 mg capsule 600 mg PO BID 08/16/23 12/22/24 History coQ10 (ubiquinol) 100 mg capsule 100 mg PO QPM 08/16/23 12/22/24 History cyanocobalamin (vitamin B-12) 1,000 mcg PO .qod 08/16/23 12/22/24 History 1,000 mcg capsule <KODI Paul - Last Filed: 12/25/24 12:27> Allergies/Adverse reactions: Allergies Allergy/AdvReac Type Severity Reaction Status Date / Time meperidine (From Demerol) Allergy Intermediate Vomiting Verified 08/22/23 13:00 <KODI Paul - Last Filed: 12/25/24 12:27> Vital Signs Vital Signs - 24 hr 12/24/24 14:00 12/24/24 22:00 12/25/24 06:00 Temperature 37.1 C 37.3 C 36.8 C Pulse Rate 85 85 83 Respiratory Rate 16 20 20 Blood Pressure 170/70 H 155/72 H 157/59 H Pulse Oximetry 93 92 94 <KODI Paul - Last Filed: 12/25/24 12:27> Exam 2 Const: General: comfortable and no acute distress <KODI Paul - Last Filed: 12/25/24 12:27> Nutritional Appearance: overweight <KODI Paul - Last Filed: 12/25/24 12:27> HENMT: Mouth: Yes moist mucous membranes <Karinsa Idalia Meneses [employer] - Last Filed: 12/25/24 12:27> Eyes: General: appearance normal, both eyes and all related structures < Karinsa Idalia Meneses [employer] - Last Filed: 12/25/24 12:27> Neck: Neck: supple and no JVD <Karinsa Idalia Meneses [employer] - Last Filed: 12/25/24 12:27> Resp: Effort & Inspection: normal respiratory effort <Karinsa Idalia Meneses [employer] - Last Filed: 12/25/24 12:27> Cardio: Rate: regular rate <Karinsa Idalia Meneses [employer] - Last Filed: 12/25/24 12:27> Rhythm: regular rhythm <Karinsa Idalia Meneses [employer] - Last Filed: 12/25/24 12:27> GI: Inspection: non-distended <Karinsa Idalia Meneses [employer] - Last Filed: 12/25/24 12:27> GI Palp: Yes Soft to palpation and No Tenderness to palpation present (GI) < Karin Idalia Meneses [facility] - Last Filed: 12/25/24 12:27> Neuro: General: gait normal <Karinsa Idalia Meneses [employer] - Last Filed: 12/25/24 12:27> Cognition (Neuro): normal cognition <Karinsa Idalia Meneses [employer] - Last Filed: 12/25/24 12:27> Speech: normal speech <Karinsa Idalia Meneses [facility] - Last Filed: 12/25/24 12:27> Extrem: Right upper extremity: shoulder/upper arm ( Sling in place) tenderness, swelling and ecchymosis ( acute ecchymosis right upper extremity), elbow/forearm ( sling in place, ROM limited. ), wrist ( sling in place) normal ROM and radial pulse present 2+ and Extremity exam: right hand normal to inspection <KarinAMARI CervantesP - Last Filed: 12/25/24 12:27> Left upper extremity: shoulder/upper arm tenderness and ecchymosis, elbow/forearm (sling in place, ROM limited. ), wrist normal to inspection, normal ROM, normal vascular exam and radial pulse present 2+; no swelling and no crepitus and hand normal to inspection, normal capillary refill and vascular exam radial pulse present Details: 2+; no tenderness <KODI Paul - Last Filed: 12/25/24 12:27> Psych: Mental Status: mental status grossly normal <KODI Paul - Last Filed: 12/25/24 12:27> Affect: normal affect <KODI Paul - Last Filed: 12/25/24 12:27> Results Labs Result Diagrams: 12/26/24 09:53 12/26/24 09:53 <KODI Paul - Last Filed: 12/25/24 12:27> Labs: Abnormal lab results 12/24/24 Range/Units 07:34 Iron 17 L (37-170) ug/dL % Saturation 6 L (20-50) % H & H 12/22/24 12/23/24 12/24/24 Range/Units 01:07 07:03 07:38 Hgb 11.2 L 8.2 L D 7.5 L (12.0-15.0) g/dL Hct 37.3 27.1 L 24.6 L (37.0-47.0) % All other labs normal. <KODI Paul - Last Filed: 12/25/24 12:27>
[2024-12-25] MEDS: ENOXAPARIN 40 MG/0.4 ML SYRINGE SUB-Q (09:04)
[2024-12-25] MEDS: PANTOPRAZOLE 40 MG TABLET PO (09:05)
[2024-12-25] MEDS: CEPHALEXIN 500 MG CAPSULE PO ×2 (09:05→20:49)
[2024-12-25] MEDS: guaiFENesin 12 HR 600 MG TABCR PO ×2 (09:05→20:46)
[2024-12-25] MEDS: SODIUM CHLORIDE 0.9% IV 1,000 ML 75 ML IV CONT (10:25)
--- NOTE | 2024-12-25 12:25 | P.PNIM_ITS ---
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 Nonweightbearing bilateral upper extremities. Sling for pain control and fracture immobilization. May require anticoagulation at discharge given anticipated immobility x6 weeks. imaging reviewed upper extremities currently in a sling continue PRN pain control Still awaiting ortho eval left pleural effusion ruled out CT chest showed no pleural effusions or consolidation Fall PT/OT Moreira esophagus Continue Protonix and follow up with GI outpatient. Depression Continue medications. DVT prophylaxis subQ Lovenox PT/OT Subjective Date/time seen: 12/25/24 12:25 Interval history: Ortho was consulted bilateral proximal humeral fractures recommended begin non operative treatment at this time with conservative formal physical therapy. Nonweightbearing bilateral upper extremities. Sling for pain control and fracture immobilization. May require anticoagulation at discharge given anticipated immobility x6 weeks . Review of Systems Review of Systems: 12 systems were reviewed and are negativ e except for as per HPI. Exam Narrative: General: Nontoxic-appearing elderly female supine in bed. She looks a bit younger than her stated age. Weight: 77.2 kg. BMI: 30.1. HEENT: Normocephalic, atraumatic. PERRL, EOMI. Sclera anicteric. Oral mucosa moist. Neck: Supple. Respiratory: Lungs are clear to auscultation bilaterally. Cardiovascular: Regular rate and rhythm with S1-S2. Gastrointestinal: Abdomen is soft, nontender, and nondistended with positive bowel sounds. Skin: Warm and dry. No rash or lesions on limited exam. Extremities: No cyanosis, clubbing, or edema. Radial and pedal pulses intact. Musculoskeletal: bilateral slings on both upper extremities Neurological: Alert. Cranial nerves 2-12 are grossly intact. No gross focal deficits to casual conversation. Psychiatric: Pleasant and cooperative with normal mood and affect. Seems a bit forgetful. Objective Data Vital Signs Vital Signs: Vital Signs - 24 hr 12/24/24 14:00 12/24/24 22:00 12/25/24 06:00 Temperature 98.8 F 99.1 F 98.2 F Pulse Rate 85 85 83 Respiratory Rate 16 20 20 Blood Pressure 170/70 H 155/72 H 157/59 H Pulse Oximetry 93 92 94 Intake/Output Intake/Output: Intake & Output 12/22/24 12/23/24 12/24/24 12/25/24 23:59 23:59 23:59 23:59 Intake Total 740 3025 3598 2135 Output Total 1450 1200 Balance 740 1575 2398 2135 Meds/Results Medications: Active Medications Generic Name Dose Route Start Last Admin Trade Name Freq PRN Reason Stop Dose Admin Acetaminophen 650 mg 12/22/24 03:38 12/23/24 20:49 Acetaminophen 325 Mg Tablet PO 650 mg Q4H PRN Administration Mild Pain (1-3) or Fever Hydrocodone Bitart/Acetaminophen 1 tab 12/22/24 04:39 12/25/24 06:05 Hydrocodone/Acetaminophen (*Crx) 7.5-325 Mg Tablet PO 1 tab Q6H PRN Administration Pain Rated 7-10 Cephalexin HCl 500 mg 12/24/24 21:00 12/25/24 09:05 Cephalexin 500 Mg Capsule PO 12/26/24 21:01 500 mg Q12HR LUZ Administration Enoxaparin Sodium 40 mg 12/23/24 09:00 12/25/24 09:04 Enoxaparin 40 Mg/0.4 Ml Syringe SUB-Q 40 mg DAILY LUZ Administration Guaifenesin 600 mg 12/23/24 21:00 12/25/24 09:05 Guaifenesin 12 Hr 600 Mg Tabcr PO 600 mg Q12HR LUZ Administration Guaifenesin/Dextromethorphan 10 ml 12/23/24 18:49 Guaifenesin/Dextromethorphan 10 Ml Udc PO Q4H PRN Cough Sodium Chloride 1,000 mls @ 75 mls/hr 12/22/24 14:55 12/25/24 10:25 Normal Saline Iv IV CONT 75 mls/hr .[id number] LUZ Administration Ondansetron HCl 4 mg 12/22/24 03:38 12/22/24 11:24 Ondansetron Inj 4 Mg/2 Ml Vial IV PUSH 4 mg Q4H PRN Administration Nausea Pantoprazole Sodium 40 mg 12/25/24 09:00 12/25/24 09:05 Pantoprazole 40 Mg Tablet PO 40 mg QAM LUZ Administration Tramadol HCl 25 mg 12/22/24 04:39 12/24/24 21:09 Tramadol Hcl (*Crx) 25 Mg Tablet PO 25 mg Q6H PRN Administration Pain Rated 4-6 Radiology Results: ITS Impressions Head CT 12/21/24 20:25 Impression: No acute intracranial hemorrhage or suspicious mass effect. Inflammatory sinus disease. 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 Thoracic/Lumbar Spine CT 12/21/24 20:42 Impression:Significant degenerative disease, without acute fracture. Clavicle X-Ray 12/21/24 21:07 IMPRESSION: As above Humerus X-Ray 12/21/24 21:08 IMPRESSION: Findings consistent with prior fracture deformity, as detailed above Chest X-Ray 12/21/24 22:40 IMPRESSION: Possible small left-sided pleural effusion, as detailed above. Chest CT 12/22/24 15:37 IMPRESSION: Dependent atelectasis with trace pleural thickening bilaterally. No consolidation. No cross-sectional imaging evidence to suggest pneumonia. Leukocytosis may be a result of urinary tract infection plus acute traumatic injury. Labs Labs: Laboratory Results - last 24 hr 12/24/24 07:34 Iron 17 L TIBC 278 % Saturation 6 L Ferritin 21.90 Quality VTE Prophylaxis VTE prophylaxis: pharmacologic ordered Hospitalist [facility] Advance Care Plan I have confirmed that the patient's Advanced Care Plan is present, code status is documented, or surrogate decision maker is listed in patient medical record.: Yes Medication Reconciliation I have utilized all available resources to obtain, update and review the patients current medications (includes all prescriptions, OTC, herbals, cannabis, and nutritional supplements).: Yes
[2024-12-25] MEDS: FUROSEMIDE INJ 40 MG/4 ML VIAL IV PUSH (15:15)
[2024-12-25] MEDS: ACETAMINOPHEN 325 MG TABLET 650 MG PO (22:15)
[2024-12-26 06:00] VITALS: BP 138/68; PULSE 74; RESP 20; TEMP 37.5; O2SAT 100
[2024-12-26] MEDS: HYDROcodone/acetaminophen (*CRX) 7.5-325 MG TABLET 1 TAB PO ×2 (06:44→17:00)
[2024-12-26 08:00] VITALS: PULSE 74; RESP 20; O2SAT 100
[2024-12-26 08:20] VITALS: O2SAT 92
[2024-12-26] MEDS: guaiFENesin 12 HR 600 MG TABCR PO ×2 (09:28→20:59)
[2024-12-26] MEDS: CEPHALEXIN 500 MG CAPSULE PO (09:28)
[2024-12-26] MEDS: ENOXAPARIN 40 MG/0.4 ML SYRINGE SUB-Q (09:28)
[2024-12-26] MEDS: PANTOPRAZOLE 40 MG TABLET PO ×2 (09:28→20:59)
[2024-12-26 10:05] LABS: Hematocrit 27.2 % (37.0-47.0); Hemoglobin 8.2 g/dL (12.0-15.0); Mean Corpuscular HGB Conc 30.1 g/dl (32-36); Mean Corpuscular Hemoglobin 25.9 pg (26-34); Mean Corpuscular Volume 85.8 fl (80-100); Mean Platelet Volume 10.8 fl (7.4-10.4); Platelet Count Result 197 k/mm3 (150-375); Red Blood Count 3.17 M/mm3 (4.2-5.4); Red Cell Distribution Width 15.9 % (11.5-14.5); White Blood Count 7.7 K/mm3 (4.5-10.0)
[2024-12-26 10:52] LABS: Alanine Aminotransferase 37 U/L (6-35); Albumin Level 2.8 g/dL (3.5-5.1); Alkaline Phosphatase 96 U/L (38-126); Anion Gap 9 mmol/L (4-12); Aspartate Amino Transferase 43 U/L (14-36); Bilirubin,Total 0.9 mg/dL (0.2-1.3); Blood Urea Nitrogen 17 mg/dL (7-17); Calcium 8.3 mg/dL (8.4-10.2); Carbon Dioxide 23 mmol/L (22-30); Chloride 102 mmol/L (98-107); Estimated CRCL calculation 43 ml/min; Estimated Glomerular Filt Rate > 60; Glucose 136 mg/dL (65-110); Potassium 3.7 mmol/L (3.4-5.0); Sodium 134 mmol/L (137-145)
[2024-12-26] MEDS: ATORVASTATIN 40 MG TABLET 80 MG PO (12:55)
[2024-12-26] MEDS: ARIPiprazole 5 MG TABLET PO (12:55)
[2024-12-26] MEDS: cefTRIAXone 2 GM/NS 100 ML 2 GM/100 ML BAG IVPB (12:56)
[2024-12-26 14:00] VITALS: BP 135/60; PULSE 78; RESP 20; TEMP 37.2; O2SAT 95
--- NOTE | 2024-12-26 15:36 | P.PNIM_ITS ---
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 Nonweightbearing bilateral upper extremities. Sling for pain control and fracture immobilization. May require anticoagulation at discharge given anticipated immobility x6 weeks. imaging reviewed upper extremities currently in a sling continue PRN pain control Still awaiting ortho eval left pleural effusion ruled out CT chest showed no pleural effusions or consolidation Fall PT/OT Moreira esophagus Continue Protonix and follow up with GI outpatient. Depression Continue medications. DVT prophylaxis subQ Lovenox PT/OT Subjective Date/time seen: 12/26/24 15:36 Interval history: Patient has episodes of fever. Ordered chest x-ray, UA, and blood culture. Patient hemoglobin has been trending down. GI is consulted but recorded as possible hematoma not GI source. PT OT is concerned about left upper extremity neurology compromise and orthopedic following Review of Systems Review of Systems: 12 systems were reviewed and are negativ e except for as per HPI. Exam Narrative: General: Nontoxic-appearing elderly female supine in bed. She looks a bit younger than her stated age. Weight: 77.2 kg. BMI: 30.1. HEENT: Normocephalic, atraumatic. PERRL, EOMI. Sclera anicteric. Oral mucosa moist. Neck: Supple. Respiratory: Lungs are clear to auscultation bilaterally. Cardiovascular: Regular rate and rhythm with S1-S2. Gastrointestinal: Abdomen is soft, nontender, and nondistended with positive bowel sounds. Skin: Warm and dry. No rash or lesions on limited exam. Extremities: No cyanosis, clubbing, or edema. Radial and pedal pulses intact. Musculoskeletal: bilateral slings on both upper extremities Neurological: Alert. Cranial nerves 2-12 are grossly intact. No gross focal deficits to casual conversation. Psychiatric: Pleasant and cooperative with normal mood and affect. Seems a bit forgetful. Objective Data Vital Signs Vital Signs: Vital Signs - 24 hr 12/25/24 20:00 12/25/24 22:00 12/25/24 22:15 Temperature 102.2 F H 102.2 F H Pulse Rate 89 Respiratory Rate 20 Blood Pressure 155/65 H Pulse Oximetry 90 93 Oxygen Delivery Nasal Cannula Oxygen Flow Rate 2 Fraction of Inspired Oxygen 12/25/24 23:45 12/26/24 06:00 12/26/24 08:00 Temperature 100.3 F H 99.5 F Pulse Rate 74 74 Respiratory Rate 20 20 Blood Pressure 138/68 Pulse Oximetry 100 100 Oxygen Delivery Nasal Cannula Oxygen Flow Rate 2.5 Fraction of Inspired Oxygen 32 12/26/24 08:20 12/26/24 14:00 Temperature 98.9 F Pulse Rate 78 Respiratory Rate 20 Blood Pressure 135/60 Pulse Oximetry 92 95 Oxygen Delivery Nasal Cannula Oxygen Flow Rate 2.5 Fraction of Inspired Oxygen Intake/Output Intake/Output: Intake & Output 12/23/24 12/24/24 12/25/24 12/26/24 23:59 23:59 23:59 23:59 Intake Total 3025 3598 3622.5 400 Output Total 1450 1200 1400 950 Balance 1575 2398 2222.5 -550 Meds/Results Medications: Active Medications Generic Name Dose Route Start Last Admin Trade Name Freq PRN Reason Stop Dose Admin Acetaminophen 650 mg 12/22/24 03:38 12/25/24 22:15 Acetaminophen 325 Mg Tablet PO 650 mg Q4H PRN Administration Mild Pain (1-3) or Fever Hydrocodone Bitart/Acetaminophen 1 tab 12/22/24 04:39 12/26/24 06:44 Hydrocodone/Acetaminophen (*Crx) 7.5-325 Mg Tablet PO 1 tab Q6H PRN Administration Pain Rated 7-10 Aripiprazole 5 mg 12/26/24 09:35 12/26/24 12:55 Aripiprazole 5 Mg Tablet PO 5 mg DAILY LUZ Administration Atorvastatin Calcium 80 mg 12/26/24 09:35 12/26/24 12:55 Atorvastatin 40 Mg Tablet PO 80 mg DAILY LUZ Administration Enoxaparin Sodium 40 mg 12/23/24 09:00 12/26/24 09:28 Enoxaparin 40 Mg/0.4 Ml Syringe SUB-Q 40 mg DAILY LUZ Administration Guaifenesin 600 mg 12/23/24 21:00 12/26/24 09:28 Guaifenesin 12 Hr 600 Mg Tabcr PO 600 mg Q12HR LUZ Administration Guaifenesin/Dextromethorphan 10 ml 12/23/24 18:49 Guaifenesin/Dextromethorphan 10 Ml Udc PO Q4H PRN Cough Hydrochlorothiazide 25 mg 12/26/24 18:00 Hydrochlorothiazide 25 Mg Tablet PO QPM ULZ Ceftriaxone Sodium 2 gm in 100 mls @ 200 mls/hr 12/26/24 12:00 12/26/24 12:56 Rocephin 2 Gm/Ns 100 Ml IVPB 200 mls/hr Q24H LUZ Administration Ondansetron HCl 4 mg 12/22/24 03:38 12/22/24 11:24 Ondansetron Inj 4 Mg/2 Ml Vial IV PUSH 4 mg Q4H PRN Administration Nausea Pantoprazole Sodium 40 mg 12/26/24 21:00 Pantoprazole 40 Mg Tablet PO Q12HR [facility] Sertraline HCl 100 mg 12/26/24 13:40 Sertraline Hcl 50 Mg Tablet PO [id number] [facility] Telmisartan 80 mg 12/26/24 18:00 Telmisartan 40 Mg Tablet PO QPM LUZ Tramadol HCl 25 mg 12/22/24 04:39 12/24/24 21:09 Tramadol Hcl (*Crx) 25 Mg Tablet PO 25 mg Q6H PRN Administration Pain Rated 4-6 Radiology Results: ITS Impressions Head CT 12/21/24 20:25 Impression: No acute intracranial hemorrhage or suspicious mass effect. Inflammatory sinus disease. 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 Thoracic/Lumbar Spine CT 12/21/24 20:42 Impression:Significant degenerative disease, without acute fracture. Clavicle X-Ray 12/21/24 21:07 IMPRESSION: As above Humerus X-Ray 12/21/24 21:08 IMPRESSION: Findings consistent with prior fracture deformity, as detailed above Chest CT 12/22/24 15:37 IMPRESSION: Dependent atelectasis with trace pleural thickening bilaterally. No consolidation. No cross-sectional imaging evidence to suggest pneumonia. Leukocytosis may be a result of urinary tract infection plus acute traumatic injury. Chest X-Ray 12/26/24 09:15 IMPRESSION: 1. Airspace opacities in the mid and lower lung zones, likely atelectasis. 2. Moderate-sized hiatal hernia. 3. Comminuted fracture of proximal left humerus. Labs Labs: Laboratory Results - last 24 hr 12/26/24 09:53 WBC 7.7 RBC 3.17 L Hgb 8.2 L Hct 27.2 L MCV 85.8 MCH 25.9 L MCHC 30.1 L RDW 15.9 H Plt Count 197 MPV 10.8 H Sodium 134 L Potassium 3.7 Chloride 102 Carbon Dioxide 23 Anion Gap 9 BUN 17 Creatinine 0.83 Estim Creat Clear Calc 43 Estimated GFR > 60 Glucose 136 H Calcium 8.3 L Total Bilirubin 0.9 AST 43 H ALT 37 H Alkaline Phosphatase 96 Total Protein 6.0 L Albumin 2.8 L Quality VTE Prophylaxis VTE prophylaxis: pharmacologic ordered Hospitalist [facility] Advance Care Plan I have confirmed that the patient's Advanced Care Plan is present, code status is documented, or surrogate decision maker is listed in patient medical record.: Yes Medication Reconciliation I have utilized all available resources to obtain, update and review the patients current medications (includes all prescriptions, OTC, herbals, cannabis, and nutritional supplements).: Yes
[2024-12-26] MEDS: hydroCHLOROthiazide 25 MG TABLET PO (16:59)
[2024-12-26] MEDS: TELMISARTAN 40 MG TABLET 80 MG PO (16:59)
[2024-12-26] MEDS: SERTRALINE HCL 50 MG TABLET 100 MG PO (17:03)
[2024-12-26 17:14] LABS: Add Urine Microscopic? YES; Appearance Urine Clear (Clear); Bacteria Urine None Seen /hpf; Bilirubin Urine Negative (Negative); Blood Urine Negative (Negative); Color Urine Yellow (Yellow); Glucose Urine UA Negative (Negative); Ketones Urine Negative (Negative); Leukocyte Esterase Ur Negative LEU/UL (Negative); Nitrate Urine Negative (Negative); Non Pathogenic Casts 0-2; Protein Urine 1+ mg/dL (Negative); RBC Urine 0-2 /hpf (0-2); Specific Grav Ur 1.022 (1.001-1.035); Squamous Epithelial Cell Urine None Seen /hpf (Few); WBC Urine 0-5 /hpf (0-3); pH Urine 5.5 (5.0-9.0)
--- NOTE | 2024-12-26 18:33 | P.PNOP_ITS ---
Progress Note: A&P Assessment and Plan (1) Bilateral proximal humeral fractures: Code(s): S42.201A - Unspecified fracture of upper end of right humerus, initial encounter for closed fracture; S42.202A - Unspecified fracture of upper end of left humerus, initial encounter for closed fracture Status: Acute Assessment and Plan: JEFRY HAS A NEW FINDING TODAY AND SHE MAY HAVE A LEFT RADIAL NERVE PALSY. IT MAY BE FROM POSITIONING OR COMPRESSION FROM HEMATOMA. SHE SHOULD ALSO BE R/O FOR A STROKE DUE TO THE RARITY OF RADIAL NERVE PALSY FROM PROXIMAL HUMERUS FRACTURES. WE WILL SPEAK TO THE MEDICINE TEAM ABOUT THIS. I HAVE ADJUSTED HER ARM POSITION AND REMOVED HER SLING AND SHE IS IN WRIST SPLINT WELL. WE WILL FOLLOW THIS CLOSELY. I SPOKE TO THER DAUGHTER AND GRAND DAUGHTER WELL. I BELIEVE BOTH LEFT AND RIGHT PROXIMAL HUMERUS FRACTURES ARE NEW. THE DAUGHTER HAS NOT RELATED ANY HISTORY OF PRIOR INJURY TO THE RIGHT ARM. HER EXAM WELL WOULD BE CONSISTENT WITH ACUTE FRACTURE. Subjective Subjective Date/Time Seen: 12/26/24 18:33 Interval history: JEFRY IS DOING BETTER. SHE WAS UP IN A CHAIR TODAY. SHE CONTINUES TO HAVE PAIN IN BOTH SHOULDERS. SHE SEEMS TO HAVE DEVELOPED WEAKNESS IN THE LEFT WRIST AND FINGERS. SHE MAY HAVE A RADIAL NERVE PALSY . Exam Extrem: Other: LEFT SHOULDER PAIN WITH MINIMAL ROM, ECCHYMOSIS DOWN THE ARM, HER COMPARTMENTS ARE SOFT AND NON TENDER. SHE IS UNABLE TO EXTEND THE WRIST PAST NEUTRAL. SHE HAS SOME FINGER EXTENSION. SHE HAS EPB FUNCTION, EPL IS WEAK, HER SENSATION IS INTACT, SHE HAS GOOD CAPILLARY REFILL AND DISTAL PULSES ARE PALPABLE. RIGHT SHOULDER PAIN WITH PROM. OTHERWISE NV INTACT. Objective Data Vital Signs Vital Signs: Vital Signs - 24 hr 12/25/24 20:00 12/25/24 22:00 12/25/24 22:15 Temperature 39.0 C H 39.0 C H Pulse Rate 89 Respiratory Rate 20 Blood Pressure 155/65 H Pulse Oximetry 90 93 Oxygen Delivery Nasal Cannula Oxygen Flow Rate 2 Fraction of Inspired Oxygen 12/25/24 23:45 12/26/24 06:00 12/26/24 08:00 Temperature 37.9 C H 37.5 C Pulse Rate 74 74 Respiratory Rate 20 20 Blood Pressure 138/68 Pulse Oximetry 100 100 Oxygen Delivery Nasal Cannula Oxygen Flow Rate 2.5 Fraction of Inspired Oxygen 32 12/26/24 08:20 12/26/24 14:00 Temperature 37.2 C Pulse Rate 78 Respiratory Rate 20 Blood Pressure 135/60 Pulse Oximetry 92 95 Oxygen Delivery Nasal Cannula Oxygen Flow Rate 2.5 Fraction of Inspired Oxygen Intake/Output Intake/Output: Intake & Output 12/23/24 12/24/24 12/25/24 12/26/24 23:59 23:59 23:59 23:59 Intake Total 3025 3598 3622.5 940 Output Total 1450 1200 1400 1350 Balance 1575 2398 2222.5 -410 Meds/Results Medications: Active Medications Generic Name Dose Route Start Last Admin Trade Name Freq PRN Reason Stop Dose Admin Acetaminophen 650 mg 12/22/24 03:38 12/25/24 22:15 Acetaminophen 325 Mg Tablet PO 650 mg Q4H PRN Administration Mild Pain (1-3) or Fever Hydrocodone Bitart/Acetaminophen 1 tab 12/22/24 04:39 12/26/24 17:00 Hydrocodone/Acetaminophen (*Crx) 7.5-325 Mg Tablet PO 1 tab Q6H PRN Administration Pain Rated 7-10 Aripiprazole 5 mg 12/26/24 09:35 12/26/24 12:55 Aripiprazole 5 Mg Tablet PO 5 mg DAILY LUZ Administration Atorvastatin Calcium 80 mg 12/26/24 09:35 12/26/24 12:55 Atorvastatin 40 Mg Tablet PO 80 mg DAILY LUZ Administration Enoxaparin Sodium 40 mg 12/23/24 09:00 12/26/24 09:28 Enoxaparin 40 Mg/0.4 Ml Syringe SUB-Q 40 mg DAILY LUZ Administration Guaifenesin 600 mg 12/23/24 21:00 12/26/24 09:28 Guaifenesin 12 Hr 600 Mg Tabcr PO 600 mg Q12HR LUZ Administration Guaifenesin/Dextromethorphan 10 ml 12/23/24 18:49 Guaifenesin/Dextromethorphan 10 Ml Udc PO Q4H PRN Cough Hydrochlorothiazide 25 mg 12/26/24 18:00 12/26/24 16:59 Hydrochlorothiazide 25 Mg Tablet PO 25 mg QPM LUZ Administration Ceftriaxone Sodium 2 gm in 100 mls @ 200 mls/hr 12/26/24 12:00 12/26/24 12:56 Rocephin 2 Gm/Ns 100 Ml IVPB 200 mls/hr Q24H LUZ Administration Ondansetron HCl 4 mg 12/22/24 03:38 12/22/24 11:24 Ondansetron Inj 4 Mg/2 Ml Vial IV PUSH 4 mg Q4H PRN Administration Nausea Pantoprazole Sodium 40 mg 12/26/24 21:00 Pantoprazole 40 Mg Tablet PO Q12HR LUZ Sertraline HCl 100 mg 12/26/24 13:40 12/26/24 17:03 Sertraline Hcl 50 Mg Tablet PO 100 mg [email or web address] LUZ Administration Telmisartan 80 mg 12/26/24 18:00 12/26/24 16:59 Telmisartan 40 Mg Tablet PO 80 mg QPM LUZ Administration Tramadol HCl 25 mg 12/22/24 04:39 12/24/24 21:09 Tramadol Hcl (*Crx) 25 Mg Tablet PO 25 mg Q6H PRN Administration Pain Rated 4-6 Radiology Results: ITS Impressions Head CT 12/21/24 20:25 Impression: No acute intracranial hemorrhage or suspicious mass effect. Inflammatory sinus disease. 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 Thoracic/Lumbar Spine CT 12/21/24 20:42 Impression:Significant degenerative disease, without acute fracture. Clavicle X-Ray 12/21/24 21:07 IMPRESSION: As above Humerus X-Ray 12/21/24 21:08 IMPRESSION: Findings consistent with prior fracture deformity, as detailed above Chest CT 12/22/24 15:37 IMPRESSION: Dependent atelectasis with trace pleural thickening bilaterally. No consolidation. No cross-sectional imaging evidence to suggest pneumonia. Leukocytosis may be a result of urinary tract infection plus acute traumatic injury. Chest X-Ray 12/26/24 09:15 IMPRESSION: 1. Airspace opacities in the mid and lower lung zones, likely atelectasis. 2. Moderate-sized hiatal hernia. 3. Comminuted fracture of proximal left humerus. Labs Labs: Laboratory Results - last 24 hr 12/26/24 12/26/24 09:53 16:56 WBC 7.7 RBC 3.17 L Hgb 8.2 L Hct 27.2 L MCV 85.8 MCH 25.9 L MCHC 30.1 L RDW 15.9 H Plt Count 197 MPV 10.8 H Sodium 134 L Potassium 3.7 Chloride 102 Carbon Dioxide 23 Anion Gap 9 BUN 17 Creatinine 0.83 Estim Creat Clear Calc 43 Estimated GFR > 60 Glucose 136 H Calcium 8.3 L Total Bilirubin 0.9 AST 43 H ALT 37 H Alkaline Phosphatase 96 Total Protein 6.0 L Albumin 2.8 L Urine Color Yellow Urine Appearance Clear Urine pH 5.5 Ur Specific [place] 1.022 Urine Protein 1+ H Urine Glucose (UA) Negative Urine Ketones Negative Ur Blood (Man) Negative Urine Nitrate Negative Urine Bilirubin Negative Urine Urobilinogen 1.0 Leukocyte Esterase Rfl Negative Urine RBC 0-2 Urine WBC 0-5 Ur Squamous Epith Cells None seen Urine Bacteria None seen Urine Casts 0-2
[2024-12-26 20:00] VITALS: O2SAT 95
[2024-12-26 21:18] VITALS: BP 125/52; PULSE 75; RESP 14; TEMP 36.5; O2SAT 95
[2024-12-27] MEDS: HYDROcodone/acetaminophen (*CRX) 7.5-325 MG TABLET 1 TAB PO ×2 (05:32→15:22)
[2024-12-27 05:58] VITALS: BP 144/66; PULSE 79; RESP 13; TEMP 36.6; O2SAT 92
[2024-12-27 07:28] LABS: Hematocrit 24.2 % (37.0-47.0); Hemoglobin 7.5 g/dL (12.0-15.0); Mean Corpuscular Hemoglobin 26.1 pg (26-34); Mean Corpuscular Volume 84.3 fl (80-100); Mean Platelet Volume 10.7 fl (7.4-10.4); Platelet Count Result 238 k/mm3 (150-375); Red Blood Count 2.87 M/mm3 (4.2-5.4); Red Cell Distribution Width 15.7 % (11.5-14.5); White Blood Count 8.2 K/mm3 (4.5-10.0)
[2024-12-27 07:38] LABS: Alanine Aminotransferase 48 U/L (6-35); Alkaline Phosphatase 113 U/L (38-126); Anion Gap 8 mmol/L (4-12); Aspartate Amino Transferase 54 U/L (14-36); Bilirubin,Total 0.9 mg/dL (0.2-1.3); Blood Urea Nitrogen 20 mg/dL (7-17); Calcium 8.9 mg/dL (8.4-10.2); Carbon Dioxide 26 mmol/L (22-30); Chloride 99 mmol/L (98-107); Estimated CRCL calculation 37 ml/min; Estimated Glomerular Filt Rate 56; Glucose 112 mg/dL (65-110); Potassium 3.7 mmol/L (3.4-5.0); Sodium 133 mmol/L (137-145)
--- NOTE | 2024-12-27 09:52 | PM.PNORT ---
Progress Note: A&P Assessment and Plan (1) Bilateral proximal humeral fractures: Code(s): S42.201A - Unspecified fracture of upper end of right humerus, initial encounter for closed fracture; S42.202A - Unspecified fracture of upper end of left humerus, initial encounter for closed fracture Status: Acute Assessment and Plan: Radiographs of the right shoulder reveal a right humeral head fracture and radiographs of the left shoulder reveal a comminuted impacted left humeral neck fracture. The fracture type and injury as well as radiographs discussed with the patient. Dr. Rivero evaluated and discussed both surgical and non operative treatment option with the patient on 12/26. Operative and nonoperative treatment options reviewed. Surgical candidacy concerning given overall medical picture. Now with new concerns for radial nerve palsy on the left wrist. Wrist splint in place. Removed arm sling. Dr. Rivero mentioned concern for possible stroke vs focal nerve palsy. Futher treatment pending. We will continue non operative treatment at this time for proximal humerus fractures with conservative formal physical therapy. Nonweightbearing bilateral upper extremities. Sling for pain control and fracture immobilization. May require anticoagulation at discharge given anticipated immobility x6 weeks. Will continue to monitor. Plan Reviewed history, exam, radiographs and current labs with attending MD and covering surgeon, Dr. Rivero, who agrees with current plan as indicated above. No further recommendations from Dr. Rivero at this time. Subjective Subjective Date/Time Seen: 12/27/24 09:52 Interval history: 6 days s/p fall resulting in bilateral shoulder fractures. Patient has had slow progress with PT and OT. She has also developed left wrist weakness consistent with possible radial nerve palsy. Evaluation by Dr. Rivero on 12/26. No new concerns today. Review of Systems Review of Systems: All systems reviewed & are unremarkable except as noted in HPI and below Exam Const: General: comfortable and no acute distress Nutritional Appearance: overweight HENMT: Mouth: Yes moist mucous membranes Eyes: General: appearance normal, both eyes and all related structures Neck: Neck: supple and no JVD Resp: Effort & Inspection: normal respiratory effort Cardio: Rate: regular rate Rhythm: regular rhythm GI: Inspection: non-distended GI Palp: Yes Soft to palpation and No Tenderness to palpation present (GI) Neuro: General: gait normal Cognition (Neuro): normal cognition Speech: normal speech Extrem: Right upper extremity: shoulder/upper arm ( Sling in place) tenderness, swelling and ecchymosis ( acute ecchymosis right upper extremity), elbow/forearm ( sling in place, ROM limited. ), wrist ( sling in place) normal ROM and radial pulse present 2+ and Extremity exam: right hand normal to inspection Left upper extremity: shoulder/upper arm tenderness and ecchymosis, elbow/forearm (sling in place, ROM limited. ), wrist normal to inspection, abnormal ROM (see below ), normal vascular exam and radial pulse present 2+; no swelling and no crepitus and hand normal to inspection, normal capillary refill and vascular exam radial pulse present Details: 2+; no tenderness Other: Unable to flex extend the left wrist past neutral. Mild finger extension. EP be function, EPL is weak and her sensation is intact with good capillary refill in distal pulses palpable. Psych: Mental Status: mental status grossly normal Affect: normal affect Objective Data Vital Signs Vital Signs: Vital Signs - 24 hr 12/26/24 14:00 12/26/24 20:00 12/26/24 21:18 Temperature 37.2 C 36.5 C Pulse Rate 78 75 Respiratory Rate 20 14 Blood Pressure 135/60 125/52 L Pulse Oximetry 95 95 95 Oxygen Delivery Nasal Cannula Oxygen Flow Rate 2.5 12/27/24 05:58 Temperature 36.6 C Pulse Rate 79 Respiratory Rate 13 Blood Pressure 144/66 H Pulse Oximetry 92 Oxygen Delivery Oxygen Flow Rate Intake/Output Intake/Output: Intake & Output 12/24/24 12/25/24 12/26/24 12/27/24 23:59 23:59 23:59 23:59 Intake Total 3598 3622.5 940 150 Output Total 1200 1400 1350 600 Balance 2398 2222.5 -410 -450 Meds/Results Medications: Active Medications Generic Name Dose Route Start Last Admin Trade Name Freq PRN Reason Stop Dose Admin Acetaminophen 650 mg 12/22/24 03:38 12/25/24 22:15 Acetaminophen 325 Mg Tablet PO 650 mg Q4H PRN Administration Mild Pain (1-3) or Fever Hydrocodone Bitart/Acetaminophen 1 tab 12/22/24 04:39 12/27/24 05:32 Hydrocodone/Acetaminophen (*Crx) 7.5-325 Mg Tablet PO 1 tab Q6H PRN Administration Pain Rated 7-10 Aripiprazole 5 mg 12/26/24 09:35 12/26/24 12:55 Aripiprazole 5 Mg Tablet PO 5 mg DAILY LUZ Administration Atorvastatin Calcium 80 mg 12/26/24 09:35 12/26/24 12:55 Atorvastatin 40 Mg Tablet PO 80 mg DAILY LUZ Administration Enoxaparin Sodium 40 mg 12/23/24 09:00 12/26/24 09:28 Enoxaparin 40 Mg/0.4 Ml Syringe SUB-Q 40 mg DAILY LUZ Administration Guaifenesin 600 mg 12/23/24 21:00 12/26/24 20:59 Guaifenesin 12 Hr 600 Mg Tabcr PO 600 mg Q12HR LUZ Administration Guaifenesin/Dextromethorphan 10 ml 12/23/24 18:49 Guaifenesin/Dextromethorphan 10 Ml Udc PO Q4H PRN Cough Hydrochlorothiazide 25 mg 12/26/24 18:00 12/26/24 16:59 Hydrochlorothiazide 25 Mg Tablet PO 25 mg QPM LUZ Administration Ceftriaxone Sodium 2 gm in 100 mls @ 200 mls/hr 12/26/24 12:00 12/26/24 12:56 Rocephin 2 Gm/Ns 100 Ml IVPB 200 mls/hr Q24H LUZ Administration Ondansetron HCl 4 mg 12/22/24 03:38 12/22/24 11:24 Ondansetron Inj 4 Mg/2 Ml Vial IV PUSH 4 mg Q4H PRN Administration Nausea Pantoprazole Sodium 40 mg 12/26/24 21:00 12/26/24 20:59 Pantoprazole 40 Mg Tablet PO 40 mg Q12HR LUZ Administration Sertraline HCl 100 mg 12/26/24 13:40 12/26/24 17:03 Sertraline Hcl 50 Mg Tablet PO 100 mg [email or web address] LUZ Administration Telmisartan 80 mg 12/26/24 18:00 12/26/24 16:59 Telmisartan 40 Mg Tablet PO 80 mg QPM LUZ Administration Tramadol HCl 25 mg 12/22/24 04:39 12/24/24 21:09 Tramadol Hcl (*Crx) 25 Mg Tablet PO 25 mg Q6H PRN Administration Pain Rated 4-6 Radiology Results: ITS Impressions Head CT 12/21/24 20:25 Impression: No acute intracranial hemorrhage or suspicious mass effect. Inflammatory sinus disease. 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 Thoracic/Lumbar Spine CT 12/21/24 20:42 Impression:Significant degenerative disease, without acute fracture. Clavicle X-Ray 12/21/24 21:07 IMPRESSION: As above Humerus X-Ray 12/21/24 21:08 IMPRESSION: Findings consistent with prior fracture deformity, as detailed above Chest CT 12/22/24 15:37 IMPRESSION: Dependent atelectasis with trace pleural thickening bilaterally. No consolidation. No cross-sectional imaging evidence to suggest pneumonia. Leukocytosis may be a result of urinary tract infection plus acute traumatic injury. Chest X-Ray 12/26/24 09:15 IMPRESSION: 1. Airspace opacities in the mid and lower lung zones, likely atelectasis. 2. Moderate-sized hiatal hernia. 3. Comminuted fracture of proximal left humerus. Labs Labs: Laboratory Results - last 24 hr 12/26/24 12/26/24 12/27/24 09:53 16:56 07:16 WBC 7.7 8.2 RBC 3.17 L 2.87 L Hgb 8.2 L 7.5 L Hct 27.2 L 24.2 L MCV 85.8 84.3 MCH 25.9 L 26.1 MCHC 30.1 L 31.0 L RDW 15.9 H 15.7 H Plt Count 197 238 MPV 10.8 H 10.7 H Sodium 134 L 133 L Potassium 3.7 3.7 Chloride 102 99 Carbon Dioxide 23 26 Anion Gap 9 8 BUN 17 20 H Creatinine 0.83 0.95 Estim Creat Clear Calc 43 37 Estimated GFR > 60 56 L Glucose 136 H 112 H Calcium 8.3 L 8.9 Total Bilirubin 0.9 0.9 AST 43 H 54 H ALT 37 H 48 H Alkaline Phosphatase 96 113 Total Protein 6.0 L 6.0 L Albumin 2.8 L 3.0 L Urine Color Yellow Urine Appearance Clear Urine pH 5.5 Ur Specific [place] 1.022 Urine Protein 1+ H Urine Glucose (UA) Negative Urine Ketones Negative Ur Blood (Man) Negative Urine Nitrate Negative Urine Bilirubin Negative Urine Urobilinogen 1.0 Leukocyte Esterase Rfl Negative Urine RBC 0-2 Urine WBC 0-5 Ur Squamous Epith Cells None seen Urine Bacteria None seen Urine Casts 0-2
[2024-12-27] MEDS: ARIPiprazole 5 MG TABLET PO (10:44)
[2024-12-27] MEDS: PANTOPRAZOLE 40 MG TABLET PO ×2 (10:44→21:02)
[2024-12-27] MEDS: ATORVASTATIN 40 MG TABLET 80 MG PO (10:44)
[2024-12-27] MEDS: guaiFENesin 12 HR 600 MG TABCR PO ×2 (10:45→21:02)
[2024-12-27] MEDS: cefTRIAXone 2 GM/NS 100 ML 2 GM/100 ML BAG IVPB (13:05)
[2024-12-27 14:00] VITALS: BP 143/55; PULSE 79; RESP 12; TEMP 37.7; O2SAT 95
--- NOTE | 2024-12-27 14:25 | PCOTNOTE ---
Patient out of the room at this time. Patient down having testing.
--- NOTE | 2024-12-27 15:55 | P.PNIM_ITS ---
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 Nonweightbearing bilateral upper extremities. Sling for pain control and fracture immobilization. May require anticoagulation at discharge given anticipated immobility x6 weeks. imaging reviewed upper extremities currently in a sling continue PRN pain control Still awaiting ortho eval left pleural effusion ruled out CT chest showed no pleural effusions or consolidation Fall PT/OT Moreira esophagus Continue Protonix and follow up with GI outpatient. Depression Continue medications. DVT prophylaxis subQ Lovenox PT/OT Subjective Date/time seen: 12/27/24 15:55 Interval history: Discussed the case with Dr. Rivero. He was concerned about stroke. Ordered a CT scan which shows no acute intracranial process. Will order MRI of the brain Review of Systems Review of Systems: 12 systems were reviewed and are negativ e except for as per HPI. Exam Narrative: General: Nontoxic-appearing elderly female supine in bed. She looks a bit younger than her stated age. Weight: 77.2 kg. BMI: 30.1. HEENT: Normocephalic, atraumatic. PERRL, EOMI. Sclera anicteric. Oral mucosa moist. Neck: Supple. Respiratory: Lungs are clear to auscultation bilaterally. Cardiovascular: Regular rate and rhythm with S1-S2. Gastrointestinal: Abdomen is soft, nontender, and nondistended with positive bowel sounds. Skin: Warm and dry. No rash or lesions on limited exam. Extremities: No cyanosis, clubbing, or edema. Radial and pedal pulses intact. Musculoskeletal: bilateral slings on both upper extremities Neurological: Alert. Cranial nerves 2-12 are grossly intact. No gross focal deficits to casual conversation. Psychiatric: Pleasant and cooperative with normal mood and affect. Seems a bit forgetful. Objective Data Vital Signs Vital Signs: Vital Signs - 24 hr 12/26/24 20:00 12/26/24 21:18 12/27/24 05:58 Temperature 97.7 F 97.9 F Pulse Rate 75 79 Respiratory Rate 14 13 Blood Pressure 125/52 L 144/66 H Pulse Oximetry 95 95 92 Oxygen Delivery Nasal Cannula Oxygen Flow Rate 2.5 Intake/Output Intake/Output: Intake & Output 12/24/24 12/25/24 12/26/24 12/27/24 23:59 23:59 23:59 23:59 Intake Total 3598 3622.5 940 350 Output Total 1200 1400 1350 600 Balance 2398 2222.5 -410 -250 Meds/Results Medications: Active Medications Generic Name Dose Route Start Last Admin Trade Name Freq PRN Reason Stop Dose Admin Acetaminophen 650 mg 12/22/24 03:38 12/25/24 22:15 Acetaminophen 325 Mg Tablet PO 650 mg Q4H PRN Administration Mild Pain (1-3) or Fever Hydrocodone Bitart/Acetaminophen 1 tab 12/22/24 04:39 12/27/24 15:22 Hydrocodone/Acetaminophen (*Crx) 7.5-325 Mg Tablet PO 1 tab Q6H PRN Administration Pain Rated 7-10 Aripiprazole 5 mg 12/26/24 09:35 12/27/24 10:44 Aripiprazole 5 Mg Tablet PO 5 mg DAILY LUZ Administration Atorvastatin Calcium 80 mg 12/26/24 09:35 12/27/24 10:44 Atorvastatin 40 Mg Tablet PO 80 mg DAILY LUZ Administration Enoxaparin Sodium 40 mg 12/23/24 09:00 12/26/24 09:28 Enoxaparin 40 Mg/0.4 Ml Syringe SUB-Q 40 mg DAILY LUZ Administration Guaifenesin 600 mg 12/23/24 21:00 12/27/24 10:45 Guaifenesin 12 Hr 600 Mg Tabcr PO 600 mg Q12HR LUZ Administration Guaifenesin/Dextromethorphan 10 ml 12/23/24 18:49 Guaifenesin/Dextromethorphan 10 Ml Udc PO Q4H PRN Cough Hydrochlorothiazide 25 mg 12/26/24 18:00 12/26/24 16:59 Hydrochlorothiazide 25 Mg Tablet PO 25 mg QPM LUZ Administration Ceftriaxone Sodium 2 gm in 100 mls @ 200 mls/hr 12/26/24 12:00 12/26/24 12:56 Rocephin 2 Gm/Ns 100 Ml IVPB 200 mls/hr Q24H LUZ Administration Ondansetron HCl 4 mg 12/22/24 03:38 12/22/24 11:24 Ondansetron Inj 4 Mg/2 Ml Vial IV PUSH 4 mg Q4H PRN Administration Nausea Pantoprazole Sodium 40 mg 12/26/24 21:00 12/27/24 10:44 Pantoprazole 40 Mg Tablet PO 40 mg Q12HR LUZ Administration Sertraline HCl 100 mg 12/26/24 13:40 12/26/24 17:03 Sertraline Hcl 50 Mg Tablet PO 100 mg [email or web address] LUZ Administration Telmisartan 80 mg 12/26/24 18:00 12/26/24 16:59 Telmisartan 40 Mg Tablet PO 80 mg QPM LUZ Administration Tramadol HCl 25 mg 12/22/24 04:39 12/24/24 21:09 Tramadol Hcl (*Crx) 25 Mg Tablet PO 25 mg Q6H PRN Administration Pain Rated 4-6 Radiology Results: ITS Impressions Cervical Spine CT 12/21/24 20:39 Impression: Significant degenerative disease, without acute fracture. Thoracic/Lumbar Spine CT 12/21/24 20:42 Impression:Significant degenerative disease, without acute fracture. Clavicle X-Ray 12/21/24 21:07 IMPRESSION: As above Humerus X-Ray 12/21/24 21:08 IMPRESSION: Findings consistent with prior fracture deformity, as detailed above Chest CT 12/22/24 15:37 IMPRESSION: Dependent atelectasis with trace pleural thickening bilaterally. No consolidation. No cross-sectional imaging evidence to suggest pneumonia. Leukocytosis may be a result of urinary tract infection plus acute traumatic injury. Chest X-Ray 12/26/24 09:15 IMPRESSION: 1. Airspace opacities in the mid and lower lung zones, likely atelectasis. 2. Moderate-sized hiatal hernia. 3. Comminuted fracture of proximal left humerus. Head CT 12/27/24 14:28 IMPRESSION: 1. . 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 No acute intracranial process. 2. Age-related changes including mild diffuse volume loss and moderate scattered white matter hypoattenuation consistent with chronic small vessel ischemic disease. Labs Labs: Laboratory Results - last 24 hr 12/26/24 12/27/24 16:56 07:16 WBC 8.2 RBC 2.87 L Hgb 7.5 L Hct 24.2 L MCV 84.3 MCH 26.1 MCHC 31.0 L RDW 15.7 H Plt Count 238 MPV 10.7 H Sodium 133 L Potassium 3.7 Chloride 99 Carbon Dioxide 26 Anion Gap 8 BUN 20 H Creatinine 0.95 Estim Creat Clear Calc 37 Estimated GFR 56 L Glucose 112 H Calcium 8.9 Total Bilirubin 0.9 AST 54 H ALT 48 H Alkaline Phosphatase 113 Total Protein 6.0 L Albumin 3.0 L Urine Color Yellow Urine Appearance Clear Urine pH 5.5 Ur Specific [place] 1.022 Urine Protein 1+ H Urine Glucose (UA) Negative Urine Ketones Negative Ur Blood (Man) Negative Urine Nitrate Negative Urine Bilirubin Negative Urine Urobilinogen 1.0 Leukocyte Esterase Rfl Negative Urine RBC 0-2 Urine WBC 0-5 Ur Squamous Epith Cells None seen Urine Bacteria None seen Urine Casts 0-2 Quality VTE Prophylaxis VTE prophylaxis: pharmacologic ordered Hospitalist MIPS Advance Care Plan I have confirmed that the patient's Advanced Care Plan is present, code status is documented, or surrogate decision maker is listed in patient medical record.: Yes Medication Reconciliation I have utilized all available resources to obtain, update and review the patients current medications (includes all prescriptions, OTC, herbals, canna bis, and nutritional supplements).: Yes
[2024-12-27] MEDS: TELMISARTAN 40 MG TABLET 80 MG PO (18:14)
[2024-12-27] MEDS: hydroCHLOROthiazide 25 MG TABLET PO (18:14)
[2024-12-27 20:00] VITALS: O2SAT 95
[2024-12-27] MEDS: traMADol HCL (*CRX) 25 MG TABLET PO (21:02)
[2024-12-27 21:45] VITALS: BP 143/56; PULSE 81; RESP 22; TEMP 36.7; O2SAT 95
[2024-12-28] VITALS (8 sets, daily range): BP systolic 105–151; BP diastolic 41–59; PULSE 76–83; RESP 18–20; TEMP 37–37.2; O2SAT 94–98; BMI 30.5
--- NOTE | 2024-12-28 | ECHO_ITS ---
Patient Info Name: Dora Loving Age: 84 years : 1940 Gender: Female Ht: 63 in Wt: 172 lbs BSA: 1.89 m2 HR: 76 bpm BP: 151 / 59 mmHg Technical Quality: Fair Exam Date: 12/28/2024 3:53 PM Exam Location: Echo Lab Patient Status: Inpatient Admit Date: 12/22/2024 Staff Ordering Physician: Dave Nguyen MD Candle Maker: Sandy Dawson RDCS Attending Provider: Miles Clark MD Exam Type: CA echo dop bubble study w con Study Info Indications - R/O PFO Complete two-dimentional, color flow and Doppler transthoracic echocardiogram is performed with agitated saline and with contrast to opacify the left ventricle and to improve the delineation of the left ventricle endocardial borders. Contrast/Agitated Saline Contrast/Ag. Saline: Definity Amount: 2.00 ml Existing IV Access: Yes Contrast/Ag. Saline: Agitated Saline Amount: 20.00 ml Existing IV Access: Yes Summary 1. Definity contrast administered improved wall motion interpretation. 2. Left ventricular chamber dimension is normal. 3. Left ventricular systolic function is normal, estimated at 65-70%. 4. There is moderate concentric increased left ventricular wall thickness. 5. The left ventricular diastolic function is grade I diastolic dysfunction. 6. E/e' 7 is not elevated. 7. There is mild tricuspid valve regurgitation. 8. Mild pulmonary hypertension, estimated pulmonary arterial systolic pressure is 41 mmHg. Left Ventricle E/e' 7 is not elevated. Definity contrast administered improved wall motion interpretation. Left ventricular chamber dimension is normal. Left ventricular systolic function is normal, estimated at 65-70%. There is moderate concentric increased left ventricular wall thickness. The left ventricular diastolic function is grade I diastolic dysfunction. Right Ventricle Right ventricular systolic function is normal and with normal TAPSE 1.9 cm. Right ventricular chamber dimension is normal. Left Atria Left atrial chamber dimension is normal. Right Atria Right atrial chamber dimension is normal. Atrial Septum Agitated saline injection with and without valsalva maneuver opacified right side cardiac chambers without shunt to left side cardiac chambers. Intact interatrial septum visualized by 2D and agitated saline imaging. Aortic Valve The aortic valve is trileaflet. There is no aortic valve stenosis. There is no aortic valve regurgitation. Pulmonic Valve There is no pulmonic regurgitation. Mitral Valve There is no mitral valve stenosis. There is no mitral valve regurgitation. Tricuspid Valve There is mild tricuspid valve regurgitation. Mild pulmonary hypertension, estimated pulmonary arterial systolic pressure is 41 mmHg. Pericardium/Pleural There is no pericardial effusion. Inferior Vena Cava Normal inferior vena cava with >50% collapse upon inspiration consistent with normal right atrial pressure, 5 mmHg. Aorta The aortic root size at the sinus of Valsalva is normal. Left Ventricular Outflow Tract Name Value Normal LVOT 2D LVOT Diameter 2.0 cm LVOT Doppler LVOT Peak Gradient 5 mmHg LVOT Mean Gradient 3 mmHg LVOT VTI 22 cm LVOT VTI/AV VTI Ratio 0.9 LVOT Stroke Volume 70 ml LVOT CO 5.6 l/min LVOT CI 2.9 l/min/m2 Pulmonic Valve Name Value Normal RVOT Doppler RVOT Peak Gradient 4 mmHg PV Doppler PV Peak Gradient 5 mmHg Mitral Valve Name Value Normal MV Doppler MV Decel [place] 295 cm/s2 MV PHT 50 ms MV Area (PHT) 4.4 cm2 4.0-5.0 MV Diastolic Function MV E Peak Velocity 51 cm/s MV A Peak Velocity 92 cm/s MV E/A 0.5 MV Decel Time 172 ms MV Annular TDI MV E/e' (Septal) 12.2 <=8.0 MV E/e' (Lateral) 5.2 <=8.0 MV E/e' (Average) 8.7 Tricuspid Valve Name Value Normal TV Regurgitation Doppler TR Peak Velocity 300 cm/s TR Peak Gradient 36 mmHg Estimated PAP/RSVP RA Pressure 5 mmHg <=5 PA Systolic Pressure 41 mmHg <36 RV Systolic Pressure 41 mmHg <36 Aorta Name Value Normal Ascending Aorta Ao Root Diameter (MM) 2.6 cm Ao Root Diam Index (MM) 1.4 cm/m2 Aortic Valve Name Value Normal AV Doppler AV Peak Velocity 127 cm/s AV Peak Gradient 6 mmHg AV Mean Gradient 3 mmHg AV VTI 26 cm AV Area (Cont Eq VTI) 2.7 cm2 >=3.0 AV Area (Cont Eq Marcel) 3.0 cm2 AV Regurgitation 2D LVOT Area 3.1 cm2 Ventricles Name Value Normal LV Dimensions 2D/MM IVS Diastolic Thickness (2D) 1.1 cm 0.6-1.0 LVID Diastole (2D) 3.1 cm 3.8-5.2 LVIW Diastolic Thickness (2D) 1.5 cm 0.6-0.9 LVID Systole (2D) 2.0 cm 2.2-3.5 LVOT Diameter 2.0 cm LV Mass (2D Cubed) 125.12 g 67.00-162.00 LV Mass Index (2D Cubed) 66 g/m2 43-95 Relative Wall Thickness (2D) 0.93 LV Fractional Shortening/Ejection Fraction 2D/MM LV Fractional Shortening (2D) 33 % 27-45 LV EF (2D Teicholz) 62 % 54-74 LV Diastolic Volume (4C MOD) 81 ml LV EF (4C MOD) 69 % LV Diastolic Volume (2C MOD) 76 ml LV EF (2C MOD) 66 % LV Diastolic Volume (BP MOD) 82 ml 46-106 LV Diastolic Volume Index (BP MOD) 44 ml/m2 29-61 LV Systolic Volume (BP MOD) 27 ml 14-42 LV Systolic Volume Index (BP MOD) 14 ml/m2 8-24 LV EF (BP MOD) 67 % 54-74 LV Diastolic Length (4C) 7.7 cm LV Systolic Length (4C) 6.9 cm LV Stroke Volume (4C MOD) 56 ml Atria Name Value Normal LA Dimensions LA Dimension (MM) 4.1 cm 2.7-3.8 LA Volume (4C A-L) 29 ml LA Volume (BP A-L) 36 ml RA Dimensions RA Area (4C) 16.5 cm2 <=18.0 Report Signatures
[2024-12-28 07:36] LABS: Hematocrit 25.6 % (37.0-47.0); Hemoglobin 7.9 g/dL (12.0-15.0); Mean Corpuscular HGB Conc 30.9 g/dl (32-36); Mean Corpuscular Hemoglobin 25.8 pg (26-34); Mean Corpuscular Volume 83.7 fl (80-100); Mean Platelet Volume 11.1 fl (7.4-10.4); Platelet Count Result 261 k/mm3 (150-375); Red Blood Count 3.06 M/mm3 (4.2-5.4); Red Cell Distribution Width 15.9 % (11.5-14.5); White Blood Count 9.3 K/mm3 (4.5-10.0)
[2024-12-28 07:45] LABS: Alanine Aminotransferase 44 U/L (6-35); Alkaline Phosphatase 120 U/L (38-126); Anion Gap 9 mmol/L (4-12); Aspartate Amino Transferase 39 U/L (14-36); Bilirubin,Total 0.8 mg/dL (0.2-1.3); Blood Urea Nitrogen 19 mg/dL (7-17); Calcium 8.8 mg/dL (8.4-10.2); Carbon Dioxide 27 mmol/L (22-30); Chloride 98 mmol/L (98-107); Estimated CRCL calculation 37 ml/min; Estimated Glomerular Filt Rate 56; Glucose 101 mg/dL (65-110); Potassium 3.5 mmol/L (3.4-5.0); Sodium 134 mmol/L (137-145)
[2024-12-28] MEDS: ENOXAPARIN 40 MG/0.4 ML SYRINGE SUB-Q (08:32)
[2024-12-28] MEDS: HYDROcodone/acetaminophen (*CRX) 7.5-325 MG TABLET 1 TAB PO (08:32)
[2024-12-28] MEDS: cefTRIAXone 2 GM/NS 100 ML 2 GM/100 ML BAG IVPB (11:40)
[2024-12-28] MEDS: ATORVASTATIN 40 MG TABLET 80 MG PO (11:41)
[2024-12-28] MEDS: PANTOPRAZOLE 40 MG TABLET PO ×2 (11:41→20:57)
[2024-12-28] MEDS: ARIPiprazole 5 MG TABLET PO (11:41)
[2024-12-28] MEDS: guaiFENesin 12 HR 600 MG TABCR PO ×2 (11:41→20:57)
[2024-12-28] MEDS: SERTRALINE HCL 50 MG TABLET 100 MG PO (11:43)
--- NOTE | 2024-12-28 15:16 | P.PNIM_ITS ---
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 N/C, lipid panel. Continue aspirin 325 p.o. q.d. Started atorvastatin 40 mg p.o. q.d. Ordered echo and carotid ultrasound On tele Consulted cardiology for 30 day event monitor. UTI Urine culture positive for Klebsiella pneumoniae and E coli co-sensitive to Rocephin Rocephin 3/3 Bilateral humeral fracture Ortho consulted As per ortho :Begin non operative treatment at this time with conservative formal physical therapy. Nonweightbearing bilateral upper extremities. Sling for pain control and fracture immobilization. May require anticoagulation at discharge given anticipated immobility x6 weeks. imaging reviewed upper extremities currently in a sling continue PRN pain control Still awaiting ortho eval left pleural effusion ruled out CT chest showed no pleural effusions or consolidation Fall PT/OT Moreira esophagus Continue Protonix and follow up with GI outpatient. Depression Continue medications. DVT prophylaxis subQ Lovenox PT/OT Subjective Date/time seen: 12/28/24 15:16 Interval history: Today evaluated the patient with . Patient had left radial nerve weakness but improving compared to yesterday. MRI of the brain shows small acute lacunar infarct at the left cerebral hemisphere and at the junction of right thalamus and right cerebral peduncle. Please refer to full MRI report. Discussed with the her daughter who reported patient had multiple strokes before. Her last known stroke was 10-15 years ago and presented with facial weakness but recovered completely. Ordered ECHO, lipid panel,HBA1c, and spoke with Neurologist at [place] and recommends patient during discharge need 30 day event monitor and currently can be medically managed with no need for transfer. Review of Systems Review of Systems: 12 systems were reviewed and are negativ e except for as per HPI. Exam Narrative: General: Nontoxic-appearing elderly female supine in bed. She looks a bit younger than her stated age. Weight: 77.2 kg. BMI: 30.1. HEENT: Normocephalic, atraumatic. PERRL, EOMI. Sclera anicteric. Oral mucosa moist. Neck: Supple. Respiratory: Lungs are clear to auscultation bilaterally. Cardiovascular: Regular rate and rhythm with S1-S2. Gastrointestinal: Abdomen is soft, nontender, and nondistended with positive bowel sounds. Skin: Warm and dry. No rash or lesions on limited exam. Extremities: No cyanosis, clubbing, or edema. Radial and pedal pulses intact. Musculoskeletal: bilateral slings on both upper extremities Neurological: Alert. Cranial nerves 2-12 are grossly intact. No gross focal deficits to casual conversation. Psychiatric: Pleasant and cooperative with normal mood and affect. Seems a bit forgetful. Objective Data Vital Signs Vital Signs: Vital Signs - 24 hr 12/27/24 20:00 12/27/24 21:45 12/28/24 05:26 Temperature 98.0 F 98.6 F Pulse Rate 81 76 Respiratory Rate 22 H 20 Blood Pressure 143/56 H 151/59 H Pulse Oximetry 95 95 96 Oxygen Delivery Nasal Cannula Oxygen Flow Rate 2.5 12/28/24 09:02 Temperature Pulse Rate Respiratory Rate Blood Pressure Pulse Oximetry 98 Oxygen Delivery Nasal Cannula Oxygen Flow Rate 2 Intake/Output Intake/Output: Intake & Output 12/25/24 12/26/24 12/27/24 12/28/24 23:59 23:59 23:59 23:59 Intake Total 3622.5 1040 630 418 Output Total 1400 1350 900 350 Balance 2222.5 -008 -256 68 Meds/Results Medications: Active Medications Generic Name Dose Route Start Last Admin Trade Name Freq PRN Reason Stop Dose Admin Acetaminophen 650 mg 12/22/24 03:38 12/25/24 22:15 Acetaminophen 325 Mg Tablet PO 650 mg Q4H PRN Administration Mild Pain (1-3) or Fever Hydrocodone Bitart/Acetaminophen 1 tab 01/25/25 04:39 12/28/24 08:32 Hydrocodone/Acetaminophen (*Crx) 7.5-325 Mg Tablet PO 1 tab Q6H PRN Administration Pain Rated 7-10 Aripiprazole 5 mg 12/26/24 09:35 12/28/24 11:41 Aripiprazole 5 Mg Tablet PO 5 mg DAILY LUZ Administration Atorvastatin Calcium 40 mg 12/29/24 09:00 Atorvastatin 40 Mg Tablet PO DAILY LUZ Enoxaparin Sodium 40 mg 12/23/24 09:00 12/28/24 08:32 Enoxaparin 40 Mg/0.4 Ml Syringe SUB-Q 40 mg DAILY LUZ Administration Guaifenesin 600 mg 12/23/24 21:00 12/28/24 11:41 Guaifenesin 12 Hr 600 Mg Tabcr PO 600 mg Q12HR LUZ Administration Guaifenesin/Dextromethorphan 10 ml 12/23/24 18:49 Guaifenesin/Dextromethorphan 10 Ml Udc PO Q4H PRN Cough Hydrochlorothiazide 25 mg 12/26/24 18:00 12/27/24 18:14 Hydrochlorothiazide 25 Mg Tablet PO 25 mg QPM LUZ Administration Ceftriaxone Sodium 2 gm in 100 mls @ 200 mls/hr 12/26/24 12:00 12/28/24 11:40 Rocephin 2 Gm/Ns 100 Ml IVPB 200 mls/hr Q24H LUZ Administration Ondansetron HCl 4 mg 12/22/24 03:38 12/22/24 11:24 Ondansetron Inj 4 Mg/2 Ml Vial IV PUSH 4 mg Q4H PRN Administration Nausea Pantoprazole Sodium 40 mg 12/26/24 21:00 12/28/24 11:41 Pantoprazole 40 Mg Tablet PO 40 mg Q12HR LUZ Administration Perflutren Lipid Microsphere 0 ml 12/28/24 14:04 Perflutren Lipid Microspheres 1.5 Ml Vial Diluted To 10 Ml Total Volume IV PUSH 12/31/24 14:04 ONCE PRN adequate visualization Protocol Sertraline HCl 100 mg 12/26/24 13:40 12/28/24 11:43 Sertraline Hcl 50 Mg Tablet PO 100 mg [email or web address] LUZ Administration Telmisartan 80 mg 12/26/24 18:00 12/27/24 18:14 Telmisartan 40 Mg Tablet PO 80 mg QPM LUZ Administration Tramadol HCl 25 mg 12/22/24 04:39 12/27/24 21:02 Tramadol Hcl (*Crx) 25 Mg Tablet PO 25 mg Q6H PRN Administration Pain Rated 4-6 Radiology Results: ITS Impressions Cervical Spine CT 12/21/24 20:39 Impression: Significant degenerative disease, without acute fracture. Thoracic/Lumbar Spine CT 12/21/24 20:42 Impression:Significant degenerative disease, without acute fracture. Clavicle X-Ray 12/21/24 21:07 IMPRESSION: As above Humerus X-Ray 12/21/24 21:08 IMPRESSION: Findings consistent with prior fracture deformity, as detailed above Chest CT 12/22/24 15:37 IMPRESSION: Dependent atelectasis with trace pleural thickening bilaterally. No consolidation. No cross-sectional imaging evidence to suggest pneumonia. Leukocytosis may be a result of urinary tract infection plus acute traumatic injury. Chest X-Ray 12/26/24 09:15 IMPRESSION: 1. Airspace opacities in the mid and lower lung zones, likely atelectasis. 2. Moderate-sized hiatal hernia. 3. Comminuted fracture of proximal left humerus. Head CT 12/27/24 14:28 IMPRESSION: 1. . 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 No acute intracranial process. 2. Age-related changes including mild diffuse volume loss and moderate scattered white matter hypoattenuation consistent with chronic small vessel ischemic disease. Brain MRI 12/28/24 08:36 IMPRESSION: 1. Small acute lacunar infarcts at the left cerebellar hemisphere and at the junction of the right thalamus and right cerebral peduncle. 2. 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 3. Age-related changes including mild diffuse volume loss and moderate scattered nonspecific white matter T2 hyperintensity which within normal limits for age and likely sequela of chronic small vessel ischemic disease. Labs Labs: Laboratory Results - last 24 hr 12/28/24 06:47 WBC 9.3 RBC 3.06 L Hgb 7.9 L Hct 25.6 L MCV 83.7 MCH 25.8 L MCHC 30.9 L RDW 15.9 H Plt Count 261 MPV 11.1 H Sodium 134 L Potassium 3.5 Chloride 98 Carbon Dioxide 27 Anion Gap 9 BUN 19 H Creatinine 0.95 Estim Creat Clear Calc 37 Estimated GFR 56 L Glucose 101 Calcium 8.8 Total Bilirubin 0.8 AST 39 H ALT 44 H Alkaline Phosphatase 120 Total Protein 6.0 L Albumin 3.0 L Hospitalist MIPS Advance Care Plan I have confirmed that the patient's Advanced Care Plan is present, code status is documented, or surrogate decision maker is listed in patient medical record.: Yes Medication Reconciliation I have utilized all available resources to obtain, update and review the patients current medications (includes all prescriptions, OTC, herbals, cannabis, and nutritional supplements).: Yes
[2024-12-28 15:50] LABS: Hemoglobin A1C 5.8 % (<5.7)
[2024-12-28 16:05] LABS: Cholesterol 105 mg/dL (0-200); HDL Direct 24 mg/dL; Triglycerides 117 mg/dL (<150)
[2024-12-28 16:16] LABS: LDL Cholesterol Direct 46 mg/dL
[2024-12-28] MEDS: PERFLUTREN LIPID MICROSPHERES 1.5 ML VIAL DILUTED TO 10 ML TOTAL VOLUME IV PUSH (16:35)
--- NOTE | 2024-12-28 16:57 | IVDEFINITY ---
Prior to administration of IV Definity the patient was educated on the risks and benefits of the imaging enhancing agent including potential adverse side effects. The patient verbalized understanding. Allergies were verified. No exclusion criteria were identified and at least one of the following inclusion criteria were met: 1) physician request, 2) patient technically difficult to image (per the [place] [employer] guidelines of two or more segments not discernable within the apical view), or 3) questionable left ventricular function. ?
[2024-12-28] MEDS: TELMISARTAN 40 MG TABLET 80 MG PO (18:45)
[2024-12-28] MEDS: hydroCHLOROthiazide 25 MG TABLET PO (18:45)
[2024-12-29] VITALS (11 sets, daily range): BP systolic 127–151; BP diastolic 49–63; PULSE 73–85; RESP 16–20; TEMP 36.7–37.1; O2SAT 90–98; BMI 10.0
[2024-12-29] MEDS: HYDROcodone/acetaminophen (*CRX) 7.5-325 MG TABLET 1 TAB PO ×2 (04:42→21:51)
[2024-12-29] MEDS: ENOXAPARIN 40 MG/0.4 ML SYRINGE SUB-Q (09:25)
[2024-12-29] MEDS: guaiFENesin 12 HR 600 MG TABCR PO ×2 (09:25→20:45)
[2024-12-29] MEDS: ARIPiprazole 5 MG TABLET PO (09:25)
[2024-12-29] MEDS: SERTRALINE HCL 50 MG TABLET 100 MG PO (09:25)
[2024-12-29] MEDS: ATORVASTATIN 40 MG TABLET PO (09:25)
[2024-12-29] MEDS: AMOXICILLIN/CLAVULANATE K 875-125 MG TAB 1 TABLET PO ×2 (09:25→20:45)
[2024-12-29] MEDS: PANTOPRAZOLE 40 MG TABLET PO ×2 (09:25→20:45)
--- NOTE | 2024-12-29 10:12 | P.PNCROSS_ITS ---
Event Note Event Note Event Note: Cardiology asked to order 30 day event monitor for this patient. I placed the o rder. Patient can have the monitor placed in our office during business hours after she gets discharged from the hospital.
--- NOTE | 2024-12-29 17:21 | P.PNIM_ITS ---
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 N/C, lipid panel. Continue aspirin 325 p.o. q.d. Started atorvastatin 40 mg p.o. q.d. Ordered echo and carotid ultrasound On tele Consulted cardiology for 30 day event monitor. UTI Urine culture positive for Klebsiella pneumoniae and E coli co-sensitive to Rocephin Rocephin 3/3 Bilateral humeral fracture Ortho consulted As per ortho :Begin non operative treatment at this time with conservative formal physical therapy. Nonweightbearing bilateral upper extremities. Sling for pain control and fracture immobilization. May require anticoagulation at discharge given anticipated immobility x6 weeks. imaging reviewed upper extremities currently in a sling continue PRN pain control Still awaiting ortho eval left pleural effusion ruled out CT chest showed no pleural effusions or consolidation Fall PT/OT Moreira esophagus Continue Protonix and follow up with GI outpatient. Depression Continue medications. DVT prophylaxis subQ Lovenox PT/OT Subjective Date/time seen: 12/29/24 17:21 Interval history: No acute events overnight. Patient needs to follow-up with the Cardiology, Orthopedics, and Neurology. Echocardiogram shows systolic function is normal 65-70%, grade 1 diastolic dysfunction. Carotid Doppler shows less than 50% stenosis in the right and left internal carotid artery. Patient is already on aspirin 325 a and added atorvastatin 40 mg p.o. q.d.. Patient need physical therapy as an outpatient. Review of Systems Review of Systems: 12 systems were reviewed and are negativ e except for as per HPI. Exam Narrative: General: Nontoxic-appearing elderly female supine in bed. She looks a bit younger than her stated age. Weight: 77.2 kg. BMI: 30.1. HEENT: Normocephalic, atraumatic. PERRL, EOMI. Sclera anicteric. Oral mucosa moist. Neck: Supple. Respiratory: Lungs are clear to auscultation bilaterally. Cardiovascular: Regular rate and rhythm with S1-S2. Gastrointestinal: Abdomen is soft, nontender, and nondistended with positive bowel sounds. Skin: Warm and dry. No rash or lesions on limited exam. Extremities: No cyanosis, clubbing, or edema. Radial and pedal pulses intact. Musculoskeletal: bilateral slings on both upper extremities Neurological: Alert. Cranial nerves 2-12 are grossly intact. No gross focal deficits to casual conversation. Psychiatric: Pleasant and cooperative with normal mood and affect. Seems a bit forgetful. Objective Data Vital Signs Vital Signs: Vital Signs - 24 hr 12/28/24 20:00 12/28/24 21:54 12/29/24 00:00 Temperature 98.7 F Pulse Rate 77 83 85 Respiratory Rate 20 Blood Pressure 105/41 L Pulse Oximetry 94 Oxygen Delivery Oxygen Flow Rate 12/29/24 04:00 12/29/24 06:00 12/29/24 12:51 Temperature 98.2 F Pulse Rate 79 80 Respiratory Rate 16 Blood Pressure 149/49 H Pulse Oximetry 97 90 Oxygen Delivery Nasal Cannula Oxygen Flow Rate 0.5 12/29/24 14:00 Temperature 98.0 F Pulse Rate 78 Respiratory Rate 16 Blood Pressure 127/51 L Pulse Oximetry 98 Oxygen Delivery Oxygen Flow Rate Intake/Output Intake/Output: Intake & Output 12/26/24 12/27/24 12/28/24 12/29/24 23:59 23:59 23:59 23:59 Intake Total 5971 737 1181 480 Output Total 9807 208 1206 300 Balance -310 -270 -332 180 Meds/Results Medications: Active Medications Generic Name Dose Route Start Last Admin Trade Name Freq PRN Reason Stop Dose Admin Acetaminophen 650 mg 12/22/24 03:38 12/25/24 22:15 Acetaminophen 325 Mg Tablet PO 650 mg Q4H PRN Administration Mild Pain (1-3) or Fever Hydrocodone Bitart/Acetaminophen 1 tab 12/22/24 04:39 12/29/24 04:42 Hydrocodone/Acetaminophen (*Crx) 7.5-325 Mg Tablet PO 1 tab Q6H PRN Administration Pain Rated 7-10 Amoxicillin/Clavulanate Potassium 1 tablet 12/29/24 09:00 12/29/24 09:25 Amoxicillin/Clavulanate K 875-125 Mg Tab PO 12/31/24 21:01 1 tablet Q12HR LUZ Administration Aripiprazole 5 mg 12/26/24 09:35 12/29/24 09:25 Aripiprazole 5 Mg Tablet PO 5 mg DAILY LUZ Administration Atorvastatin Calcium 40 mg 12/29/24 09:00 12/29/24 09:25 Atorvastatin 40 Mg Tablet PO 40 mg DAILY LUZ Administration Enoxaparin Sodium 40 mg 12/23/24 09:00 12/29/24 09:25 Enoxaparin 40 Mg/0.4 Ml Syringe SUB-Q 40 mg DAILY LUZ Administration Guaifenesin 600 mg 12/23/24 21:00 12/29/24 09:25 Guaifenesin 12 Hr 600 Mg Tabcr PO 600 mg Q12HR LUZ Administration Guaifenesin/Dextromethorphan 10 ml 12/23/24 18:49 Guaifenesin/Dextromethorphan 10 Ml Udc PO Q4H PRN Cough Hydrochlorothiazide 25 mg 12/26/24 18:00 12/28/24 18:45 Hydrochlorothiazide 25 Mg Tablet PO 25 mg QPM LUZ Administration Ondansetron HCl 4 mg 12/22/24 03:38 12/22/24 11:24 Ondansetron Inj 4 Mg/2 Ml Vial IV PUSH 4 mg Q4H PRN Administration Nausea Pantoprazole Sodium 40 mg 12/26/24 21:00 12/29/24 09:25 Pantoprazole 40 Mg Tablet PO 40 mg Q12HR LUZ Administration Sertraline HCl 100 mg 12/26/24 13:40 12/29/24 09:25 Sertraline Hcl 50 Mg Tablet PO 100 mg [email or web address] LUZ Administration Telmisartan 80 mg 12/26/24 18:00 12/28/24 18:45 Telmisartan 40 Mg Tablet PO 80 mg QPM LUZ Administration Tramadol HCl 25 mg 12/22/24 04:39 01/30/25 21:02 Tramadol Hcl (*Crx) 25 Mg Tablet PO 25 mg Q6H PRN Administration Pain Rated 4-6 Radiology Results: ITS Impressions Cervical Spine CT 12/21/24 20:39 Impression: Significant degenerative disease, without acute fracture. Thoracic/Lumbar Spine CT 12/21/24 20:42 Impression:Significant degenerative disease, without acute fracture. Clavicle X-Ray 12/21/24 21:07 IMPRESSION: As above Humerus X-Ray 12/21/24 21:08 IMPRESSION: Findings consistent with prior fracture deformity, as detailed above Chest CT 12/22/24 15:37 IMPRESSION: Dependent atelectasis with trace pleural thickening bilaterally. No consolidation. No cross-sectional imaging evidence to suggest pneumonia. Leukocytosis may be a result of urinary tract infection plus acute traumatic injury. Chest X-Ray 12/26/24 09:15 IMPRESSION: 1. Airspace opacities in the mid and lower lung zones, likely atelectasis. 2. Moderate-sized hiatal hernia. 3. Comminuted fracture of proximal left humerus. Head CT 12/27/24 14:28 IMPRESSION: 1. . 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 No acute intracranial process. 2. Age-related changes including mild diffuse volume loss and moderate scattered white matter hypoattenuation consistent with chronic small vessel ischemic disease. Brain MRI 12/28/24 08:36 IMPRESSION: 1. Small acute lacunar infarcts at the left cerebellar hemisphere and at the junction of the right thalamus and right cerebral peduncle. 2. 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 3. Age-related changes including mild diffuse volume loss and moderate scattered nonspecific white matter T2 hyperintensity which within normal limits for age and likely sequela of chronic small vessel ischemic disease. Carotid Doppler Study 12/28/24 16:39 IMPRESSION: 1. <50% stenosis in the right internal carotid artery. 2. <50% stenosis in the left internal carotid artery. Quality VTE Prophylaxis VTE prophylaxis: pharmacologic ordered Hospitalist MIPS Advance Care Plan I have confirmed that the patient's Advanced Care Plan is present, code status is documented, or surrogate decision maker is listed in patient medical record.: Yes Medication Reconciliation I have utilized all available resources to obtain, update and review the patients current medications (includes all prescriptions, OTC, herbals, cannabis, and nutritional supplements).: Yes
[2024-12-29] MEDS: hydroCHLOROthiazide 25 MG TABLET PO (19:01)
[2024-12-29] MEDS: TELMISARTAN 40 MG TABLET 80 MG PO (19:01)
[2024-12-30] VITALS (10 sets, daily range): BP systolic 133–159; BP diastolic 52–63; PULSE 67–88; RESP 18–20; TEMP 36.7–37.1; O2SAT 93–98
[2024-12-30] MEDS: amLODIPine BESYLATE 10 MG TABLET PO (10:48)
[2024-12-30] MEDS: ATORVASTATIN 40 MG TABLET PO (10:48)
[2024-12-30] MEDS: PANTOPRAZOLE 40 MG TABLET PO ×2 (10:48→21:44)
[2024-12-30] MEDS: AMOXICILLIN/CLAVULANATE K 875-125 MG TAB 1 TABLET PO ×2 (10:48→21:44)
[2024-12-30] MEDS: guaiFENesin 12 HR 600 MG TABCR PO ×2 (10:48→21:44)
[2024-12-30] MEDS: ENOXAPARIN 40 MG/0.4 ML SYRINGE SUB-Q (10:49)
[2024-12-30] MEDS: ARIPiprazole 5 MG TABLET PO (10:49)
--- NOTE | 2024-12-30 12:59 | P.DS_ITS ---
DS: Admitting Diagnosis Discharge Date 12/31/3024 Admitting Diagnosis Left arm pain after fall DS: Discharge Diagnosis Discharge Diagnosis (1) Fall: Code(s): W19.XXXA - Unspecified fall, initial encounter Status: Acute (2) Urinary tract infection: Code(s): N39.0 - Urinary tract infection, site not specified Status: Acute (3) Fracture of proximal end of left humerus: Code(s): S42.202A - Unspecified fracture of upper end of left humerus, initial encounter for closed fracture Status: Acute (4) Hypertension: Code(s): I10 - Essential (primary) hypertension Status: Acute (5) Hyperlipidemia: Code(s): E78.5 - Hyperlipidemia, unspecified Status: Acute (6) 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 N/C, lipid panel. Continue aspirin 325 p.o. q.d. Contain atorvastatin 8 mg p.o. q.d. Reviewed echo and carotid ultrasound Follow-up with cardiology for 30 day event monitor. UTI Urine culture positive for Klebsiella pneumoniae and E coli co-sensitive to Rocephin Rocephin 3/ Bilateral humeral fracture Ortho consulted As per ortho :Begin non operative treatment at this time with conservative formal physical therapy. Nonweightbearing bilateral upper extremities. Sling for pain control and fracture immobilization. May require anticoagulation at discharge given anticipated immobility x6 weeks. imaging reviewed upper extremities currently in a sling continue PRN pain control Considering her age and risk of fall, patient can continue ASA and no need for additional AC left pleural effusion ruled out CT chest showed no pleural effusions or consolidation Fall PT/OT Moreira esophagus Continue Protonix and follow up with GI outpatient. Depression Continue medications. DVT prophylaxis subQ Lovenox PT/OT DS: Summary Hospital Course Hospital Course: This is a very pleasant 84-year-old female with history of dementia, stroke, hypertension, hyperlipidemia, gastroesophageal reflux disease, Moreira esophagus, depression, and anxiety who presented to the emergency department via EMS from a local restaurant for evaluation of left arm pain after a ground level fall. She tells me that she got tripped up in her feet and she lost her balance, falling over onto the ground on her left side. She had immediate pain in her left shoulder and she was brought in for evaluation. There was no head trauma or loss of consciousness in the fall and she denies sustaining any other injuries. She reports that she is otherwise feeling okay and denies vertigo, focal weakness, paresthesias, fever, cold and flu symptoms, chest pain, shortness of breath, cough, nausea, vomiting, diarrhea, and dysuria. In the ED: She was afebrile on arrival with stable vital signs.? Labs were significant for WBC count of 23.4, hemoglobin 11.2, platelet 242, lactic acid 2.6. Head, cervical, thoracic, and lumbar spine CTs did not show any acute findings. Radiographs showed a comminuted impacted left humeral neck fracture and findings consistent with a prior fracture deformity of the right humeral head. She is being admitted in this setting for pain control, orthopedic consultation, and PT/OT evaluation. during the hospitalization patient was evaluated by Orthopedics for bilateral proximal humeral fracture. Ortho recommended conservative management and follow-up with them as an outpatient. Advised to continue the sling for pain control and fracture immobilization. Ortho suggested anticoagulation at discharge due to anticipated immobility for 6 weeks. Patient currently on aspirin 325 consider frequent fall and age, we recommend continuing aspirin. On 12/27 Ortho had new concerns for radial nerve palsy on the left wrist. Wrist splint in place. Removed arm sling. Dr. Rivero mentioned concern for possible stroke vs focal nerve palsy. I discussed the case with . On 12/28: On my evaluation,patient had left radial nerve weakness but improving compared to yesterday. MRI of the brain shows small acute lacunar infarct at the left cerebral hemisphere and at the junction of right thalamus and right cerebral peduncle. Please refer to full MRI report. Discussed with the her daughter who reported patient had multiple strokes before. Her last known stroke was 10-15 years ago and presented with facial weakness but recovered completely. Ordered ECHO, lipid panel,HBA1c, and spoke with Neurologist at [place] and recommends patient during discharge need 30 day event monitor and currently can be medically managed with no need for transfer. 12/30: DC was hold due to hypoxia. 12/31: Performed CTA shows no PE ,shows Trace bibasilar pleural effusions, left greater than right with adjacent compressive atelectasis. Patient had mild evidence of increased WBC since there is no evidence of infection or PNA from CTA, advised to perform a CBC next week to monitor WBC. Given one time dose of Lasix 40mg IV once. Please refer to full report of echocardiogram and carotid ultrasound which shows no significant finding. Patient is discharged with following instructions: As per PT continue strengthening X and transfers. The patient will benefit from continues therapy to improve strength and safety for functional mobility. Patient needs to follow up with PCP, Physical therapy, Neurology, Cardiology, and Orthopedic within a week upon discharge. Please needs to check hemoglobulin level and as outpatient Gastroenterology as well. Ordered CBC . Patient needs to be discharged with 30 day event monitor and follow up with C ardiology Status at Discharge Cognitive/behavioral status at discharge: stable Time Spent with Patient Time attestation: Total time spent providing and/or coordinating discharge services: 45 minutes Exam Narrative: General: Nontoxic-appearing elderly female supine in bed. She looks a bit younger than her stated age. Weight: 77.2 kg. BMI: 30.1. HEENT: Normocephalic, atraumatic. PERRL, EOMI. Sclera anicteric. Oral mucosa moist. Neck: Supple. Respiratory: Lungs are clear to auscultation bilaterally. Cardiovascular: Regular rate and rhythm with S1-S2. Gastrointestinal: Abdomen is soft, nontender, and nondistended with positive bowel sounds. Skin: Warm and dry. No rash or lesions on limited exam. Extremities: No cyanosis, clubbing, or edema. Radial and pedal pulses intact. Musculoskeletal: bilateral slings on both upper extremities Neurological: Alert. Cranial nerves 2-12 are grossly intact. No gross focal deficits to casual conversation. Psychiatric: Pleasant and cooperative with normal mood and affect. Seems a bit forgetful. DS: Data Data Completed and Pending Labs on day of discharge: Preliminary micro results at discharge 12/26/24 09:53 Blood Culture - Preliminary Blood 12/26/24 09:55 Blood Culture - Preliminary Blood Imaging My impression: ITS Impressions Head CT 12/21/24 20:25 Impression: No acute intracranial hemorrhage or suspicious mass effect. Inflammatory sinus disease. 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 Thoracic/Lumbar Spine CT 12/21/24 20:42 Impression:Significant degenerative disease, without acute fracture. Humerus X-Ray 12/21/24 21:06 IMPRESSION: Comminuted impacted left humeral neck fracture. Clavicle X-Ray 12/21/24 21:07 IMPRESSION: As above Humerus X-Ray 12/21/24 21:08 IMPRESSION: Findings consistent with prior fracture deformity, as detailed above Chest X-Ray 12/21/24 21:10 IMPRESSION: No focal infiltrate or effusion. Chest X-Ray 12/21/24 22:40 IMPRESSION: Possible small left-sided pleural effusion, as detailed above. Chest CT 12/22/24 15:37 IMPRESSION: Dependent atelectasis with trace pleural thickening bilaterally. No consolidation. No cross-sectional imaging evidence to suggest pneumonia. Leukocytosis may be a result of urinary tract infection plus acute traumatic injury. Chest X-Ray 12/26/24 09:15 IMPRESSION: 1. Airspace opacities in the mid and lower lung zones, likely atelectasis. 2. Moderate-sized hiatal hernia. 3. Comminuted fracture of proximal left humerus. Head CT 12/27/24 14:28 IMPRESSION: 1. . 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 No acute intracranial process. 2. Age-related changes including mild diffuse volume loss and moderate scattered white matter hypoattenuation consistent with chronic small vessel ischemic disease. Brain MRI 12/28/24 08:36 IMPRESSION: 1. Small acute lacunar infarcts at the left cerebellar hemisphere and at the junction of the right thalamus and right cerebral peduncle. 2. 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 3. Age-related changes including mild diffuse volume loss and moderate scattered nonspecific white matter T2 hyperintensity which within normal limits for age and likely sequela of chronic small vessel ischemic disease. Carotid Doppler Study 12/28/24 16:39 IMPRESSION: 1. <50% stenosis in the right internal carotid artery. 2. <50% stenosis in the left internal carotid artery. Discharge Plan Discharge Attending physician on discharge: Dave Nguyen Consulting providers: Bahman Harrell; Justyna Castillo; Alberto Rivero Discharging Clinician: Dave Nguyen Patient Disposition: SNF Activity: other - see discharge instructions Diet: heart healthy Discharge Instructions: As per PT continue strengthening X and transfers. The patient will benefit from continues therapy to improve strength and safety for functional mobility. Patient needs to follow up with PCP, Physical therapy, Neurology, Cardiology, and Orthopedic within a week upon discharge. Please complete Amox/clav 2 times a day for 5 days. Please check hemoglobulin level and as outpatient Gastroenterology as well. Ordered CBC .Monitor WBC and HgB Patient needs to be discharged with 30 day event monitor and follow up with Cardiology Patient Language: Latvian Stand Alone Forms: General Discharge Information Follow-up/Referrals: [facility] [place] [facility] [place] [Provider Group] (Patient needs to be discharged with 30 day event monitor and follow up with Cardiology) Discharge Medications: New amlodipine 10 mg Tablet 10 mg PO DAILY Qty: 30 0RF guaifenesin [Mucus Relief ER] 600 mg Tablet Extended Release 12hr 600 mg PO Q12HR Qty: 14 0RF amoxicillin-pot clavulanate 875-125 mg tablet 1 tablet PO Q12H Qty: 5 0RF Rx Instructions: Please complete the course tomorrow (12/31). Take 1 tab 2 times a day. amoxicillin-pot clavulanate 875-125 mg tablet 1 tablet PO Q12H Qty: 10 0RF Continued atorvastatin 80 mg tablet 80 mg PO DAILY sertraline 100 mg tablet 100 mg PO 4XW omeprazole 40 mg capsule,delayed release(DR/EC) 40 mg PO DAILY telmisartan 80 mg tablet 80 mg PO QPM hydrochlorothiazide 25 mg tablet 25 mg PO QPM aripiprazole 5 mg tablet 5 mg PO DAILY aspirin 325 mg Tablet 325 mg PO QPM calcium 600 mg Capsule 600 mg PO BID coQ10 (ubiquinol) 100 mg Capsule 100 mg PO QPM cyanocobalamin (vitamin B-12) 1,000 mcg Capsule 1,000 mcg PO .qod Other Ambulatory Orders: Complete Blood Count no Diff (Routine) Timeframe: 1 Week Location: Determined by Patient Ordered By: Dave CONNER cardiac event monitor (Routine) Timeframe: 1 Month Location: Determined by Patient Ordered By: Justyna Castillo Date of admission: 12/22/24 07:49 Primary Care Provider: Maciej,Lynn Witt Admitting Provider: Miles Clark Attending physician on admission: Miles Clark Condition: Stable
[2024-12-30] MEDS: HYDROcodone/acetaminophen (*CRX) 7.5-325 MG TABLET 1 TAB PO ×2 (15:51→21:44)
--- NOTE | 2024-12-30 16:41 | P.PNIM_ITS ---
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 N/C, lipid panel. Continue aspirin 325 p.o. q.d. Contain atorvastatin 8 mg p.o. q.d. Reviewed echo and carotid ultrasound Follow-up with cardiology for 30 day event monitor. UTI Urine culture positive for Klebsiella pneumoniae and E coli co-sensitive to Rocephin Rocephin 3/3 Bilateral humeral fracture Ortho consulted As per ortho :Begin non operative treatment at this time with conservative formal physical therapy. Nonweightbearing bilateral upper extremities. Sling for pain control and fracture immobilization. May require anticoagulation at discharge given anticipated immobility x6 weeks. imaging reviewed upper extremities currently in a sling continue PRN pain control Considering her age and risk of fall, patient can continue ASA and no need for additional AC left pleural effusion ruled out CT chest showed no pleural effusions or consolidation Fall PT/OT Moreira esophagus Continue Protonix and follow up with GI outpatient. Depression Continue medications. DVT prophylaxis subQ Lovenox PT/OT Subjective Date/time seen: 12/30/24 16:41 Interval history: Holding transfer due to episode of hypoxemia . Will r/o PE due prolonged immobilization from humerus fracture. Review of Systems Review of Systems: 12 systems were reviewed and are negativ e except for as per HPI. Exam Narrative: General: Nontoxic-appearing elderly female supine in bed. She looks a bit younger than her stated age. Weight: 77.2 kg. BMI: 30.1. HEENT: Normocephalic, atraumatic. PERRL, EOMI. Sclera anicteric. Oral mucosa moist. Neck: Supple. Respiratory: Lungs are clear to auscultation bilaterally. Cardiovascular: Regular rate and rhythm with S1-S2. Gastrointestinal: Abdomen is soft, nontender, and nondistended with positive bowel sounds. Skin: Warm and dry. No rash or lesions on limited exam. Extremities: No cyanosis, clubbing, or edema. Radial and pedal pulses intact. Musculoskeletal: bilateral slings on both upper extremities Neurological: Alert. Cranial nerves 2-12 are grossly intact. No gross focal deficits to casual conversation. Psychiatric: Pleasant and cooperative with normal mood and affect. Seems a bit forgetful. Objective Data Vital Signs Vital Signs: Vital Signs - 24 hr 12/29/24 20:00 12/29/24 21:31 12/30/24 00:00 Temperature 98.8 F Pulse Rate 78 79 71 Respiratory Rate 20 Blood Pressure 151/63 H Pulse Oximetry 94 Oxygen Delivery Oxygen Flow Rate 12/30/24 04:00 12/30/24 05:18 12/30/24 08:02 Temperature 98.4 F Pulse Rate 67 71 Respiratory Rate 20 Blood Pressure 159/63 H Pulse Oximetry 98 Oxygen Delivery Room Air Oxygen Flow Rate 12/30/24 08:02 12/30/24 12:00 12/30/24 14:00 Temperature 98.1 F Pulse Rate 73 86 88 Respiratory Rate 18 Blood Pressure 148/52 H Pulse Oximetry 93 Oxygen Delivery Oxygen Flow Rate 12/30/24 15:45 Temperature Pulse Rate Respiratory Rate Blood Pressure Pulse Oximetry 93 Oxygen Delivery Nasal Cannula Oxygen Flow Rate 1 Intake/Output Intake/Output: Intake & Output 12/27/24 12/28/24 12/29/24 12/30/24 23:59 23:59 23:59 23:59 Intake Total 630 1018 600 480 Output Total 900 1350 900 400 Balance -270 -332 -300 80 Meds/Results Medications: Active Medications Generic Name Dose Route Start Last Admin Trade Name Freq PRN Reason Stop Dose Admin Acetaminophen 650 mg 12/22/24 03:38 12/25/24 22:15 Acetaminophen 325 Mg Tablet PO 650 mg Q4H PRN Administration Mild Pain (1-3) or Fever Hydrocodone Bitart/Acetaminophen 1 tab 12/22/24 04:39 12/30/24 15:51 Hydrocodone/Acetaminophen (*Crx) 7.5-325 Mg Tablet PO 1 tab Q6H PRN Administration Pain Rated 7-10 Amlodipine Besylate 10 mg 12/30/24 09:00 12/30/24 10:48 Amlodipine Besylate 10 Mg Tablet PO 10 mg DAILY LUZ Administration Amoxicillin/Clavulanate Potassium 1 tablet 12/29/24 09:00 12/30/24 10:48 Amoxicillin/Clavulanate K 875-125 Mg Tab PO 12/31/24 21:01 1 tablet Q12HR LUZ Administration Aripiprazole 5 mg 12/26/24 09:35 12/30/24 10:49 Aripiprazole 5 Mg Tablet PO 5 mg DAILY LUZ Administration Atorvastatin Calcium 40 mg 12/29/24 09:00 12/30/24 10:48 Atorvastatin 40 Mg Tablet PO 40 mg DAILY LUZ Administration Enoxaparin Sodium 40 mg 12/23/24 09:00 12/30/24 10:49 Enoxaparin 40 Mg/0.4 Ml Syringe SUB-Q 40 mg DAILY LUZ Administration Guaifenesin 600 mg 12/23/24 21:00 12/30/24 10:48 Guaifenesin 12 Hr 600 Mg Tabcr PO 600 mg Q12HR LUZ Administration Guaifenesin/Dextromethorphan 10 ml 12/23/24 18:49 Guaifenesin/Dextromethorphan 10 Ml Udc PO Q4H PRN Cough Hydrochlorothiazide 25 mg 12/26/24 18:00 12/29/24 19:01 Hydrochlorothiazide 25 Mg Tablet PO 25 mg QPM LUZ Administration Ondansetron HCl 4 mg 12/22/24 03:38 12/22/24 11:24 Ondansetron Inj 4 Mg/2 Ml Vial IV PUSH 4 mg Q4H PRN Administration Nausea Pantoprazole Sodium 40 mg 12/26/24 21:00 12/30/24 10:48 Pantoprazole 40 Mg Tablet PO 40 mg Q12HR LUZ Administration Sertraline HCl 100 mg 12/26/24 13:40 12/29/24 09:25 Sertraline Hcl 50 Mg Tablet PO 100 mg [id number] LUZ Administration Telmisartan 80 mg 12/26/24 18:00 12/29/24 19:01 Telmisartan 40 Mg Tablet PO 80 mg QPM LUZ Administration Tramadol HCl 25 mg 12/22/24 04:39 12/27/24 21:02 Tramadol Hcl (*Crx) 25 Mg Tablet PO 25 mg Q6H PRN Administration Pain Rated 4-6 Radiology Results: ITS Impressions Cervical Spine CT 12/21/24 20:39 Impression: Significant degenerative disease, without acute fracture. Thoracic/Lumbar Spine CT 12/21/24 20:42 Impression:Significant degenerative disease, without acute fracture. Clavicle X-Ray 12/21/24 21:07 IMPRESSION: As above Humerus X-Ray 12/21/24 21:08 IMPRESSION: Findings consistent with prior fracture deformity, as detailed above Chest CT 12/22/24 15:37 IMPRESSION: Dependent atelectasis with trace pleural thickening bilaterally. No consolidation. No cross-sectional imaging evidence to suggest pneumonia. Leukocytosis may be a result of urinary tract infection plus acute traumatic injury. Chest X-Ray 12/26/24 09:15 IMPRESSION: 1. Airspace opacities in the mid and lower lung zones, likely atelectasis. 2. Moderate-sized hiatal hernia. 3. Comminuted fracture of proximal left humerus. Head CT 12/27/24 14:28 IMPRESSION: 1. . 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 No acute intracranial process. 2. Age-related changes including mild diffuse volume loss and moderate scattered white matter hypoattenuation consistent with chronic small vessel ischemic disease. Brain MRI 12/28/24 08:36 IMPRESSION: 1. Small acute lacunar infarcts at the left cerebellar hemisphere and at the junction of the right thalamus and right cerebral peduncle. 2. 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 3. Age-related changes including mild diffuse volume loss and moderate scattered nonspecific white matter T2 hyperintensity which within normal limits for age and likely sequela of chronic small vessel ischemic disease. Carotid Doppler Study 12/28/24 16:39 IMPRESSION: 1. <50% stenosis in the right internal carotid artery. 2. <50% stenosis in the left internal carotid artery. Hospitalist MIPS Advance Care Plan I have confirmed that the patient's Advanced Care Plan is present, code status is documented, or surrogate decision maker is listed in patient medical record.: Yes Medication Reconciliation I have utilized all available resources to obtain, update and review the patients current medications (includes all prescriptions, OTC, herbals, cannabis, and nutritional supplements).: Yes
[2024-12-30] MEDS: hydroCHLOROthiazide 25 MG TABLET PO (18:53)
[2024-12-30] MEDS: TELMISARTAN 40 MG TABLET 80 MG PO (18:53)
[2024-12-31] VITALS (9 sets, daily range): BP systolic 117–120; BP diastolic 45–52; PULSE 76–87; RESP 18; TEMP 36.7–37.2; O2SAT 92–95; BMI 10.0
[2024-12-31 06:51] LABS: Hematocrit 26.8 % (37.0-47.0); Hemoglobin 8.3 g/dL (12.0-15.0); Mean Corpuscular Hemoglobin 25.6 pg (26-34); Mean Corpuscular Volume 82.7 fl (80-100); Mean Platelet Volume 10.3 fl (7.4-10.4); Platelet Count Result 402 k/mm3 (150-375); Red Blood Count 3.24 M/mm3 (4.2-5.4); Red Cell Distribution Width 15.9 % (11.5-14.5); White Blood Count 11.9 K/mm3 (4.5-10.0)
[2024-12-31 07:01] LABS: Alanine Aminotransferase 57 U/L (6-35); Albumin Level 3.5 g/dL (3.5-5.1); Alkaline Phosphatase 127 U/L (38-126); Anion Gap 9 mmol/L (4-12); Aspartate Amino Transferase 51 U/L (14-36); Bilirubin,Total 0.9 mg/dL (0.2-1.3); Blood Urea Nitrogen 26 mg/dL (7-17); Calcium 9.3 mg/dL (8.4-10.2); Carbon Dioxide 27 mmol/L (22-30); Chloride 98 mmol/L (98-107); Estimated CRCL calculation 30 ml/min; Estimated Glomerular Filt Rate 44; Glucose 108 mg/dL (65-110); Potassium 3.4 mmol/L (3.4-5.0); Sodium 134 mmol/L (137-145)
[2024-12-31] MEDS: traMADol HCL (*CRX) 25 MG TABLET PO (08:47)
[2024-12-31] MEDS: ARIPiprazole 5 MG TABLET PO (08:48)
[2024-12-31] MEDS: FUROSEMIDE INJ 40 MG/4 ML VIAL IV PUSH (08:48)
[2024-12-31] MEDS: guaiFENesin 12 HR 600 MG TABCR PO ×2 (08:48→20:56)
[2024-12-31] MEDS: PANTOPRAZOLE 40 MG TABLET PO ×2 (08:48→20:56)
[2024-12-31] MEDS: AMOXICILLIN/CLAVULANATE K 875-125 MG TAB 1 TABLET PO ×2 (08:48→20:55)
[2024-12-31] MEDS: ATORVASTATIN 40 MG TABLET PO (08:48)
[2024-12-31] MEDS: amLODIPine BESYLATE 10 MG TABLET PO (08:48)
[2024-12-31] MEDS: ENOXAPARIN 40 MG/0.4 ML SYRINGE SUB-Q (08:49)
[2024-12-31] MEDS: SERTRALINE HCL 50 MG TABLET 100 MG PO (08:51)
--- NOTE | 2024-12-31 09:30 | PM.PNORT ---
Progress Note: A&P Assessment and Plan (1) Bilateral proximal humeral fractures: Code(s): S42.201A - Unspecified fracture of upper end of right humerus, initial encounter for closed fracture; S42.202A - Unspecified fracture of upper end of left humerus, initial encounter for closed fracture Status: Acute Assessment and Plan: Radiographs of the right shoulder reveal a right humeral head fracture and radiographs of the left shoulder reveal a comminuted impacted left humeral neck fracture. The fracture type and injury as well as radiographs discussed with the patient. Dr. Rivero evaluated and discussed both surgical and non operative treatment option with the patient on 12/26. Operative and nonoperative treatment options reviewed. Surgical candidacy concerning given overall medical picture. Concerns for radial nerve palsy on day 5 s/p fracture. Today, full extension of the wrist noted. Brain MRI with evidence of CVA. We will continue non operative treatment at this time for proximal humerus fractures with conservative formal physical therapy. Nonweightbearing bilateral upper extremities. Sling for pain control and fracture immobilization. Will continue to monitor. (2) Cerebrovascular accident: Code(s): I63.9 - Cerebral infarction, unspecified Status: Acute (3) Acute UTI: Code(s): N39.0 - Urinary tract infection, site not specified Status: Acute Plan Reviewed history, exam, radiographs and current labs with attending MD and covering surgeon, Dr. Rivero, who agrees with current plan as indicated above. No further recommendations from Dr. Rivero at this time. Subjective Subjective Date/Time Seen: 12/31/24 09:30 Interval history: 10 days s/p fall resulting in bilateral shoulder fractures. Patient has had slow progress with PT and OT. She also developed left wrist weakness consistent with possible radial nerve palsy on post fracture day 5. No new concerns today. Review of Systems Review of Systems: All systems reviewed & are unremarkable except as noted in HPI and below Exam Const: General: comfortable and no acute distress Nutritional Appearance: overweight HENMT: Mouth: Yes moist mucous membranes Eyes: General: appearance normal, both eyes and all related structures Neck: Neck: supple and no JVD Resp: Effort & Inspection: normal respiratory effort Cardio: Rate: regular rate Rhythm: regular rhythm GI: Inspection: non-distended GI Palp: Yes Soft to palpation and No Tenderness to palpation present (GI) Neuro: General: gait normal Cognition (Neuro): normal cognition Speech: normal speech Extrem: Right upper extremity: shoulder/upper arm ( Sling in place) tenderness, swelling and ecchymosis ( acute ecchymosis right upper extremity), elbow/forearm ( sling in place, ROM limited. ), wrist ( sling in place) normal ROM and radial pulse present 2+ and Extremity exam: right hand normal to inspection Left upper extremity: shoulder/upper arm tenderness and ecchymosis, elbow/forearm (sling in place, ROM limited. ), wrist normal to inspection, abnormal ROM (see below ), normal vascular exam and radial pulse present 2+; no swelling and no crepitus and hand normal to inspection, normal capillary refill and vascular exam radial pulse present Details: 2+; no tenderness Other: Significant improvement in ability to flex extend the left wrist past neutral. Mild finger extension. Her sensation is intact with good capillary refill in distal pulses palpable. Psych: Mental Status: mental status grossly normal Affect: normal affect Objective Data Vital Signs Vital Signs: Vital Signs - 24 hr 12/30/24 12:00 12/30/24 14:00 12/30/24 15:45 Temperature 36.7 C Pulse Rate 86 88 Respiratory Rate 18 Blood Pressure 148/52 H Pulse Oximetry 93 93 Oxygen Delivery Nasal Cannula Oxygen Flow Rate 1 12/30/24 16:02 12/30/24 20:00 12/30/24 20:00 Temperature Pulse Rate 86 84 Respiratory Rate Blood Pressure Pulse Oximetry 97 Oxygen Delivery Nasal Cannula Oxygen Flow Rate 1 12/30/24 20:14 12/31/24 00:00 12/31/24 04:00 Temperature 37.1 C Pulse Rate 79 87 76 Respiratory Rate 18 Blood Pressure 133/55 L Pulse Oximetry 97 Oxygen Delivery Oxygen Flow Rate 12/31/24 04:04 Temperature 36.7 C Pulse Rate 81 Respiratory Rate 18 Blood Pressure 117/52 L Pulse Oximetry 93 Oxygen Delivery Oxygen Flow Rate Intake/Output Intake/Output: Intake & Output 12/28/24 12/29/24 12/30/24 12/31/24 23:59 23:59 23:59 23:59 Intake Total 1018 600 830 250 Output Total 1350 900 600 100 Balance -332 -300 230 150 Meds/Results Medications: Active Medications Generic Name Dose Route Start Last Admin Trade Name Freq PRN Reason Stop Dose Admin Acetaminophen 650 mg 12/22/24 03:38 12/25/24 22:15 Acetaminophen 325 Mg Tablet PO 650 mg Q4H PRN Administration Mild Pain (1-3) or Fever Hydrocodone Bitart/Acetaminophen 1 tab 12/22/24 04:39 12/30/24 21:44 Hydrocodone/Acetaminophen (*Crx) 7.5-325 Mg Tablet PO 1 tab Q6H PRN Administration Pain Rated 7-10 Amlodipine Besylate 10 mg 12/30/24 09:00 12/31/24 08:48 Amlodipine Besylate 10 Mg Tablet PO 10 mg DAILY LUZ Administration Amoxicillin/Clavulanate Potassium 1 tablet 12/29/24 09:00 12/31/24 08:48 Amoxicillin/Clavulanate K 875-125 Mg Tab PO 12/31/24 21:01 1 tablet Q12HR LUZ Administration Aripiprazole 5 mg 12/26/24 09:35 12/31/24 08:48 Aripiprazole 5 Mg Tablet PO 5 mg DAILY LUZ Administration Atorvastatin Calcium 40 mg 12/29/24 09:00 12/31/24 08:48 Atorvastatin 40 Mg Tablet PO 40 mg DAILY LUZ Administration Enoxaparin Sodium 40 mg 12/23/24 09:00 12/31/24 08:49 Enoxaparin 40 Mg/0.4 Ml Syringe SUB-Q 40 mg DAILY LUZ Administration Guaifenesin 600 mg 12/23/24 21:00 12/31/24 08:48 Guaifenesin 12 Hr 600 Mg Tabcr PO 600 mg Q12HR LUZ Administration Guaifenesin/Dextromethorphan 10 ml 12/23/24 18:49 Guaifenesin/Dextromethorphan 10 Ml Udc PO Q4H PRN Cough Hydrochlorothiazide 25 mg 12/26/24 18:00 12/30/24 18:53 Hydrochlorothiazide 25 Mg Tablet PO 25 mg QPM LUZ Administration Miscellaneous Information 0 each 12/31/24 00:01 Renew Tramadol And [place]so[place]le If Still Needs Or Orders With Auto D/C XX 01/30/25 00:00 CLARIFY LUZ Ondansetron HCl 4 mg 12/22/24 03:38 12/22/24 11:24 Ondansetron Inj 4 Mg/2 Ml Vial IV PUSH 4 mg Q4H PRN Administration Nausea Pantoprazole Sodium 40 mg 12/26/24 21:00 12/31/24 08:48 Pantoprazole 40 Mg Tablet PO 40 mg Q12HR LUZ Administration Sertraline HCl 100 mg 12/26/24 13:40 12/31/24 08:51 Sertraline Hcl 50 Mg Tablet PO 100 mg [id number] LUZ Administration Telmisartan 80 mg 12/26/24 18:00 12/30/24 18:53 Telmisartan 40 Mg Tablet PO 80 mg QPM LUZ Administration Tramadol HCl 25 mg 12/22/24 04:39 12/31/24 08:47 Tramadol Hcl (*Crx) 25 Mg Tablet PO 25 mg Q6H PRN Administration Pain Rated 4-6 Radiology Results: ITS Impressions Cervical Spine CT 12/21/24 20:39 Impression: Significant degenerative disease, without acute fracture. Thoracic/Lumbar Spine CT 12/21/24 20:42 Impression:Significant degenerative disease, without acute fracture. Clavicle X-Ray 12/21/24 21:07 IMPRESSION: As above Humerus X-Ray 12/21/24 21:08 IMPRESSION: Findings consistent with prior fracture deformity, as detailed above Chest CT 12/22/24 15:37 IMPRESSION: Dependent atelectasis with trace pleural thickening bilaterally. No consolidation. No cross-sectional imaging evidence to suggest pneumonia. Leukocytosis may be a result of urinary tract infection plus acute traumatic injury. Chest X-Ray 12/26/24 09:15 IMPRESSION: 1. Airspace opacities in the mid and lower lung zones, likely atelectasis. 2. Moderate-sized hiatal hernia. 3. Comminuted fracture of proximal left humerus. Head CT 12/27/24 14:28 IMPRESSION: 1. . 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 No acute intracranial process. 2. Age-related changes including mild diffuse volume loss and moderate scattered white matter hypoattenuation consistent with chronic small vessel ischemic disease. Brain MRI 12/28/24 08:36 IMPRESSION: 1. Small acute lacunar infarcts at the left cerebellar hemisphere and at the junction of the right thalamus and right cerebral peduncle. 2. 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 3. Age-related changes including mild diffuse volume loss and moderate scattered nonspecific white matter T2 hyperintensity which within normal limits for age and likely sequela of chronic small vessel ischemic disease. Carotid Doppler Study 12/28/24 16:39 IMPRESSION: 1. <50% stenosis in the right internal carotid artery. 2. <50% stenosis in the left internal carotid artery. Chest CTA 12/30/24 21:42 IMPRESSION: No pulmonary embolus. No aortic dissection. Trace bibasilar pleural effusions, left greater than right with adjacent compressive atelectasis. Labs Labs: Laboratory Results - last 24 hr 12/31/24 06:36 WBC 11.9 H RBC 3.24 L Hgb 8.3 L Hct 26.8 L MCV 82.7 MCH 25.6 L MCHC 31.0 L RDW 15.9 H Plt Count 402 H D MPV 10.3 Sodium 134 L Potassium 3.4 Chloride 98 Carbon Dioxide 27 Anion Gap 9 BUN 26 H Creatinine 1.17 H Estim Creat Clear Calc 30 Estimated GFR 44 L Glucose 108 Calcium 9.3 Total Bilirubin 0.9 AST 51 H ALT 57 H Alkaline Phosphatase 127 H Total Protein 7.0 Albumin 3.5
--- NOTE | 2024-12-31 16:11 | PCPTNOTE ---
On 12/31/24, the student, NEDA Smith, provided care and completed [facility] documentation on this patient. I have reviewed the student's documentation and agree with the findings.
[2024-12-31] MEDS: hydroCHLOROthiazide 25 MG TABLET PO (17:12)
[2024-12-31] MEDS: HYDROcodone/acetaminophen (*CRX) 7.5-325 MG TABLET 1 TAB PO ×2 (17:12→21:14)
[2024-12-31] MEDS: TELMISARTAN 40 MG TABLET 80 MG PO (17:12)
== END 2024-12-31 21:18 | DRG 562 ==
LOC: ANHED 12-22 03:44 → ANH3MEDSUR 12-22 04:47
PROVIDERS: Internal Medicine; Physician Assistant; Admitting Provider Internal Medicine; Emergency Provider Emergency Medicine; PCP Family Medicine Sports Medicine; Visit Provider General Practice
DX: S42.212A Unspecified displaced fracture of surgical neck of left humerus, initial encounter for closed fracture (principal); I63.9 Cerebral infarction, unspecified; N39.0 Urinary tract infection, site not specified; S42.291S Other displaced fracture of upper end of right humerus, sequela; W18.30XA Fall on same level, unspecified, initial encounter; R09.02 Hypoxemia; B96.20 Unspecified Escherichia coli [E. coli] as the cause of diseases classified elsewhere; B96.1 Klebsiella pneumoniae [K. pneumoniae] as the cause of diseases classified elsewhere; D50.9 Iron deficiency anemia, unspecified; E78.5 Hyperlipidemia, unspecified; F03.90 Unspecified dementia, unspecified severity, without behavioral disturbance, psychotic disturbance, mood disturbance, and anxiety; F41.8 Other specified anxiety disorders; G56.32 Lesion of radial nerve, left upper limb; I10 Essential (primary) hypertension; K25.7 Chronic gastric ulcer without hemorrhage or perforation; K21.9 Gastro-esophageal reflux disease without esophagitis; K22.70 Barrett's esophagus without dysplasia; Z86.73 Personal history of transient ischemic attack (TIA), and cerebral infarction without residual deficits; Z90.49 Acquired absence of other specified parts of digestive tract
CPT/HCPCS: 36415; 70450; 70551; 71045; 71250; 71275; 72125; 72128; 72131; 73000; 73060; 80053; 80061; 81001; 82728; 83036; 83540; 83550; 83605; 83735; 84484; 85025; 85027; 87040; 87086; 87186; 93005; 93880; 96365; 96375; 96376; 97110; 97163; 97165; 97167; 97530; 97535; 99285; A4565; A9270; C8929; G0378; J0456; J0696; J1650; J1940; J2270; J2405; J7030; Q9957; Q9967